=== PATIENT | female | born 1965 | race Caucasian/White ===

== ENCOUNTER → 2018-05-22 | Outpatient (CLI) | payer MEDICAID, OTHER ==
[~2018-05-22] MED LIST: ALBU0.5N2 NEB; ASPI-231 PO; ATOR20TA50 PO; CARV6.25 PO; ENAL2.5T PO; FURO20TA PO; GLIP-115 PO; LEVO137T3 PO; METF-371 PO; OME20T PO; POTA20TA53 PO
== END | disposition home or self-care (01) ==
LOC: RT 09:59
PROVIDERS: ATTEND Internal Medicine Cardiovascular Disease
DX: J44.9 Chronic obstructive pulmonary disease, unspecified (principal); I11.0 Hypertensive heart disease with heart failure; I50.9 Heart failure, unspecified; E11.9 Type 2 diabetes mellitus without complications; E03.9 Hypothyroidism, unspecified; Z79.82 Long term (current) use of aspirin; Z88.8 Allergy status to other drugs, medicaments and biological substances
CPT/HCPCS: 36600; 82805

== ENCOUNTER → 2018-05-27 | Outpatient (CLI) | payer MEDICAID, OTHER | END | disposition home or self-care (01) | LOC: XYW 08:24 | PROVIDERS: ATTEND Internal Medicine Cardiovascular Disease | DX: Z01.810 Encounter for preprocedural cardiovascular examination (principal); R00.2 Palpitations; I11.0 Hypertensive heart disease with heart failure; I50.9 Heart failure, unspecified; J44.9 Chronic obstructive pulmonary disease, unspecified; E11.9 Type 2 diabetes mellitus without complications | CPT/HCPCS: 93306 ==

== ENCOUNTER 2023-03-05 14:36 | Emergency (ER) | payer OTHER ==
[~2023-03-05] VITALS: Ht 154.9 cm; Wt 82.0 kg
[~2023-03-05 14:36] MED LIST changes: -ASPI-231 PO; +ASPI1TAB20 PO; +ENAL1TAB42 PO; -ENAL2.5T PO; +FURO1TAB33 PO; -FURO20TA PO; -GLIP-115 PO; +GLIP5TAB12 PO; +POTA-220 PO; -POTA20TA53 PO
[2023-03-05 15:04] LABS: Basophils # (auto) 0 10 ^3/uL (0-0.2); Basophils % (auto) 0.5 % (0.0-2.0); Eosinophils # (auto) 0.1 10 ^3/uL (0-0.8); Eosinophils % (auto) 1.2 % (0.0-7.0); Hematocrit 41.7 % (36.0-46.0); Hemoglobin 13.9 g/dL (12.2-16.2); Lymphocytes # (auto) 1.8 10 ^3/uL (0.4-5.4); Lymphocytes % (auto) 21.1 % (10.0-50.0); Mean Corpuscular Hgb Conc. 33.4 g/dL (32.0-36.0); Monocytes # (auto) 0.5 10 ^3/uL (0-1.3); Monocytes % (auto) 5.5 % (0.0-12.0); Neutrophils # (auto) 6.1 10 ^3/uL (1.6-8.6); Neutrophils % (auto) 71.7 % (37.0-80.0); Nucleated Red Blood Cells % 0.1 %; Red Blood Cells 4.79 10^6/uL (4.0-5.20); Red Cell Distribution Width 14.8 % (11.8-14.3); White Blood Cell 8.6 10^3/uL (4.4-10.8)
[2023-03-05 15:22] LABS: Albumin 3.4 g/dL (3.4-5.0); Calcium 9.7 mg/dL (8.5-10.1); Potassium 4.1 mmol/L (3.5-5.1)
[2023-03-05 15:25] LABS: BUN/Creatinine Ratio 22.2 (10.0-20.0); Bilirubin, Total 0.3 mg/dL (0.2-1.0); Total Protein 7.3 g/dL (6.4-8.2)
[2023-03-05 16:07] LABS: INR 0.95 (0.9-1.15); Partial Thromboplastin Time 27.1 sec (24.6-33.4)
[2023-03-05] MEDS ORDERED: IPRATROPIUM BROM 0.5 MG/2.5ML INH SOL NEB ONE (18:00)
[2023-03-05] MEDS ORDERED: FUROSEMIDE 100 MG/10ML VIAL IV ONE (18:00)
[2023-03-05] MEDS ORDERED: ALBUTEROL SULF 2.5 MG/0.5ML(0.5%) NEB SOLN NEB ONE (18:00)
[2023-03-05] MEDS ORDERED: DexAMETHasone SOD PHOS 10MG/1ML VIAL INJ IV ONE (18:00)
[2023-03-05 19:01] LABS: Urine Bacteria FEW /hpf (None Seen); Urine Blood 1+ /uL (Negative); Urine Mucus FEW (None Seen); Urine Specific Gravity 1.017 (1.001-1.035); Urine WBC 172 /hpf (0 - 5)
[2023-03-05] MEDS ORDERED: cefTRIAXone 1GM/50ML D5W 50 ML IV ONE (20:15)
[2023-03-05 21:51] VITALS: BP 133/83
[2023-03-05] MEDS ORDERED: CEPH500C PO (21:53)
== END 2023-03-05 21:51 | disposition left against medical advice (07) ==
LOC: ER 14:36
DX: N39.0 Urinary tract infection, site not specified (principal); R06.00 Dyspnea, unspecified; R09.02 Hypoxemia; J45.909 Unspecified asthma, uncomplicated; E11.9 Type 2 diabetes mellitus without complications; E78.5 Hyperlipidemia, unspecified; I11.0 Hypertensive heart disease with heart failure; I50.89 Other heart failure; Z90.710 Acquired absence of both cervix and uterus; Z90.49 Acquired absence of other specified parts of digestive tract; Z98.890 Other specified postprocedural states; Z90.89 Acquired absence of other organs; Z91.148 Patient's other noncompliance with medication regimen for other reason
CPT/HCPCS: 36415; 36600; 71045; 80053; 81001; 82805; 82962; 83880; 84484; 85025; 85379; 85610; 85730; 93005; 94640; 96365; 96375; 99285; J0696; J1100; J1940; J7644

== ENCOUNTER 2024-02-23 05:05 | Inpatient (IN) | payer MEDICAID ==
[2024-02-23] VITALS (14 sets, daily range): BP systolic 133–134; BP diastolic 72–78; PULSE 76–103; RESP 16–22; TEMP 97.5–97.7; O2SAT 92–100
[~2024-02-23] VITALS: Ht 154.9 cm; Wt 79.0 kg
[~2024-02-23 05:05] MED LIST changes: -CARV6.25 PO; +CARV6.2517 PO; +CEPH500C PO; -GLIP5TAB12 PO; +GLIP5TAB21 PO
[2024-02-23 05:43] LABS: Basophils # (auto) 0 10 ^3/uL (0-0.2); Basophils % (auto) 0.5 % (0.0-2.0); Eosinophils # (auto) 0.2 10 ^3/uL (0-0.8); Eosinophils % (auto) 2.4 % (0.0-7.0); Hematocrit 44.4 % (36.0-46.0); Hemoglobin 14.7 g/dL (12.2-16.2); Lymphocytes % (auto) 36.2 % (10.0-50.0); Mean Corpuscular Hemoglobin 29.6 pg (28.0-32.0); Mean Corpuscular Hgb Conc. 33.2 g/dL (32.0-36.0); Mean Corpuscular Volume 89.1 fL (80.0-100.0); Monocytes # (auto) 0.5 10 ^3/uL (0-1.3); Monocytes % (auto) 6.3 % (0.0-12.0); Neutrophils # (auto) 4.6 10 ^3/uL (1.6-8.6); Neutrophils % (auto) 54.6 % (37.0-80.0); Red Blood Cells 4.99 10^6/uL (4.0-5.20); Red Cell Distribution Width 15.6 % (11.8-14.3); White Blood Cell 8.4 10^3/uL (4.4-10.8)
[2024-02-23 05:57] LABS: INR 0.99 (0.9-1.15); Partial Thromboplastin Time 27.2 SEC (24.5-34.5); Prothrombin Time 10.5 sec (9.3-11.8)
[2024-02-23 06:04] LABS: Alanine Aminotransferase 12 U/L (7-40); Albumin 4.1 g/dL (3.2-4.8); Alkaline Phosphatase 126 U/L (46-116); Anion Gap 2 (5-15); Aspartate Aminotransferase 12 U/L (13-40); BUN/Creatinine Ratio 16.5 (10.0-20.0); Blood Urea Nitrogen 16 mg/dL (9-23); Calcium 10.6 mg/dL (8.7-10.4); Carbon Dioxide 31 mmol/L (20-30); Chloride 107 mmol/L (98-107); Glucose 168 mg/dL (74-106); Magnesium 2.1 mg/dL (1.6-2.6); Potassium 3.6 mmol/L (3.5-5.1); Sodium 140 mmol/L (136-145)
[2024-02-23 06:05] LABS: Bilirubin, Total 0.4 mg/dL (0.2-1.0); Total Protein 7.5 g/dL (5.7-8.2)
[2024-02-23] MEDS: ALBUTEROL SULF 2.5 MG/0.5ML(0.5%) NEB SOLN HHN ONE (06:48)
[2024-02-23] MEDS: IPRATROPIUM BROM 0.5 MG/2.5ML INH SOL HHN ONE (06:48)
[2024-02-23] MEDS: methylPREDNISolone SOD SUCC 125 MG/2 ML VL IV ONE (06:50)
[2024-02-23] MEDS ORDERED: MORPHINE SULFATE INJ 2 MG/ml SYRG IV PRN (09:45)
[2024-02-23] MEDS ORDERED: NITROGLYCERIN 0.4 MG SL TAB SL PRN (09:45)
[2024-02-23] MEDS: BUDESONIDE (INHALATION) 0.5 MG/2 ML NEB NEB SCH (10:00)
[2024-02-23] MEDS: ALBUTEROL SULF 2.5 MG/0.5ML(0.5%) NEB SOLN NEB SCH (10:00)
[2024-02-23] MEDS: IPRATROPIUM BROM 0.5 MG/2.5ML INH SOL NEB SCH (10:00)
[2024-02-23] MEDS: FAMOTIDINE 20 MG TAB PO SCH (10:54)
[2024-02-23] MEDS: ENOXAPARIN SOD 40 MG/0.4 ML SYRINGE SC SCH (10:54)
[2024-02-23] MEDS: methylPREDNISolone SOD SUCC 40 MG/ML VL IV SCH (11:36)
[2024-02-23] MEDS ORDERED: SEMA2INJ3 SC (17:37)
[2024-02-24] VITALS (19 sets, daily range): BP systolic 123–152; BP diastolic 73–86; PULSE 72–105; RESP 16–20; TEMP 97.5–98.9; O2SAT 94–100
[2024-02-24] MEDS: cefTRIAXone 1GM/50ML D5W 50 ML IV SCH (09:03)
[2024-02-24] MEDS: NICOTINE 14 MG/24HR TOPICAL PATCH TD SCH (09:03)
[2024-02-24] MEDS ORDERED: METF-929 PO (12:00)
[2024-02-24] MEDS ORDERED: HYDR-3682 PO (12:01)
[2024-02-25] VITALS (30 sets, daily range): BP systolic 60–166; BP diastolic 43–105; PULSE 77–137; RESP 16–27; TEMP 97.4–100; O2SAT 90–100
[2024-02-25] LABS: Amphetamine Screen, Urine Pos (NEGATIVE); Barbiturate Scree,Urine Neg (NEGATIVE); Benzodiazephine Screen, Urine Neg (NEGATIVE); Cocaine Screen, Urine Neg (NEGATIVE); Opiate Scree,Urine Neg (NEGATIVE)
[2024-02-25 00:01] LABS: Cannabinoid Screen, Urine Neg (NEGATIVE); Phencyclidine Screen, Urine Neg (NEGATIVE)
[2024-02-25 00:07] LABS: Urine Bacteria MANY /hpf (None Seen); Urine Blood 1+ /uL (Negative); Urine Clarity Turbid (Clear); Urine Color Light-Yellow (Yellow); Urine Mucus FEW (None Seen); Urine Protein, UAD TRACE (Negative); Urine Specific Gravity 1.021 (1.001-1.035); Urine Sperm PRESENT /hpf (None Seen); Urine Urobilinogen Normal (Negative); Urine WBC 166 /hpf (0 - 5); Urine pH 6.5 (5.0-9.0)
[2024-02-25] MEDS: HYDROcodone-ACET 5/325MG TAB PO PRN (14:08)
[2024-02-25] MEDS: MORPHINE SULFATE INJ 2 MG/ml SYRG IV PRN (16:23)
[2024-02-25] MEDS: PHENAZOPYRIDINE HCL 100 MG TAB PO SCH (17:30)
[2024-02-25] MEDS: FUROSEMIDE 20 MG/2 ML VIAL IV SCH (17:32)
[2024-02-25] MEDS: SODIUM CHLORIDE 0.9% 500 ML IV ONE (19:07)
[2024-02-25] MEDS: LORazepam 2MG/ML-1ML VIAL IV ONE (19:07)
[2024-02-25] MEDS: NOREPINEPHRINE 8 MG/250ML KIT 250 ML IV SCH (20:30)
[2024-02-25 21:27] LABS: Hematocrit 36.3 % (36.0-46.0); Hemoglobin 11.5 g/dL (12.2-16.2); Mean Corpuscular Hemoglobin 29.1 pg (28.0-32.0); Mean Corpuscular Hgb Conc. 31.7 g/dL (32.0-36.0); Mean Corpuscular Volume 91.5 fL (80.0-100.0); Red Blood Cells 3.97 10^6/uL (4.0-5.20); Red Cell Distribution Width 16.2 % (11.8-14.3)
[2024-02-25 21:32] LABS: Chloride 105 mmol/L (98-107); Potassium 4.8 mmol/L (3.5-5.1); Sodium 137 mmol/L (136-145)
[2024-02-25 21:33] LABS: Anion Gap 8 (5-15); Carbon Dioxide 24 mmol/L (20-30)
[2024-02-25] MEDS: ONDANSETRON HCL 4 MG/2 ML VIAL IV PRN (21:34)
[2024-02-25 21:38] LABS: Blood Urea Nitrogen 25 mg/dL (9-23)
[2024-02-25 21:41] LABS: Basophils % (manual) 0 (0.0-2.0); Blast Cells 0; Eosinophils % (manual) 0 (0-7); Metamyelocytes % 0; Myelocytes % 0; Promyelocytes % 0; Reactive Lymphocytes 0
[2024-02-25 21:47] LABS: Glucose 507 mg/dL (74-106)
[2024-02-25] MEDS: POTASSIUM CHL 20 Meq TABLET PO SCH (22:00)
[2024-02-25 22:09] LABS: Band Neutrophils % (manual) 5; Lymphocytes % (manual) 12 (10.0-50.0); Monocytes % (manual) 10 (0-12)
[2024-02-25 22:10] LABS: Platelet Estimate Increased
[2024-02-25] MEDS ORDERED: DEXTROSE (50%) 50ML SYRG IV PRN (22:15)
[2024-02-25] MEDS ORDERED: cefTRIAXone 1GM/50ML D5W 50 ML IV ONE (22:15)
[2024-02-25] MEDS: ACCU-CHEK COMFORT CURVE STRIP VI SCH (22:59)
[2024-02-25] MEDS: InsuLIN REG 1unit/0.01ml Soln (100units/ml) SC SCH (22:59)
[2024-02-25 23:44] LABS: Lactic Acid w/Reflex 5.5 mmol/L (0.4-2.0)
[2024-02-26] VITALS (59 sets, daily range): BP systolic 99–169; BP diastolic 64–92; PULSE 88–137; RESP 14–25; TEMP 97.3–99.5; O2SAT 90–100
[2024-02-26] MEDS ORDERED: VANCOMYCIN PER PHARMACY 0 MG IV SCH (00:30)
[2024-02-26] MEDS: PANTOPRAZOLE 40 MG/10 ML VIAL INJ IV ONE (00:58)
[2024-02-26] MEDS: SODIUM CHLORIDE 0.9% 500 ML IV ONE (01:01)
[2024-02-26] MEDS: VANCOMYCIN 1GM/200ML 200 ML IV ONE (01:31)
[2024-02-26 03:53] LABS: Basophils # (auto) 0 10 ^3/uL (0-0.2); Basophils % (auto) 0.1 % (0.0-2.0); Eosinophils # (auto) 0 10 ^3/uL (0-0.8); Hematocrit 32.1 % (36.0-46.0); Hemoglobin 10.1 g/dL (12.2-16.2); Lymphocytes # (auto) 1.3 10 ^3/uL (0.4-5.4); Lymphocytes % (auto) 6.2 % (10.0-50.0); Mean Corpuscular Hemoglobin 28.3 pg (28.0-32.0); Mean Corpuscular Hgb Conc. 31.4 g/dL (32.0-36.0); Mean Corpuscular Volume 90.1 fL (80.0-100.0); Monocytes # (auto) 1.7 10 ^3/uL (0-1.3); Monocytes % (auto) 7.9 % (0.0-12.0); Neutrophils # (auto) 18.1 10 ^3/uL (1.6-8.6); Neutrophils % (auto) 85.8 % (37.0-80.0); Red Blood Cells 3.56 10^6/uL (4.0-5.20); Red Cell Distribution Width 16.4 % (11.8-14.3); White Blood Cell 21.1 10^3/uL (4.4-10.8)
[2024-02-26 04:01] LABS: Alanine Aminotransferase 48 U/L (7-40); Alkaline Phosphatase 78 U/L (46-116); Anion Gap 5 (5-15); Aspartate Aminotransferase 42 U/L (13-40); BUN/Creatinine Ratio 18.3 (10.0-20.0); Blood Urea Nitrogen 31 mg/dL (9-23); Calcium 10.1 mg/dL (8.7-10.4); Carbon Dioxide 27 mmol/L (20-30); Chloride 106 mmol/L (98-107); Glucose 274 mg/dL (74-106); Potassium 4.9 mmol/L (3.5-5.1); Sodium 138 mmol/L (136-145)
[2024-02-26 04:02] LABS: Bilirubin, Total 0.3 mg/dL (0.2-1.0); Total Protein 5.3 g/dL (5.7-8.2)
[2024-02-26 04:30] LABS: Albumin 3.1 g/dL (3.2-4.8)
[2024-02-26] MEDS: IOHEXOL 350 MG/ML 100ML IJ ONE (05:43)
[2024-02-26 06:22] LABS: INR 1.05 (0.9-1.15); Prothrombin Time 11.1 sec (9.3-11.8)
[2024-02-26 06:38] LABS: Lactic Acid w/Reflex 3.8 mmol/L (0.4-2.0)
[2024-02-26 07:41] LABS: Base Excess 1.2 mmol/L (-2.0-2.0)
[2024-02-26] MEDS: PANTOPRAZOLE 40 MG/10 ML VIAL INJ IV SCH (09:06)
[2024-02-26] MEDS: cefTRIAXone 1GM/50ML D5W 50 ML IV SCH (09:06)
[2024-02-26 12:35] LABS: Lactic Acid w/Reflex 2.7 mmol/L (0.4-2.0)
[2024-02-26] MEDS: PIPERACILLIN-TAZOB 3.375GM 100 ML IV SCH (15:35)
[2024-02-26] MEDS: FAMOTIDINE 20 MG TAB PO SCH (15:35)
[2024-02-26] MEDS: hydrALAZINE HCL 20 MG/ML VL ONE (15:44)
[2024-02-26] MEDS ORDERED: hydrALAZINE HCL 20 MG/ML VL IV PRN (15:45)
[2024-02-26] MEDS: hydrALAZINE HCL 20 MG/ML VL IV PRN (15:54)
[2024-02-26] MEDS: guaiFENesin-DM 100/10mg/5ml SYR PO PRN (16:10)
[2024-02-26] MEDS: guaiFENesin-DM 100/10mg/5ml SYR ONE (16:21)
[2024-02-26 19:05] LABS: Lactic Acid w/Reflex 3.8 mmol/L (0.4-2.0)
[2024-02-26] MEDS: VANCOMYCIN 500 MG in D5W 5% 100 ML IV ONE (22:03)
[2024-02-26] MEDS: MUPIROCIN 2% OINT 15gm or 22gm FOR MRSA NARES EACHNOSTRI SCH (22:07)
[2024-02-27] VITALS (30 sets, daily range): BP systolic 116–159; BP diastolic 63–97; PULSE 95–120; RESP 11–23; TEMP 98.2–99.1; O2SAT 83–100
[2024-02-27 04:24] LABS: Basophils # (auto) 0 10 ^3/uL (0-0.2); Basophils % (auto) 0.1 % (0.0-2.0); Eosinophils # (auto) 0 10 ^3/uL (0-0.8); Hematocrit 27.4 % (36.0-46.0); Hemoglobin 8.9 g/dL (12.2-16.2); Lymphocytes # (auto) 1.5 10 ^3/uL (0.4-5.4); Lymphocytes % (auto) 8.2 % (10.0-50.0); Mean Corpuscular Hemoglobin 29.1 pg (28.0-32.0); Mean Corpuscular Hgb Conc. 32.6 g/dL (32.0-36.0); Mean Corpuscular Volume 89.2 fL (80.0-100.0); Monocytes # (auto) 1.1 10 ^3/uL (0-1.3); Monocytes % (auto) 5.9 % (0.0-12.0); Neutrophils # (auto) 15.3 10 ^3/uL (1.6-8.6); Neutrophils % (auto) 85.8 % (37.0-80.0); Nucleated Red Blood Cells % 0.1 %; Red Blood Cells 3.08 10^6/uL (4.0-5.20); Red Cell Distribution Width 15.9 % (11.8-14.3); White Blood Cell 17.8 10^3/uL (4.4-10.8)
[2024-02-27 04:43] LABS: Alanine Aminotransferase 131 U/L (7-40); Albumin 3.6 g/dL (3.2-4.8); Alkaline Phosphatase 87 U/L (46-116); Anion Gap 5 (5-15); Aspartate Aminotransferase 86 U/L (13-40); BUN/Creatinine Ratio 24.5 (10.0-20.0); Bilirubin, Total 0.4 mg/dL (0.2-1.0); Blood Urea Nitrogen 40 mg/dL (9-23); Calcium 10.8 mg/dL (8.7-10.4); Carbon Dioxide 28 mmol/L (20-30); Chloride 103 mmol/L (98-107); Glucose 207 mg/dL (74-106); Potassium 4.7 mmol/L (3.5-5.1); Sodium 136 mmol/L (136-145); Total Protein 6.1 g/dL (5.7-8.2)
[2024-02-27] MEDS: PANTOPRAZOLE 40 MG TAB PO SCH (06:07)
[2024-02-27] MEDS: FUROSEMIDE 20 MG/2 ML VIAL IV SCH (07:53)
[2024-02-27] MEDS ORDERED: cefTRIAXone 1GM/50ML D5W 50 ML IV SCH (09:00)
[2024-02-27 09:55] LABS: Base Excess 2.6 mmol/L (-2.0-2.0)
[2024-02-27] MEDS ORDERED: POTASSIUM CHL 20 Meq TABLET PO SCH (10:00)
[2024-02-27] MEDS: VANCOMYCIN 1GM/200ML 200 ML IV SCH (22:20)
[2024-02-28] VITALS (28 sets, daily range): BP systolic 123–150; BP diastolic 51–95; PULSE 77–116; RESP 15–26; TEMP 98.4–98.9; O2SAT 79–100
[2024-02-28 04:10] LABS: Basophils # (auto) 0 10 ^3/uL (0-0.2); Basophils % (auto) 0.1 % (0.0-2.0); Eosinophils # (auto) 0 10 ^3/uL (0-0.8); Hematocrit 24.3 % (36.0-46.0); Monocytes # (auto) 0.9 10 ^3/uL (0-1.3); Red Blood Cells 2.74 10^6/uL (4.0-5.20)
[2024-02-28 04:13] LABS: Lymphocytes # (auto) 1.2 10 ^3/uL (0.4-5.4); Lymphocytes % (auto) 9.1 % (10.0-50.0); Mean Corpuscular Hemoglobin 29.2 pg (28.0-32.0); Mean Corpuscular Hgb Conc. 32.9 g/dL (32.0-36.0); Mean Corpuscular Volume 88.7 fL (80.0-100.0); Monocytes % (auto) 6.9 % (0.0-12.0); Neutrophils # (auto) 11.2 10 ^3/uL (1.6-8.6); Neutrophils % (auto) 83.9 % (37.0-80.0); Nucleated Red Blood Cells % 0.1 %; Red Cell Distribution Width 15.5 % (11.8-14.3); White Blood Cell 13.4 10^3/uL (4.4-10.8)
[2024-02-28 04:41] LABS: Alanine Aminotransferase 102 U/L (7-40); Albumin 3.7 g/dL (3.2-4.8); Alkaline Phosphatase 81 U/L (46-116); Anion Gap 3 (5-15); Aspartate Aminotransferase 42 U/L (13-40); Bilirubin, Total 0.4 mg/dL (0.2-1.0); Blood Urea Nitrogen 31 mg/dL (9-23); Calcium 10.4 mg/dL (8.5-10.1); Carbon Dioxide 32 mmol/L (20-30); Chloride 104 mmol/L (98-107); Glucose 157 mg/dL (74-106); Potassium 3.5 mmol/L (3.5-5.1); Sodium 139 mmol/L (136-145); Total Protein 6.1 g/dL (5.7-8.2)
[2024-02-28] MEDS: PANTOPRAZOLE 40 MG/10 ML VIAL INJ IV SCH (06:20)
[2024-02-28] MEDS ORDERED: GASTROGRAFIN 120 ML SOL ONE (07:21)
[2024-02-29] VITALS (20 sets, daily range): BP systolic 112–132; BP diastolic 43–66; PULSE 64–94; RESP 0–20; TEMP 97.8–98.7; O2SAT 94–100
[2024-02-29 06:15] LABS: Hemoglobin 7.6 g/dL (12.2-16.2); Red Cell Distribution Width 15.6 % (11.8-14.3); White Blood Cell 8.8 10^3/uL (4.4-10.8)
[2024-02-29 06:18] LABS: Hematocrit 22.9 % (36.0-46.0); Mean Corpuscular Hemoglobin 29.6 pg (28.0-32.0); Mean Corpuscular Volume 89.7 fL (80.0-100.0); Red Blood Cells 2.55 10^6/uL (4.0-5.20)
[2024-02-29 06:25] LABS: Band Neutrophils % (manual) 0; Basophils % (manual) 0 (0.0-2.0); Blast Cells 0; Eosinophils % (manual) 0 (0-7); Metamyelocytes % 0; Myelocytes % 0; Promyelocytes % 0; Reactive Lymphocytes 0
[2024-02-29 06:41] LABS: Alanine Aminotransferase 68 U/L (7-40); Albumin 3.6 g/dL (3.2-4.8); Alkaline Phosphatase 72 U/L (46-116); Anion Gap 2 (5-15); Aspartate Aminotransferase 22 U/L (13-40); BUN/Creatinine Ratio 25.3 (10.0-20.0); Bilirubin, Total 0.7 mg/dL (0.2-1.0); Blood Urea Nitrogen 25 mg/dL (9-23); Calcium 10.2 mg/dL (8.7-10.4); Carbon Dioxide 35 mmol/L (20-30); Chloride 103 mmol/L (98-107); Glucose 199 mg/dL (74-106); Potassium 3.3 mmol/L (3.5-5.1); Sodium 140 mmol/L (136-145); Total Protein 5.9 g/dL (5.7-8.2)
[2024-02-29 07:52] LABS: Lymphocytes % (manual) 9 (10.0-50.0); Monocytes % (manual) 4 (0-12); Platelet Estimate Adequate; Smudge Cells 1 /100 WBC
[2024-03-01] VITALS (21 sets, daily range): BP systolic 101–132; BP diastolic 55–70; PULSE 66–109; RESP 16–22; TEMP 97.6–98.2; O2SAT 91–100
[2024-03-01] MEDS: VANCOMYCIN 1GM/200ML 200 ML IV SCH (18:06)
[2024-03-02] VITALS (11 sets, daily range): BP systolic 112–148; BP diastolic 55–86; PULSE 57–88; RESP 16–20; TEMP 97.7–97.8; O2SAT 91–100
[2024-03-02 05:54] LABS: Alanine Aminotransferase 40 U/L (7-40); Albumin 3.6 g/dL (3.2-4.8); Alkaline Phosphatase 76 U/L (46-116); Anion Gap 4 (5-15); Aspartate Aminotransferase 16 U/L (13-40); BUN/Creatinine Ratio 23.4 (10.0-20.0); Bilirubin, Total 0.9 mg/dL (0.2-1.0); Blood Urea Nitrogen 18 mg/dL (9-23); Calcium 10.5 mg/dL (8.7-10.4); Carbon Dioxide 31 mmol/L (20-30); Chloride 104 mmol/L (98-107); Glucose 173 mg/dL (74-106); Potassium 3.4 mmol/L (3.5-5.1); Sodium 139 mmol/L (136-145)
[2024-03-02] MEDS: PIPERACILLIN-TAZOB 3.375GM 100 ML IV SCH (10:06)
== END 2024-03-02 15:15 | disposition left against medical advice (07) | DRG 720 ==
LOC: EDBD 05:05 → EDUNIT# 05:05 → ER 05:05 → OVERFLOW 09:48 → WEST WING 17:17 → ICU WEST 02-25 20:59 → TELE-WESTW 02-28 23:39 → TELE-CENTR 03-01 23:47
PROVIDERS: ADMIT Hospitalist; ATTEND Hospitalist
DX: A41.59 Other Gram-negative sepsis (principal); N17.0 Acute kidney failure with tubular necrosis; J96.01 Acute respiratory failure with hypoxia; J96.02 Acute respiratory failure with hypercapnia; E87.20 Acidosis, unspecified; I11.0 Hypertensive heart disease with heart failure; I50.9 Heart failure, unspecified; Z53.29 Procedure and treatment not carried out because of patient's decision for other reasons; J44.1 Chronic obstructive pulmonary disease with (acute) exacerbation; E03.9 Hypothyroidism, unspecified; E11.9 Type 2 diabetes mellitus without complications; E78.5 Hyperlipidemia, unspecified; N39.0 Urinary tract infection, site not specified; F17.210 Nicotine dependence, cigarettes, uncomplicated; Z16.12 Extended spectrum beta lactamase (ESBL) resistance; Z79.82 Long term (current) use of aspirin; Z79.84 Long term (current) use of oral hypoglycemic drugs; Z82.49 Family history of ischemic heart disease and other diseases of the circulatory system; Z71.6 Tobacco abuse counseling; Z85.43 Personal history of malignant neoplasm of ovary; Z90.49 Acquired absence of other specified parts of digestive tract; Z79.899 Other long term (current) drug therapy
CPT/HCPCS: 36415; 36600; 70450; 71045; 71260; 74018; 74177; 74250; 76705; 80048; 80053; 80202; 80307; 81001; 82140; 82805; 82962; 83605; 83735; 83880; 84484; 85007; 85025; 85027; 85379; 85610; 85730; 87040; 87081; 87086; 87088; 87186; 93005; 93306; 94640; 99291; C9113; G0378; J1815; J2405; J2543; J7060

== ENCOUNTER 2024-06-09 08:56 | Inpatient (IN) | payer MEDICAID ==
[~2024-06-09] VITALS: Ht 154.9 cm; Wt 88.2 kg
[~2024-06-09 08:56] MED LIST changes: -CEPH500C PO; +HYDR-3682 PO; -METF-371 PO; +METF-929 PO; +SEMA2INJ3 SC
[2024-06-09] MEDS: ACETAMINOPHEN 500 MG TAB PO ONE ×2 (09:07→09:17)
[2024-06-09] MEDS: SODIUM CHLORIDE 0.9% 1,000 ML IV ONE ×2 (09:22→13:34)
[2024-06-09 09:41] LABS: Basophils # (auto) 0 10 ^3/uL (0-0.2); Basophils % (auto) 0.3 % (0.0-2.0); Eosinophils # (auto) 0.1 10 ^3/uL (0-0.8); Eosinophils % (auto) 0.4 % (0.0-7.0); Hematocrit 45.9 % (36.0-46.0); Hemoglobin 15.5 g/dL (12.2-16.2); Lymphocytes % (auto) 7.3 % (10.0-50.0); Mean Corpuscular Hemoglobin 30.5 pg (28.0-32.0); Mean Corpuscular Hgb Conc. 33.6 g/dL (32.0-36.0); Mean Corpuscular Volume 90.7 fL (80.0-100.0); Monocytes # (auto) 0.7 10 ^3/uL (0-1.3); Monocytes % (auto) 5.3 % (0.0-12.0); Neutrophils # (auto) 11.9 10 ^3/uL (1.6-8.6); Neutrophils % (auto) 86.7 % (37.0-80.0); Platelet Count (auto) 420 10^3/uL (140-450); Red Blood Cells 5.07 10^6/uL (4.0-5.20); Red Cell Distribution Width 15.1 % (11.8-14.3); White Blood Cell 13.7 10^3/uL (4.4-10.8)
[2024-06-09 10:06] LABS: INR 1.02 (0.9-1.15); Partial Thromboplastin Time 28.2 SEC (24.5-34.5)
[2024-06-09 10:13] LABS: Alanine Aminotransferase 34 U/L (7-40); Albumin 4.6 g/dL (3.2-4.8); Alkaline Phosphatase 186 U/L (46-116); Anion Gap 3 (5-15); Aspartate Aminotransferase 26 U/L (13-40); BUN/Creatinine Ratio 10.3 (10.0-20.0); Bilirubin, Total 0.4 mg/dL (0.2-1.0); Blood Urea Nitrogen 11 mg/dL (9-23); Calcium 10.7 mg/dL (8.7-10.4); Carbon Dioxide 30 mmol/L (20-30); Chloride 106 mmol/L (98-107); Glucose 174 mg/dL (74-106); Potassium 4.1 mmol/L (3.5-5.1); Sodium 139 mmol/L (136-145); Total Protein 8.2 g/dL (5.7-8.2)
[2024-06-09] MEDS: cefTRIAXone 1GM/50ML D5W 50 ML IV ONE (10:25)
[2024-06-09] MEDS: IPRATROPIUM BROM 0.5 MG/2.5ML INH SOL NEB ONE (11:00)
[2024-06-09] MEDS: ALBUTEROL SULF 2.5 MG/0.5ML(0.5%) NEB SOLN NEB ONE (11:00)
[2024-06-09] MEDS: AZITHROMYCIN 500MG/ 250ML 250 ML IV ONE (12:50)
[2024-06-09 13:19] LABS: Urine Bacteria FEW /hpf (None Seen); Urine Blood 2+ /uL (Negative); Urine Clarity Turbid (Clear); Urine Color Colorless (Yellow); Urine Mucus FEW (None Seen); Urine Protein, UAD 1+ (Negative); Urine Specific Gravity 1.015 (1.001-1.035); Urine Urobilinogen Normal (Negative); Urine WBC 447 /hpf (0 - 5); Urine WBC Clumps PRESENT /hpf (None Seen)
[2024-06-09 15:09] LABS: COVID19 ANTIGEN SOFIA FIA NEGATIVE (NEGATIVE); Rapid Influenza A Negative (Negative); Rapid Influenza B Negative (Negative)
[2024-06-09 15:18] LABS: Rapid Strep A Screen-Throat Positive
[2024-06-09 16:43] VITALS: PULSE 119; RESP 20; TEMP 100.4; O2SAT 97
[2024-06-09] MEDS ORDERED: SODIUM CHLORIDE 0.9% 1,000 ML IV SCH (16:45)
[2024-06-09] MEDS ORDERED: ALBUTEROL SULF 2.5 MG/0.5ML(0.5%) NEB SOLN NEB PRN (16:45)
[2024-06-09] MEDS ORDERED: hydrALAZINE HCL 20 MG/ML VL IV PRN ×2 (16:45→23:30)
[2024-06-09] MEDS ORDERED: MORPHINE SULFATE INJ 2 MG/ml SYRG IV PRN ×2 (16:45→23:45)
[2024-06-09] MEDS ORDERED: NITROGLYCERIN 0.4 MG SL TAB SL PRN ×2 (16:45→17:00)
[2024-06-09] MEDS ORDERED: DEXTROSE (50%) 50ML SYRG IV PRN ×2 (16:45→23:30)
[2024-06-09] MEDS ORDERED: ONDANSETRON HCL 4 MG/2 ML VIAL IV PRN ×2 (16:45→23:45)
[2024-06-09] MEDS ORDERED: InsuLIN REG 1unit/0.01ml Soln (100units/ml) SC SCH (17:00)
[2024-06-09] MEDS ORDERED: ACCU-CHEK COMFORT CURVE STRIP VI SCH (17:00)
[2024-06-09] MEDS: ALBUTEROL SULF 2.5 MG/0.5ML(0.5%) NEB SOLN NEB SCH (18:15)
[2024-06-09] MEDS: FUROSEMIDE 40 MG/4 ML VIAL IV ONE (19:51)
[2024-06-09] MEDS: methylPREDNISolone SOD SUCC 125 MG/2 ML VL IV ONE (19:51)
[2024-06-09] MEDS ORDERED: FUROSEMIDE 20 MG TAB PO SCH (22:00)
[2024-06-09] MEDS ORDERED: ATORVASTATIN 20 MG TAB PO SCH (22:00)
[2024-06-09] MEDS ORDERED: ENALAPRIL MALEATE 2.5 MG TAB PO SCH (22:00)
[2024-06-09] MEDS ORDERED: CARVEDILOL 3.125 MG TAB PO SCH ×2 (22:00→22:30)
[2024-06-09] MEDS ORDERED: PIPERACILLIN-TAZOB 3.375GM 100 ML IV SCH ×2 (22:00→23:45)
[2024-06-09 22:29] VITALS: O2SAT 96
[2024-06-09] MEDS: ENALAPRIL MALEATE 2.5 MG TAB PO SCH (23:35)
[2024-06-09] MEDS: ONDANSETRON HCL 4 MG/2 ML VIAL IV ONE (23:35)
[2024-06-09] MEDS: MORPHINE SULFATE INJ 2 MG/ml SYRG IV ONE (23:36)
[2024-06-09] MEDS: CARVEDILOL 3.125 MG TAB PO SCH (23:38)
[2024-06-09] MEDS: ACETAMINOPHEN 325 MG TAB PO PRN (23:38)
[2024-06-09] MEDS: ATORVASTATIN 20 MG TAB PO SCH (23:38)
[2024-06-09] MEDS: ACCU-CHEK COMFORT CURVE STRIP VI SCH (23:39)
[2024-06-09] MEDS: InsuLIN REG 1unit/0.01ml Soln (100units/ml) SC SCH (23:54)
[2024-06-09] MEDS: PIPERACILLIN-TAZOB 3.375GM 100 ML IV SCH (23:59)
[2024-06-10] VITALS (9 sets, daily range): BP systolic 117; BP diastolic 68; PULSE 61–89; RESP 13–20; TEMP 97.9; O2SAT 95–99
[2024-06-10 05:16] LABS: Basophils # (auto) 0 10 ^3/uL (0-0.2); Basophils % (auto) 0.1 % (0.0-2.0); Eosinophils # (auto) 0 10 ^3/uL (0-0.8); Hematocrit 44.3 % (36.0-46.0); Hemoglobin 14.8 g/dL (12.2-16.2); Lymphocytes # (auto) 0.9 10 ^3/uL (0.4-5.4); Lymphocytes % (auto) 7.7 % (10.0-50.0); Mean Corpuscular Hemoglobin 30.2 pg (28.0-32.0); Mean Corpuscular Hgb Conc. 33.4 g/dL (32.0-36.0); Mean Corpuscular Volume 90.5 fL (80.0-100.0); Monocytes # (auto) 0.1 10 ^3/uL (0-1.3); Monocytes % (auto) 0.9 % (0.0-12.0); Neutrophils # (auto) 10.3 10 ^3/uL (1.6-8.6); Neutrophils % (auto) 91.3 % (37.0-80.0); Nucleated Red Blood Cells % 0.1 %; Platelet Count (auto) 378 10^3/uL (140-450); Red Cell Distribution Width 15.2 % (11.8-14.3); White Blood Cell 11.3 10^3/uL (4.4-10.8)
[2024-06-10 05:27] LABS: Chloride 104 mmol/L (98-107); Potassium 3.7 mmol/L (3.5-5.1); Sodium 138 mmol/L (136-145)
[2024-06-10 05:28] LABS: Anion Gap 4 (5-15); Carbon Dioxide 30 mmol/L (20-30)
[2024-06-10 05:29] LABS: Calcium 10.1 mg/dL (8.7-10.4)
[2024-06-10 05:33] LABS: Glucose 254 mg/dL (74-106)
[2024-06-10 05:34] LABS: BUN/Creatinine Ratio 13.5 (10.0-20.0); Blood Urea Nitrogen 14 mg/dL (9-23)
[2024-06-10] MEDS ORDERED: IPRATROPIUM BROM 0.5 MG/2.5ML INH SOL NEB SCH (06:00)
[2024-06-10] MEDS ORDERED: LEVOTHYROXINE SODIUM 25 MCG TAB PO SCH (07:00)
[2024-06-10] MEDS ORDERED: LEVOTHYROXINE SODIUM 112 MCG TAB PO SCH (07:00)
[2024-06-10] MEDS: ALBUTEROL SULF 2.5 MG/0.5ML(0.5%) NEB SOLN NEB SCH ×2 (07:43→17:58)
[2024-06-10] MEDS: IPRATROPIUM BROM 0.5 MG/2.5ML INH SOL NEB SCH (07:44)
[2024-06-10] MEDS: LEVOTHYROXINE SODIUM 25 MCG TAB PO SCH (07:45)
[2024-06-10] MEDS: LEVOTHYROXINE SODIUM 112 MCG TAB PO SCH (07:46)
[2024-06-10] MEDS ORDERED: POTASSIUM CHL 20 Meq TABLET PO SCH (10:00)
[2024-06-10] MEDS ORDERED: ASPirin-EC 81 mg tab PO SCH (10:00)
[2024-06-10] MEDS ORDERED: FAMOTIDINE 20 MG TAB PO SCH (10:00)
[2024-06-10] MEDS ORDERED: PATIENTS OWN MEDICATION (Levothyroxine Sodium 1 TAB) PO SCH (10:00)
[2024-06-10] MEDS ORDERED: ENOXAPARIN SOD 40 MG/0.4 ML SYRINGE SC SCH (10:00)
[2024-06-10] MEDS: FUROSEMIDE 20 MG TAB PO SCH (10:00)
[2024-06-10] MEDS: FAMOTIDINE 20 MG TAB PO SCH (10:25)
[2024-06-10] MEDS: POTASSIUM CHL 20 Meq TABLET PO SCH (10:26)
[2024-06-10] MEDS: ASPirin-EC 81 mg tab PO SCH (10:27)
[2024-06-10] MEDS: ENOXAPARIN SOD 40 MG/0.4 ML SYRINGE SC SCH (10:28)
[2024-06-10] MEDS: CARVEDILOL 3.125 MG TAB PO SCH (21:01)
[2024-06-10] MEDS ORDERED: ATORVASTATIN 20 MG TAB PO SCH (22:30)
[2024-06-11] VITALS (14 sets, daily range): BP systolic 106–137; BP diastolic 57–82; PULSE 62–77; RESP 16–19; TEMP 97.4–98.2; O2SAT 95–100
[2024-06-11 06:34] LABS: Basophils # (auto) 0 10 ^3/uL (0-0.2); Basophils % (auto) 0.2 % (0.0-2.0); Eosinophils # (auto) 0 10 ^3/uL (0-0.8); Eosinophils % (auto) 0.1 % (0.0-7.0); Hematocrit 42.3 % (36.0-46.0); Hemoglobin 14.1 g/dL (12.2-16.2); Lymphocytes % (auto) 16.7 % (10.0-50.0); Mean Corpuscular Hgb Conc. 33.4 g/dL (32.0-36.0); Mean Corpuscular Volume 89.9 fL (80.0-100.0); Monocytes # (auto) 0.9 10 ^3/uL (0-1.3); Monocytes % (auto) 7.1 % (0.0-12.0); Neutrophils # (auto) 9.3 10 ^3/uL (1.6-8.6); Neutrophils % (auto) 75.9 % (37.0-80.0); Nucleated Red Blood Cells % 0.1 %; Platelet Count (auto) 391 10^3/uL (140-450); Red Cell Distribution Width 15.1 % (11.8-14.3); White Blood Cell 12.2 10^3/uL (4.4-10.8)
[2024-06-11 06:35] LABS: Chloride 105 mmol/L (98-107); Potassium 4.3 mmol/L (3.5-5.1); Sodium 141 mmol/L (136-145)
[2024-06-11 06:36] LABS: Anion Gap 3 (5-15); Carbon Dioxide 33 mmol/L (20-30)
[2024-06-11 06:37] LABS: Calcium 10.8 mg/dL (8.7-10.4)
[2024-06-11 06:41] LABS: Glucose 133 mg/dL (74-106)
[2024-06-11 06:42] LABS: BUN/Creatinine Ratio 23.1 (10.0-20.0); Magnesium 2.2 mg/dL (1.6-2.6)
[2024-06-11 06:48] LABS: Blood Urea Nitrogen 25 mg/dL (9-23)
[2024-06-12 05:00] VITALS: BP 142/75; PULSE 61; RESP 16; TEMP 97.9; O2SAT 97
[2024-06-12 05:59] LABS: Basophils # (auto) 0 10 ^3/uL (0-0.2); Basophils % (auto) 0.4 % (0.0-2.0); Eosinophils # (auto) 0.1 10 ^3/uL (0-0.8); Eosinophils % (auto) 1.4 % (0.0-7.0); Hematocrit 42.4 % (36.0-46.0); Hemoglobin 14.5 g/dL (12.2-16.2); Lymphocytes # (auto) 2.4 10 ^3/uL (0.4-5.4); Lymphocytes % (auto) 29.7 % (10.0-50.0); Mean Corpuscular Hemoglobin 30.9 pg (28.0-32.0); Mean Corpuscular Hgb Conc. 34.3 g/dL (32.0-36.0); Mean Corpuscular Volume 90.2 fL (80.0-100.0); Monocytes # (auto) 0.7 10 ^3/uL (0-1.3); Monocytes % (auto) 8.7 % (0.0-12.0); Neutrophils # (auto) 4.9 10 ^3/uL (1.6-8.6); Neutrophils % (auto) 59.8 % (37.0-80.0); Platelet Count (auto) 362 10^3/uL (140-450); Red Cell Distribution Width 15.1 % (11.8-14.3); White Blood Cell 8.2 10^3/uL (4.4-10.8)
[2024-06-12 06:29] VITALS: PULSE 69; RESP 16; O2SAT 93
[2024-06-12 06:31] VITALS: O2SAT 93
[2024-06-12 06:37] VITALS: PULSE 68; RESP 14; O2SAT 100
[2024-06-12 06:39] LABS: Anion Gap 3 (5-15); Carbon Dioxide 35 mmol/L (20-30); Chloride 102 mmol/L (98-107); Potassium 3.9 mmol/L (3.5-5.1); Sodium 140 mmol/L (136-145)
[2024-06-12 06:40] LABS: Calcium 10.4 mg/dL (8.7-10.4)
[2024-06-12 06:44] LABS: Glucose 153 mg/dL (74-106)
[2024-06-12 06:45] LABS: Blood Urea Nitrogen 24 mg/dL (9-23)
[2024-06-12 09:34] VITALS: BP 125/65; PULSE 69; RESP 17; TEMP 98.4; O2SAT 97
[2024-06-12] MEDS ORDERED: AMOX500T86 PO (13:18)
== END 2024-06-12 11:33 | disposition left against medical advice (07) | DRG 140 ==
LOC: EDBD 08:56 → ER 08:56 → TELE 16:37 → TELE-EAST 16:37 → ER 16:37 → TELE-EAST 06-10 23:00
PROVIDERS: ADMIT Hospitalist; ATTEND Hospitalist
DX: J44.1 Chronic obstructive pulmonary disease with (acute) exacerbation (principal); J96.00 Acute respiratory failure, unspecified whether with hypoxia or hypercapnia; I50.9 Heart failure, unspecified; I11.0 Hypertensive heart disease with heart failure; J44.0 Chronic obstructive pulmonary disease with (acute) lower respiratory infection; Z53.29 Procedure and treatment not carried out because of patient's decision for other reasons; E11.65 Type 2 diabetes mellitus with hyperglycemia; E66.9 Obesity, unspecified; E78.5 Hyperlipidemia, unspecified; N39.0 Urinary tract infection, site not specified; Z85.43 Personal history of malignant neoplasm of ovary; Z90.49 Acquired absence of other specified parts of digestive tract; Z79.4 Long term (current) use of insulin; Z68.36 Body mass index [BMI] 36.0-36.9, adult; Z91.199 Patient's noncompliance with other medical treatment and regimen due to unspecified reason
CPT/HCPCS: 36415; 36600; 71045; 80048; 80053; 81001; 82805; 82962; 83605; 83735; 83880; 84484; 85025; 85379; 85610; 85730; 87040; 87081; 87086; 87088; 87186; 87426; 87804; 87880; 93005; 94640; 97110; 97116; 97163; 97530; G0378; J1815; J2405; J2543

== ENCOUNTER 2024-10-06 22:48 | Inpatient (IN) | payer MEDICAID ==
[~2024-10-06] VITALS: Ht 152.4 cm; Wt 83.7 kg
[~2024-10-06 22:48] MED LIST changes: +AMOX500T86 PO; -ASPI1TAB20 PO; -ENAL1TAB42 PO; -HYDR-3682 PO; +METOCLOPRAMIDE HCL 5MG/ml INJ 2ml VIAL IV ONE; -OME20T PO
[2024-10-07] VITALS (12 sets, daily range): BP systolic 93–117; BP diastolic 38–76; PULSE 89–108; RESP 16–20; TEMP 97.6–98.2; O2SAT 94–100
[2024-10-07 00:17] LABS: Basophils # (auto) 0.1 10 ^3/uL (0-0.2); Basophils % (auto) 0.4 % (0.0-2.0); Eosinophils # (auto) 0.2 10 ^3/uL (0-0.8); Eosinophils % (auto) 2.2 % (0.0-7.0); Hematocrit 41.2 % (36.0-46.0); Hemoglobin 13.4 g/dL (12.2-16.2); Lymphocytes # (auto) 2.9 10 ^3/uL (0.4-5.4); Mean Corpuscular Hemoglobin 29.7 pg (28.0-32.0); Mean Corpuscular Hgb Conc. 32.5 g/dL (32.0-36.0); Mean Corpuscular Volume 91.5 fL (80.0-100.0); Monocytes % (auto) 9.2 % (0.0-12.0); Neutrophils % (auto) 62.2 % (37.0-80.0); Platelet Count (auto) 358 10^3/uL (140-450); Red Cell Distribution Width 15.2 % (11.8-14.3); White Blood Cell 11.3 10^3/uL (4.4-10.8)
[2024-10-07 00:29] LABS: Alanine Aminotransferase 17 U/L (7-40); Anion Gap 8 (5-15); BUN/Creatinine Ratio 14.8 (10.0-20.0); Bilirubin, Total 0.3 mg/dL (0.2-1.0); Blood Urea Nitrogen 12 mg/dL (9-23); Calcium 10.3 mg/dL (8.7-10.4); Carbon Dioxide 28 mmol/L (20-31); Chloride 102 mmol/L (98-107); Potassium 3.7 mmol/L (3.5-5.1); Sodium 138 mmol/L (136-145); Total Protein 7.1 g/dL (5.7-8.2)
--- NOTE | 2024-10-07 00:37 | ED.PDOC ---
History of Present Illness HPI Comments States he 1-year-old female complaining of right-sided flank pain. Patient states her nephrostomy tube has a dislodged. States it happened approximate one week ago. Over the last few days the pain has been getting slightly worse. No fevers no chills. States she tried to go down to [place] to have it looked at but left because he was a [address] Rodriguez. Chief Complaint: Tube Replacement Time Seen by MD: 23:33 Primary Care Provider: NAIN Reviewed Notes: Nurses Notes Allergies: Coded Allergies: Nitroglycerin (Verified Allergy, Unknown, 02/17/10) Home Meds Active Scripts Amoxicillin & Pot Clavulanate (Augmentin) 500 Mg Tab, 1 TAB PO BID, #14 TAB Prov:VJ ELIZALDE MD 06/12/24 Reported Medications Metformin HCl (Metformin Hydrochloride) 1,000 Mg Tab, 1 TAB PO DAILY 02/24/24 Semaglutide (Ozempic) 2 Mg/3 Ml Inj, 0.5 MG SC QWEEKLY 02/23/24 Glipizide (Glipizide) 5 Mg Tab, 5 MG PO DAILY for 30 Days, MG 07/14/16 Atorvastatin Calcium (ATORVASTATIN CALCIUM) 20 Mg Tab, 1 TAB PO HS, #30 TAB 5 Refills 07/14/16 Furosemide (Lasix) 20 Mg Tb, 1 TAB PO BID, #90 TAB 1 Refill 07/14/16 Levothyroxine Sodium (Levothyroxine Sodium) 137 Mcg Tab, 1 TAB PO DAILY, #30 TAB 5 Refills 07/14/16 Carvedilol (Coreg) 6.25 Mg Tab, 1 TAB PO BID, #180 TAB 1 Refill 07/14/16 Potassium Chloride (Klor-Con M20) 20 Meq Tab, 20 MEQ PO DAILY 02/17/10 Albuterol Sulfate (Albuterol Sulfate) 0.5 % Neb, 0.5 ML NEB PRN 02/15/10 Information Source: Patient Mode of Arrival: Wheelchair Past Medical History PAST MEDICAL HISTORY: Asthma, CHF, COPD, DM, High Lipids, HTN, Thyroid Surgical History: BTL, Cholecystectomy, 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: Ovarian Cancer Family History Family History: No family hx of Cancer, No family hx of HTN Social History Smoker: Quit Less Than 1 Year, Less Than 1 Pack/Day, Greater Than 1 Pack/Day Alcohol: Denies ETOH Use Drugs: Denies Drug Use Lives In: Home Constitutional: denies: chills, diaphoresis, fatigue, fever, malaise, sweats, weakness, others EENTM: denies: blurred vision, double vision, ear bleeding, ear discharge, ear drainage, ear pain, ear ringing, eye pain, eye redness, hearing loss, mouth pain, mouth swelling, nasal discharge, nose bleeding, nose congestion, nose pain, photophobia, tearing, throat pain, throat swelling, voice changes, others Respiratory: denies: cough, hemoptysis, orthopnea, SOB at rest, shortness of breath, SOB with excertion, stridor, wheezing, others Cardiovascular: denies: chest pain, dizzy spells, diaphoresis, Dyspnea on exertion, edema, irregular heart beat, left arm pain, lightheadedness, palpitations, PND, syncope, others Gastrointestinal: denies: abdomen distended, abdominal pain, blood streaked bowels, constipated, diarrhea, dysphagia, difficulty swallowing, hematemesis, melena, nausea, poor appetite, poor fluid intake, rectal bleeding, rectal pain, vomiting, others Genitourinary: denies: abnormal vagina bleeding, burning, dyspareunia, dysuria, flank pain, frequency, hematuria, incontinence, pain, , vagina discharge, urgency, others Neurological: denies: dizziness, fainting, headache, left sided numbness, left sided weakness, numbness, paresthesia, pre-existing deficit, right sided numbness, right sided weakness, seizure, speech problems, tingling, tremors, weakness, others Musculoskeletal: denies: back pain, gout, joint pain, joint swelling, muscle pain, muscle stiffness, neck pain, others Integumetry: denies: bruises, change in color, change in hair/nails, dryness, laceration, lesions, lumps, rash, wounds, others Allergic/Immunocompromised: denies: Difficulty Healing, Frequent Infections, H mina, Itching, others Physical Exam General Appearance: No Apparent Distress, Normal HEENT: Normal ENT Inspection, Pharynx Normal, TMs Normal Neck: Full Range of Motion, Non-Tender, Normal, Normal Inspection Respiratory: Chest Non-Tender, Lungs Clear, No Accessory Muscle Use, No Resp iratory Distress, Normal Breath Sounds Cardiovascular: No Edema, No JVD, No Murmur, No Gallop, Normal Peripheral Pulses, Regular Rate/Rhythm Breast Exam: Deferred Gastrointestinal: No Organomegaly, Non Tender, No Pulsatile Mass, Normal Bowel Sounds, Soft Genitalia: Deferred Pelvic: Deferred Rectal: Deferred Extremities: No calf tenderness, Normal capillary refill, Normal inspection, Normal range of motion, Non-tender, No pedal edema Musculoskeletal : Apperance: Normal Neurologic: Alert, author II-XII nml as Tested, No Motor Deficits, Normal Affect, Normal Mood, No Sensory Deficits Cerebellar Function: Normal Reflexes: Normal Skin: Dry, Normal Color, Warm, Other (Nephrostomy tube noted on the right flank. Surrounding tissues mildly erythemic. It does not appear that sutures are still in place holding the nephrostomy tube in place.) Lymphatic: No Adenopathy Was a procedure done? Was a procedure done?: No Differential Dx Considerations may include: Nephrostomy tube malfunction. X-Ray, Labs, Meds, VS Vital Signs Date Time Temp Pulse Resp B/P (MAP) Pulse Ox O2 Delivery O2 Flow Rate FiO2 10/06/24 23:00 98.0 93 18 123/66 (85) 92 Lab Test 10/06/24 23:54 Range/Units White Blood Count 11.3 H 4.4-10.8 10^3/uL Red Blood Count 4.50 4.0-5.20 10^6/uL Hemoglobin 13.4 12.2-16.2 g/dL Hematocrit 41.2 36.0-46.0 % Mean Corpuscular Volume 91.5 80.0-100.0 fL Mean Corpuscular Hemoglobin 29.7 28.0-32.0 pg Mean Corpuscular Hemoglobin Concent 32.5 32.0-36.0 g/dL Red Cell Distribution Width 15.2 H 11.8-14.3 % Platelet Count 358 140-450 10^3/uL Mean Platelet Volume 7.1 6.9-10.8 fL Neutrophils (%) (Auto) 62.2 37.0-80.0 % Lymphocytes (%) (Auto) 26.0 10.0-50.0 % Monocytes (%) (Auto) 9.2 0.0-12.0 % Eosinophils (%) (Auto) 2.2 0.0-7.0 % Basophils (%) (Auto) 0.4 0.0-2.0 % Neutrophils # (Auto) 7.0 1.6-8.6 10 ^3/uL Lymphocytes # (Auto) 2.9 0.4-5.4 10 ^3/uL Monocytes # (Auto) 1.0 0-1.3 10 ^3/uL Eosinophils # (Auto) 0.2 0-0.8 10 ^3/uL Basophils # (Auto) 0.1 0-0.2 10 ^3/uL Nucleated Red Blood Cells 0.0 % Sodium Level Pending Potassium Level Pending Chloride Level Pending Carbon Dioxide Level Pending Anion Gap Pending Blood Urea Nitrogen Pending Creatinine Pending Glomerular Filtration Rate Calc Pending BUN/Creatinine Ratio Pending Serum Glucose Pending Calcium Level Pending Total Bilirubin Pending Aspartate Amino Transferase (AST) Pending Alanine Aminotransferase (ALT) Pending Alkaline Phosphatase Pending Total Protein Pending Albumin Pending X-Ray, Labs, Meds, VS Comment Patient will be admitted for nephrostomy tube complications. Recommend urology consult in the morning Time of 1ST Reevaluation: 00:37 Reevaluation 1ST: Unchanged Patient Education/Counseling: Diagnosis, Treatment Family Education/Counseling: Diagnosis Departure 1 Departure Time of Disposition: 00:33 Impression: Primary Impression: Nephrostomy tube displaced Disposition: 09 ADMITTED INPATIENT Condition: Fair Discharged With: Self Critical Care Note Critical Care Time?: No Stability Stability form required: No Heart Score Heart Score: Heart Score Response (Comments) Value History N/A 0 EKG N/A 0 Age N/A 0 Risk Factors N/A 0 Troponin N/A 0 Total 0 JESSICA JUNE Oct 07, 2024 00:37
[2024-10-07 00:56] LABS: Alkaline Phosphatase 122 U/L (46-116); Aspartate Aminotransferase 12 U/L (13-40); Glucose 191 mg/dL (74-106)
--- NOTE | 2024-10-07 01:25 | DVH ---
Exam: CT CT AB PEL WO CON-NO ORAL OR IV History: h/o kidney stone, nephrostomy tube came out Comparison Study: None available at time of dictation. Technique: Multidetector spiral CT of the abdomen was performed from lung bases to pubic symphysis. Imaging was performed without IV contrast. Axial, coronal and sagittal multiplanar reformats were ob tained from the axial data set by the technologist. Radiation Dose : 1. Abdomen/Pelvis: CTDIvol 22 mGy, DLP 1235 mGy*cm. Findings: Evaluation of solid organs is limited due to lack of intravenous contrast use. Lung Bases: No acute or significant lung base finding. Normal heart size. No pleural or pericardial effusion. Liver: The liver is normal in size. No focal lesions. Gallbladder and Biliary Tree: Unremarkable Spleen: Unremarkable Pancreas: The pancreas is grossly normal in appearance. Adrenal Glands: Unremarkable Kidneys: Right kidney demonstrates multiple staghorn calculi measuring up to 1.8 cm. Foci of air seen in the major calyx of the right kidney. Dislodged percutaneous nephrostomy tube located along the pe riphery of the right kidney. 3 cm hypodense lesion arising from the right kidney superior pole. Mild right perinephric fat stranding. Bladder: Grossly unremarkable for degree of distention. Bowel: The stomach is grossly normal in appearance. Small bowel and colon are normal in caliber and d istribution. Sigmoid colon diverticulosis . Normal appendix is visualized in the right lower quadran t without findings of appendicitis. Ascites: Absent Lymphadenopathy: No mesenteric, retroperitoneal or periportal lymphadenopathy. Abdominal Wall and Mesentery: Unremarkable. Vasculature: The visualized abdominal aorta is normal in size and caliber. Evaluation of abdominal a nd pelvic vessels is limited due to lack of intravenous contrast. Pelvic Organs: The uterus is surgically absent. Musculoskeletal: No aggressive focal bony lesions, acute fractures or dislocation. IMPRESSION: Right kidney demonstrates multiple staghorn calculi measuring up to 1.8 cm. Foci of air seen in the m ajor calyx of the right kidney, which may be from instrumentation versus superimposed infection. Disl odged percutaneous nephrostomy tube located along the periphery of the right kidney. 3 cm hypodense l esion arising from the right kidney superior pole. Mild right perinephric fat stranding. END IMPRESSION:
--- NOTE | 2024-10-07 02:24 | PRN ---
KERLINE GIORDANO [facility] Oct 07, 2024 02:24
[2024-10-07] MEDS: cefTRIAXone 1GM/50ML D5W 50 ML IV ONE (02:40)
[2024-10-07] MEDS ORDERED: ONDANSETRON HCL 4 MG/2 ML VIAL IV PRN (07:15)
[2024-10-07] MEDS ORDERED: ACETAMINOPHEN 325 MG TAB PO PRN (07:15)
[2024-10-07] MEDS ORDERED: MORPHINE SULFATE INJ 2 MG/ml SYRG IV PRN (07:15)
--- NOTE | 2024-10-07 07:19 | DVHHP2 ---
Admitting Diagnosis: Right nephrostomy tube dislodged History of Present Illness History Source: Patient Exam Limitations: No limitations HPI Mrs. Jazzy Zuniga is a 59 yo female with a history of asthma, CHF, COPD, DM, HLD, hypertension who presents with a chief complaint of right nephrostomy tube dislodgment x 1 week ago. Patient reports daughter tried to flush right nephrostomy tube that was placed x 3 weeks ago at [facility] , but was unable to flush. Patient reports she went to [facility] however left due to a nine hour waiting time. Patient denies any dysuria, hematuria, fevers, chills, nausea, vomiting. Patient CT abdomen and pelvis wo contrast resulted: Right kidney demonstrates multiple staghorn calculi measuring up to 1.8 cm. Foci of air seen in the major calyx of the right kidney, which may be from instrumentation versus superimposed infection. Dislodged percutaneous nephrostomy tube located along the periphery of the right kidney. 3 cm hypodense lesion arising from the right kidney superior pole. Mild right perinephric fat stranding. Patient admitted for further evaluation and treatment. Home Meds Active Scripts Amoxicillin & Pot Clavulanate (Augmentin) 500 Mg Tab, 1 TAB PO BID, #14 TAB Prov:VJ ELIZALDE MD 06/12/24 Reported Medications Metformin HCl (Metformin Hydrochloride) 1,000 Mg Tab, 1 TAB PO DAILY 02/24/24 Semaglutide (Ozempic) 2 Mg/3 Ml Inj, 0.5 MG SC QWEEKLY 02/23/24 Glipizide (Glipizide) 5 Mg Tab, 5 MG PO DAILY for 30 Days, MG 07/14/16 Atorvastatin Calcium (ATORVASTATIN CALCIUM) 20 Mg Tab, 1 TAB PO HS, #30 TAB 5 Refills 07/14/16 Furosemide (Lasix) 20 Mg Tb, 1 TAB PO BID, #90 TAB 1 Refill 07/14/16 Levothyroxine Sodium (Levothyroxine Sodium) 137 Mcg Tab, 1 TAB PO DAILY, #30 TAB 5 Refills 07/14/16 Carvedilol (Coreg) 6.25 Mg Tab, 1 TAB PO BID, #180 TAB 1 Refill 07/14/16 Potassium Chloride (Klor-Con M20) 20 Meq Tab, 20 MEQ PO DAILY 02/17/10 Albuterol Sulfate (Albuterol Sulfate) 0.5 % Neb, 0.5 ML NEB PRN 02/15/10 Past Medical History Cardiac: CHF, HTN, Hyperlipidemia Pulmonary: Asthma, COPD Central Nervous System: No pertinent Hx GI: No pertinent Hx Hemotology/Oncology: No pertinent Hx Hepatobiliary: No pertinent Hx Psychiatric: No pertinent Hx Musculoskeletal: No pertinent Hx Rheumotologic: No pertinent Hx Infectious Disease: No peritnent Hx ENT: No pertinent Hx Renal/: No pertinent Hx Endocrine: NIDDM Dermatology: No pertinent Hx Patient Family History: Patient reports no known family medical history. Smoker: No Hx (Negative) Alocohol: None Drugs: None Lives with: With family Domestic Violence: Neg Review of Systems Comments right nephrostomy tube dislodged Constitutional: No symptom reported Ears, Nose, & Throat: No symptom reported Eyes: No symptom reported Pulmonary/Respiratory: No symptom reported Cardiovascular: No symptom reported Gastrointestinal: No symptom reported Genitourinary: No symptom reported Musculoskeletal: No symptom reported Skin: No symptom reported Psychiatric: No symptom reported Endocrine: No symptom reported Hemotologic/Lymphatic: No symptom reported H&P Exam Vital Signs Vital Signs Date Time Temp Pulse Resp B/P (MAP) Pulse Ox O2 Delivery O2 Flow Rate FiO2 10/07/24 03:00 20 94 Nasal Cannula* 2 28 10/07/24 02:44 98.1 91 118/71 (87) 98.1 General Appeara: Well developed, Well nourished, Normal Appearance Head Exam: Normal inspection Neck Exam: Normal inspection, Non-tender, Normal alignment Eye Exam: bilateral eye Normal inspection, bilateral eye PERRL, bilateral eye EOMI Ear Exam: bilateral ear Auricle normal Nasal Exam: Normal inspection Mouth: Normal Inspection Pulmonary/Respiratory: Normal inspection, Normal breath sounds, Chest non- tender, Lungs clear Cardiovascular/Chest: Normal inspection, Regular rate, Normal Rhythm Peripheral Pulses: 2+ dorsalis pedis (R), 2+ dorsalis pedis (L), 2+ Radial (R), 2+ Radial (L) Abdominal Exam: Normal bowel sounds, Soft, No tenderness Rectal Exam: Deferred Back Exam: Right CVA tenderness Tendon/ Neuro: 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: Normal hearing, Normal speech, PERRL Motor/Sensory: Normal sensory function, Normal motor function Neuro/Mental St: Alert, Oriented Appearance: Appropriate appearance, Appropriate insight Eye contact/ Speech: Cooperative, Good eye contact, Normal speech Thoughts/Psych: Normal thought pattern Skin Exam: Normal inspection, Normal color, Warm/dry Labs/Xrays Labs Test 10/06/24 23:54 Range/Units White Blood Count 11.3 H 4.4-10.8 10^3/uL Red Blood Count 4.50 4.0-5.20 10^6/uL Hemoglobin 13.4 12.2-16.2 g/dL Hematocrit 41.2 36.0-46.0 % Mean Corpuscular Volume 91.5 80.0-100.0 fL Mean Corpuscular Hemoglobin 29.7 28.0-32.0 pg Mean Corpuscular Hemoglobin Concent 32.5 32.0-36.0 g/dL Red Cell Distribution Width 15.2 H 11.8-14.3 % Platelet Count 358 140-450 10^3/uL Mean Platelet Volume 7.1 6.9-10.8 fL Neutrophils (%) (Auto) 62.2 37.0-80.0 % Lymphocytes (%) (Auto) 26.0 10.0-50.0 % Monocytes (%) (Auto) 9.2 0.0-12.0 % Eosinophils (%) (Auto) 2.2 0.0-7.0 % Basophils (%) (Auto) 0.4 0.0-2.0 % Neutrophils # (Auto) 7.0 1.6-8.6 10 ^3/uL Lymphocytes # (Auto) 2.9 0.4-5.4 10 ^3/uL Monocytes # (Auto) 1.0 0-1.3 10 ^3/uL Eosinophils # (Auto) 0.2 0-0.8 10 ^3/uL Basophils # (Auto) 0.1 0-0.2 10 ^3/uL Nucleated Red Blood Cells 0.0 % Sodium Level 138 136-145 mmol/L Potassium Level 3.7 3.5-5.1 mmol/L Chloride Level 102 98-107 mmol/L Carbon Dioxide Level 28 20-31 mmol/L Anion Gap 8 5-15 Blood Urea Nitrogen 12 9-23 mg/dL Creatinine 0.81 0.550-1.02 mg/dL Glomerular Filtration Rate Calc 83 >90 mL/min BUN/Creatinine Ratio 14.8 10.0-20.0 Serum Glucose 191 H 74-106 mg/dL Calcium Level 10.3 8.7-10.4 mg/dL Total Bilirubin 0.3 0.2-1.0 mg/dL Aspartate Amino Transferase (AST) 12 L 13-40 U/L Alanine Aminotransferase (ALT) 17 7-40 U/L Alkaline Phosphatase 122 H 46-116 U/L Total Protein 7.1 5.7-8.2 g/dL Albumin 4.0 3.2-4.8 g/dL Assessment/Plan Problem List: (1) Nephrostomy tube displaced Plan This is a 59 yo female with a known history of asthma, CHF, COPD, dM, hyperlipidemia, hypertension, kidney stones who presents to the hospital with right nephrostomy tube dislodgement. Patient found to have 1. dislodged right nephrostomy tube 2. DM with hyperglycemia 3. COPD with supplemental oxygen PLAN Admit Med Surgical Interventional Radiology consultation Urology consultation Broad spectrum IV antibiotic Ceftriaxone Urine culture BMP , CBC, PT, INR NPO Duo Neb Treatments as needed GI ppx Protonix DVT ppx SCD's Discussed all above with patient who verbalizes agreement and understanding of care plan. All questions were answered. Discussed assessment and care plan with supervising MD. Plan discussed with: Patient, Other Code Visit Code Visit Total Time (mins): 45 Additional Comments Additional Comments Additional Comments 59-year-old female with a known history of recurrent kidney stones status post nephrostomy tube placement was three weeks ago at [facility], insulin-dependent diabetes mellitus type 2, hypertension, dyslipidemia, hypothyroidism, asthma, COPD who initially presented to the hospital with a dislodgement of the right nephrostomy tube, 1. Malfunctioning/dislodgement right nephrostomy tube 2. Recurrent kidney stones status post right nephrostomy tube placement three weeks ago 3. Insulin-dependent diabetes mellitus type 2 4. Hypertension 5. Dyslipidemia 6. Hypothyroidism 7. Asthma/COPD -IR consult for right nephrostomy tube placement, Urology consultation, check hemoglobin A1c -Accu-Cheks AC and HS and moderate dose insulin sliding scale. -check UA, urine culture. KERLINE GIORDANO Oct 07, 2024 07:19 XAVI BARRERA MD Oct 07, 2024 11:55
[2024-10-07 08:37] LABS: Anion Gap 8 (5-15); Carbon Dioxide 28 mmol/L (20-31); Chloride 102 mmol/L (98-107); Potassium 3.9 mmol/L (3.5-5.1); Sodium 138 mmol/L (136-145)
[2024-10-07 08:38] LABS: Calcium 10.4 mg/dL (8.7-10.4)
[2024-10-07 08:43] LABS: BUN/Creatinine Ratio 17.9 (10.0-20.0); Blood Urea Nitrogen 14 mg/dL (9-23)
[2024-10-07 08:48] LABS: Basophils # (auto) 0.1 10 ^3/uL (0-0.2); Basophils % (auto) 0.6 % (0.0-2.0); Eosinophils # (auto) 0.3 10 ^3/uL (0-0.8); Hematocrit 43.7 % (36.0-46.0); Hemoglobin 14.2 g/dL (12.2-16.2); Lymphocytes # (auto) 3.1 10 ^3/uL (0.4-5.4); Lymphocytes % (auto) 27.9 % (10.0-50.0); Mean Corpuscular Hemoglobin 29.6 pg (28.0-32.0); Mean Corpuscular Hgb Conc. 32.4 g/dL (32.0-36.0); Mean Corpuscular Volume 91.5 fL (80.0-100.0); Monocytes % (auto) 9.5 % (0.0-12.0); Neutrophils # (auto) 6.5 10 ^3/uL (1.6-8.6); Nucleated Red Blood Cells % 0.1 %; Platelet Count (auto) 334 10^3/uL (140-450); Red Blood Cells 4.78 10^6/uL (4.0-5.20); Red Cell Distribution Width 15.1 % (11.8-14.3)
[2024-10-07 09:02] LABS: Glucose 220 mg/dL (74-106)
[2024-10-07 10:16] LABS: INR 1.02 (0.9-1.15); Prothrombin Time 10.8 sec (9.3-11.8)
[2024-10-07] MEDS: IPRATROPIUM BROM 0.5 MG/2.5ML INH SOL NEB SCH (11:10)
--- NOTE | 2024-10-07 11:39 | DVHINCON2 ---
Date of service: Oct 07, 2024 Referring Physician hospitalist Reason for Consultation dislodged PCN History of Present Illness History Source: Patient Exam Limitations: No limitations HPI 59 yo female with a history of asthma, CHF, COPD, DM, HLD, hypertension who presents with a chief complaint of right nephrostomy tube dislodgment x 1 week ago. Patient reports daughter tried to flush right nephrostomy tube that was placed x 3 weeks ago at [facility] , but was unable to flush. Patient reports she w ent to [facility] however left due to a nine hour waiting time. Patient denies any dysuria, hematuria, fevers, chills, nausea, vomiting. Patient CT abdomen and pelvis wo contrast resulted: Right kidney demonstrates multiple staghorn calculi measuring up to 1.8 cm. Foci of air seen in the major calyx of the right kidney, which may be from instrumentation versus superimposed infection. Dislodged percutaneous nephrostomy tube located along the periphery of the right kidney. 3 cm hypodense lesion arising from the right kidney superior pole. Mild right perinephric fat stranding. Patient admitted for further evaluation and jian tment. Home Meds Active Scripts Amoxicillin & Pot Clavulanate (Augmentin) 500 Mg Tab, 1 TAB PO BID, #14 TAB Prov:VJ ELIZALDE MD 06/12/24 Reported Medications Metformin HCl (Metformin Hydrochloride) 1,000 Mg Tab, 1 TAB PO DAILY 02/24/24 Semaglutide (Ozempic) 2 Mg/3 Ml Inj, 0.5 MG SC QWEEKLY 02/23/24 Glipizide (Glipizide) 5 Mg Tab, 5 MG PO DAILY for 30 Days, MG 07/14/16 Atorvastatin Calcium (ATORVASTATIN CALCIUM) 20 Mg Tab, 1 TAB PO HS, #30 TAB 5 Refills 07/14/16 Furosemide (Lasix) 20 Mg Tb, 1 TAB PO BID, #90 TAB 1 Refill 07/14/16 Levothyroxine Sodium (Levothyroxine Sodium) 137 Mcg Tab, 1 TAB PO DAILY, #30 TAB 5 Refills 07/14/16 Carvedilol (Coreg) 6.25 Mg Tab, 1 TAB PO BID, #180 TAB 1 Refill 07/14/16 Potassium Chloride (Klor-Con M20) 20 Meq Tab, 20 MEQ PO DAILY 02/17/10 Albuterol Sulfate (Albuterol Sulfate) 0.5 % Neb, 0.5 ML NEB PRN 02/15/10 Past Medical History Renal/: UTI, Other (kidney stones) Patient Family History: Patient reports no known family medical history. Drugs: Amphetimines Review of Systems Comments sleeping H&P Exam Vital Signs Vital Signs Date Time Temp Pulse Resp B/P (MAP) Pulse Ox O2 Delivery O2 Flow Rate FiO2 10/07/24 11:16 93 16 100 10/07/24 11:10 Nasal Cannula 2.0 10/07/24 11:10 28 10/07/24 10:27 97.6 117/67 (84) 97.6 General Appeara: Well developed, Well nourished, Obese Labs/Xrays [place] [address] Ph: [phone] DIAGNOSTIC IMAGING Diagnostic Imaging Report : [id number] Signed PATIENT: RICA WHEATLEY ACCT: [id number] UNIT: [id number] : 1965 LOC: ER ROOM / BED: / AGE / SEX: 59 / F ADM STATUS: REG ER SERVICE [id number] ORDERING PHYSICIAN: CLEMENTE CRAFT MD PROCEDURE(s): ABPL - CT AB PEL WO CON-NO ORAL OR IV REASON: h/o kidney stone, nephrostomy tube came out ORDER NUMBER(s): [id number], ACCESSION NUMBER(s): [id number] Exam: CT CT AB PEL WO CON-NO ORAL OR IV History: h/o kidney stone, nephrostomy tube came out Comparison Study: None available at time of dictation. Technique: Multidetector spiral CT of the abdomen was performed from lung bases to pubic symphysis. Imaging was performed without IV contrast. Axial, coronal and sagittal multiplanar reformats were obtained from the axial data set by the technologist. Radiation Dose : 1. Abdomen/Pelvis: CTDIvol 22 mGy, DLP 1235 mGy*cm. Findings: Evaluation of solid organs is limited due to lack of intravenous contrast use. Lung Bases: No acute or significant lung base finding. Normal heart size. No pleural or pericardial effusion. Liver: The liver is normal in size. No focal lesions. Gallbladder and Biliary Tree: Unremarkable Spleen: Unremarkable Pancreas: The pancreas is grossly normal in appearance. Adrenal Glands: Unremarkable Kidneys: Right kidney demonstrates multiple staghorn calculi measuring up to 1.8 cm. Foci of air seen in the major calyx of the right kidney. Dislodged percutaneous nephrostomy tube located along the periphery of the right kidney. 3 cm hypodense lesion arising from the right kidney superior pole. Mild right perinephric fat stranding. Bladder: Grossly unremarkable for degree of distention. Bowel: The stomach is grossly normal in appearance. Small bowel and colon are normal in caliber and distribution. Sigmoid colon diverticulosis . Normal appendix is visualized in the right lower quadrant without findings of appendicitis. Ascites: Absent Lymphadenopathy: No mesenteric, retroperitoneal or periportal lymphadenopathy. Abdominal Wall and Mesentery: Unremarkable. Vasculature: The visualized abdominal aorta is normal in size and caliber. Evaluation of abdominal and pelvic vessels is limited due to lack of intravenous contrast. Pelvic Organs: The uterus is surgically absent. Musculoskeletal: No aggressive focal bony lesions, acute fractures or dislocat ion. IMPRESSION: Right kidney demonstrates multiple staghorn calculi measuring up to 1.8 cm. Foci of air seen in the major calyx of the right kidney, which may be from instrumentation versus superimposed infection. Dislodged percutaneous nephrostomy tube located along the periphery of the right kidney. 3 cm hypodense lesion arising from the right kidney superior pole. Mild right perinephric fat stranding. END IMPRESSION: ATED BY: DIAMOND SAMAYOA DO DICTATED DATE/TIME: 10/07/24 0121 SIGNED BY: DIAMOND SAMAYOA DO Labs Test 10/07/24 09:18 10/07/24 08:48 10/07/24 07:54 10/06/24 23:54 Range/Units Prothrombin Time 10.8 9.3-11.8 sec Prothrombin Time INR 1.02 0.9-1.15 Lactic Acid Level 1.1 0.4-2.0 mmol/L White Blood Count 11.0 H 4.4-10.8 10^3/uL Red Blood Count 4.78 4.0-5.20 10^6/uL Hemoglobin 14.2 12.2-16.2 g/dL Hematocrit 43.7 36.0-46.0 % Mean Corpuscular Volume 91.5 80.0-100.0 fL Mean Corpuscular Hemoglobin 29.6 28.0-32.0 pg Mean Corpuscular Hemoglobin Concent 32.4 32.0-36.0 g/dL Red Cell Distribution Width 15.1 H 11.8-14.3 % Platelet Count 334 140-450 10^3/uL Mean Platelet Volume 7.5 6.9-10.8 fL Neutrophils (%) (Auto) 59.0 37.0-80.0 % Lymphocytes (%) (Auto) 27.9 10.0-50.0 % Monocytes (%) (Auto) 9.5 0.0-12.0 % Eosinophils (%) (Auto) 3.0 0.0-7.0 % Basophils (%) (Auto) 0.6 0.0-2.0 % Neutrophils # (Auto) 6.5 1.6-8.6 10 ^3/uL Lymphocytes # (Auto) 3.1 0.4-5.4 10 ^3/uL Monocytes # (Auto) 1.0 0-1.3 10 ^3/uL Eosinophils # (Auto) 0.3 0-0.8 10 ^3/uL Basophils # (Auto) 0.1 0-0.2 10 ^3/uL Nucleated Red Blood Cells 0.1 % Sodium Level 138 136-145 mmol/L Potassium Level 3.9 3.5-5.1 mmol/L Chloride Level 102 98-107 mmol/L Carbon Dioxide Level 28 20-31 mmol/L Anion Gap 8 5-15 Blood Urea Nitrogen 14 9-23 mg/dL Creatinine 0.78 0.550-1.02 mg/dL Glomerular Filtration Rate Calc 86 >90 mL/min BUN/Creatinine Ratio 17.9 10.0-20.0 Serum Glucose 220 H 74-106 mg/dL Calcium Level 10.4 8.7-10.4 mg/dL Total Bilirubin 0.3 0.2-1.0 mg/dL Aspartate Amino Transferase (AST) 12 L 13-40 U/L Alanine Aminotransferase (ALT) 17 7-40 U/L Alkaline Phosphatase 122 H 46-116 U/L Total Protein 7.1 5.7-8.2 g/dL Albumin 4.0 3.2-4.8 g/dL Assessment/Plan Problem List: (1) Renal stones (2) Renal calculus, right (3) Nephrostomy tube displaced Plan PCN replacement planned for tomorrow NPO after midnight definitive stone management TBA Plan discussed with: Patient, Other HARIS GORDON NP Oct 07, 2024 11:39
[2024-10-07] MEDS ORDERED: DEXTROSE (50%) 50ML SYRG IV PRN (12:00)
[2024-10-07] MEDS: PANTOPRAZOLE 40 MG/10 ML VIAL INJ IV SCH (12:12)
[2024-10-07 16:43] LABS: Urine Bacteria MANY /hpf (None Seen); Urine Blood 1+ /uL (Negative); Urine Clarity Ex.Turbid (Clear); Urine Color Yellow (Yellow); Urine Mucus MODERATE (None Seen); Urine Protein, UAD 1+ (Negative); Urine Squamous Epithelial Cell FEW /hpf (<5); Urine Urobilinogen Normal (Negative); Urine WBC 809 /hpf (0 - 5); Urine WBC Clumps PRESENT /hpf (None Seen); Urine pH 5.5 (5.0-9.0)
[2024-10-07] MEDS: ACCU-CHEK COMFORT CURVE STRIP VI SCH (18:09)
[2024-10-07] MEDS: InsuLIN REG 1unit/0.01ml Soln (100units/ml) SC SCH ×2 (18:10→21:51)
[2024-10-08] VITALS (19 sets, daily range): BP systolic 109–135; BP diastolic 56–76; PULSE 73–110; RESP 16–24; TEMP 97.6–98.4; O2SAT 92–100
--- NOTE | 2024-10-08 05:36 | DVH ---
CHEST RADIOGRAPH Indication: pre-op Technique: Single frontal view of the chest was obtained COMPARISON: XY CHEST PORTABLE on DOS: 06/09/24, XY CHEST PORTABLE on DOS: 02/29/24, XY CHEST PORTABLE on DOS: 02/27/24, XY CHEST PORTABLE on DOS: 02/27/24, XY CHEST PORTABLE on DOS: 02/23/24 FINDINGS: Lines and Tubes: None Lungs: Congestion Pleura: No effusion. No pneumothorax. Cardiomediastinal contours: Unremarkable Bones: Unremarkable IMPRESSION: Congestion, unchanged
[2024-10-08] MEDS: MIDAZOLAM HCL 2MG/2ML 2ml VIAL (1mg/ml) ONE (08:47)
[2024-10-08] MEDS: fentaNYL CITRATE 100 MCG/2 ML VL ONE (08:47)
[2024-10-08] MEDS: IODIXANOL 320MG/ML 100ML BTL IV ONE (08:48)
[2024-10-08] MEDS: LIDOCAINE 2%HCL (LOCAL ANESTH.) INJ 20ML MDV ONE (08:48)
[2024-10-08] MEDS: cefTRIAXone 1GM/50ML D5W 50 ML IV ONE (08:52)
[2024-10-08] MEDS: cefTRIAXone 1GM/50ML D5W 50 ML IV SCH (09:41)
--- NOTE | 2024-10-08 10:34 | DVH ---
US US GUIDANCE FOR NEEDLE PLACEME, HISTORY: RT NEPHRO tube placement due to kidney stones and old nephro tube was retracted . PROCEDURE: Informed consent was obtained. The patient was placed on the fluoroscopic table in a prone position and IV sedation administered. 1 gram of ceftriaxone was given IV. The right flank was prep ped with chlorhexidine which was allowed to dry and draped in the usual sterile fashion. Time out was performed. Contrast was injected through the existing nephrostomy tube, which was outside the kidney . The tube was cut and a Ky catheter and wire were used in attempt to recannalize the tract, which was closed. Next with US, the soft tissues infiltrated with 1% lidocaine local anesthetic. Utilizing ultrasound guidance, a 21 gauge Accu Stick needle was advanced from a posterolateral approach into an superior pole calyx, and a small amount of contrast was injected under fluoroscopy to confirm positi oning. Over a mandril wire, exchange was made to a non-vascular access set, through which was advance d an 0.035 wire. Following serial dilation, an 8.5 [place] multipurpose nephrostomy catheter was place d with tip pigtailed within the renal pelvis. Position was confirmed with antegrade nephrostogram. Th e catheter was secured in place and connected to gravity drainage. A sterile dressing was applied. No immediate complication was identified. DAP 924 FLUOROSCOPY TIME: 7.4 minutes. CONTRAST USED: 20 mL. SEDATION: Dr. Yasmin Sherman was personally responsible for the administration of moderate sedation during the procedure performed, including the use of an independent trained observer who had no other duties during the procedure. The drugs utilized were IV fentanyl and versed (see nursing log for details). The total time of supervision by the attending physician was approximately 45 minutes. FINDINGS: Moderately dilated right renal collecting system involving the calyces/renal pelvis. New 8.5 [place] nephrostomy tube via a posterior upper pole calyceal access, with loop coiled within the r enal pelvis. A large kidney stone is seen in the renal pelvis. IMPRESSION: Large kidney stone in the right renal pelvis. Right hydronephrosis, status post placement of 8.5 [place] right percutaneous nephrostomy catheter vi a upper pole access.
[2024-10-08] MEDS: HYDROcodone-ACET 5/325MG TAB PO PRN (13:57)
--- NOTE | 2024-10-08 14:24 | DVHPN2 ---
Subjective Overnight events noted. Patient underwent right nephrostomy tube placement by IR. Currently scheduled for cystoscopy by Urology. 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 Medications Current Medications Medications Dose Ordered Sig/Rajni Route Start Time Stop Time Status Last Admin Dose Admin Ceftriaxone Sodium 50 ml @ 100 mls/hr DAILY IV 10/08/24 10:00 Ondansetron HCl 4 mg Q6HPRN PRN IV 10/07/24 07:15 Morphine Sulfate 2 mg Q6HPRN PRN IV 10/07/24 07:15 Acetaminophen 650 mg Q6HPRN PRN PO 10/07/24 07:15 Acetaminophen/ Hydrocodone Bitart 1 tab Q6HPRN PRN PO 10/07/24 07:15 10/08/24 13:57 1 TAB Pantoprazole Sodium 40 mg DAILY IV 10/07/24 10:00 10/08/24 10:46 40 MG Ipratropium [place] 0.5 mg Q6HR NEB 10/07/24 12:00 10/08/24 11:58 0.5 MG Diagnostic Test (Pha) 1 strip ACHS 10/07/24 17:00 10/08/24 11:30 1 STRIP Insulin Human Regular HS SC 10/07/24 22:00 10/07/24 21:51 6 UNITS Insulin Human Regular AC SC 10/07/24 17:00 10/07/24 18:10 6 UNITS Dextrose 50 ml UD PRN IV 10/07/24 12:00 Laboratory Results Laboratory Tests 10/07/24 07:54 Urinalysis Test 10/06/24 15:54 Urine Color Yellow (Yellow) Urine Clarity Ex.turbid (Clear) Urine pH 5.5 (5.0-9.0) Urine Specific [place] 1.020 (1.001-1.035) Urine Protein 1+ (Negative) H Urine Ketones 1+ (Negative) H Urine Blood 1+ /uL (Negative) H Urine Nitrite 2+ (Negative) H Urine Bilirubin Negative (Negative) Urine Urobilinogen Normal mg/dL (Negative) Urine Leukocyte Esterase 3+ /uL (Negative) Urine RBC 27 /hpf (0 - 4) Urine WBC 809 /hpf (0 - 5) Urine WBC Clumps Present /hpf (None Seen) Urine Squamous Epithelial Cells Few /hpf (<5) Urine Bacteria Many /hpf (None Seen) H Urine Mucus Moderate (None Seen) Urine Glucose Normal mg/dL (Normal) Microbiology Microbiology Date/Time Source Procedure Growth Status 10/07/24 15:54 Voided Urine Urine Culture - Preliminary Resulted Assessment/Plan Assessment/Plan 59-year-old female with a known history of recurrent kidney stones status post nephrostomy tube placement was three weeks ago at [facility], insulin-dependent diabetes mellitus type 2, hypertension, dyslipidemia, hypothyroidism, asthma, COPD who initially presented to the hospital with a dislodgement of the right nephrostomy tube, 1. Malfunctioning/dislodgement right nephrostomy tube status post replacement of right nephrostomy tube by intervention Radiology on 10/08 2. Recurrent kidney stones status post right nephrostomy tube placement three weeks ago 3. Hyperglycemia in the setting of Insulin-dependent diabetes mellitus type 2 4. Hypertension 5. Dyslipidemia 6. Hypothyroidism 7. Asthma/COPD -status post right nephrostomy tube placement, Urology consultation for cystoscopy, Plan discussed with: Patient, Other My Orders Orders - XAVI BARRERA MD Procedure Category Date Status Time Npo After Midnight DIET 10/08/24 Transmitted Breakfast Date of Service: Oct 08, 2024 Billing Provider: XAVI BARRERA MD Common Visit Codes: NOT BILLABLE XAVI BARRERA MD Oct 08, 2024 14:24
[2024-10-08] MEDS: IOHEXOL 300 MG/ML 100ML BOTTLE IJ ONE (16:18)
[2024-10-08] MEDS: FUROSEMIDE 20 MG/2 ML VIAL IV SCH (18:13)
--- NOTE | 2024-10-08 18:27 | DVHPN2 ---
Progress Note - Dictate Date Seen: Oct 08, 2024 Has the PT tested + for MRSA If YES, has PT been informed?: No Medical Necessity Reason Pt with a Central, PICC or Fol: Yes Medical Necessity Reason Patient has a right staghorn calculus with a percutaneous nephrostomy tube placed by Interventional Radiology earlier today. Subjective No new complaints vital signs Vital Sign Date Time Temp Pulse Resp B/P (MAP) Pulse Ox O2 Delivery O2 Flow Rate FiO2 10/08/24 18:13 113/60 10/08/24 17:49 98.4 109 16 95 98.4 10/08/24 11:58 Nasal Cannula 1.0 10/08/24 11:58 24 Total Intake and Output 10/07/24 10/07/24 10/08/24 15:00 23:00 07:00 Intake Total 240 ml 200 ml Balance 240 ml 200 ml medications Current Medications Medications Dose Ordered Sig/Rajni Route Start Time Stop Time Status Last Admin Dose Admin Ceftriaxone Sodium 50 ml @ 100 mls/hr DAILY IV 10/08/24 10:00 Ondansetron HCl 4 mg Q6HPRN PRN IV 10/07/24 07:15 Morphine Sulfate 2 mg Q6HPRN PRN IV 10/07/24 07:15 Acetaminophen 650 mg Q6HPRN PRN PO 10/07/24 07:15 Acetaminophen/ Hydrocodone Bitart 1 tab Q6HPRN PRN PO 10/07/24 07:15 10/08/24 13:57 1 TAB Pantoprazole Sodium 40 mg DAILY IV 10/07/24 10:00 10/08/24 10:46 40 MG Ipratropium [place] 0.5 mg Q6HR NEB 10/07/24 12:00 10/08/24 11:58 0.5 MG Diagnostic Test (Pha) 1 strip ACHS 10/07/24 17:00 10/08/24 17:00 1 STRIP Insulin Human Regular HS SC 10/07/24 22:00 10/07/24 21:51 6 UNITS Insulin Human Regular AC SC 10/07/24 17:00 10/08/24 18:14 6 UNITS Dextrose 50 ml UD PRN IV 10/07/24 12:00 Furosemide 20 mg BIDD IV 10/08/24 18:00 10/08/24 18:13 20 MG laboratory and microbiology Laboratory Tests 10/07/24 07:54 Test 10/07/24 07:54 Range/Units Serum Glucose 220 H 74-106 mg/dL Assessment/Plan Surgery cancelled at recommendation of Dr. Wu, anesthesiology. Patient has severe COPD and will need ICU bed available. She also needs to be on her diuretic therapy. Will reschedule for 10/12/24. Plan discussed with: Patient, Other KARLA KLINE MD Oct 08, 2024 18:27
[2024-10-09] VITALS (18 sets, daily range): BP systolic 112–125; BP diastolic 59–77; PULSE 81–107; RESP 16–24; TEMP 97.4–98.6; O2SAT 85–100
--- NOTE | 2024-10-09 16:04 | DVHPN2 ---
Subjective Overnight events noted. Patient underwent right nephrostomy tube placement by IR. Currently scheduled for cystoscopy by Urology sometime next week Changes from previous H/P or p: No Changes Objective Vitals Vital Signs Date Time Temp Pulse Resp B/P (MAP) Pulse Ox O2 Delivery O2 Flow Rate FiO2 10/09/24 13:42 81 24 97 10/09/24 13:36 Nasal Cannula* 2 28 10/09/24 13:00 97.4 120/76 (91) 97.4 Intake/Output Intake and Output 10/09/24 07:00 Intake Total 240 ml Output Total 1 ml Balance 239 ml Intake Oral 240 ml Output Urine Total 1 ml # Voids 10 Exam HEENT pupils are reactive Neck is supple CV is S1-S2 regular rate and rhythm Respiratory diminished breath sounds bases GI positive bowel sound Extremity no edema 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 Medications Current Medications Medications Dose Ordered Sig/Rajni Route Start Time Stop Time Status Last Admin Dose Admin Ceftriaxone Sodium 50 ml @ 100 mls/hr DAILY IV 10/08/24 10:00 10/09/24 11:25 100 MLS/HR Ondansetron HCl 4 mg Q6HPRN PRN IV 10/07/24 07:15 Morphine Sulfate 2 mg Q6HPRN PRN IV 10/07/24 07:15 Acetaminophen 650 mg Q6HPRN PRN PO 10/07/24 07:15 Acetaminophen/ Hydrocodone Bitart 1 tab Q6HPRN PRN PO 10/07/24 07:15 10/08/24 13:57 1 TAB Pantoprazole Sodium 40 mg DAILY IV 10/07/24 10:00 10/09/24 11:25 40 MG Ipratropium [place] 0.5 mg Q6HR NEB 10/07/24 12:00 10/09/24 13:36 0.5 MG Diagnostic Test (Pha) 1 strip ACHS 10/07/24 17:00 10/09/24 11:32 1 STRIP Insulin Human Regular HS SC 10/07/24 22:00 10/08/24 21:29 6 UNITS Insulin Human Regular AC SC 10/07/24 17:00 10/09/24 11:25 6 UNITS Dextrose 50 ml UD PRN IV 10/07/24 12:00 Furosemide 20 mg BIDD IV 10/08/24 18:00 10/09/24 05:51 20 MG Laboratory Results Laboratory Tests 10/07/24 07:54 Urinalysis Test 10/06/24 15:54 Urine Color Yellow (Yellow) Urine Clarity Ex.turbid (Clear) Urine pH 5.5 (5.0-9.0) Urine Specific [place] 1.020 (1.001-1.035) Urine Protein 1+ (Negative) H Urine Ketones 1+ (Negative) H Urine Blood 1+ /uL (Negative) H Urine Nitrite 2+ (Negative) H Urine Bilirubin Negative (Negative) Urine Urobilinogen Normal mg/dL (Negative) Urine Leukocyte Esterase 3+ /uL (Negative) Urine RBC 27 /hpf (0 - 4) Urine WBC 809 /hpf (0 - 5) Urine WBC Clumps Present /hpf (None Seen) Urine Squamous Epithelial Cells Few /hpf (<5) Urine Bacteria Many /hpf (None Seen) H Urine Mucus Moderate (None Seen) Urine Glucose Normal mg/dL (Normal) Microbiology Microbiology Date/Time Source Procedure Growth Status 10/07/24 15:54 Voided Urine Urine Culture - Preliminary Resulted Assessment/Plan Assessment/Plan 59-year-old female with a known history of recurrent kidney stones status post nephrostomy tube placement was three weeks ago at [facility], insulin-dependent diabetes mellitus type 2, hypertension, dyslipidemia, hypothyroidism, asthma, COPD who initially presented to the hospital with a dislodgement of the right nephrostomy tube, 1. Malfunctioning/dislodgement right nephrostomy tube status post replacement of right nephrostomy tube by intervention Radiology on 10/08 2. Recurrent kidney stones status post right nephrostomy tube placement three weeks ago 3. Hyperglycemia in the setting of Insulin-dependent diabetes mellitus type 2 4. Hypertension 5. Dyslipidemia 6. Hypothyroidism 7. Asthma/COPD -status post right nephrostomy tube placement, Urology consultation for cystoscopy, Plan discussed with: Patient, Other My Orders Orders - XAVI BARRERA MD Procedure Category Date Status Time Furosemide Injection PHA 10/08/24 In Process (Lasix Injection) 18:00 XAVI BARRERA MD Oct 09, 2024 16:04
--- NOTE | 2024-10-09 16:08 | DVHPN2 ---
Subjective Overnight events noted. Patient underwent right nephrostomy tube placement by IR. Currently scheduled for cystoscopy by Urology sometime next week Reviewed: Care Plan Changes from previous H/P or p: No Changes Objective Vitals Vital Signs Date Time Temp Pulse Resp B/P (MAP) Pulse Ox O2 Delivery O2 Flow Rate FiO2 10/09/24 13:42 81 24 97 10/09/24 13:36 Nasal Cannula* 2 28 10/09/24 13:00 97.4 120/76 (91) 97.4 Intake/Output Intake and Output 10/09/24 07:00 Intake Total 240 ml Output Total 1 ml Balance 239 ml Intake Oral 240 ml Output Urine Total 1 ml # Voids 10 Exam HEENT pupils are reactive Neck is supple CV is S1-S2 regular rate and rhythm Respiratory diminished breath sounds bases GI positive bowel sound Extremity no edema 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 TEST 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 motor 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 Medications Current Medications Medications Dose Ordered Sig/Rajni Route Start Time Stop Time Status Last Admin Dose Admin Ceftriaxone Sodium 50 ml @ 100 mls/hr DAILY IV 10/08/24 10:00 10/09/24 11:25 100 MLS/HR Ondansetron HCl 4 mg Q6HPRN PRN IV 10/07/24 07:15 Morphine Sulfate 2 mg Q6HPRN PRN IV 10/07/24 07:15 Acetaminophen 650 mg Q6HPRN PRN PO 10/07/24 07:15 Acetaminophen/ Hydrocodone Bitart 1 tab Q6HPRN PRN PO 10/07/24 07:15 10/08/24 13:57 1 TAB Pantoprazole Sodium 40 mg DAILY IV 10/07/24 10:00 10/09/24 11:25 40 MG Ipratropium [place] 0.5 mg Q6HR NEB 10/07/24 12:00 10/09/24 13:36 0.5 MG Diagnostic Test (Pha) 1 strip ACHS 10/07/24 17:00 10/09/24 11:32 1 STRIP Insulin Human Regular HS SC 10/07/24 22:00 10/08/24 21:29 6 UNITS Insulin Human Regular AC SC 10/07/24 17:00 10/09/24 11:25 6 UNITS Dextrose 50 ml UD PRN IV 10/07/24 12:00 Furosemide 20 mg BIDD IV 10/08/24 18:00 10/09/24 05:51 20 MG Laboratory Results Laboratory Tests 10/07/24 07:54 Urinalysis Test 10/06/24 15:54 Urine Color Yellow (Yellow) Urine Clarity Ex.turbid (Clear) Urine pH 5.5 (5.0-9.0) Urine Specific [place] 1.020 (1.001-1.035) Urine Protein 1+ (Negative) H Urine Ketones 1+ (Negative) H Urine Blood 1+ /uL (Negative) H Urine Nitrite 2+ (Negative) H Urine Bilirubin Negative (Negative) Urine Urobilinogen Normal mg/dL (Negative) Urine Leukocyte Esterase 3+ /uL (Negative) Urine RBC 27 /hpf (0 - 4) Urine WBC 809 /hpf (0 - 5) Urine WBC Clumps Present /hpf (None Seen) Urine Squamous Epithelial Cells Few /hpf (<5) Urine Bacteria Many /hpf (None Seen) H Urine Mucus Moderate (None Seen) Urine Glucose Normal mg/dL (Normal) Microbiology Microbiology Date/Time Source Procedure Growth Status 10/07/24 15:54 Voided Urine Urine Culture - Preliminary Resulted Assessment/Plan Assessment/Plan 59-year-old female with a known history of recurrent kidney stones status post nephrostomy tube placement was three weeks ago at [facility], insulin-dependent diabetes mellitus type 2, hypertension, dyslipidemia, hypothyroidism, asthma, COPD who initially presented to the hospital with a dislodgement of the right nephrostomy tube, 1. Malfunctioning/dislodgement right nephrostomy tube status post replacement of right nephrostomy tube by intervention Radiology on 10/08 2. Recurrent kidney stones status post right nephrostomy tube placement three weeks ago 3. Hyperglycemia in the setting of Insulin-dependent diabetes mellitus type 2 4. Hypertension 5. Dyslipidemia 6. Hypothyroidism 7. Asthma/COPD -continue med nebs to 4 hour while awake, resume -status post right nephrostomy tube placement, Urology consultation for cystoscopy, Plan discussed with: Other My Orders Orders - XAVI BARRERA MD Procedure Category Date Status Time Furosemide Injection PHA 10/08/24 In Process (Lasix Injection) 18:00 Date of Service: Oct 09, 2024 Billing Provider: XAVI BARRERA MD Common Visit Codes: NOT BILLABLE XAVI BARRERA MD Oct 09, 2024 16:08
[2024-10-09] MEDS: ALBUTEROL SULF 2.5 MG/0.5ML(0.5%) NEB SOLN NEB SCH (18:29)
[2024-10-09] MEDS: IPRATROPIUM BROM 0.5 MG/2.5ML INH SOL NEB SCH (18:29)
[2024-10-10] VITALS (16 sets, daily range): BP systolic 99–126; BP diastolic 62–76; PULSE 84–103; RESP 16–20; TEMP 98–99.2; O2SAT 91–100
--- NOTE | 2024-10-10 16:10 | DVHPN2 ---
Subjective Overnight events noted. Patient underwent right nephrostomy tube placement by IR. Currently scheduled for cystoscopy by Urology sometime next week Reviewed: Care Plan Changes from previous H/P or p: No Changes Objective Vitals Vital Signs Date Time Temp Pulse Resp B/P (MAP) Pulse Ox O2 Delivery O2 Flow Rate FiO2 10/10/24 13:57 93 16 100 10/10/24 13:51 Nasal Cannula 2.0 10/10/24 13:51 28 10/10/24 13:00 98.0 109/71 (84) 98.0 Intake/Output Intake and Output 10/10/24 07:00 Intake Total 1850 ml Output Total 1000 ml Balance 850 ml Intake Oral 1800 ml IV Total 50 ml Output Urine Total 600 ml Other 400 ml # Voids 3 # Bowel Movements 2 Exam HEENT pupils are reactive Neck is supple CV is S1-S2 regular rate and rhythm Respiratory diminished breath sounds bases GI positive bowel sound Extremity no edema [employer] no motor deficit Medications Current Medications Medications Dose Ordered Sig/Rajni Route Start Time Stop Time Status Last Admin Dose Admin Ceftriaxone Sodium 50 ml @ 100 mls/hr DAILY IV 10/08/24 10:00 10/10/24 09:59 100 MLS/HR Ondansetron HCl 4 mg Q6HPRN PRN IV 10/07/24 07:15 Morphine Sulfate 2 mg Q6HPRN PRN IV 10/07/24 07:15 Acetaminophen 650 mg Q6HPRN PRN PO 10/07/24 07:15 Acetaminophen/ Hydrocodone Bitart 1 tab Q6HPRN PRN PO 10/07/24 07:15 10/09/24 20:21 1 TAB Pantoprazole Sodium 40 mg DAILY IV 10/07/24 10:00 10/10/24 09:59 40 MG Diagnostic Test (Pha) 1 strip ACHS 10/07/24 17:00 10/10/24 11:31 1 STRIP Insulin Human Regular HS SC 10/07/24 22:00 10/09/24 21:43 4 UNITS Insulin Human Regular AC SC 10/07/24 17:00 10/10/24 11:32 6 UNITS Dextrose 50 ml UD PRN IV 10/07/24 12:00 Furosemide 20 mg BIDD IV 10/08/24 18:00 10/10/24 06:07 20 MG Ipratropium [place] 0.5 mg Q4HWA NEB 10/09/24 18:00 10/10/24 13:51 0.5 MG Albuterol 2.5 mg Q4HWA NEB 10/09/24 18:00 10/10/24 13:51 2.5 MG Laboratory Results Laboratory Tests 10/07/24 07:54 Urinalysis Test 10/06/24 15:54 Urine Color Yellow (Yellow) Urine Clarity Ex.turbid (Clear) Urine pH 5.5 (5.0-9.0) Urine Specific [place] 1.020 (1.001-1.035) Urine Protein 1+ (Negative) H Urine Ketones 1+ (Negative) H Urine Blood 1+ /uL (Negative) H Urine Nitrite 2+ (Negative) H Urine Bilirubin Negative (Negative) Urine Urobilinogen Normal mg/dL (Negative) Urine Leukocyte Esterase 3+ /uL (Negative) Urine RBC 27 /hpf (0 - 4) Urine WBC 809 /hpf (0 - 5) Urine WBC Clumps Present /hpf (None Seen) Urine Squamous Epithelial Cells Few /hpf (<5) Urine Bacteria Many /hpf (None Seen) H Urine Mucus Moderate (None Seen) Urine Glucose Normal mg/dL (Normal) Microbiology Microbiology Date/Time Source Procedure Growth Status 10/07/24 15:54 Voided Urine Urine Culture - Final Complete Assessment/Plan Assessment/Plan 59-year-old female with a known history of recurrent kidney stones status post nephrostomy tube placement was three weeks ago at [facility], insulin-dependent diabetes mellitus type 2, hypertension, dyslipidemia, hypothyroidism, asthma, COPD who initially presented to the hospital with a dislodgement of the right nephrostomy tube, 1. Malfunctioning/dislodgement right nephrostomy tube status post replacement of right nephrostomy tube by intervention Radiology on 10/08 2. Recurrent kidney stones status post right nephrostomy tube placement three weeks ago 3. Hyperglycemia in the setting of Insulin-dependent diabetes mellitus type 2 4. Hypertension 5. Dyslipidemia 6. Hypothyroidism 7. Asthma/COPD -continue med nebs to 4 hour while awake, continue Lasix -status post right nephrostomy tube placement, Urology consultation for cystoscopy, Plan discussed with: Patient Date of Service: Oct 10, 2024 Billing Provider: XAVI BARRERA MD Common Visit Codes: NOT BILLABLE XAVI BARRERA MD Oct 10, 2024 16:10
[2024-10-11] VITALS (16 sets, daily range): BP systolic 106–131; BP diastolic 63–80; PULSE 75–107; RESP 16–20; TEMP 97.7–98.6; O2SAT 94–99
--- NOTE | 2024-10-11 16:38 | DVHPN2 ---
Subjective Overnight events noted. Patient underwent right nephrostomy tube placement by IR. Patient was scheduled for cystoscopy with ESWL probably tomorrow. Reviewed: Care Plan Changes from previous H/P or p: No Changes Objective Vitals Vital Signs Date Time Temp Pulse Resp B/P (MAP) Pulse Ox O2 Delivery O2 Flow Rate FiO2 10/11/24 13:52 78 16 97 10/11/24 13:46 Nasal Cannula* 2 28 10/11/24 13:00 97.7 111/69 (83) 97.7 Intake/Output Intake and Output 10/11/24 07:00 Intake Total 450 ml Output Total 400 ml Balance 50 ml Intake Oral 400 ml IV Total 50 ml Output Urine Total 400 ml # Voids 3 # Bowel Movements 1 Exam HEENT pupils are reactive Neck is supple CV is S1-S2 regular rate and rhythm Respiratory diminished breath sounds bases GI positive bowel sound Extremity no edema 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 Medications Current Medications Medications Dose Ordered Sig/Rajni Route Start Time Stop Time Status Last Admin Dose Admin Ceftriaxone Sodium 50 ml @ 100 mls/hr DAILY IV 10/08/24 10:00 10/11/24 11:28 100 MLS/HR Ondansetron HCl 4 mg Q6HPRN PRN IV 10/07/24 07:15 Morphine Sulfate 2 mg Q6HPRN PRN IV 10/07/24 07:15 Acetaminophen 650 mg Q6HPRN PRN PO 10/07/24 07:15 Acetaminophen/ Hydrocodone Bitart 1 tab Q6HPRN PRN PO 10/07/24 07:15 10/11/24 11:30 1 TAB Pantoprazole Sodium 40 mg DAILY IV 10/07/24 10:00 10/11/24 11:29 40 MG Diagnostic Test (Pha) 1 strip ACHS 10/07/24 17:00 10/11/24 11:30 1 STRIP Insulin Human Regular HS SC 10/07/24 22:00 10/10/24 21:53 3 UNITS Insulin Human Regular AC SC 10/07/24 17:00 10/11/24 13:16 3 UNITS Dextrose 50 ml UD PRN IV 10/07/24 12:00 Furosemide 20 mg BIDD IV 10/08/24 18:00 10/11/24 06:33 20 MG Ipratropium [place] 0.5 mg Q4HWA NEB 10/09/24 18:00 10/11/24 13:46 0.5 MG Albuterol 2.5 mg Q4HWA NEB 10/09/24 18:00 10/11/24 13:46 2.5 MG Laboratory Results Laboratory Tests 10/07/24 07:54 Urinalysis Test 10/06/24 15:54 Urine Color Yellow (Yellow) Urine Clarity Ex.turbid (Clear) Urine pH 5.5 (5.0-9.0) Urine Specific [place] 1.020 (1.001-1.035) Urine Protein 1+ (Negative) H Urine Ketones 1+ (Negative) H Urine Blood 1+ /uL (Negative) H Urine Nitrite 2+ (Negative) H Urine Bilirubin Negative (Negative) Urine Urobilinogen Normal mg/dL (Negative) Urine Leukocyte Esterase 3+ /uL (Negative) Urine RBC 27 /hpf (0 - 4) Urine WBC 809 /hpf (0 - 5) Urine WBC Clumps Present /hpf (None Seen) Urine Squamous Epithelial Cells Few /hpf (<5) Urine Bacteria Many /hpf (None Seen) H Urine Mucus Moderate (None Seen) Urine Glucose Normal mg/dL (Normal) Microbiology Microbiology Date/Time Source Procedure Growth Status 10/07/24 15:54 Voided Urine Urine Culture - Final Complete Assessment/Plan Assessment/Plan 59-year-old female with a known history of recurrent kidney stones status post nephrostomy tube placement was three weeks ago at [facility], insulin-dependent diabetes mellitus type 2, hypertension, dyslipidemia, hypothyroidism, asthma, COPD who initially presented to the hospital with a dislodgement of the right nephrostomy tube, 1. Malfunctioning/dislodgement right nephrostomy tube status post replacement of right nephrostomy tube by intervention Radiology on 10/08 2. Recurrent kidney stones status post right nephrostomy tube placement three weeks ago 3. Hyperglycemia in the setting of Insulin-dependent diabetes mellitus type 2 4. Hypertension 5. Dyslipidemia 6. Hypothyroidism 7. Asthma/COPD -continue med nebs to 4 hour while awake, continue Lasix -status post right nephrostomy tube placement, Urology consultation for cystoscopy/ESWL Plan discussed with: Patient, Other Date of Service: Oct 11, 2024 Billing Provider: XAVI BARRERA MD Common Visit Codes: NOT BILLABLE XAVI BARRERA MD Oct 11, 2024 16:38
[2024-10-12] VITALS (17 sets, daily range): BP systolic 101–140; BP diastolic 40–89; PULSE 76–106; RESP 16–21; TEMP 97.9–99.1; O2SAT 93–100
[2024-10-12 07:13] LABS: Basophils # (auto) 0 10 ^3/uL (0-0.2); Basophils % (auto) 0.4 % (0.0-2.0); Eosinophils # (auto) 0.3 10 ^3/uL (0-0.8); Eosinophils % (auto) 3.5 % (0.0-7.0); Hematocrit 41.2 % (36.0-46.0); Hemoglobin 14.1 g/dL (12.2-16.2); Lymphocytes # (auto) 2.1 10 ^3/uL (0.4-5.4); Lymphocytes % (auto) 27.9 % (10.0-50.0); Mean Corpuscular Hemoglobin 30.5 pg (28.0-32.0); Mean Corpuscular Hgb Conc. 34.2 g/dL (32.0-36.0); Monocytes # (auto) 0.7 10 ^3/uL (0-1.3); Monocytes % (auto) 9.5 % (0.0-12.0); Neutrophils # (auto) 4.5 10 ^3/uL (1.6-8.6); Neutrophils % (auto) 58.7 % (37.0-80.0); Platelet Count (auto) 433 10^3/uL (140-450); Red Blood Cells 4.63 10^6/uL (4.0-5.20); Red Cell Distribution Width 14.2 % (11.8-14.3); White Blood Cell 7.7 10^3/uL (4.4-10.8)
[2024-10-12 07:25] LABS: Anion Gap 5 (5-15); Sodium 138 mmol/L (136-145)
[2024-10-12 07:28] LABS: Calcium 11.5 mg/dL (8.7-10.4); Carbon Dioxide 37 mmol/L (20-31); Chloride 96 mmol/L (98-107); Potassium 3.3 mmol/L (3.5-5.1)
[2024-10-12 07:31] LABS: BUN/Creatinine Ratio 24.7 (10.0-20.0); Blood Urea Nitrogen 22 mg/dL (9-23)
[2024-10-12 07:33] LABS: Glucose 176 mg/dL (74-106)
--- NOTE | 2024-10-12 08:28 | ECG ---
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
[2024-10-12] MEDS: CIPROFLOXACIN 400MG/200ML 200 ML IV ONE (12:12)
[2024-10-12] MEDS ORDERED: HYDROmorphone HCL 2 MG/ML VL/or syr IV PRN (12:15)
[2024-10-12] MEDS: ONDANSETRON HCL 4 MG/2 ML VIAL IV ONE (12:15)
[2024-10-12] MEDS ORDERED: MIDAZOLAM HCL 2MG/2ML 2ml VIAL (1mg/ml) ONE (12:26)
[2024-10-12] MEDS ORDERED: PROPOFOL 10 MG/ML 20 ML IV ONE (12:26)
[2024-10-12] MEDS ORDERED: fentaNYL CITRATE 100 MCG/2 ML VL ONE (12:26)
[2024-10-12] MEDS ORDERED: LIDOCAINE 2% (LOCAL ANESTH.) PF 5ml SDV ONE (12:27)
[2024-10-12] MEDS ORDERED: ONDANSETRON HCL 4 MG/2 ML VIAL ONE (12:27)
[2024-10-12] MEDS ORDERED: ROCURONIUM 10MG/ML 10ML VIAL IV ONE (12:27)
[2024-10-12] MEDS ORDERED: METOPROLOL TARTRATE 1MG/1ML-5ML VIAL IV ONE (12:27)
[2024-10-12] MEDS: SUCCINYLCHOLINE CHLORIDE 20 MG/ML 10ML VIAL IV ONE (12:33)
[2024-10-12] MEDS: IOHEXOL 300 MG/ML 100ML BOTTLE IJ ONE (13:41)
[2024-10-12] MEDS ORDERED: HYDROmorphone HCL 2 MG/ML VL/or syr ONE (14:05)
[2024-10-12] MEDS ORDERED: SUGAMMADEX 200mg/2ml Vial (100MG/ML) IV ONE (14:14)
--- NOTE | 2024-10-12 14:16 | DVHNC2 ---
Procedure - Interventional Radiology: Assistance provided in accessing the bladder with the guidewire from the percutaneous kidney access site during the operation today on 10/12/24. MD PEDRO LUIS Rosas RAY Y MD Oct 12, 2024 14:16
[2024-10-12] MEDS ORDERED: NALOXONE HCL 1MG/ML 2ML SYRINGE ONE (14:35)
--- NOTE | 2024-10-12 14:45 | POSTOP ---
Post-Operative Note Post-Operative Note Preop Diagnosis Right staghorn calculus Right percutaneous nephrostomy tube in Situ Postop Diagnosis: Same Operation performed Right percutaneous nephrolithotripsy Specimen Renal stone fragments Anesthesia: General Anesthesiologist: Sylvester waller CRNA Blood Loss(fluid mgmt) 100-150 cc Surgeon Karla Kline Bark Fitter Dr Sherman of intervention Radiology was consulted for intraoperative placement of ureteral catheter sheath Date 10/12/24 Time 14:44 KARLA KLINE MD Oct 12, 2024 14:45
--- NOTE | 2024-10-12 14:57 | DVH ---
C-ARM FLUOROSCOPY: PROCEDURE: lithotripsy FLUOROSCOPY TIME: 527 sec DAP: 199 mgy FINDINGS: Spot intraoperative C arm radiographs demonstrating lithotripsy. IMPRESSION: Please refer to surgical report for detailed findings.
[2024-10-12] MEDS ORDERED: NITROGLYCERIN 0.4 MG SL TAB SL PRN (15:00)
[2024-10-12] MEDS ORDERED: MORPHINE SULFATE INJ 2 MG/ml SYRG IV PRN (15:00)
--- NOTE | 2024-10-12 18:02 | DVHPN2 ---
Subjective Overnight events noted. Patient underwent right nephrostomy tube placement by IR. Patient is currently in OR with Urology for cystoscopy with a ESWL. Reviewed: Care Plan Changes from previous H/P or p: No Changes Objective Vitals Vital Signs Date Time Temp Pulse Resp B/P (MAP) Pulse Ox O2 Delivery O2 Flow Rate FiO2 10/12/24 17:20 Nasal Cannula* 2 28 10/12/24 17:00 99.1 99 18 128/80 (96) 97 99.1 Intake/Output Intake and Output 10/12/24 07:00 Intake Total 850 ml Output Total 651 ml Balance 199 ml Intake Oral 800 ml IV Total 50 ml Output Urine Total 650 ml Stool Total 1 ml Medications Current Medications Medications Dose Ordered Sig/Rajni Route Start Time Stop Time Status Last Admin Dose Admin Ceftriaxone Sodium 50 ml @ 100 mls/hr DAILY IV 10/08/24 10:00 10/12/24 09:43 100 MLS/HR Ondansetron HCl 4 mg Q6HPRN PRN IV 10/07/24 07:15 Morphine Sulfate 2 mg Q6HPRN PRN IV 10/07/24 07:15 Acetaminophen 650 mg Q6HPRN PRN PO 10/07/24 07:15 Acetaminophen/ Hydrocodone Bitart 1 tab Q6HPRN PRN PO 10/07/24 07:15 10/11/24 11:30 1 TAB Pantoprazole Sodium 40 mg DAILY IV 10/07/24 10:00 10/12/24 09:43 40 MG Diagnostic Test (Pha) 1 strip ACHS 10/07/24 17:00 10/12/24 07:00 1 STRIP Insulin Human Regular HS SC 10/07/24 22:00 10/11/24 22:39 6 UNITS Insulin Human Regular AC SC 10/07/24 17:00 10/11/24 18:33 3 UNITS Dextrose 50 ml UD PRN IV 10/07/24 12:00 Furosemide 20 mg BIDD IV 10/08/24 18:00 10/11/24 18:21 20 MG Ipratropium [place] 0.5 mg Q4HWA NEB 10/09/24 18:00 10/12/24 09:36 0.5 MG Albuterol 2.5 mg Q4HWA NEB 10/09/24 18:00 10/12/24 09:36 2.5 MG Morphine Sulfate 2 mg Q30M PRN IV 10/12/24 15:00 Laboratory Results Laboratory Tests 10/12/24 06:33 Chemistry Test 10/12/24 06:33 Calcium Level 11.5 mg/dL (8.7-10.4) H Urinalysis Test 10/06/24 15:54 Urine Color Yellow (Yellow) Urine Clarity Ex.turbid (Clear) Urine pH 5.5 (5.0-9.0) Urine Specific [place] 1.020 (1.001-1.035) Urine Protein 1+ (Negative) H Urine Ketones 1+ (Negative) H Urine Blood 1+ /uL (Negative) H Urine Nitrite 2+ (Negative) H Urine Bilirubin Negative (Negative) Urine Urobilinogen Normal mg/dL (Negative) Urine Leukocyte Esterase 3+ /uL (Negative) Urine RBC 27 /hpf (0 - 4) Urine WBC 809 /hpf (0 - 5) Urine WBC Clumps Present /hpf (None Seen) Urine Squamous Epithelial Cells Few /hpf (<5) Urine Bacteria Many /hpf (None Seen) H Urine Mucus Moderate (None Seen) Urine Glucose Normal mg/dL (Normal) Microbiology Microbiology Date/Time Source Procedure Growth Status 10/07/24 15:54 Voided Urine Urine Culture - Final Complete Assessment/Plan Assessment/Plan 59-year-old female with a known history of recurrent kidney stones status post nephrostomy tube placement was three weeks ago at [facility], insulin-dependent diabetes mellitus type 2, hypertension, dyslipidemia, hypothyroidism, asthma, COPD who initially presented to the hospital with a dislodgement of the right nephrostomy tube, 1. Malfunctioning/dislodgement right nephrostomy tube status post replacement of right nephrostomy tube by intervention Radiology on 10/08 2. Recurrent kidney stones status post right nephrostomy tube placement three weeks ago 3. Hyperglycemia in the setting of Insulin-dependent diabetes mellitus type 2 4. Hypertension 5. Dyslipidemia 6. Hypothyroidism 7. Asthma/COPD -continue med nebs to 4 hour while awake, continue Lasix -status post right nephrostomy tube placement, Urology consultation for cystoscopy/ESWL Plan discussed with: Other Date of Service: Oct 12, 2024 Billing Provider: XAVI BARRERA MD Common Visit Codes: NOT BILLABLE XAVI BARRERA MD Oct 12, 2024 18:02
--- NOTE | 2024-10-12 23:00 | DVHINCON2 ---
Date of service: Oct 12, 2024 Referring Physician NAV Munson Reason for Consultation Acute hypoxic respiratory failure, COPD, asthma, pulmonary edema. History of Present Illness A 59-year-old woman with PMHx of asthma, CHF, COPD, diabetes mellitus, hyperlipidemia and hypertension who presented to ED on 10/07/24 with c/o right nephrostomy tube dislodgment x 1 week. Patient reports daughter tried to flush right nephrostomy tube that was placed x 3 weeks ago at [facility] , but was unable to flush. She went to [facility], however left due to a 9-hour waiting time. Patient denied any dysuria, hematuria, fevers, chills, nausea, vomiting. CT abdomen and pelvis w/o contrast resulted: Right kidney demonstrates multiple staghorn calculi measuring up to 1.8 cm. Foci of air seen in the major calyx of the right kidney, which may be from instrumentation versus superimposed infection. Dislodged percutaneous nephrostomy tube located along the periphery of the right kidney. 3 cm hypodense lesion arising from the right kidney superior pole. Mild right perinephric fat stranding. Patient was admitted for further care, and pulmonary consultation is requested for evaluation and management due to acute hypoxic respiratory failure, COPD, asthma, pulmonary edema. Review of Systems: 14-point review of systems negative unless otherwise noted above. Past Medical History: Asthma, COPD, CHF, diabetes, hyperlipidemia and hypertension. Past Surgical History: None Medications: Reviewed. Allergies: Nitroglycerin. Family History: No family history of premature CAD. No family history of lung disorders. Social History: Nonsmoker. No alcohol or illicit drug use. Family History: Patient reports no known family medical history. Allergies: Coded Allergies: Nitroglycerin (Verified Allergy, Unknown, 02/17/10) Home Meds Active Scripts Amoxicillin & Pot Clavulanate (Augmentin) 500 Mg Tab, 1 TAB PO BID, #14 TAB Prov:VJ ELIZALDE MD 06/12/24 Reported Medications Metformin HCl (Metformin Hydrochloride) 1,000 Mg Tab, 1 TAB PO DAILY 02/24/24 Semaglutide (Ozempic) 2 Mg/3 Ml Inj, 0.5 MG SC QWEEKLY 02/23/24 Glipizide (Glipizide) 5 Mg Tab, 5 MG PO DAILY for 30 Days, MG 07/14/16 Atorvastatin Calcium (ATORVASTATIN CALCIUM) 20 Mg Tab, 1 TAB PO HS, #30 TAB 5 Refills 07/14/16 Furosemide (Lasix) 20 Mg Tb, 1 TAB PO BID, #90 TAB 1 Refill 07/14/16 Levothyroxine Sodium (Levothyroxine Sodium) 137 Mcg Tab, 1 TAB PO DAILY, #30 TAB 5 Refills 07/14/16 Carvedilol (Coreg) 6.25 Mg Tab, 1 TAB PO BID, #180 TAB 1 Refill 07/14/16 Potassium Chloride (Klor-Con M20) 20 Meq Tab, 20 MEQ PO DAILY 02/17/10 Albuterol Sulfate (Albuterol Sulfate) 0.5 % Neb, 0.5 ML NEB PRN 02/15/10 Current Medications Current Medications Medications (Trade) Dose Ordered Sig/Rajni Route PRN Reason Start Time Stop Time Status Last Admin Hydromorphone HCl (Dilaudid Injection) 0.25 mg Q10M PRN IV MODERATE PAIN (4-6 PAIN SCALE) 10/12/24 12:15 10/12/24 12:46 DC Nitroglycerin (Ntrostat Sublingual) 0.4 mg Q5MINP PRN SL FOR CHEST PAIN 10/12/24 15:00 10/12/24 15:35 DC Morphine Sulfate 2 mg Q30M PRN IV FOR CHEST PAIN 10/12/24 15:00 Vital Signs Vital Signs Date Time Temp Pulse Resp B/P (MAP) Pulse Ox O2 Delivery O2 Flow Rate FiO2 10/12/24 22:34 95 18 100 10/12/24 22:26 Nasal Cannula* 4 36 10/12/24 21:00 97.9 136/79 (98) 97.9 Physical Exam Gen.: Patient lying in bed in no apparent distress. On supplemental oxygen. Head: Normocephalic, atraumatic. Eyes: EOMI/PERRLA. Ears: Normal hearing. Normal anatomy. Neck/trachea: Trachea midline, supple. Nose: Normal external anatomy. Mouth: Moist mucous membranes. Chest: Decreased air entry bilaterally. No wheezing or rhonchi. Cardiovascular: Positive S1, positive S2. Regular rate and rhythm. Abdomen: Positive bowel sounds in all 4 quadrants. Soft, non-tender, non-distend ed. : Deferred. Rectal: Deferred. Skin: Warm, dry. Intact. Extremities: 2+ radial pulses bilaterally. No lower extremity edema. Neuro: Awake, alert, oriented x3. No gross motor or sensory deficits. Cranial nerves II through XII intact. Gait not assessed. Labs/Diagnostic Data Labs Test 10/12/24 06:33 10/07/24 09:18 10/07/24 08:48 10/07/24 07:54 Range/Units White Blood Count 7.7 # 4.4-10.8 10^3/uL Red Blood Count 4.63 4.0-5.20 10^6/uL Hemoglobin 14.1 12.2-16.2 g/dL Hematocrit 41.2 36.0-46.0 % Mean Corpuscular Volume 89.0 80.0-100.0 fL Mean Corpuscular Hemoglobin 30.5 28.0-32.0 pg Mean Corpuscular Hemoglobin Concent 34.2 32.0-36.0 g/dL Red Cell Distribution Width 14.2 11.8-14.3 % Platelet Count 433 140-450 10^3/uL Mean Platelet Volume 7.1 6.9-10.8 fL Neutrophils (%) (Auto) 58.7 37.0-80.0 % Lymphocytes (%) (Auto) 27.9 10.0-50.0 % Monocytes (%) (Auto) 9.5 0.0-12.0 % Eosinophils (%) (Auto) 3.5 0.0-7.0 % Basophils (%) (Auto) 0.4 0.0-2.0 % Neutrophils # (Auto) 4.5 1.6-8.6 10 ^3/uL Lymphocytes # (Auto) 2.1 0.4-5.4 10 ^3/uL Monocytes # (Auto) 0.7 0-1.3 10 ^3/uL Eosinophils # (Auto) 0.3 0-0.8 10 ^3/uL Basophils # (Auto) 0 0-0.2 10 ^3/uL Nucleated Red Blood Cells 0.0 % Sodium Level 138 136-145 mmol/L Potassium Level 3.3 L 3.5-5.1 mmol/L Chloride Level 96 L 98-107 mmol/L Carbon Dioxide Level 37 H 20-31 mmol/L Anion Gap 5 5-15 Blood Urea Nitrogen 22 9-23 mg/dL Creatinine 0.89 0.550-1.02 mg/dL Glomerular Filtration Rate Calc 74 >90 mL/min BUN/Creatinine Ratio 24.7 H 10.0-20.0 Serum Glucose 176 H 74-106 mg/dL Calcium Level 11.5 H 8.7-10.4 mg/dL Prothrombin Time 10.8 9.3-11.8 sec Prothrombin Time INR 1.02 0.9-1.15 Lactic Acid Level 1.1 0.4-2.0 mmol/L Hemoglobin A1c 8.5 H <5.7 % A1C Test 10/06/24 23:54 10/06/24 15:54 Range/Units Total Bilirubin 0.3 0.2-1.0 mg/dL Aspartate Amino Transferase (AST) 12 L 13-40 U/L Alanine Aminotransferase (ALT) 17 7-40 U/L Alkaline Phosphatase 122 H 46-116 U/L Total Protein 7.1 5.7-8.2 g/dL Albumin 4.0 3.2-4.8 g/dL Urine Color Yellow Yellow Urine Clarity Ex.turbid Clear Urine pH 5.5 5.0-9.0 Urine Specific [place] 1.020 1.001-1.035 Urine Protein 1+ H Negative Urine Ketones 1+ H Negative Urine Blood 1+ H Negative /uL Urine Nitrite 2+ H Negative Urine Bilirubin Negative Negative Urine Urobilinogen Normal Negative mg/dL Urine Leukocyte Esterase 3+ Negative /uL Urine RBC 27 0 - 4 /hpf Urine WBC 809 0 - 5 /hpf Urine WBC Clumps Present None Seen /hpf Urine Squamous Epithelial Cells Few <5 /hpf Urine Bacteria Many H None Seen /hpf Urine Mucus Moderate None Seen Urine Glucose Normal Normal mg/dL Microbiology Date/Time Source Procedure Growth Status 10/07/24 15:54 Voided Urine Urine Culture - Final Complete Assessment Impression: Acute hypoxic respiratory failure COPD Postoperative status Asthma Pulmonary edema. Hypokalemia Atelectasis Obesity Plan: Supplemental oxygen 4 LPM NC Titrate to keep O2 sats above 92%. Taper O2 as tolerated. CXR demonstrates pulmonary vascular congestion. Pain control Avoid oversedation Continue bronchodilators. Continue antibiotics Incentive spirometry Diurese to euvolemia Monitor renal function. Monitor electrolytes. Supplement as necessary. Monitor ins and outs. GI prophylaxis - Protonix DVT prophylaxis. Prognosis: Poor given patient's multiple co-morbidities. Rest of plan per hospitalist and other consultants. Thank you, ZAINAB German, for allowing me to participate in this patient's care. Further recommendations will depend on the patient's clinical course. Please do not hesitate to contact me if you have any questions or concerns. This medical document was created using an electronic medical record system with Touch [employer] Classic dictation system. Although these documentations are being carefully reviewed, there may still be some phonetic and typographical changes. The errors are purely typographical, due to imperfection on the software program, and do not reflect any compromise in the patient's medical care. Plan discussed with: Patient, Other (KAYLA Monte/ZAINAB German/) KOBY BIRCH MD Oct 12, 2024 23:00
[2024-10-13] VITALS (7 sets, daily range): BP systolic 113–124; BP diastolic 62–73; PULSE 18–108; RESP 16–22; TEMP 98–98.5; O2SAT 89–99
--- NOTE | 2024-10-13 10:08 | CONS ---
Pharmacy Clinical Information: From Heart Failure Fallout Report on CQM Application, Jazzy Zuniga is a 59 year old female with PMH of asthma, COPD, CHF, DM, HLD, and HTN. Her home medications include atorvastatin 20 mg PO QHS. According to the 2018 blood cholesterol guidelines, moderate-intensity statin are recommended for diabetic patients between ages of 40 - 75. Consider reinitiating atorvastatin if patient is tolerating PO and LFTs are WNL. MARU SAMANO PHARMACIST Oct 13, 2024 10:08
--- NOTE | 2024-10-13 22:40 | DVHPN2 ---
Progress Note - Dictate Date Seen: Oct 13, 2024 Has the PT tested + for MRSA If YES, has PT been informed?: No Medical Necessity Reason Pt with a Central, PICC or Fol: Yes The following are medically ne: Sena Catheter Reason for sena catheter: Strict I&O Subjective Patient seen and examined at bedside. Remains on supplemental oxygen Overnight events reviewed. vital signs Vital Sign Date Time Temp Pulse Resp B/P (MAP) Pulse Ox O2 Delivery O2 Flow Rate FiO2 10/13/24 10:05 93 18 98 10/13/24 09:59 Room Air* 0 21 10/13/24 06:00 113/73 10/13/24 05:00 98.0 98.0 Total Intake and Output 10/12/24 10/12/24 10/13/24 15:00 23:00 07:00 Intake Total 100 ml 200 ml 100 ml Output Total 750 ml Balance 100 ml 200 ml -650 ml objective Gen.: Patient lying in bed in no apparent distress. On supplemental oxygen. Head: Normocephalic, atraumatic. Eyes: EOMI/PERRLA. Ears: Normal hearing. Normal anatomy. Neck/trachea: Trachea midline, supple. Nose: Normal external anatomy. Mouth: Moist mucous membranes. Chest: Decreased air entry bilaterally. No wheezing or rhonchi. Cardiovascular: Positive S1, positive S2. Regular rate and rhythm. Abdomen: Positive bowel sounds in all 4 quadrants. Soft, non-tender, non- distended. : Deferred. Rectal: Deferred. Skin: Warm, dry. Intact. Extremities: 2+ radial pulses bilaterally. No lower extremity edema. Neuro: Awake, alert, oriented x3. No gross motor or sensory deficits. Cranial nerves II through XII intact. Gait not assessed. laboratory and microbiology Laboratory Tests 10/12/24 06:33 Test 10/12/24 06:33 Range/Units Serum Glucose 176 H 74-106 mg/dL Assessment/Plan Impression: Acute hypoxic respiratory failure COPD Postoperative status Asthma Pulmonary edema. Hypokalemia Atelectasis Obesity Events: Remains on supplemental oxygen, 4 LPM NC Taper O2 as tolerated Continue bronchodilators Lasix held d/t low blood pressure Monitor renal function Monitor ins and outs Patient is wishing to leave AMA with full knowledge of risks and benefits of doing so. Labs and imaging reviewed. Plan: Supplemental oxygen Titrate to keep O2 sats above 92%. CXR demonstrates pulmonary vascular congestion. Pain control Avoid oversedation Continue bronchodilators. Continue antibiotics Incentive spirometry Diurese to euvolemia Monitor renal function. Monitor electrolytes. Supplement as necessary. Monitor ins and outs. GI prophylaxis - Protonix DVT prophylaxis. Prognosis: Poor given patient's multiple co-morbidities. Rest of plan per hospitalist and other consultants. Thank you, ZAINAB German, for allowing me to participate in this patient's care. Further recommendations will depend on the patient's clinical course. Please do not hesitate to contact me if you have any questions or concerns. This medical document was created using an electronic medical record system with [employer] dictation system. Although these documentations are being carefully reviewed, there may still be some phonetic and typographical changes. The errors are purely typographical, due to imperfection on the software program, and do not reflect any compromise in the patient's medical care. Plan discussed with: Patient, Other (RN) KOBY BIRCH MD Oct 13, 2024 22:40
--- NOTE | 2024-10-20 15:04 | DVHDS2 ---
Discharge Summary Date of Admission Oct 07, 2024 at 07:03 Date of Discharge: Oct 13, 2024 Labs/Diagnostic Data: Laboratory Results Test 10/13/24 06:03 10/12/24 14:00 10/12/24 06:33 10/07/24 09:18 POC Glucose 208 mg/dl (70-106) White Blood Count 7.7 10^3/uL (4.4-10.8) Red Blood Count 4.63 10^6/uL (4.0-5.20) Hemoglobin 14.1 g/dL (12.2-16.2) Hematocrit 41.2 % (36.0-46.0) Mean Corpuscular Volume 89.0 fL (80.0-100.0) Mean Corpuscular Hemoglobin 30.5 pg (28.0-32.0) Mean Corpuscular Hemoglobin Concent 34.2 g/dL (32.0-36.0) Red Cell Distribution Width 14.2 % (11.8-14.3) Platelet Count 433 10^3/uL (140-450) Mean Platelet Volume 7.1 fL (6.9-10.8) Neutrophils (%) (Auto) 58.7 % (37.0-80.0) Lymphocytes (%) (Auto) 27.9 % (10.0-50.0) Monocytes (%) (Auto) 9.5 % (0.0-12.0) Eosinophils (%) (Auto) 3.5 % (0.0-7.0) Basophils (%) (Auto) 0.4 % (0.0-2.0) Neutrophils # (Auto) 4.5 10 ^3/uL (1.6-8.6) Lymphocytes # (Auto) 2.1 10 ^3/uL (0.4-5.4) Monocytes # (Auto) 0.7 10 ^3/uL (0-1.3) Eosinophils # (Auto) 0.3 10 ^3/uL (0-0.8) Basophils # (Auto) 0 10 ^3/uL (0-0.2) Nucleated Red Blood Cells 0.0 % Sodium Level 138 mmol/L (136-145) Potassium Level 3.3 mmol/L (3.5-5.1) Chloride Level 96 mmol/L (98-107) Carbon Dioxide Level 37 mmol/L (20-31) Anion Gap 5 (5-15) Blood Urea Nitrogen 22 mg/dL (9-23) Creatinine 0.89 mg/dL (0.550-1.02) Glomerular Filtration Rate Calc 74 mL/min (>90) BUN/Creatinine Ratio 24.7 (10.0-20.0) Serum Glucose 176 mg/dL (74-106) Calcium Level 11.5 mg/dL (8.7-10.4) Prothrombin Time 10.8 sec (9.3-11.8) Prothrombin Time INR 1.02 (0.9-1.15) Test 10/07/24 08:48 10/07/24 07:54 10/06/24 23:54 10/06/24 15:54 Lactic Acid Level 1.1 mmol/L (0.4-2.0) Hemoglobin A1c 8.5 % A1C (<5.7) Total Bilirubin 0.3 mg/dL (0.2-1.0) Aspartate Amino Transferase (AST) 12 U/L (13-40) Alanine Aminotransferase (ALT) 17 U/L (7-40) Alkaline Phosphatase 122 U/L (46-116) Total Protein 7.1 g/dL (5.7-8.2) Albumin 4.0 g/dL (3.2-4.8) Urine Color Yellow (Yellow) Urine Clarity Ex.turbid (Clear) Urine pH 5.5 (5.0-9.0) Urine Specific [place] 1.020 (1.001-1.035) Urine Protein 1+ (Negative) Urine Ketones 1+ (Negative) Urine Blood 1+ /uL (Negative) Urine Nitrite 2+ (Negative) Urine Bilirubin Negative (Negative) Urine Urobilinogen Normal mg/dL (Negative) Urine Leukocyte Esterase 3+ /uL (Negative) Urine RBC 27 /hpf (0 - 4) Urine WBC 809 /hpf (0 - 5) Urine WBC Clumps Present /hpf (None Seen) Urine Squamous Epithelial Cells Few /hpf (<5) Urine Bacteria Many /hpf (None Seen) Urine Mucus Moderate (None Seen) Urine Glucose Normal mg/dL (Normal) Other Laboratory Tests 10/12/24 06:33 Brief Hx & Hospital Course: 59-year-old female with a known history of recurrent kidney stones status post nephrostomy tube placement was three weeks ago at [facility], insulin-dependent diabetes mellitus type 2, hypertension, dyslipidemia, hypothyroidism, asthma, COPD who initially presented to the hospital with a dislodgement of the right nephrostomy tube, patient underwent replacement of right nephrostomy tube by Interventional Radiology on10/08. Patient underwent right percutaneous nephrolithotripsy as well as right ureteroscopic laser lithotripsy by Urology. Patient also had acute on chronic hypoxic respiratory failure secondary to asthma and COPD. Otherwise patient's hospital course was uneventful besides she left against medical advice. Condition at Discharge: Undetermined Final Diagnosis/Problems List 1. Malfunctioning/dislodgement right nephrostomy tube status post replacement of right nephrostomy tube by intervention Radiology on 10/08 status post right percutaneous nephrolithotripsy and right ureteroscopic laser lithotripsy by Urology. 2. Recurrent kidney stones status post right nephrostomy tube placement three weeks ago 3. Hyperglycemia in the setting of Insulin-dependent diabetes mellitus type 2 4. Hypertension 5. Dyslipidemia 6. Hypothyroidism 7. Asthma/COPD Discharge Disposition: AMA SNF Discharge Will this Physician continue t: No Discharge Statement: "Patient was advised to return to the ER or call 911 if any headaches, dizziness, shortness of breath, chest pain, abdominal pain, bleeding, fevers, or worsening of medical condition. Patient was counseled about treatment plan, medications, possible side effects, patientverbalized understanding. All questions were answered to the best of my ability. This discharge took greater then 30 minutes in planning, reviewing documentation, counseling the patient, and discussing with other team members." ASSESSMENT ASSESSMENT Assessment Same Date of Service: Oct 13, 2024 Billing Provider: XAVI BARRERA MD Common Visit Codes: NOT BILLABLE XAVI BARRERA MD Oct 20, 2024 15:04
== END 2024-10-13 08:40 | disposition left against medical advice (07) | DRG 443 ==
LOC: ER 22:48 → OVERFLOW 10-07 07:03 → CENTRAL 10-07 10:44 → TELE-WESTW 10-12 17:10
PROVIDERS: ADMIT Nurse Practitioner Family; ATTEND Nurse Practitioner Family
PROC: 0T25X0Z Change Drainage Device in Kidney, External Approach (ICD-10-PCS; principal; 2024-10-08)
PROC: BT111ZZ Fluoroscopy of Right Kidney using Low Osmolar Contrast (ICD-10-PCS; 2024-10-08)
PROC: 0TC33ZZ Extirpation of Matter from Right Kidney Pelvis, Percutaneous Approach (ICD-10-PCS; 2024-10-12)
DX: T83.022A Displacement of nephrostomy catheter, initial encounter (principal); J96.21 Acute and chronic respiratory failure with hypoxia; I11.0 Hypertensive heart disease with heart failure; E03.9 Hypothyroidism, unspecified; E11.65 Type 2 diabetes mellitus with hyperglycemia; E78.5 Hyperlipidemia, unspecified; J44.89 Other specified chronic obstructive pulmonary disease; N20.0 Calculus of kidney; J98.11 Atelectasis; Z68.36 Body mass index [BMI] 36.0-36.9, adult; Z53.29 Procedure and treatment not carried out because of patient's decision for other reasons; E66.9 Obesity, unspecified; E87.6 Hypokalemia; J81.1 Chronic pulmonary edema; Z43.6 Encounter for attention to other artificial openings of urinary tract; Z79.899 Other long term (current) drug therapy; Z87.891 Personal history of nicotine dependence; Z85.43 Personal history of malignant neoplasm of ovary; Z79.84 Long term (current) use of oral hypoglycemic drugs; Z79.4 Long term (current) use of insulin; Y73.2 Prosthetic and other implants, materials and accessory gastroenterology and urology devices associated with adverse incidents; Y92.89 Other specified places as the place of occurrence of the external cause
CPT/HCPCS: 36415; 50435; 71045; 74018; 74176; 74425; 76000; 76942; 80048; 80053; 81001; 82360; 82962; 83036; 83605; 85025; 85610; 86850; 86900; 86901; 87086; 93005; 94640; 94668; 97163; 99152; G0378; J0330; J1815; J2003; J2250; J2405; J2470; J2704; Q9967

== ENCOUNTER 2024-10-15 15:45 | Emergency (ER) | payer MEDICAID, OTHER ==
[~2024-10-15] VITALS: Ht 154.9 cm; Wt 83.8 kg
[~2024-10-15 15:45] MED LIST changes: -METOCLOPRAMIDE HCL 5MG/ml INJ 2ml VIAL IV ONE
--- NOTE | 2024-10-15 16:47 | ED.PDOC ---
History of Present Illness HPI Comments A 59-YEAR-OLD FEMALE PRESENTS WITH A CHIEF COMPLAINT OF NEPHROSTOMY TUBE FELL OFF X1 DAY. PATIENT STATES THAT SHE HAD KIDNEY STONES REMOVED AND HAD A NEPHROSTOMY TUBE PLACED IN THE RIGHT SIDE OF HER SIDE. INTERVENTIONAL RADIOLOGY WAS CONTACTED BUT THEY ARE GONE FOR THE DAY PATIENT WAS INSTRUCTED TO COME BACK ON FRIDAY WHEN INTERVENTIONAL RADIOLOGY IS HERE. PATIENT AT THIS TIME DENIES ANY PAIN TO THE NEPHROSTOMY SITE. PATIENT WAS BANDAGED. THERE WAS NO BLEEDING FROM THE SITE. PATIENT DENIES ANY SYMPTOMS AT THIS TIME. NO OTHER SYMPTOMS OR MODIFYING FACTORS PRESENT AT THIS TIME. Chief Complaint: Wound Check Time Seen by MD: 16:40 Primary Care Provider: NAIN Reviewed Notes: Medications, Allergies Allergies: Coded Allergies: Nitroglycerin (Verified Allergy, Unknown, 02/17/10) Home Meds Active Scripts Amoxicillin & Pot Clavulanate (Augmentin) 500 Mg Tab, 1 TAB PO BID, #14 TAB Prov:VJ ELIZALDE MD 06/12/24 Reported Medications Metformin HCl (Metformin Hydrochloride) 1,000 Mg Tab, 1 TAB PO DAILY 02/24/24 Semaglutide (Ozempic) 2 Mg/3 Ml Inj, 0.5 MG SC QWEEKLY 02/23/24 Glipizide (Glipizide) 5 Mg Tab, 5 MG PO DAILY for 30 Days, MG 07/14/16 Atorvastatin Calcium (ATORVASTATIN CALCIUM) 20 Mg Tab, 1 TAB PO HS, #30 TAB 5 Refills 07/14/16 Furosemide (Lasix) 20 Mg Tb, 1 TAB PO BID, #90 TAB 1 Refill 07/14/16 Levothyroxine Sodium (Levothyroxine Sodium) 137 Mcg Tab, 1 TAB PO DAILY, #30 TAB 5 Refills 07/14/16 Carvedilol (Coreg) 6.25 Mg Tab, 1 TAB PO BID, #180 TAB 1 Refill 07/14/16 Potassium Chloride (Klor-Con M20) 20 Meq Tab, 20 MEQ PO DAILY 02/17/10 Albuterol Sulfate (Albuterol Sulfate) 0.5 % Neb, 0.5 ML NEB PRN 02/15/10 Information Source: Patient Mode of Arrival: Ambulatory Severity: Moderate Timing: Days Duration: Since onset Prehospital treatment: None Medication Refill: For: Other Past Medical History PAST MEDICAL HISTORY: Asthma, CHF, COPD, DM, High Lipids, HTN, Thyroid Surgical History: BTL, Cholecystectomy, [employer] History: Ovarian Cancer Family History Family History: No family hx of Cancer, No family hx of HTN Social History Smoker: Quit Less Than 1 Year, Less Than 1 Pack/Day, Greater Than 1 Pack/Day Alcohol: Denies ETOH Use Drugs: Denies Drug Use Lives In: Home Constitutional: denies: chills, diaphoresis, fatigue, fever, malaise, sweats, weakness, others EENTM: denies: blurred vision, double vision, ear bleeding, ear discharge, ear drainage, ear pain, ear ringing, eye pain, eye redness, hearing loss, mouth pain, mouth swelling, nasal discharge, nose bleeding, nose congestion, nose pain, photophobia, tearing, throat pain, throat swelling, voice changes, others Respiratory: denies: cough, hemoptysis, orthopnea, SOB at rest, shortness of breath, SOB with excertion, stridor, wheezing, others Cardiovascular: denies: chest pain, dizzy spells, diaphoresis, Dyspnea on exertion, edema, irregular heart beat, left arm pain, lightheadedness, palpitations, PND, syncope, others Gastrointestinal: denies: abdomen distended, abdominal pain, blood streaked bowels, constipated, diarrhea, dysphagia, difficulty swallowing, hematemesis, me elma, nausea, poor appetite, poor fluid intake, rectal bleeding, rectal pain, vomiting, others Genitourinary: reports: others (NEPHROSTOMY TUBE DISLODGED); denies: abnormal vagina bleeding, burning, dyspareunia, dysuria, flank pain, frequency, hematuria, incontinence, pain, , vagina discharge, urgency Neurological: denies: dizziness, fainting, headache, left sided numbness, left sided weakness, numbness, paresthesia, pre-existing deficit, right sided numbness, right sided weakness, seizure, speech problems, tingling, tremors, weakness, others Musculoskeletal: denies: back pain, gout, joint pain, joint swelling, muscle pain, muscle stiffness, neck pain, others Integumetry: denies: bruises, change in color, change in hair/nails, dryness, laceration, lesions, lumps, rash, wounds, others Allergic/Immunocompromised: denies: Difficulty Healing, Frequent Infections, Hives, Itching, others Hematologic/Lymphatic: denies: anemia, blood clots, easy bleeding, easy bruising, swollen glands, others Endocrine: denies: excessive hunger, excessive sweating, excessive thirst, excessive urination, flushing, intolerance to cold, intolerance to heat, unexplained weight gain, unexplained weight loss, others Psychiatric: denies: anxiety, bipolar disorder, depression, hopeless, panic disorder, schizophrenia, sleepless, suicidal, others All Other Systems: Reviewed and Negative Physical Exam General Appearance: No Apparent Distress, Normal HEENT: Normal ENT Inspection, PERRL/EOMI, Pharynx Normal, TMs Normal Neck: Full Range of Motion, Non-Tender, Normal, Normal Inspection Respiratory: Chest Non-Tender, Lungs Clear, No Accessory Muscle Use, No Respiratory Distress, Normal Breath Sounds Cardiovascular: No Edema, No JVD, No Murmur, No Gallop, Normal Peripheral Pulses, Regular Rate/Rhythm Breast Exam: Deferred Gastrointestinal: No Organomegaly, Non Tender, No Pulsatile Mass, Normal Bowel Sounds, Soft Genitalia: Deferred Pelvic: Deferred Rectal: Deferred Extremities: No calf tenderness, Normal capillary refill, Normal inspection, Normal range of motion, Non-tender, No pedal edema Musculoskeletal : Apperance: Normal Neurologic: Alert, mortgage loan interviewer II-XII nml as Tested, No Motor Deficits, Normal Affect, Normal Mood, No Sensory Deficits Cerebellar Function: Normal Reflexes: Normal Skin: Dry, Normal Color, Warm, Wounds (INCISION WOUND OF RIGHT NEPHROSTOMY TUBE REGION ON RIGHT LOWER BACK WALL, NO SKIN INFECTION AND NO REDNESS. ) Peripheral Pulses: 2+ carotid (R), 2+ carotid (L) Lymphatic: No Adenopathy Was a procedure done? Was a procedure done?: No Differential Dx Considerations may include: NEPHROSTOMY TUBE FELL OFF. X-Ray, Labs, Meds, VS Vital Signs Date Time Temp Pulse Resp B/P (MAP) Pulse Ox O2 Delivery O2 Flow Rate FiO2 10/15/24 16:51 98.5 82 82 132/65 (87) 98 98.5 10/15/24 16:15 98.5 82 20 132/65 (87) 94 X-Ray, Labs, Meds, VS Comment EXTERNAL MEDICAL RECORDS REVIEWED: [NONE] INDEPENDENT HISTORIANS: [NONE] SOCIAL DETERMINANTS OF HEALTH: [NONE] LABS ORDERED: NONE REVIEWED AND INTERPRETED RESULTS: NONE IMAGING ORDERED: NONE TREATMENTS ORDERED: NONE PROCEDURES PERFORMED: NONE DISCUSSED WITH RADIOLOGY DEPARTMENT, NO INTERVENTIONAL RADIOLOGIST HERE DURING THE WEEKEND AND WONT BE PRESENT UNTIL FRIDAY. PATIENT WAS EDUCATED ON THE NEED TO RETURN ON FRIDAY WHEN INTERVENTIONAL RADIOLOGY IS HERE TO HAVE HER NEPHROSTOMY TUBE REPLACED. PATIENT CURRENTLY DENIES ANY SYMPTOMS OR PAIN AT THIS TIME. I HAVE DISCUSSED THE PATIENT WITH THE ATTENDING PHYSICIAN DR. BARAJAS AND HE AGREES WITH THE PATIENT'S PLAN OF CARE AND DISPOSITION. GIVEN THE HISTORY AND PRESENT ILLNESS OF THE PATIENT, AFTER REVIEWING LABS, IMAGING, AND COURSE OF TREATMENT ADMINISTERED DURING THEIR ED VISIT, THERE IS LOW SUSPICION FOR RED FLAG FINDINGS. BASED ON HISTORY OF PRESENT ILLNESS, AND PHYSICAL EXAM, PATIENT WILL BE DISCHARGED HOME. DISCUSSED PLAN FOR DISCHARGE HOME WITH RX []. MEDICATION WARNINGS GIVEN. SHARED DECISION MAKING: DISCUSSED WITH PATIENT THAT THEIR WORKUP WAS NORMAL. PATIENT INSTRUCTED TO FOLLOW UP WITH PRIMARY CARE PROVIDER IN 1-2 DAYS FOR RE-EVALUATION OF SYMPTOMS. PATIENT VERBALIZES UNDERSTANDING TO RETURN TO ED FOR NEW OR WORSENING SYMPTOMS OR IF FOLLOW UP WITH PCP CANNOT BE OBTAINED. PATIENT FEELS COMFORTABLE GOING HOME AT THIS TIME. ALL QUESTIONS ADDRESSED AT TIME OF DISCHARGE. Time of 1ST Reevaluation: 17:00 Reevaluation 1ST: Improved Patient Education/Counseling: Diagnosis, Treatment, Need For Follow Up Family Education/Counseling: Diagnosis, Treatment, Need For Follow Up Medical Screening: No EMC Exist At This Time Departure 1 Departure Time of Disposition: 17:06 Impression: Primary Impression: Displacement of nephrostomy tube Disposition: 01 HOME / SELF CARE / HOMELESS Condition: Stable Additional Instructions: FOLLOW UP WITH YOUR PCP IN 1-2 DAYS. RETURN TO THE ER IF YOUR SYMPTOMS WORSEN. Discharged With: Self Critical Care Note Critical Care Time?: No Stability Stability form required: No Heart Score Heart Score: Heart Score Response (Comments) Value History N/A 0 EKG N/A 0 Age N/A 0 Risk Factors N/A 0 Troponin N/A 0 Total 0 I personally scribed for ALEX LARRY ([email or web address]) on 10/15/24 at 16:47. Electronically submitted by Kai Pedraza ([email or web address]). I personally scribed for ALEX LARRY ([email or web address]) on 10/15/24 at 16:52. Electronically submitted by Kai Pedraza ([email or web address]). I personally scribed for ALEX LARRY ([email or web address]) on 10/15/24 at 16:53. Electronically submitted by Kai Pedraza ([email or web address]). ALEX LARRY Oct 15, 2024 16:47
[2024-10-15 16:51] VITALS: BP 132/65; PULSE 82; RESP 82; TEMP 98.5; O2SAT 98
== END 2024-10-15 17:01 | disposition home or self-care (01) ==
LOC: ER 15:45
DX: T83.022D Displacement of nephrostomy catheter, subsequent encounter (principal); I11.0 Hypertensive heart disease with heart failure; I50.9 Heart failure, unspecified; E11.9 Type 2 diabetes mellitus without complications; E78.5 Hyperlipidemia, unspecified; J44.9 Chronic obstructive pulmonary disease, unspecified; Z90.49 Acquired absence of other specified parts of digestive tract; Z98.890 Other specified postprocedural states; Z87.891 Personal history of nicotine dependence; Z79.84 Long term (current) use of oral hypoglycemic drugs; Z79.85 Long-term (current) use of injectable non-insulin antidiabetic drugs; Z79.899 Other long term (current) drug therapy; Z88.8 Allergy status to other drugs, medicaments and biological substances; Y92.89 Other specified places as the place of occurrence of the external cause

== ENCOUNTER 2024-10-18 06:50 | Inpatient (IN) | payer MEDICAID ==
[2024-10-18] VITALS (8 sets, daily range): BP systolic 125–147; BP diastolic 76–97; PULSE 68–100; RESP 16–19; TEMP 97.3–98; O2SAT 95–100
[~2024-10-18] VITALS: Ht 154.9 cm; Wt 85.3 kg
--- NOTE | 2024-10-18 08:04 | ED.PDOC ---
General HPI Comments Mrs. Jazzy Zuniga is a 59 yo female with a history of asthma, CHF, COPD, DM, HLD, hypertension who presents with a chief complaint of right nephrostomy tube dislodgment on 10/14/2024. Reports the tube fell off while daughter was cleaning the site at home. No other complaints. Patient underwent right nephrostomy tube placement by IR on 10/08/24 Patient denies any dysuria, hematuria, fevers, chills, nausea, vomiting. Chief Complaint: Tube Replacement Time Seen by MD: 07:34 Primary Care Provider: NAIN Reviewed notes: Nurses Notes, Medications, Allergies Allergies: Coded Allergies: Nitroglycerin (Verified Allergy, Unknown, 02/17/10) Home Meds Active Scripts Amoxicillin & Pot Clavulanate (Augmentin) 500 Mg Tab, 1 TAB PO BID, #14 TAB Prov:VJ ELIZALDE MD 06/12/24 Reported Medications Metformin HCl (Metformin Hydrochloride) 1,000 Mg Tab, 1 TAB PO DAILY 02/24/24 Semaglutide (Ozempic) 2 Mg/3 Ml Inj, 0.5 MG SC QWEEKLY 02/23/24 Glipizide (Glipizide) 5 Mg Tab, 5 MG PO DAILY for 30 Days, MG 07/14/16 Atorvastatin Calcium (ATORVASTATIN CALCIUM) 20 Mg Tab, 1 TAB PO HS, #30 TAB 5 Refills 07/14/16 Furosemide (Lasix) 20 Mg Tb, 1 TAB PO BID, #90 TAB 1 Refill 07/14/16 Levothyroxine Sodium (Levothyroxine Sodium) 137 Mcg Tab, 1 TAB PO DAILY, #30 TAB 5 Refills 07/14/16 Carvedilol (Coreg) 6.25 Mg Tab, 1 TAB PO BID, #180 TAB 1 Refill 07/14/16 Potassium Chloride (Klor-Con M20) 20 Meq Tab, 20 MEQ PO DAILY 02/17/10 Albuterol Sulfate (Albuterol Sulfate) 0.5 % Neb, 0.5 ML NEB PRN 02/15/10 Information Source: Patient Mode of Arrival: Ambulatory Past Medical History PAST MEDICAL HISTORY: Asthma, CHF, COPD, DM, High Lipids, HTN, Thyroid Surgical History: BTL, Cholecystectomy, [employer] History: Ovarian Cancer Family History Family History: No family hx of Cancer, No family hx of HTN Social History Smoker: Quit Less Than 1 Year, Less Than 1 Pack/Day, Greater Than 1 Pack/Day Alcohol: Denies ETOH Use Drugs: Denies Drug Use Lives In: Home All Other Systems: Reviewed and Negative (per hpi) Physical Exam General Appearance: No Apparent Distress, Normal HEENT: Normal ENT Inspection, Pharynx Normal, TMs Normal Neck: Full Range of Motion, Non-Tender, Normal, Normal Inspection Respiratory: Chest Non-Tender, Lungs Clear, No Accessory Muscle Use, No Respiratory Distress, Normal Breath Sounds Cardiovascular: No Edema, No JVD, No Murmur, No Gallop, Normal Peripheral Pulses, Regular Rate/Rhythm Breast Exam: Deferred Gastrointestinal: No Organomegaly, Non Tender, No Pulsatile Mass, Normal Bowel Sounds, Soft Genitalia: Deferred Pelvic: Deferred Rectal: Deferred Extremities: No calf tenderness, Normal capillary refill, Normal inspection, Normal range of motion, Non-tender, No pedal edema Musculoskeletal : Apperance: Normal Neurologic: Alert, missile inspector II-XII nml as Tested, No Motor Deficits, Normal Affect, Normal Mood, No Sensory Deficits Cerebellar Function: Normal Reflexes: Normal Skin: Dry, Normal Color, Warm Lymphatic: No Adenopathy Was a procedure done? Was a procedure done?: No Images 1 - Nephrostomy wound, no surrounding erythemma. No crepitus on palpation. No dc or drainage. Differential Diagnosis Kidney stone (Female): Other X-Ray, Labs, Meds, VS Vital Signs Date Time Temp Pulse Resp B/P (MAP) Pulse Ox O2 Delivery O2 Flow Rate FiO2 10/18/24 10:24 97.3 81 18 135/77 (96) 100 97.3 10/18/24 09:38 68 18 98 Room Air* 0 21 10/18/24 07:43 94 16 90 Room Air 10/18/24 07:43 98.3 94 16 164/92 (116) 90 98.3 10/18/24 07:20 98.3 94 16 164/92 (116) 90 Lab Test 10/18/24 08:20 10/18/24 08:13 Range/Units Urine Color Colorless Yellow Urine Clarity Turbid H Clear Urine pH 7.0 5.0-9.0 Urine Specific [place] 1.014 1.001-1.035 Urine Protein 1+ H Negative Urine Ketones Negative Negative Urine Blood 1+ H Negative /uL Urine Nitrite 2+ H Negative Urine Bilirubin Negative Negative Urine Urobilinogen Normal Negative mg/dL Urine Leukocyte Esterase 3+ Negative /uL Urine RBC 26 0 - 4 /hpf Urine WBC 146 0 - 5 /hpf Urine Squamous Epithelial Cells Few <5 /hpf Urine Bacteria Many H None Seen /hpf Urine Glucose Normal Normal mg/dL White Blood Count 7.1 4.4-10.8 10^3/uL Red Blood Count 4.31 4.0-5.20 10^6/uL Hemoglobin 13.0 12.2-16.2 g/dL Hematocrit 38.6 36.0-46.0 % Mean Corpuscular Volume 89.5 80.0-100.0 fL Mean Corpuscular Hemoglobin 30.2 28.0-32.0 pg Mean Corpuscular Hemoglobin Concent 33.7 32.0-36.0 g/dL Red Cell Distribution Width 14.5 H 11.8-14.3 % Platelet Count 567 H 140-450 10^3/uL Mean Platelet Volume 6.6 L 6.9-10.8 fL Neutrophils (%) (Auto) 56.2 37.0-80.0 % Lymphocytes (%) (Auto) 34.3 10.0-50.0 % Monocytes (%) (Auto) 6.9 0.0-12.0 % Eosinophils (%) (Auto) 1.9 0.0-7.0 % Basophils (%) (Auto) 0.7 0.0-2.0 % Neutrophils # (Auto) 4.0 1.6-8.6 10 ^3/uL Lymphocytes # (Auto) 2.4 0.4-5.4 10 ^3/uL Monocytes # (Auto) 0.5 0-1.3 10 ^3/uL Eosinophils # (Auto) 0.1 0-0.8 10 ^3/uL Basophils # (Auto) 0 0-0.2 10 ^3/uL Nucleated Red Blood Cells 0.1 % Sodium Level 139 136-145 mmol/L Potassium Level 4.0 3.5-5.1 mmol/L Chloride Level 106 # 98-107 mmol/L Carbon Dioxide Level 28 20-31 mmol/L Anion Gap 5 5-15 Blood Urea Nitrogen 15 9-23 mg/dL Creatinine 0.80 0.550-1.02 mg/dL Glomerular Filtration Rate Calc 84 >90 mL/min BUN/Creatinine Ratio 18.8 10.0-20.0 Serum Glucose 182 H 74-106 mg/dL Calcium Level 10.7 H 8.7-10.4 mg/dL Total Bilirubin < 0.2 L 0.2-1.0 mg/dL Aspartate Amino Transferase (AST) 17 13-40 U/L Alanine Aminotransferase (ALT) 17 7-40 U/L Alkaline Phosphatase 100 46-116 U/L Total Protein 7.3 5.7-8.2 g/dL Albumin 4.0 3.2-4.8 g/dL Current Medications Medications (Trade) Dose Ordered Sig/Rajni Route Start Time Stop Time Status Last Admin Ceftriaxone Sodium (Rocephin) 1,000 mg ONCE ONCE IM 10/18/24 09:15 10/18/24 09:31 DC 10/18/24 09:51 X-Ray, Labs, Meds, VS Comment Mrs. Jazzy Zuniga is a 59 yo female with a history of asthma, CHF, COPD, DM, HLD, hypertension who presents with a chief complaint of right nephrostomy tube dislodgment on 10/14/2024. After review of systems physical examination patient nontoxic and non ill- appearing. CBC CMP reviewed, urinalysis shows urine WBCs at 146,, leuk esterase 3+, urine nitrite 2+, urine WBCs 26 Patient received Rocephin 1 g IM and patient tolerated medication with no adverse reaction. We will consult with the hospitalist for admission and for possible nephrology consultation Time of 1ST Reevaluation: 08:04 Reevaluation 1ST: Improved Patient Education/Counseling: Diagnosis, Treatment Family Education/Counseling: Diagnosis, Treatment Departure 1 Departure Time of Disposition: 09:19 Impression: Primary Impression: Displacement of nephrostomy tube Additional Impression: UTI (urinary tract infection) Qualified Codes: N30.01 - Acute cystitis with hematuria Disposition: ADMITTED INPATIENT Condition: Fair Critical Care Note Critical Care Time?: No Stability Stability form required: No Heart Score Heart Score: Heart Score Response (Comments) Value History N/A 0 EKG N/A 0 Age N/A 0 Risk Factors N/A 0 Troponin N/A 0 Total 0 FARZAD DANIELS NP Oct 18, 2024 08:04
[2024-10-18 08:40] LABS: Urine Bacteria MANY /hpf (None Seen); Urine Blood 1+ /uL (Negative); Urine Clarity Turbid (Clear); Urine Color Colorless (Yellow); Urine Protein, UAD 1+ (Negative); Urine Specific Gravity 1.014 (1.001-1.035); Urine Squamous Epithelial Cell FEW /hpf (<5); Urine Urobilinogen Normal (Negative); Urine WBC 146 /hpf (0 - 5)
[2024-10-18 08:41] LABS: Basophils # (auto) 0 10 ^3/uL (0-0.2); Basophils % (auto) 0.7 % (0.0-2.0); Eosinophils # (auto) 0.1 10 ^3/uL (0-0.8); Eosinophils % (auto) 1.9 % (0.0-7.0); Hematocrit 38.6 % (36.0-46.0); Lymphocytes # (auto) 2.4 10 ^3/uL (0.4-5.4); Lymphocytes % (auto) 34.3 % (10.0-50.0); Mean Corpuscular Hemoglobin 30.2 pg (28.0-32.0); Mean Corpuscular Hgb Conc. 33.7 g/dL (32.0-36.0); Mean Corpuscular Volume 89.5 fL (80.0-100.0); Monocytes # (auto) 0.5 10 ^3/uL (0-1.3); Monocytes % (auto) 6.9 % (0.0-12.0); Neutrophils % (auto) 56.2 % (37.0-80.0); Nucleated Red Blood Cells % 0.1 %; Platelet Count (auto) 567 10^3/uL (140-450); Red Blood Cells 4.31 10^6/uL (4.0-5.20); Red Cell Distribution Width 14.5 % (11.8-14.3); White Blood Cell 7.1 10^3/uL (4.4-10.8)
[2024-10-18 09:00] LABS: Alanine Aminotransferase 17 U/L (7-40); Alkaline Phosphatase 100 U/L (46-116); Anion Gap 5 (5-15); Aspartate Aminotransferase 17 U/L (13-40); BUN/Creatinine Ratio 18.8 (10.0-20.0); Blood Urea Nitrogen 15 mg/dL (9-23); Carbon Dioxide 28 mmol/L (20-31); Chloride 106 mmol/L (98-107); Sodium 139 mmol/L (136-145); Total Protein 7.3 g/dL (5.7-8.2)
[2024-10-18 09:01] LABS: Bilirubin, Total < 0.2 mg/dL (0.2-1.0); Calcium 10.7 mg/dL (8.7-10.4); Glucose 182 mg/dL (74-106)
[2024-10-18] MEDS: cefTRIAXone SOD 1,000 MG VL IM ONE (09:51)
[2024-10-18] MEDS ORDERED: MORPHINE SULFATE INJ 2 MG/ml SYRG IV PRN ×2 (12:00→12:15)
[2024-10-18] MEDS ORDERED: IOHEXOL 300 MG/ML 100ML BOTTLE IJ ONE (12:12)
[2024-10-18] MEDS ORDERED: ONDANSETRON HCL 4 MG/2 ML VIAL IV PRN (12:15)
[2024-10-18] MEDS: SODIUM CHLORIDE 0.9% 1,000 ML IV SCH (12:15)
[2024-10-18] MEDS ORDERED: hydrALAZINE HCL 20 MG/ML VL IV PRN (12:15)
--- NOTE | 2024-10-18 13:04 | DVH ---
CT ABDOMEN AND PELVIS WITH and without CONTRAST CLINICAL HISTORY: ureteral/renal stones TECHNIQUE: Multidetector CT of the abdomen was performed from lung bases to pubic symphysis. Imaging was performed with and without IV contrast. Axial, coronal and sagittal multiplanar reformats were ob tained from the axial data set by the technologist. 100 cc of Omnipaque 300 contrast was inject ed intravenously. Radiation optimization: All CT scans at this facility use at least one of these dose optimization susan hniques: automated exposure control mA and/or kV adjustment per patient size (includes targeted exam s where dose is matched to clinical indication) or iterative reconstruction. Radiation Dose Information: CT Dose: CTDI volume is 23.54 mGy. Dose-length product is 2267.25 mGy*cm Comparison: None FINDINGS: There are multiple right renal calculi, the largest in the lower pole measuring 9 mm. There is also an 8 mm calculus in the right renal pelvis. There is right renal pelviectasis. There is no evidence o f left renal calculus or hydronephrosis. There are renal cysts, the largest in the right upper pole measuring 4.1 cm. There is no evidence of a ureteral calculus or hydroureter. Bladder appears within normal limits with out evidence of bladder calculus or mass. There is fatty infiltration of the liver. The gallbladder, pancreas, adrenal glands, and spleen ap pear within normal limits. There are multiple subcentimeter retroperitoneal lymph nodes along the abdominal aorta and IVC. There is no evidence of mesenteric lymphadenopathy.. There is no free fluid or free air. The small and large bowel loops demonstrate normal caliber. There are multiple diverticula in the si gmoid colon without evidence of acute diverticulitis. The abdominal aorta and IVC appear within normal limits. The uterus is surgically absent. There is no evidence of a pelvic mass or lymphadenopathy. There is n o free fluid collection. Lung bases are clear. There is no acute osseous abnormality. IMPRESSION: 1. Multiple right renal calculi measuring up to 9 mm. There is an 8 mm calculus in the right renal pe lvis. There is right renal pelviectasis.. There is no evidence of left renal nephrolithiasis or hydr onephrosis 2. Multiple nonspecific subcentimeter retroperitoneal lymph nodes along the abdominal aorta and IVC. 3. Hepatic steatosis. 4. Sigmoid diverticulosis. HS:Y
--- NOTE | 2024-10-18 13:17 | DVHHP2 ---
Review of Systems Allergies: Coded Allergies: Nitroglycerin (Verified Allergy, Unknown, 02/17/10) Medications Current Medications Medications Dose Ordered Sig/Rajni Route Start Time Stop Time Status Last Admin Dose Admin Morphine Sulfate 2 mg Q30M PRN IV 10/18/24 12:00 Sodium Chloride 1,000 ml @ 75 mls/hr [id number] IV 10/18/24 12:15 Ceftriaxone Sodium 50 ml @ 100 mls/hr DAILY@09 IV 10/19/24 09:00 Ondansetron HCl 4 mg Q4HPRN PRN IV 10/18/24 12:15 Morphine Sulfate 2 mg Q4HPRN PRN IV 10/18/24 12:15 Hydralazine HCl 10 mg Q6HP PRN IV 10/18/24 12:15 Famotidine 20 mg DAILY PO 10/19/24 10:00 Acetaminophen/ Hydrocodone Bitart 1 tab Q4HPRN PRN PO 10/18/24 12:15 Exam Vital Signs Vital Signs Date Time Temp Pulse Resp B/P (MAP) Pulse Ox O2 Delivery O2 Flow Rate FiO2 10/18/24 13:07 98.0 85 18 135/84 (101) 97 98.0 10/18/24 09:38 Room Air* 0 21 Labs/Xrays Labs Test 10/18/24 08:20 10/18/24 08:13 Range/Units Urine Color Colorless Yellow Urine Clarity Turbid H Clear Urine pH 7.0 5.0-9.0 Urine Specific [place] 1.014 1.001-1.035 Urine Protein 1+ H Negative Urine Ketones Negative Negative Urine Blood 1+ H Negative /uL Urine Nitrite 2+ H Negative Urine Bilirubin Negative Negative Urine Urobilinogen Normal Negative mg/dL Urine Leukocyte Esterase 3+ Negative /uL Urine RBC 26 0 - 4 /hpf Urine WBC 146 0 - 5 /hpf Urine Squamous Epithelial Cells Few <5 /hpf Urine Bacteria Many H None Seen /hpf Urine Glucose Normal Normal mg/dL White Blood Count 7.1 4.4-10.8 10^3/uL Red Blood Count 4.31 4.0-5.20 10^6/uL Hemoglobin 13.0 12.2-16.2 g/dL Hematocrit 38.6 36.0-46.0 % Mean Corpuscular Volume 89.5 80.0-100.0 fL Mean Corpuscular Hemoglobin 30.2 28.0-32.0 pg Mean Corpuscular Hemoglobin Concent 33.7 32.0-36.0 g/dL Red Cell Distribution Width 14.5 H 11.8-14.3 % Platelet Count 567 H 140-450 10^3/uL Mean Platelet Volume 6.6 L 6.9-10.8 fL Neutrophils (%) (Auto) 56.2 37.0-80.0 % Lymphocytes (%) (Auto) 34.3 10.0-50.0 % Monocytes (%) (Auto) 6.9 0.0-12.0 % Eosinophils (%) (Auto) 1.9 0.0-7.0 % Basophils (%) (Auto) 0.7 0.0-2.0 % Neutrophils # (Auto) 4.0 1.6-8.6 10 ^3/uL Lymphocytes # (Auto) 2.4 0.4-5.4 10 ^3/uL Monocytes # (Auto) 0.5 0-1.3 10 ^3/uL Eosinophils # (Auto) 0.1 0-0.8 10 ^3/uL Basophils # (Auto) 0 0-0.2 10 ^3/uL Nucleated Red Blood Cells 0.1 % Sodium Level 139 136-145 mmol/L Potassium Level 4.0 3.5-5.1 mmol/L Chloride Level 106 # 98-107 mmol/L Carbon Dioxide Level 28 20-31 mmol/L Anion Gap 5 5-15 Blood Urea Nitrogen 15 9-23 mg/dL Creatinine 0.80 0.550-1.02 mg/dL Glomerular Filtration Rate Calc 84 >90 mL/min BUN/Creatinine Ratio 18.8 10.0-20.0 Serum Glucose 182 H 74-106 mg/dL Calcium Level 10.7 H 8.7-10.4 mg/dL Total Bilirubin < 0.2 L 0.2-1.0 mg/dL Aspartate Amino Transferase (AST) 17 13-40 U/L Alanine Aminotransferase (ALT) 17 7-40 U/L Alkaline Phosphatase 100 46-116 U/L Total Protein 7.3 5.7-8.2 g/dL Albumin 4.0 3.2-4.8 g/dL Assessment/Plan My Orders Orders - VJ ELIZALDE MD Procedure Category Date Status Time Urine Bacterial KORY 10/18/24 In Process Culture 11:58 Admit ADMIT 10/18/24 Transmitted 11:58 * Urology Consult CONS 10/18/24 Transmitted 11:58 Cardiac DIET 10/18/24 Transmitted Diet-2gna,Lofat,Lochol Lunch Morphine Sulfate PHA 10/18/24 In Process Injection 12:00 Stat Ekg For Chest TEA 10/18/24 In Process Pain 11:58 Notify Of Changes TEA 10/18/24 In Process From Base 11:58 Training And Development Manager For TEA 10/18/24 In Process 24 Hours 11:58 Emergency Dysrhythmia TEA 10/18/24 In Process Protocol 11:58 Rhythm Strips Once TEA 10/18/24 In Process Every Shift 11:58 Oxygen By Nasal RT 10/18/24 Transmitted Cannula 11:58 Ct Ab Pelvis W Wo CT 10/18/24 Resulted Con-Iv Only 11:58 Sodium Chloride 0.9% PHA 10/18/24 In Process 12:15 Ceftriaxone 1gm/50ml PHA 10/19/24 In Process D5w (Rocephin) 09:00 Ondansetron Hcl PHA 10/18/24 In Process (Zofran) 12:15 Morphine Sulfate PHA 10/18/24 In Process Injection 12:15 Hydralazine Injection PHA 10/18/24 In Process (Apresoline Inject 12:15 Famotidine Tablet PHA 10/19/24 In Process (Pepcid Tablet) 10:00 Hydrocodone-Acet PHA 10/18/24 In Process 5/325mg Tab (Imperial 12:15 Mrsa Screen KORY 10/18/24 Uncollected 13:11 VJ ELIZALDE MD Oct 18, 2024 13:17
--- NOTE | 2024-10-18 16:32 | DVHINCON2 ---
Date of service: Oct 18, [address] Lee Reason for Consultation nephrostomy displaced History of Present Illness History Source: Patient, RN Notes, Old Records Exam Limitations: No limitations HPI 59 yo female known to urology service for right renal staghorn s/p right PCNL 10/11/23. Was d/c home with PCN in place. During dressing change the PCN fell out per daughter. CT reviewed, no obstructing calculi. Home Meds Active Scripts Amoxicillin & Pot Clavulanate (Augmentin) 500 Mg Tab, 1 TAB PO BID, #14 TAB Prov:VJ ELIZALDE MD 06/12/24 Reported Medications Metformin HCl (Metformin Hydrochloride) 1,000 Mg Tab, 1 TAB PO DAILY 02/24/24 Semaglutide (Ozempic) 2 Mg/3 Ml Inj, 0.5 MG SC QWEEKLY 02/23/24 Glipizide (Glipizide) 5 Mg Tab, 5 MG PO DAILY for 30 Days, MG 07/14/16 Atorvastatin Calcium (ATORVASTATIN CALCIUM) 20 Mg Tab, 1 TAB PO HS, #30 TAB 5 Refills 07/14/16 Furosemide (Lasix) 20 Mg Tb, 1 TAB PO BID, #90 TAB 1 Refill 07/14/16 Levothyroxine Sodium (Levothyroxine Sodium) 137 Mcg Tab, 1 TAB PO DAILY, #30 TAB 5 Refills 07/14/16 Carvedilol (Coreg) 6.25 Mg Tab, 1 TAB PO BID, #180 TAB 1 Refill 07/14/16 Potassium Chloride (Klor-Con M20) 20 Meq Tab, 20 MEQ PO DAILY 02/17/10 Albuterol Sulfate (Albuterol Sulfate) 0.5 % Neb, 0.5 ML NEB PRN 02/15/10 Past Medical History Patient Family History: Kidney stones G8 MOTHER G8 FATHER H&P Exam Vital Signs Vital Signs Date Time Temp Pulse Resp B/P (MAP) Pulse Ox O2 Delivery O2 Flow Rate FiO2 10/18/24 14:50 85 19 96 Room Air* 0 21 10/18/24 14:23 97.4 147/94 (111) 97.4 Labs/Xrays [address] [address] Ph: [phone] DIAGNOSTIC IMAGING Diagnostic Imaging Report : [id number] Signed PATIENT: RIAC WHEATLEY ACCT: [id number] UNIT: [id number] : 1965 LOC: OVERFLOW ROOM / BED: [address] [place] [address] / A AGE / SEX: 59 / F ADM STATUS: ADM IN SERVICE 1158 ORDERING PHYSICIAN: VJ ELIZALDE MD PROCEDURE(s): ABPEL - CT AB PELVIS W WO CON-IV ONLY REASON: ureteral/renal stones ORDER NUMBER(s): [id number], ACCESSION NUMBER(s): [id number] CT ABDOMEN AND PELVIS WITH and without CONTRAST CLINICAL HISTORY: ureteral/renal stones TECHNIQUE: Multidetector CT of the abdomen was performed from lung bases to pubic symphysis. Imaging was performed with and without IV contrast. Axial, coronal and sagittal multiplanar reformats were obtained from the axial data set by the technologist. 100 cc of Omnipaque 300 contrast was injected intravenously. Radiation optimization: All CT scans at this facility use at least one of these dose optimization techniques: automated exposure control mA and/or kV adjustment per patient size (includes targeted exams where dose is matched to clinical indication) or iterative reconstruction. Radiation Dose Information: CT Dose: CTDI volume is 23.54 mGy. Dose-length product is 2267.25 mGy*cm Comparison: None FINDINGS: There are multiple right renal calculi, the largest in the lower pole measuring 9 mm. There is also an 8 mm calculus in the right renal pelvis. There is right renal pelviectasis. There is no evidence of left renal calculus or hydronephrosis. There are renal cysts, the largest in the right upper pole measuring 4.1 cm. There is no evidence of a ureteral calculus or hydroureter. Bladder appears within normal limits without evidence of bladder calculus or mass. There is fatty infiltration of the liver. The gallbladder, pancreas, adrenal glands, and spleen appear within normal limits. There are multiple subcentimeter retroperitoneal lymph nodes along the abdominal aorta and IVC. There is no evidence of mesenteric lymphadenopathy.. There is no free fluid or free air. The small and large bowel loops demonstrate normal caliber. There are multiple diverticula in the sigmoid colon without evidence of acute diverticulitis. The abdominal aorta and IVC appear within normal limits. The uterus is surgically absent. There is no evidence of a pelvic mass or lymphadenopathy. There is no free fluid collection. Lung bases are clear. There is no acute osseous abnormality. IMPRESSION: 1. Multiple right renal calculi measuring up to 9 mm. There is an 8 mm calculus in the right renal pelvis. There is right renal pelviectasis.. There is no evidence of left renal nephrolithiasis or hydronephrosis 2. Multiple nonspecific subcentimeter retroperitoneal lymph nodes along the abdominal aorta and IVC. 3. Hepatic steatosis. 4. Sigmoid diverticulosis. HS:Y ATED BY: CHIP MERRILL MD DICTATED DATE/TIME: 10/18/24 1302 SIGNED BY: CHIP MERRILL MD SIGNED DATE/TIME: 10/18/24 1302 CC: Labs Test 10/18/24 08:20 10/18/24 08:13 Range/Units Urine Color Colorless Yellow Urine Clarity Turbid H Clear Urine pH 7.0 5.0-9.0 Urine Specific [place] 1.014 1.001-1.035 Urine Protein 1+ H Negative Urine Ketones Negative Negative Urine Blood 1+ H Negative /uL Urine Nitrite 2+ H Negative Urine Bilirubin Negative Negative Urine Urobilinogen Normal Negative mg/dL Urine Leukocyte Esterase 3+ Negative /uL Urine RBC 26 0 - 4 /hpf Urine WBC 146 0 - 5 /hpf Urine Squamous Epithelial Cells Few <5 /hpf Urine Bacteria Many H None Seen /hpf Urine Glucose Normal Normal mg/dL White Blood Count 7.1 4.4-10.8 10^3/uL Red Blood Count 4.31 4.0-5.20 10^6/uL Hemoglobin 13.0 12.2-16.2 g/dL Hematocrit 38.6 36.0-46.0 % Mean Corpuscular Volume 89.5 80.0-100.0 fL Mean Corpuscular Hemoglobin 30.2 28.0-32.0 pg Mean Corpuscular Hemoglobin Concent 33.7 32.0-36.0 g/dL Red Cell Distribution Width 14.5 H 11.8-14.3 % Platelet Count 567 H 140-450 10^3/uL Mean Platelet Volume 6.6 L 6.9-10.8 fL Neutrophils (%) (Auto) 56.2 37.0-80.0 % Lymphocytes (%) (Auto) 34.3 10.0-50.0 % Monocytes (%) (Auto) 6.9 0.0-12.0 % Eosinophils (%) (Auto) 1.9 0.0-7.0 % Basophils (%) (Auto) 0.7 0.0-2.0 % Neutrophils # (Auto) 4.0 1.6-8.6 10 ^3/uL Lymphocytes # (Auto) 2.4 0.4-5.4 10 ^3/uL Monocytes # (Auto) 0.5 0-1.3 10 ^3/uL Eosinophils # (Auto) 0.1 0-0.8 10 ^3/uL Basophils # (Auto) 0 0-0.2 10 ^3/uL Nucleated Red Blood Cells 0.1 % Sodium Level 139 136-145 mmol/L Potassium Level 4.0 3.5-5.1 mmol/L Chloride Level 106 # 98-107 mmol/L Carbon Dioxide Level 28 20-31 mmol/L Anion Gap 5 5-15 Blood Urea Nitrogen 15 9-23 mg/dL Creatinine 0.80 0.550-1.02 mg/dL Glomerular Filtration Rate Calc 84 >90 mL/min BUN/Creatinine Ratio 18.8 10.0-20.0 Serum Glucose 182 H 74-106 mg/dL Calcium Level 10.7 H 8.7-10.4 mg/dL Total Bilirubin < 0.2 L 0.2-1.0 mg/dL Aspartate Amino Transferase (AST) 17 13-40 U/L Alanine Aminotransferase (ALT) 17 7-40 U/L Alkaline Phosphatase 100 46-116 U/L Total Protein 7.3 5.7-8.2 g/dL Albumin 4.0 3.2-4.8 g/dL Assessment/Plan Problem List: (1) Nephrostomy tube displaced (2) Renal calculus, right Plan outpt right ESWL and stent placement to be arranged 4 - 6 weeks from initial PCNL (10/11/23) follow up urology 2 weeks Plan discussed with: Patient, Other HARIS GORDON NP Oct 18, 2024 16:32
[2024-10-19] VITALS (8 sets, daily range): BP systolic 97–121; BP diastolic 55–77; PULSE 62–101; RESP 16–19; TEMP 97.8–99.4; O2SAT 94–100
--- NOTE | 2024-10-19 01:13 | DVHHP2 ---
KRISTINA REAVES [employer]SEM[employer] SUPERVISOR 10/19/24 0113: History of Present Illness Reason for Visit: Dislodged nephrostomy tube History of Present Illness 59 female presents for complaints of a dislodge right nephrostomy tube. Was recently placed on October 08, 2024 And fell out while the daughter was trying to clean the site. Endorsing Moderate flank pain. Denies fevers, chills,Shortness of breath, chest pain, palpitations, nausea, vomiting. During the emergency de partment evaluation patient also found to be positive for UTI Cardiovascular: CHF, HTN Pulmonary: COPD Renal/: Other Smoke: No ALCOHOL: none Drugs: None Lives: with Family Review of Systems Constitutional: No: Fever, Chills, Sweats, Weakness, Malaise, Other Eyes: No: Pain, Vision change, Conjunctivae inflammation, Eyelid inflammation, Other, Redness ENT: No: Ear pain, Ear discharge, Nose pain, Nose discharge, Nose congestion, Mouth pain, Mouth swelling, Throat pain, Throat swelling, Other Respiratory: No: Cough, Dry, Shortness of breath, SOB with excertion, Wheezing, Hemoptysis, Pleuritic Pain, Sputum, Wheezing, Other Cardiovascular: No: Chest Pain, Palpitations, Orthopnea, Paroxysmal Noc. Dyspnea, Edema, Lt Headedness, Other Gastrointestinal: No: Nausea, Vomiting, Abdominal Pain, Diarrhea, Constipation, Melena, Hematochezia, Other Genitourinary: No Dysuria, No Frequency, No Incontinence, No Hematuria, No Retention; Other (flank pain) Musculoskeletal: No: other, neck pain, shoulder pain, arm pain, back pain, hand pain, leg pain, foot pain Skin: No: Rash, Lesions, Jaundice, Bruising, Other Neurological: No: Weakness, Numbness, Incoordination, Change in speech, Confusion, Seizures, Other Allergies: Coded Allergies: Nitroglycerin (Verified Allergy, Unknown, 02/17/10) Medications Current Medications Medications Dose Ordered Sig/Rajni Route Start Time Stop Time Status Last Admin Dose Admin Morphine Sulfate 2 mg Q30M PRN IV 10/18/24 12:00 Sodium Chloride 1,000 ml @ 75 mls/hr [id number] IV 10/18/24 12:15 10/18/24 12:15 75 MLS/HR Ceftriaxone Sodium 50 ml @ 100 mls/hr DAILY@09 IV 10/19/24 09:00 Ondansetron HCl 4 mg Q4HPRN PRN IV 10/18/24 12:15 Morphine Sulfate 2 mg Q4HPRN PRN IV 10/18/24 12:15 Hydralazine HCl 10 mg Q6HP PRN IV 10/18/24 12:15 Famotidine 20 mg DAILY PO 10/19/24 10:00 Acetaminophen/ Hydrocodone Bitart 1 tab Q4HPRN PRN PO 10/18/24 12:15 Exam Vital Signs Vital Signs Date Time Temp Pulse Resp B/P (MAP) Pulse Ox O2 Delivery O2 Flow Rate FiO2 10/18/24 21:00 97.9 100 16 125/97 (106) 95 97.9 10/18/24 20:22 Room Air* 2 N/A Nasal Cannula* General Appearance: Alert, Oriented X3, Cooperative, No acute distress HEENT: Atraumatic, PERRLA, EOMI Respiratory: Clear to auscultation, Normal air movement Cardiovascular: Regular rate, Normal S1, Normal S2 Abdominal: Normal bowel sounds, Soft, No tenderness Extremities: No cyanosis, No edema Skin: No breakdown Neuro: Normal speech, Strength at 5/5 X4 ext Psych/Mental Status: Mental status NL, Mood NL Labs/Xrays Labs Test 10/18/24 08:20 10/18/24 08:13 Range/Units Urine Color Colorless Yellow Urine Clarity Turbid H Clear Urine pH 7.0 5.0-9.0 Urine Specific [place] 1.014 1.001-1.035 Urine Protein 1+ H Negative Urine Ketones Negative Negative Urine Blood 1+ H Negative /uL Urine Nitrite 2+ H Negative Urine Bilirubin Negative Negative Urine Urobilinogen Normal Negative mg/dL Urine Leukocyte Esterase 3+ Negative /uL Urine RBC 26 0 - 4 /hpf Urine WBC 146 0 - 5 /hpf Urine Squamous Epithelial Cells Few <5 /hpf Urine Bacteria Many H None Seen /hpf Urine Glucose Normal Normal mg/dL White Blood Count 7.1 4.4-10.8 10^3/uL Red Blood Count 4.31 4.0-5.20 10^6/uL Hemoglobin 13.0 12.2-16.2 g/dL Hematocrit 38.6 36.0-46.0 % Mean Corpuscular Volume 89.5 80.0-100.0 fL Mean Corpuscular Hemoglobin 30.2 28.0-32.0 pg Mean Corpuscular Hemoglobin Concent 33.7 32.0-36.0 g/dL Red Cell Distribution Width 14.5 H 11.8-14.3 % Platelet Count 567 H 140-450 10^3/uL Mean Platelet Volume 6.6 L 6.9-10.8 fL Neutrophils (%) (Auto) 56.2 37.0-80.0 % Lymphocytes (%) (Auto) 34.3 10.0-50.0 % Monocytes (%) (Auto) 6.9 0.0-12.0 % Eosinophils (%) (Auto) 1.9 0.0-7.0 % Basophils (%) (Auto) 0.7 0.0-2.0 % Neutrophils # (Auto) 4.0 1.6-8.6 10 ^3/uL Lymphocytes # (Auto) 2.4 0.4-5.4 10 ^3/uL Monocytes # (Auto) 0.5 0-1.3 10 ^3/uL Eosinophils # (Auto) 0.1 0-0.8 10 ^3/uL Basophils # (Auto) 0 0-0.2 10 ^3/uL Nucleated Red Blood Cells 0.1 % Sodium Level 139 136-145 mmol/L Potassium Level 4.0 3.5-5.1 mmol/L Chloride Level 106 # 98-107 mmol/L Carbon Dioxide Level 28 20-31 mmol/L Anion Gap 5 5-15 Blood Urea Nitrogen 15 9-23 mg/dL Creatinine 0.80 0.550-1.02 mg/dL Glomerular Filtration Rate Calc 84 >90 mL/min BUN/Creatinine Ratio 18.8 10.0-20.0 Serum Glucose 182 H 74-106 mg/dL Calcium Level 10.7 H 8.7-10.4 mg/dL Total Bilirubin < 0.2 L 0.2-1.0 mg/dL Aspartate Amino Transferase (AST) 17 13-40 U/L Alanine Aminotransferase (ALT) 17 7-40 U/L Alkaline Phosphatase 100 46-116 U/L Total Protein 7.3 5.7-8.2 g/dL Albumin 4.0 3.2-4.8 g/dL Assessment/Plan Assessment/Plan Dislodged right nephrostomy tube UTI with hematuria Obstructive kidney stone. Plan Admit medical floor Urology consult IV ABX As needed analgesia GI ppx pepcid / dvt ppx scd Plan discussed with: Patient Date of Service: Oct 19, 2024 Billing Provider: VJ ELIZALDE MD Common Visit Codes: NOT BILLABLE VJ ELIZALDE MD 10/19/24 1745: Review of Systems Allergies: Coded Allergies: Nitroglycerin (Verified Allergy, Unknown, 02/17/10) Additional Comments Additional Comments Additional Comments Patient's chart is reviewed and discussed with the nurse practitioner as well as urologist. Patient evaluated and admitted by [employer] SUPERVISOR this morning. I agree with his evaluation, documentation, assessment and care plan as outlined. KRISTINA REAVES NP Oct 19, 2024 01:13 VJ ELIZALDE MD Oct 19, 2024 17:45
[2024-10-19] MEDS: FAMOTIDINE 20 MG TAB PO SCH (08:38)
[2024-10-19] MEDS: cefTRIAXone 1GM/50ML D5W 50 ML IV SCH (08:38)
[2024-10-19] MEDS: HYDROcodone-ACET 5/325MG TAB PO PRN (09:31)
--- NOTE | 2024-10-19 11:10 | DVHINCON2 ---
Date of service: Oct 19, 2024 Reason for Consultation kidney stones History of Present Illness 59-year-old female known to Nephrology Service for kidney stones. Presents to the hospital after dislodged right nephrostomy tube. Nephrology consulted. Patient is seen by Urology Allergies: Coded Allergies: Nitroglycerin (Verified Allergy, Unknown, 02/17/10) Home Meds Active Scripts Amoxicillin & Pot Clavulanate (Augmentin) 500 Mg Tab, 1 TAB PO BID, #14 TAB Prov:VJ ELIZALDE MD 06/12/24 Reported Medications Metformin HCl (Metformin Hydrochloride) 1,000 Mg Tab, 1 TAB PO DAILY 02/24/24 Semaglutide (Ozempic) 2 Mg/3 Ml Inj, 0.5 MG SC QWEEKLY 02/23/24 Glipizide (Glipizide) 5 Mg Tab, 5 MG PO DAILY for 30 Days, MG 07/14/16 Atorvastatin Calcium (ATORVASTATIN CALCIUM) 20 Mg Tab, 1 TAB PO HS, #30 TAB 5 Refills 07/14/16 Furosemide (Lasix) 20 Mg Tb, 1 TAB PO BID, #90 TAB 1 Refill 07/14/16 Levothyroxine Sodium (Levothyroxine Sodium) 137 Mcg Tab, 1 TAB PO DAILY, #30 TAB 5 Refills 07/14/16 Carvedilol (Coreg) 6.25 Mg Tab, 1 TAB PO BID, #180 TAB 1 Refill 07/14/16 Potassium Chloride (Klor-Con M20) 20 Meq Tab, 20 MEQ PO DAILY 02/17/10 Albuterol Sulfate (Albuterol Sulfate) 0.5 % Neb, 0.5 ML NEB PRN 02/15/10 Current Medications Current Medications Medications (Trade) Dose Ordered Sig/Rajni Route PRN Reason Start Time Stop Time Status Last Admin Ceftriaxone Sodium 50 ml @ 100 mls/hr DAILY@09 IV 10/19/24 09:00 10/19/24 08:38 Famotidine (Pepcid Tablet) 20 mg DAILY PO 10/19/24 10:00 10/19/24 08:38 Family History: Kidney stones G8 MOTHER G8 FATHER Review of Systems dislodged tube H&P Exam Vital Signs/I&O Vital Sign Date Time Temp Pulse Resp B/P (MAP) Pulse Ox O2 Delivery O2 Flow Rate FiO2 10/19/24 08:49 98.1 99 18 107/67 (80) 94 98.1 10/19/24 08:00 Room Air* 2 N/A Nasal Cannula* Intake and Output 10/18/24 10/19/24 19:00 07:00 Intake Total 0 ml 840 ml Balance 0 ml 840 ml Intake Oral 0 ml 840 ml # Voids 1 3 Physical Exam Elderly female Nonacute distress Abdomen is soft No pitting edema Nephrostomy tube not in place Labs/Diagnostic Data Labs/Diagnostic Data Laboratory Tests Test 10/19/24 11:59 10/18/24 08:20 10/18/24 08:13 Range/Units Urine Color Colorless Yellow Urine Clarity Turbid H Clear Urine pH 7.0 5.0-9.0 Urine Specific [place] 1.014 1.001-1.035 Urine Protein 1+ H Negative Urine Ketones Negative Negative Urine Blood 1+ H Negative /uL Urine Nitrite 2+ H Negative Urine Bilirubin Negative Negative Urine Urobilinogen Normal Negative mg/dL Urine Leukocyte Esterase 3+ Negative /uL Urine RBC 26 0 - 4 /hpf Urine WBC 146 0 - 5 /hpf Urine Squamous Epithelial Cells Few <5 /hpf Urine Bacteria Many H None Seen /hpf Urine Glucose Normal Normal mg/dL White Blood Count 7.1 4.4-10.8 10^3/uL Red Blood Count 4.31 4.0-5.20 10^6/uL Hemoglobin 13.0 12.2-16.2 g/dL Hematocrit 38.6 36.0-46.0 % Mean Corpuscular Volume 89.5 80.0-100.0 fL Mean Corpuscular Hemoglobin 30.2 28.0-32.0 pg Mean Corpuscular Hemoglobin Concent 33.7 32.0-36.0 g/dL Red Cell Distribution Width 14.5 H 11.8-14.3 % Platelet Count 567 H 140-450 10^3/uL Mean Platelet Volume 6.6 L 6.9-10.8 fL Neutrophils (%) (Auto) 56.2 37.0-80.0 % Lymphocytes (%) (Auto) 34.3 10.0-50.0 % Monocytes (%) (Auto) 6.9 0.0-12.0 % Eosinophils (%) (Auto) 1.9 0.0-7.0 % Basophils (%) (Auto) 0.7 0.0-2.0 % Neutrophils # (Auto) 4.0 1.6-8.6 10 ^3/uL Lymphocytes # (Auto) 2.4 0.4-5.4 10 ^3/uL Monocytes # (Auto) 0.5 0-1.3 10 ^3/uL Eosinophils # (Auto) 0.1 0-0.8 10 ^3/uL Basophils # (Auto) 0 0-0.2 10 ^3/uL Nucleated Red Blood Cells 0.1 % Sodium Level 139 136-145 mmol/L Potassium Level 4.0 3.5-5.1 mmol/L Chloride Level 106 # 98-107 mmol/L Carbon Dioxide Level 28 20-31 mmol/L Anion Gap 5 5-15 Blood Urea Nitrogen 15 9-23 mg/dL Creatinine 0.80 0.550-1.02 mg/dL Glomerular Filtration Rate Calc 84 >90 mL/min BUN/Creatinine Ratio 18.8 10.0-20.0 Serum Glucose 182 H 74-106 mg/dL Calcium Level 10.7 H 8.7-10.4 mg/dL Total Bilirubin < 0.2 L 0.2-1.0 mg/dL Aspartate Amino Transferase (AST) 17 13-40 U/L Alanine Aminotransferase (ALT) 17 7-40 U/L Alkaline Phosphatase 100 46-116 U/L Total Protein 7.3 5.7-8.2 g/dL Albumin 4.0 3.2-4.8 g/dL Assessment nephrolithiasis dislodged nephrotomy tube hypercalcemia volume depletion rule out hyperparathyroidism UTI Urology IVF IV ABX obtain PTH and vitamin D level Plan discussed with: Patient ENIO KOHLI MD Oct 19, 2024 11:10
[2024-10-20 01:00] VITALS: BP 142/70; PULSE 86; RESP 18; TEMP 98.7; O2SAT 92
[2024-10-20 05:00] VITALS: BP 110/64; PULSE 82; RESP 20; TEMP 98.2; O2SAT 90
[2024-10-20 07:18] LABS: Anion Gap 5 (5-15); Carbon Dioxide 30 mmol/L (20-31); Chloride 105 mmol/L (98-107); Potassium 3.8 mmol/L (3.5-5.1); Sodium 140 mmol/L (136-145)
[2024-10-20 07:22] LABS: Calcium 10.5 mg/dL (8.7-10.4)
[2024-10-20 07:24] LABS: BUN/Creatinine Ratio 13.4 (10.0-20.0); Blood Urea Nitrogen 11 mg/dL (9-23); Glucose 158 mg/dL (74-106)
[2024-10-20 08:00] VITALS: PULSE 83; RESP 18; O2SAT 96
[2024-10-20 09:00] VITALS: BP 103/41; PULSE 73; RESP 18; TEMP 98.4; O2SAT 94
[2024-10-20 12:47] VITALS: BP 111/47; PULSE 84; RESP 18; TEMP 98; O2SAT 91
--- NOTE | 2024-10-20 13:40 | ECG ---
[facility] Test Date: 2024-10-18 Test Time: 12:58:20 Pat Name: RICA WHEATLEY Department: ER HOLDING Room: 0236 A Gender: F Nursing Agency Manager: LISSET WEIR LVN : 1965 Requested By: FARZAD DANIELS Order Number: [id number] Reading MD: Measurements Intervals [place] Rate: 84 P: 61 MA: 191 QRS: -14 QRSD: 95 T: 67 QT: 386 QTc: 457 Interpretive Statements Pediatric ECG interpretation Sinus bradycardia Prolonged MA interval Nonspecific intraventricular conduction delay Borderline low voltage, extremity leads Please click the below link to view image of tracing.
--- NOTE | 2024-10-20 14:23 | DVHPN2 ---
Progress Note Date Seen: Oct 20, 2024 Medical Necessity Reason Pt with a Central, PICC or Fol: No Subjective Patient reports: Feels better Objective vital signs Vital Sign Date Time Temp Pulse Resp B/P (MAP) Pulse Ox O2 Delivery O2 Flow Rate FiO2 10/20/24 12:47 98.0 84 18 111/47 (68) 91 98.0 10/20/24 08:00 Room Air* 2 N/A Nasal Cannula* Total Intake and Output 10/19/24 10/19/24 10/20/24 15:00 23:00 07:00 Intake Total 50 ml 780 ml 600 ml Balance 50 ml 780 ml 600 ml medications Current Medications Medications Dose Ordered Sig/Rajni Route Start Time Stop Time Status Last Admin Dose Admin Sodium Chloride 1,000 ml @ 75 mls/hr [id number] IV 10/18/24 12:15 10/20/24 04:00 75 MLS/HR Ceftriaxone Sodium 50 ml @ 100 mls/hr DAILY@09 IV 10/19/24 09:00 10/20/24 09:45 100 MLS/HR Ondansetron HCl 4 mg Q4HPRN PRN IV 10/18/24 12:15 Morphine Sulfate 2 mg Q4HPRN PRN IV 10/18/24 12:15 Hydralazine HCl 10 mg Q6HP PRN IV 10/18/24 12:15 Famotidine 20 mg DAILY PO 10/19/24 10:00 10/20/24 09:45 20 MG Acetaminophen/ Hydrocodone Bitart 1 tab Q4HPRN PRN PO 10/18/24 12:15 10/19/24 09:31 1 TAB Examination: GENERAL:Normal, CVS:Normal, NEURO:Normal laboratory and microbiology Laboratory Tests 10/20/24 06:24 10/18/24 08:13 Test 10/20/24 06:24 Range/Units Serum Glucose 158 H 74-106 mg/dL Microbiology Date/Time Source Procedure Growth Status 10/18/24 13:40 Nose MRSA Screen - Final Methicillin Resistant S.aureus Complete 10/18/24 08:20 Urine - Midstream Clean Catch Urine Culture - Final Complete Problem List/Assessment/Plan Problem List/Assessment/Plan nephrolithiasis dislodged nephrotomy tube hypercalcemia UTI Urology IVF IV ABX elevated PTH and high Ca suspect hyperparathyroidism will obtain outpatient records for hx NM parathyroid Plan discussed with: Patient ENIO KOHLI MD Oct 20, 2024 14:23
--- NOTE | 2024-10-20 15:42 | DVHDS2 ---
Discharge Summary Date of Admission Oct 18, 2024 at 11:58 Date of Discharge: Oct 20, 2024 Labs/Diagnostic Data: Laboratory Results Test 10/20/24 06:24 10/19/24 11:59 10/18/24 08:20 10/18/24 08:13 Sodium Level 140 mmol/L (136-145) Potassium Level 3.8 mmol/L (3.5-5.1) Chloride Level 105 mmol/L (98-107) Carbon Dioxide Level 30 mmol/L (20-31) Anion Gap 5 (5-15) Blood Urea Nitrogen 11 mg/dL (9-23) Creatinine 0.82 mg/dL (0.550-1.02) Glomerular Filtration Rate Calc 81 mL/min (>90) BUN/Creatinine Ratio 13.4 (10.0-20.0) Serum Glucose 158 mg/dL (74-106) Calcium Level 10.5 mg/dL (8.7-10.4) Vitamin D 25-Hydroxy 17.2 ng/mL (30.0-100) Parathyroid Hormone (Intact) 144.8 pg/mL (18.4-80.1) Urine Color Colorless (Yellow) Urine Clarity Turbid (Clear) Urine pH 7.0 (5.0-9.0) Urine Specific [place] 1.014 (1.001-1.035) Urine Protein 1+ (Negative) Urine Ketones Negative (Negative) Urine Blood 1+ /uL (Negative) Urine Nitrite 2+ (Negative) Urine Bilirubin Negative (Negative) Urine Urobilinogen Normal mg/dL (Negative) Urine Leukocyte Esterase 3+ /uL (Negative) Urine RBC 26 /hpf (0 - 4) Urine WBC 146 /hpf (0 - 5) Urine Squamous Epithelial Cells Few /hpf (<5) Urine Bacteria Many /hpf (None Seen) Urine Glucose Normal mg/dL (Normal) White Blood Count 7.1 10^3/uL (4.4-10.8) Red Blood Count 4.31 10^6/uL (4.0-5.20) Hemoglobin 13.0 g/dL (12.2-16.2) Hematocrit 38.6 % (36.0-46.0) Mean Corpuscular Volume 89.5 fL (80.0-100.0) Mean Corpuscular Hemoglobin 30.2 pg (28.0-32.0) Mean Corpuscular Hemoglobin Concent 33.7 g/dL (32.0-36.0) Red Cell Distribution Width 14.5 % (11.8-14.3) Platelet Count 567 10^3/uL (140-450) Mean Platelet Volume 6.6 fL (6.9-10.8) Neutrophils (%) (Auto) 56.2 % (37.0-80.0) Lymphocytes (%) (Auto) 34.3 % (10.0-50.0) Monocytes (%) (Auto) 6.9 % (0.0-12.0) Eosinophils (%) (Auto) 1.9 % (0.0-7.0) Basophils (%) (Auto) 0.7 % (0.0-2.0) Neutrophils # (Auto) 4.0 10 ^3/uL (1.6-8.6) Lymphocytes # (Auto) 2.4 10 ^3/uL (0.4-5.4) Monocytes # (Auto) 0.5 10 ^3/uL (0-1.3) Eosinophils # (Auto) 0.1 10 ^3/uL (0-0.8) Basophils # (Auto) 0 10 ^3/uL (0-0.2) Nucleated Red Blood Cells 0.1 % Total Bilirubin < 0.2 mg/dL (0.2-1.0) Aspartate Amino Transferase (AST) 17 U/L (13-40) Alanine Aminotransferase (ALT) 17 U/L (7-40) Alkaline Phosphatase 100 U/L (46-116) Total Protein 7.3 g/dL (5.7-8.2) Albumin 4.0 g/dL (3.2-4.8) Other Laboratory Tests 10/20/24 06:24 10/18/24 08:13 Final Diagnosis/Problems List (1) Nephrostomy tube displaced, no longer needed (2) Renal calculus, right follow up with Urology Discharge Disposition: Home Discharge Instruct/Medications Diet: Consistent carbohydrate, Cardiac 2g Na,low cholest Activity: No Restrictions, As Tolerated Follow Up/Referral: Urology Dr. Pierce Salas 6- 8 weeks for CVAC URSLL on the right kidney. Bank Representative Dr. Barbour/Pedro after two weeks for hyper parathyroid follow up labs. Medications: Home medications Discharge Statement: "Patient was advised to return to the ER or call 911 if any headaches, dizziness, shortness of breath, chest pain, abdominal pain, bleeding, fevers, or worsening of medical condition. Patient was counseled about treatment plan, medications, possible side effects, patientverbalized understanding. All questions were answered to the best of my ability. This discharge took greater then 30 minutes in planning, reviewing documentation, counseling the patient, and discussing with other team members." ASSESSMENT ASSESSMENT Assessment (1) Nephrostomy tube displaced, no longer needed (2) Renal calculus, right follow up with Urology VJ ELIZALDE MD Oct 20, 2024 15:41
[2024-10-20 17:05] VITALS: BP 103/61; PULSE 72; RESP 18; TEMP 98.2; O2SAT 94
--- NOTE | 2024-10-21 12:53 | ECG ---
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
== END 2024-10-20 17:39 | disposition home or self-care (01) | DRG 466 ==
LOC: ER 06:50 → OVERFLOW 11:58 → EAST 14:29
PROVIDERS: ADMIT Hospitalist; ATTEND Hospitalist
DX: T83.022A Displacement of nephrostomy catheter, initial encounter (principal); K76.0 Fatty (change of) liver, not elsewhere classified; I50.9 Heart failure, unspecified; I11.0 Hypertensive heart disease with heart failure; E11.9 Type 2 diabetes mellitus without complications; N20.0 Calculus of kidney; E83.52 Hypercalcemia; E86.9 Volume depletion, unspecified; N28.89 Other specified disorders of kidney and ureter; K57.30 Diverticulosis of large intestine without perforation or abscess without bleeding; J44.89 Other specified chronic obstructive pulmonary disease; N39.0 Urinary tract infection, site not specified; Y73.2 Prosthetic and other implants, materials and accessory gastroenterology and urology devices associated with adverse incidents; Z79.84 Long term (current) use of oral hypoglycemic drugs; Z87.891 Personal history of nicotine dependence; Z85.43 Personal history of malignant neoplasm of ovary; Z87.442 Personal history of urinary calculi; Z79.51 Long term (current) use of inhaled steroids; Z79.899 Other long term (current) drug therapy; Z88.8 Allergy status to other drugs, medicaments and biological substances
CPT/HCPCS: 36415; 74178; 80048; 80053; 81001; 82306; 83970; 85025; 87081; 87086; 93005; G0378; J0696

== ENCOUNTER 2024-10-29 09:55 | Inpatient (IN) | payer MEDICAID ==
[2024-10-29] VITALS (7 sets, daily range): BP systolic 115–131; BP diastolic 71–76; PULSE 81–96; RESP 18–20; TEMP 97.5–97.8; O2SAT 93–100
[~2024-10-29] VITALS: Ht 154.9 cm; Wt 81.5 kg
[~2024-10-29 09:55] MED LIST changes: -AMOX500T86 PO
[2024-10-29] MEDS: methylPREDNISolone SOD SUCC 125 MG/2 ML VL IV ONE (10:26)
--- NOTE | 2024-10-29 10:29 | ED.PDOC ---
History of Present Illness HPI Comments 59F BIBA w/ prior Hx of Asthma, COPD, CHF, HTN, High Lipids, and 2L of O2 NC at home which all may be associated to the c/c of SOB. EMS report the pt having SOB and CP at 0600 this morning. When EMS arrived they stated that the pt had bilateral wheezing w/ increasing pain w/ palpitation. En route to the ED the pt was given .5mg of bromite, Albuterol and Zofran IV. Pt notes that she has had the pain in the past and currently has a pain rate of a 5/10. PMHx of DM and High Thyroid. SHx of BTL, Cholecystectomy and . Social hx of Tobacco use, but denies alcohol and substance use. Family Hx of DM and Cancer. Denies chills, fever, N/V/D, or other associated symptom's, modifiers, or recent injuries or sick contact at this time. Chief Complaint: Shortness of Breath Time Seen by MD: 10:05 Primary Care Provider: unknown Reviewed Notes: Nurses Notes, Ppap Coordinator Notes, Medications, Allergies Allergies: Coded Allergies: Nitroglycerin (Verified Allergy, Unknown, 02/17/10) Home Meds Reported Medications Metformin HCl (Metformin Hydrochloride) 1,000 Mg Tab, 1 TAB PO DAILY 02/24/24 Semaglutide (Ozempic) 2 Mg/3 Ml Inj, 0.5 MG SC QWEEKLY 02/23/24 Glipizide (Glipizide) 5 Mg Tab, 5 MG PO DAILY for 30 Days, MG 07/14/16 Atorvastatin Calcium (ATORVASTATIN CALCIUM) 20 Mg Tab, 1 TAB PO HS, #30 TAB 5 Refills 07/14/16 Furosemide (Lasix) 20 Mg Tb, 1 TAB PO BID, #90 TAB 1 Refill 07/14/16 Levothyroxine Sodium (Levothyroxine Sodium) 137 Mcg Tab, 1 TAB PO DAILY, #30 TAB 5 Refills 07/14/16 Carvedilol (Coreg) 6.25 Mg Tab, 1 TAB PO BID, #180 TAB 1 Refill 07/14/16 Potassium Chloride (Klor-Con M20) 20 Meq Tab, 20 MEQ PO DAILY 02/17/10 Albuterol Sulfate (Albuterol Sulfate) 0.5 % Neb, 0.5 ML NEB PRN 02/15/10 Information Source: Patient, Emergency Med Personnel Mode of Arrival: EMS Severity: Moderate Timing: Hours Duration: Hours Prehospital treatment: IVF (Zofran), Other (Bromite and Albuterol) Past Medical History PAST MEDICAL HISTORY: Asthma, CHF, COPD, DM, High Lipids, HTN, Thyroid Past Medical History (Other): 2L of O2 NC at home Surgical History: BTL, Cholecystectomy, 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 History: Unknown Family History Family History: Family hx of DM, Family hx of Cancer Social History Smoker: Cigarettes Alcohol: Denies ETOH Use Drugs: Denies Drug Use Lives In: Home Constitutional: denies: chills, diaphoresis, fatigue, fever, malaise, sweats, weakness, others EENTM: denies: blurred vision, double vision, ear bleeding, ear discharge, ear drainage, ear pain, ear ringing, eye pain, eye redness, hearing loss, mouth pain, mouth swelling, nasal discharge, nose bleeding, nose congestion, nose pain, photophobia, tearing, throat pain, throat swelling, voice changes, others Respiratory: reports: shortness of breath, wheezing; denies: cough, hemoptysis, orthopnea, SOB at rest, SOB with excertion, stridor, others Cardiovascular: reports: chest pain; denies: dizzy spells, diaphoresis, Dyspnea on exertion, edema, irregular heart beat, left arm pain, lightheadedness, palpitations, PND, syncope, others Gastrointestinal: denies: abdomen distended, abdominal pain, blood streaked bowels, constipated, diarrhea, dysphagia, difficulty swallowing, hematemesis, melena, nausea, poor appetite, poor fluid intake, rectal bleeding, rectal pain, vomiting, others Genitourinary: denies: abnormal vagina bleeding, burning, dyspareunia, dysuria, flank pain, frequency, hematuria, incontinence, pain, , vagina discharge, urgency, others Neurological: denies: dizziness, fainting, headache, left sided numbness, left sided weakness, numbness, paresthesia, pre-existing deficit, right sided numbness, right sided weakness, seizure, speech problems, tingling, tremors, weakness, others Musculoskeletal: denies: back pain, gout, joint pain, joint swelling, muscle pain, muscle stiffness, neck pain, others Integumetry: denies: bruises, change in color, change in hair/nails, dryness, laceration, lesions, lumps, rash, wounds, others Allergic/Immunocompromised: denies: Difficulty Healing, Frequent Infections, Hives, Itching, others Hematologic/Lymphatic: denies: anemia, blood clots, easy bleeding, easy bruising, swollen glands, others Endocrine: denies: excessive hunger, excessive sweating, excessive thirst, excessive urination, flushing, intolerance to cold, intolerance to heat, unexplained weight gain, unexplained weight loss, others Psychiatric: denies: anxiety, bipolar disorder, depression, hopeless, panic disorder, schizophrenia, sleepless, suicidal, others All Other Systems: Reviewed and Negative Physical Exam General Appearance: Moderate Distress HEENT: Normal ENT Inspection, Pharynx Normal, TMs Normal Neck: Full Range of Motion, Non-Tender, Normal, Normal Inspection Respiratory: Chest Non-Tender, Decreased Breath Sounds, No Accessory Muscle Use, Respiratory Distress, Wheezing Cardiovascular: No Edema, No JVD, No Murmur, No Gallop, Normal Peripheral Pulses, Regular Rate/Rhythm Breast Exam: Deferred Gastrointestinal: No Organomegaly, Non Tender, No Pulsatile Mass, Normal Bowel Sounds, Soft Genitalia: Deferred Pelvic: Deferred Rectal: Deferred Extremities: No calf tenderness, Normal capillary refill, Normal inspection, Normal range of motion, Non-tender, No pedal edema Musculoskeletal : Apperance: Normal Neurologic: Alert, criminal defense lawyer II-XII nml as Tested, No Motor Deficits, Normal Affect, Normal Mood, No Sensory Deficits Cerebellar Function: Normal Reflexes: Normal Skin: Dry, Normal Color, Warm Lymphatic: No Adenopathy Was a procedure done? Was a procedure done?: No EKG EKG : Pulse Rate (adult): 84 [place]: Normal Cardiac Rhythm: NSR Block: None Hypertrophy: None ST: Normal Differential Dx Considerations may include: COPD exacerbation, pneumonia X-Ray, Labs, Meds, VS Vital Signs Date Time Temp Pulse Resp B/P (MAP) Pulse Ox O2 Delivery O2 Flow Rate FiO2 10/29/24 10:55 110/66 10/29/24 10:43 84 10/29/24 10:40 81 18 97 Room Air* 0 21 10/29/24 10:34 81 18 97 Nasal Cannula 2.0 10/29/24 10:34 97.8 81 18 110/66 (81) 97 97.8 10/29/24 10:02 84 10/29/24 10:01 97.9 78 20 141/78 (99) 97 Lab Test 10/29/24 11:34 10/29/24 11:00 10/29/24 10:33 Range/Units Troponin I High Sensitivity 5 5 </=34 ng/L Urine Color Colorless Yellow Urine Clarity Turbid H Clear Urine pH 5.5 5.0-9.0 Urine Specific [place] 1.014 1.001-1.035 Urine Protein Negative Negative Urine Ketones Negative Negative Urine Blood Negative Negative /uL Urine Nitrite Negative Negative Urine Bilirubin Negative Negative Urine Urobilinogen Normal Negative mg/dL Urine Leukocyte Esterase 3+ Negative /uL Urine RBC 9 0 - 4 /hpf Urine WBC Clumps Present None Seen /hpf Urine Microscopic WBC 281 H 0-5 /HPF Urine Squamous Epithelial Cells Few <5 /hpf Urine Bacteria Mod H None Seen /hpf Urine Hyaline Casts Few 0 - 2 /lpf Urine Glucose Trace Normal mg/dL White Blood Count 5.6 4.4-10.8 10^3/uL Red Blood Count 4.54 4.0-5.20 10^6/uL Hemoglobin 13.8 12.2-16.2 g/dL Hematocrit 41.0 36.0-46.0 % Mean Corpuscular Volume 90.4 80.0-100.0 fL Mean Corpuscular Hemoglobin 30.3 28.0-32.0 pg Mean Corpuscular Hemoglobin Concent 33.6 32.0-36.0 g/dL Red Cell Distribution Width 16.0 H 11.8-14.3 % Platelet Count 373 140-450 10^3/uL Mean Platelet Volume 7.0 6.9-10.8 fL Neutrophils (%) (Auto) 60.9 37.0-80.0 % Lymphocytes (%) (Auto) 28.2 10.0-50.0 % Monocytes (%) (Auto) 7.4 0.0-12.0 % Eosinophils (%) (Auto) 2.8 0.0-7.0 % Basophils (%) (Auto) 0.7 0.0-2.0 % Neutrophils # (Auto) 3.4 1.6-8.6 10 ^3/uL Lymphocytes # (Auto) 1.6 0.4-5.4 10 ^3/uL Monocytes # (Auto) 0.4 0-1.3 10 ^3/uL Eosinophils # (Auto) 0.2 0-0.8 10 ^3/uL Basophils # (Auto) 0 0-0.2 10 ^3/uL Nucleated Red Blood Cells 0.0 % Sodium Level 140 136-145 mmol/L Potassium Level 4.1 3.5-5.1 mmol/L Chloride Level 105 98-107 mmol/L Carbon Dioxide Level 33 H 20-31 mmol/L Anion Gap 2 L 5-15 Blood Urea Nitrogen 16 9-23 mg/dL Creatinine 0.86 0.550-1.02 mg/dL Glomerular Filtration Rate Calc 77 >90 mL/min BUN/Creatinine Ratio 18.6 10.0-20.0 Serum Glucose 197 H 74-106 mg/dL Calcium Level 10.8 H 8.7-10.4 mg/dL B-Type Natriuretic Peptide 18.23 0-100 pg/mL Current Medications Medications (Trade) Dose Ordered Sig/Rajni Route Start Time Stop Time Status Last Admin Methylprednisolone Sodium Succinate (Solu Medrol) 125 mg ONCE ONCE IV 10/29/24 10:15 10/29/24 10:16 DC 10/29/24 10:26 Furosemide (Lasix Injection) 40 mg ONCE ONCE IV 10/29/24 10:45 10/29/24 10:46 DC 10/29/24 10:55 IV Hep-Lock was established The patient was given Solu-Medrol 125 mg IV push The chest x-ray shows: IMPRESSION: 1. Mild hazy bilateral opacities compatible with edema or pneumonia. The patient was given Lasix 40 mg IV push The CBC is within normal limits The patient was being admitted to the hospitalist At this time, a cardiology consult will be obtained Images Reviewed?: Images reviewed and evaluated by me Time of 1ST Reevaluation: 10:35 Reevaluation 1ST: Unchanged Patient Education/Counseling: Diagnosis, Treatment, Prognosis Family Education/Counseling: No Family Present Departure 1 Departure Time of Disposition: 11:13 Impression: Primary Impression: Acute respiratory failure Qualified Codes: J96.00 - Acute respiratory failure, unspecified whether with hypoxia or hypercapnia Additional Impression: Acute on chronic diastolic heart failure Disposition: ADMITTED INPATIENT Admit to: [facility] Condition: Fair Critical Care Note Critical Care Time?: Yes (35 min-critical care time only) Stability Stability form required: Yes Unstable for transfer: Telemetry monitoring (Telemetry monitoring required), ED Physician Assesment (Clinical assesment) I personally scribed for JULIETA YAÑEZ MD ([email or web address]) on 10/29/24 at 10:29. Electronically submitted by Jaime Arreaga [email or web address]). I personally scribed for JULIETA YAÑEZ MD ([email or web address]) on 10/29/24 at 10:43. Electronically submitted by Jaime Arreaga [email or web address]). I personally scribed for JULIETA YAÑEZ MD ([email or web address]) on 10/29/24 at 12:59. Electronically submitted by Jaime Arreaga [email or web address]). JULIETA YAÑEZ MD Oct 29, 2024 10:29
--- NOTE | 2024-10-29 10:35 | DVH ---
CHEST RADIOGRAPH Indication: sob Technique: Single frontal view of the chest was obtained Comparison: XY CHEST XRAY 1 VIEW on DOS: 10/08/24 FINDINGS: Lines and Tubes: None Lungs: Mild hazy bilateral opacities. Pleura: No effusion. No pneumothorax. Cardiomediastinal contours: Unremarkable Bones: No acute osseous abnormality. IMPRESSION: 1. Mild hazy bilateral opacities compatible with edema or pneumonia.
[2024-10-29 10:44] LABS: Basophils # (auto) 0 10 ^3/uL (0-0.2); Basophils % (auto) 0.7 % (0.0-2.0); Eosinophils # (auto) 0.2 10 ^3/uL (0-0.8); Eosinophils % (auto) 2.8 % (0.0-7.0); Hemoglobin 13.8 g/dL (12.2-16.2); Lymphocytes # (auto) 1.6 10 ^3/uL (0.4-5.4); Lymphocytes % (auto) 28.2 % (10.0-50.0); Mean Corpuscular Hemoglobin 30.3 pg (28.0-32.0); Mean Corpuscular Hgb Conc. 33.6 g/dL (32.0-36.0); Mean Corpuscular Volume 90.4 fL (80.0-100.0); Monocytes # (auto) 0.4 10 ^3/uL (0-1.3); Monocytes % (auto) 7.4 % (0.0-12.0); Neutrophils # (auto) 3.4 10 ^3/uL (1.6-8.6); Neutrophils % (auto) 60.9 % (37.0-80.0); Platelet Count (auto) 373 10^3/uL (140-450); Red Blood Cells 4.54 10^6/uL (4.0-5.20); White Blood Cell 5.6 10^3/uL (4.4-10.8)
[2024-10-29] MEDS: FUROSEMIDE 40 MG/4 ML VIAL IV ONE (10:55)
[2024-10-29 11:10] LABS: Chloride 105 mmol/L (98-107); Potassium 4.1 mmol/L (3.5-5.1); Sodium 140 mmol/L (136-145)
[2024-10-29 11:11] LABS: Anion Gap 2 (5-15)
[2024-10-29 11:16] LABS: BUN/Creatinine Ratio 18.6 (10.0-20.0); Blood Urea Nitrogen 16 mg/dL (9-23)
[2024-10-29 11:17] LABS: Calcium 10.8 mg/dL (8.7-10.4); Carbon Dioxide 33 mmol/L (20-31); Glucose 197 mg/dL (74-106)
[2024-10-29 12:33] LABS: Urine Bacteria MOD /hpf (None Seen); Urine Blood Negative /uL (Negative); Urine Clarity Turbid (Clear); Urine Color Colorless (Yellow); Urine Hyaline Cast FEW /lpf (0 - 2); Urine Protein, UAD Negative (Negative); Urine Specific Gravity 1.014 (1.001-1.035); Urine Squamous Epithelial Cell FEW /hpf (<5); Urine Urobilinogen Normal (Negative); Urine WBC 281 /HPF (0-5); Urine WBC Clumps PRESENT /hpf (None Seen); Urine pH 5.5 (5.0-9.0)
--- NOTE | 2024-10-29 12:54 | ECG ---
[facility] Test Date: 2024-10-29 Test Time: 10:02:39 Pat Name: RICA WHEATLEY Department: er Room: [address] [place] [address] Gender: F Family Practice Physician Assistant: veena : 1965 Requested By: JULIETA YAÑEZ Order Number: [id number] Reading MD: Chauncey Ndiaye Measurements Intervals [place] Rate: 84 P: 47 VA: 177 QRS: -7 QRSD: 90 T: 72 QT: 383 QTc: 453 Interpretive Statements Sinus rhythm Electronically Signed On 10-29-2024 17:23:06 PST by Chauncey Ndiaye Please click the below link to view image of tracing.
[2024-10-29] MEDS ORDERED: ALBUTEROL SULF 2.5 MG/0.5ML(0.5%) NEB SOLN NEB PRN (15:15)
[2024-10-29] MEDS ORDERED: MORPHINE SULFATE INJ 2 MG/ml SYRG IV PRN (15:30)
[2024-10-29] MEDS ORDERED: DEXTROSE (50%) 50ML SYRG IV PRN (15:30)
[2024-10-29] MEDS ORDERED: HYDROcodone-ACET 10/325MG TAB PO PRN (15:30)
[2024-10-29] MEDS ORDERED: NITROGLYCERIN 0.4 MG SL TAB SL PRN (15:30)
[2024-10-29] MEDS: cefTRIAXone 2GM/50ML D5W 50 ML IV SCH (16:27)
[2024-10-29] MEDS: ONDANSETRON HCL 4 MG/2 ML VIAL IV PRN (16:27)
[2024-10-29] MEDS: ACCU-CHEK COMFORT CURVE STRIP VI SCH (17:31)
[2024-10-29 17:37] LABS: COVID19 ANTIGEN SOFIA FIA NEGATIVE (NEGATIVE); Rapid Influenza A Negative (Negative); Rapid Influenza B Negative (Negative)
[2024-10-29] MEDS: InsuLIN REG 1unit/0.01ml Soln (100units/ml) SC SCH (17:37)
[2024-10-29] MEDS: BUMETANIDE 1mg/4ml VIAL (0.25mg/ml) IV SCH (18:00)
[2024-10-29] MEDS: FAMOTIDINE 20 MG TAB PO SCH (21:19)
[2024-10-29] MEDS: ATORVASTATIN 20 MG TAB PO SCH (21:19)
[2024-10-29] MEDS: CARVEDILOL 3.125 MG TAB PO SCH (21:20)
[2024-10-29] MEDS: methylPREDNISolone SOD SUCC 40 MG/ML VL IV SCH (21:26)
[2024-10-29] MEDS: INSULIN LANTUS (GLARGINE) 1 /0.01ml (100units/ml) SC SCH (21:44)
[2024-10-29] MEDS: ALBUTEROL SULF 2.5 MG/0.5ML(0.5%) NEB SOLN NEB SCH (21:58)
[2024-10-29] MEDS: BUDESONIDE (INHALATION) 0.5 MG/2 ML NEB NEB SCH (21:58)
[2024-10-29] MEDS: IPRATROPIUM BROM 0.5 MG/2.5ML INH SOL NEB SCH (21:58)
--- NOTE | 2024-10-29 23:49 | DVHINCON2 ---
Date of service: Oct 29, 2024 Referring Physician Vj Elizalde MD Reason for Consultation Acute hypoxic respiratory failure, COPD exacerbation, pulmonary edema. History of Present Illness A 59-year-old woman with PMHx of asthma, COPD, CHF, hypertension, high lipids, and 2L of O2 NC at home who presents to ED today via ambulance with c/o shortness of breath. Per EMS, pt having SOB and chest pain at 0600 this morning. When EMS arrived, pt had bilateral wheezing w/ increasing chest pain and palpitation. In ED, pt was found to be in COPD exacerbation with CXR notable for findings of pulmonary edema. Patient was admitted for further care and pulmonary consultation is requested for evaluation and management due to the above findings. Review of Systems: 14-point review of systems negative unless otherwise noted above. Past Medical History: Asthma, CHF, COPD (2 LPM NC home O2), DM, High Lipids, HTN, Thyroid Past Surgical History: BTL, Cholecystectomy, Medications: Reviewed. Allergies: Nitroglycerin Family History: DM and cancer. Social History: Current smoker, smokes cigarettes. No alcohol or illicit drug use. Family History: Kidney stones G8 MOTHER G8 FATHER Allergies: Coded Allergies: Nitroglycerin (Verified Allergy, Unknown, 02/17/10) Home Meds Active Scripts Albuterol Sulfate (Albuterol Sulfate Hfa) 108 Mcg/Act Aer, 108 MCG IN TID, #1 AER Prov:VJ ELIZALDE MD 10/31/24 Fluticasone-Salmeterol (Advair Diskus 500/50) 1 Puff Ih, 1 PUFF INH BID, #1 INHALER Prov:VJ ELIZALDE MD 10/31/24 Reported Medications Docusate Sodium (Colace) 100 Mg Cap, 1 CAP PO BID, #30 CAP 10/30/24 Metformin HCl (Metformin Hydrochloride) 1,000 Mg Tab, 1 TAB PO DAILY 02/24/24 Semaglutide (Ozempic) 2 Mg/3 Ml Inj, 0.5 MG SC QWEEKLY 02/23/24 Glipizide (Glipizide) 5 Mg Tab, 5 MG PO DAILY for 30 Days, MG 07/14/16 Atorvastatin Calcium (ATORVASTATIN CALCIUM) 20 Mg Tab, 1 TAB PO HS, #30 TAB 5 Refills 07/14/16 Furosemide (Lasix) 20 Mg Tb, 1 TAB PO BID, #90 TAB 1 Refill 07/14/16 Levothyroxine Sodium (Levothyroxine Sodium) 137 Mcg Tab, 1 TAB PO DAILY, #30 TAB 5 Refills 07/14/16 Carvedilol (Coreg) 6.25 Mg Tab, 1 TAB PO BID, #180 TAB 1 Refill 07/14/16 Potassium Chloride (Klor-Con M20) 20 Meq Tab, 20 MEQ PO DAILY 02/17/10 Albuterol Sulfate (Albuterol Sulfate) 0.5 % Neb, 0.5 ML NEB PRN 02/15/10 Current Medications Current Medications Medications (Trade) Dose Ordered Sig/Rajni Route PRN Reason Start Time Stop Time Status Last Admin Albuterol (Ventolin Medneb) 2.5 mg Q4HPRN PRN NEB SHORTNESS OF BREATH 10/29/24 15:15 Atorvastatin Calcium (Lipitor) 20 mg HS PO 10/29/24 22:00 10/29/24 21:19 Potassium Chloride (Klor-Con Tablet) 20 meq DAILY PO 10/30/24 10:00 Carvedilol (Coreg Tablet) 6.25 mg BID PO 10/29/24 22:00 10/29/24 21:20 Levothyroxine Sodium (Synthroid Tablet) 112 mcg QAM PO 10/30/24 07:00 Bumetanide (Bumex Injection) 1 mg BIDD IV 10/29/24 18:00 10/29/24 18:00 Methylprednisolone Sodium Succinate (Solu Medrol) 40 mg Q8HR IV 10/29/24 22:00 10/29/24 21:26 Budesonide (Pulmicort) 0.5 mg BID NEB 10/29/24 22:00 10/29/24 21:58 Acetaminophen/ Hydrocodone Bitart ([place] 10/325MG Tab) 1 tab Q4HP PRN PO SEVERE PAIN (7-10 PAIN SCALE) 10/29/24 15:30 Famotidine (Pepcid Tablet) 20 mg Q12HR PO 10/29/24 22:00 10/29/24 21:19 Ondansetron HCl (Zofran) 4 mg Q4HPRN PRN IV NAUSEA / VOMITING 10/29/24 15:30 10/29/24 16:27 Enoxaparin Sodium (Lovenox) 40 mg DAILY SC 10/30/24 10:00 Nitroglycerin (Ntrostat Sublingual) 0.4 mg Q5MINP PRN SL FOR CHEST PAIN 10/29/24 15:30 Hold Morphine Sulfate 2 mg Q30M PRN IV FOR CHEST PAIN 10/29/24 15:30 Ceftriaxone Sodium/Dextrose 50 ml @ 50 mls/hr DAILY IV 10/29/24 15:38 10/29/24 16:27 Diagnostic Test (Pha) (Accu-Chek Comfort Curve T) 1 strip Q6HR 10/29/24 18:00 10/29/24 17:31 Insulin Human Regular (InsuLIN R) Q6HR SC 10/29/24 18:00 10/29/24 17:37 Dextrose 50 ml UD PRN IV Blood Sugar LESS THAN 60 10/29/24 15:30 Insulin Glargine (Lantus) 10 units HS SC 10/29/24 22:00 10/29/24 21:44 Albuterol (Ventolin Medneb) 1.25 mg Q6HWA NEB 10/29/24 18:00 10/29/24 21:58 Ipratropium [place] (Atrovent Medneb) 0.5 mg Q6HWA NEB 10/29/24 18:00 10/29/24 21:58 Levothyroxine Sodium (Synthroid Tablet) 25 mcg QAM PO 10/30/24 07:00 Vital Signs Vital Signs Date Time Temp Pulse Resp B/P (MAP) Pulse Ox O2 Delivery O2 Flow Rate FiO2 10/29/24 22:00 97.5 93 19 115/71 (86) 100 97.5 10/29/24 20:46 Nasal Cannula 2.0 10/29/24 20:46 28 Physical Exam Gen.: Patient lying in bed in no apparent distress. On supplemental oxygen. Head: Normocephalic, atraumatic. Eyes: EOMI/PERRLA. Ears: Normal hearing. Normal anatomy. Neck/trachea: Trachea midline, supple. Nose: Normal external anatomy. Mouth: Moist mucous membranes. Chest: Decreased air entry bilaterally. No wheezing or rhonchi. Cardiovascular: Positive S1, positive S2. Regular rate and rhythm. Abdomen: Positive bowel sounds in all 4 quadrants. Soft, non-tender, non- distended. : Deferred. Rectal: Deferred. Skin: Warm, dry. Intact. Extremities: 2+ radial pulses bilaterally. No lower extremity edema. Neuro: Awake, alert, oriented x3. No gross motor or sensory deficits. Cranial nerves II through XII intact. Gait not assessed. Labs/Diagnostic Data Labs Test 10/29/24 21:31 10/29/24 16:30 10/29/24 11:34 10/29/24 11:00 Range/Units POC Glucose 379 H 70-106 mg/dl Influenza Type A Antigen Negative Negative Influenza Type B Antigen Negative Negative SARS-CoV-2 Antigen (Rapid) Negative NEGATIVE Troponin I High Sensitivity 5 </=34 ng/L Urine Color Colorless Yellow Urine Clarity Turbid H Clear Urine pH 5.5 5.0-9.0 Urine Specific [place] 1.014 1.001-1.035 Urine Protein Negative Negative Urine Ketones Negative Negative Urine Blood Negative Negative /uL Urine Nitrite Negative Negative Urine Bilirubin Negative Negative Urine Urobilinogen Normal Negative mg/dL Urine Leukocyte Esterase 3+ Negative /uL Urine RBC 9 0 - 4 /hpf Urine WBC Clumps Present None Seen /hpf Urine Microscopic WBC 281 H 0-5 /HPF Urine Squamous Epithelial Cells Few <5 /hpf Urine Bacteria Mod H None Seen /hpf Urine Hyaline Casts Few 0 - 2 /lpf Urine Glucose Trace Normal mg/dL Test 10/29/24 10:33 Range/Units White Blood Count 5.6 4.4-10.8 10^3/uL Red Blood Count 4.54 4.0-5.20 10^6/uL Hemoglobin 13.8 12.2-16.2 g/dL Hematocrit 41.0 36.0-46.0 % Mean Corpuscular Volume 90.4 80.0-100.0 fL Mean Corpuscular Hemoglobin 30.3 28.0-32.0 pg Mean Corpuscular Hemoglobin Concent 33.6 32.0-36.0 g/dL Red Cell Distribution Width 16.0 H 11.8-14.3 % Platelet Count 373 140-450 10^3/uL Mean Platelet Volume 7.0 6.9-10.8 fL Neutrophils (%) (Auto) 60.9 37.0-80.0 % Lymphocytes (%) (Auto) 28.2 10.0-50.0 % Monocytes (%) (Auto) 7.4 0.0-12.0 % Eosinophils (%) (Auto) 2.8 0.0-7.0 % Basophils (%) (Auto) 0.7 0.0-2.0 % Neutrophils # (Auto) 3.4 1.6-8.6 10 ^3/uL Lymphocytes # (Auto) 1.6 0.4-5.4 10 ^3/uL Monocytes # (Auto) 0.4 0-1.3 10 ^3/uL Eosinophils # (Auto) 0.2 0-0.8 10 ^3/uL Basophils # (Auto) 0 0-0.2 10 ^3/uL Nucleated Red Blood Cells 0.0 % Sodium Level 140 136-145 mmol/L Potassium Level 4.1 3.5-5.1 mmol/L Chloride Level 105 98-107 mmol/L Carbon Dioxide Level 33 H 20-31 mmol/L Anion Gap 2 L 5-15 Blood Urea Nitrogen 16 9-23 mg/dL Creatinine 0.86 0.550-1.02 mg/dL Glomerular Filtration Rate Calc 77 >90 mL/min BUN/Creatinine Ratio 18.6 10.0-20.0 Serum Glucose 197 H 74-106 mg/dL Calcium Level 10.8 H 8.7-10.4 mg/dL B-Type Natriuretic Peptide 18.23 0-100 pg/mL Assessment Impression: Acute hypoxic respiratory failure Dependence on supplemental oxygen COPD exacerbation Acute on chronic diastolic CHF Pulmonary edema Obesity, BMI 33.9 Nicotine dependence Plan: Supplemental oxygen 2 LPM NC Titrate to keep O2 sats above 92%. Taper O2 as tolerated. Continue bronchodilators/Pulmicort IV steroids Continue antibiotics F/u cultures Diurese to euvolemia w/ Bumex Monitor renal function. Monitor electrolytes. Supplement as necessary. Monitor ins and outs. Accu-Cheks, ISS Smoking cessation discussed for greater than 10 minutes Diet and lifestyle modifications for weight reduction Obesity - complicates all care GI prophylaxis.- Pepcid DVT prophylaxis - Lovenox Prognosis: Poor given patient's multiple co-morbidities. Rest of plan per hospitalist and other consultants. Thank you, Dr. Lee, for allowing me to participate in this patient's care. Further recommendations will depend on the patient's clinical course. Please do not hesitate to contact me if you have any questions or concerns. This medical document was created using an electronic medical record system with Dragon computerized dictation system. Although these documentations are being carefully reviewed, there may still be some phonetic and typographical changes. The errors are purely typographical, due to imperfection on the software program, and do not reflect any compromise in the patient's medical care. Plan discussed with: Patient, Other (KAYLA Garcia/Dr. Lee) KOBY BIRCH MD Oct 29, 2024 23:49
[2024-10-30] VITALS (13 sets, daily range): BP systolic 110–134; BP diastolic 57–84; PULSE 65–91; RESP 12–19; TEMP 97.4–97.7; O2SAT 92–100
--- NOTE | 2024-10-30 01:22 | DVHHP2 ---
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 Patient endorses Chest tightness and wheezing. At this time patient denies fevers, chills, sick context, chest pain, palpitations,Nausea, vomiting, Abdominal pain, Swelling Cardiovascular: CHF, HTN, hyperipidemia Pulmonary: Asthma, COPD Endocrine: Diabetes Smoke: 1 pack per day ALCOHOL: none Drugs: None Lives: with Family Review of Systems Constitutional: Yes: Weakness; No: Fever, Chills, Sweats, Malaise, Other Eyes: No: Pain, Vision change, Conjunctivae inflammation, Eyelid inflammation, Other, Redness ENT: No: Ear pain, Ear discharge, Nose pain, Nose discharge, Nose congestion, Mouth pain, Mouth swelling, Throat pain, Throat swelling, Other Respiratory: Shortness of breath, Wheezing; No: Cough, Dry, SOB with excertion, Hemoptysis, Pleuritic Pain, Sputum, Wheezing, Other Cardiovascular: No: Chest Pain, Palpitations, Orthopnea, Paroxysmal Noc. Dyspnea, Edema, Lt Headedness, Other Gastrointestinal: No: Nausea, Vomiting, Abdominal Pain, Diarrhea, Constipation, Melena, Hematochezia, Other Genitourinary: No Dysuria, No Frequency, No Incontinence, No Hematuria, No Retention, No Other Musculoskeletal: No: other, neck pain, shoulder pain, arm pain, back pain, hand pain, leg pain, foot pain Skin: No: Rash, Lesions, Jaundice, Bruising, Other Neurological: No: Weakness, Numbness, Incoordination, Change in speech, Confusion, Seizures, Other Allergies: Coded Allergies: Nitroglycerin (Verified Allergy, Unknown, 02/17/10) Medications Current Medications Medications Dose Ordered Sig/Rajni Route Start Time Stop Time Status Last Admin Dose Admin Albuterol 2.5 mg Q4HPRN PRN NEB 10/29/24 15:15 Atorvastatin Calcium 20 mg HS PO 10/29/24 22:00 10/29/24 21:19 20 MG Potassium Chloride 20 meq DAILY PO 10/30/24 10:00 Carvedilol 6.25 mg BID PO 10/29/24 22:00 10/29/24 21:20 6.25 MG Levothyroxine Sodium 112 mcg QAM PO 10/30/24 07:00 Bumetanide 1 mg BIDD IV 10/29/24 18:00 10/29/24 18:00 1 MG Methylprednisolone Sodium Succinate 40 mg Q8HR IV 10/29/24 22:00 10/29/24 21:26 40 MG Budesonide 0.5 mg BID NEB 10/29/24 22:00 10/29/24 21:58 0.5 MG Acetaminophen/ Hydrocodone Bitart 1 tab Q4HP PRN PO 10/29/24 15:30 Famotidine 20 mg Q12HR PO 10/29/24 22:00 10/29/24 21:19 20 MG Ondansetron HCl 4 mg Q4HPRN PRN IV 10/29/24 15:30 10/29/24 16:27 4 MG Enoxaparin Sodium 40 mg DAILY SC 10/30/24 10:00 Nitroglycerin 0.4 mg Q5MINP PRN SL 10/29/24 15:30 Hold Morphine Sulfate 2 mg Q30M PRN IV 10/29/24 15:30 Ceftriaxone Sodium/Dextrose 50 ml @ 50 mls/hr DAILY IV 10/29/24 15:38 10/29/24 16:27 50 MLS/HR Diagnostic Test (Pha) 1 strip Q6HR 10/29/24 18:00 10/30/24 00:04 1 STRIP Insulin Human Regular Q6HR SC 10/29/24 18:00 10/30/24 00:07 12 UNITS Dextrose 50 ml UD PRN IV 10/29/24 15:30 Insulin Glargine 10 units HS SC 10/29/24 22:00 10/29/24 21:44 10 UNITS Albuterol 1.25 mg Q6HWA NEB 10/29/24 18:00 10/29/24 21:58 1.25 MG Ipratropium [place] 0.5 mg Q6HWA NEB 10/29/24 18:00 10/29/24 21:58 0.5 MG Levothyroxine Sodium 25 mcg QAM PO 10/30/24 07:00 Exam Vital Signs Vital Signs Date Time Temp Pulse Resp B/P (MAP) Pulse Ox O2 Delivery O2 Flow Rate FiO2 10/29/24 23:53 96 20 115/71 98 2.0 28 10/29/24 22:00 97.5 97.5 10/29/24 20:46 Nasal Cannula General Appearance: Alert, Oriented X3, Cooperative, mild distress HEENT: Atraumatic, PERRLA, EOMI Respiratory: Other (Diminished air movement. Bilateral expiratory wheezing ) Cardiovascular: Regular rate, Normal S1 Abdominal: Normal bowel sounds, Soft, No tenderness Extremities: No cyanosis, No edema Skin: No rashes, No breakdown Neuro: Normal speech Psych/Mental Status: Mental status NL, Mood NL Labs/Xrays Labs Test 10/29/24 23:59 10/29/24 16:30 10/29/24 11:34 10/29/24 11:00 Range/Units POC Glucose 305 H 70-106 mg/dl Influenza Type A Antigen Negative Negative Influenza Type B Antigen Negative Negative SARS-CoV-2 Antigen (Rapid) Negative NEGATIVE Troponin I High Sensitivity 5 </=34 ng/L Urine Color Colorless Yellow Urine Clarity Turbid H Clear Urine pH 5.5 5.0-9.0 Urine Specific [place] 1.014 1.001-1.035 Urine Protein Negative Negative Urine Ketones Negative Negative Urine Blood Negative Negative /uL Urine Nitrite Negative Negative Urine Bilirubin Negative Negative Urine Urobilinogen Normal Negative mg/dL Urine Leukocyte Esterase 3+ Negative /uL Urine RBC 9 0 - 4 /hpf Urine WBC Clumps Present None Seen /hpf Urine Microscopic WBC 281 H 0-5 /HPF Urine Squamous Epithelial Cells Few <5 /hpf Urine Bacteria Mod H None Seen /hpf Urine Hyaline Casts Few 0 - 2 /lpf Urine Glucose Trace Normal mg/dL Test 10/29/24 10:33 Range/Units White Blood Count 5.6 4.4-10.8 10^3/uL Red Blood Count 4.54 4.0-5.20 10^6/uL Hemoglobin 13.8 12.2-16.2 g/dL Hematocrit 41.0 36.0-46.0 % Mean Corpuscular Volume 90.4 80.0-100.0 fL Mean Corpuscular Hemoglobin 30.3 28.0-32.0 pg Mean Corpuscular Hemoglobin Concent 33.6 32.0-36.0 g/dL Red Cell Distribution Width 16.0 H 11.8-14.3 % Platelet Count 373 140-450 10^3/uL Mean Platelet Volume 7.0 6.9-10.8 fL Neutrophils (%) (Auto) 60.9 37.0-80.0 % Lymphocytes (%) (Auto) 28.2 10.0-50.0 % Monocytes (%) (Auto) 7.4 0.0-12.0 % Eosinophils (%) (Auto) 2.8 0.0-7.0 % Basophils (%) (Auto) 0.7 0.0-2.0 % Neutrophils # (Auto) 3.4 1.6-8.6 10 ^3/uL Lymphocytes # (Auto) 1.6 0.4-5.4 10 ^3/uL Monocytes # (Auto) 0.4 0-1.3 10 ^3/uL Eosinophils # (Auto) 0.2 0-0.8 10 ^3/uL Basophils # (Auto) 0 0-0.2 10 ^3/uL Nucleated Red Blood Cells 0.0 % Sodium Level 140 136-145 mmol/L Potassium Level 4.1 3.5-5.1 mmol/L Chloride Level 105 98-107 mmol/L Carbon Dioxide Level 33 H 20-31 mmol/L Anion Gap 2 L 5-15 Blood Urea Nitrogen 16 9-23 mg/dL Creatinine 0.86 0.550-1.02 mg/dL Glomerular Filtration Rate Calc 77 >90 mL/min BUN/Creatinine Ratio 18.6 10.0-20.0 Serum Glucose 197 H 74-106 mg/dL Calcium Level 10.8 H 8.7-10.4 mg/dL B-Type Natriuretic Peptide 18.23 0-100 pg/mL Assessment/Plan Assessment/Plan Acute on chronic respiratory failure with hypoxia Acute COPD exacerbation UTI DM with hyperglycemia Hypertension Hx CHF Plan Admit telemetry Consult pulmonology. Bronchodilators. As needed supplemental O2 to maintain O2 saturation greater Than 93%. RT monitoring. Steroids IV ABX Blood glucose checks ACHS with regular insulin sliding scale coverage for opti mal glycemic management. Continue home medications. GI ppx pepcid / DVT ppx lovenox Plan discussed with: Patient Date of Service: Oct 30, 2024 Billing Provider: VJ ELIZALDE MD Common Visit Codes: NOT BILLABLE VJ ELIZALDE MD 10/30/24 1531: Review of Systems Allergies: Coded Allergies: Nitroglycerin (Verified Allergy, Unknown, 02/17/10) Assessment/Plan Assessment/Plan Patient's chart is reviewed and discussed with the nurse practitioner. I agree with the nurse practitioner's evaluation, documentation, assessment and care plan as outlined. KRISTINA REAVES NP Oct 30, 2024 01:22 VJ ELIZALDE MD Oct 30, 2024 15:31
[2024-10-30] MEDS: LEVOTHYROXINE SODIUM 112 MCG TAB PO SCH (06:15)
[2024-10-30] MEDS: LEVOTHYROXINE SODIUM 25 MCG TAB PO SCH (06:16)
[2024-10-30 06:38] LABS: Anion Gap 8 (5-15); Carbon Dioxide 30 mmol/L (20-31); Chloride 101 mmol/L (98-107); Potassium 4.1 mmol/L (3.5-5.1); Sodium 139 mmol/L (136-145)
[2024-10-30 06:44] LABS: BUN/Creatinine Ratio 25.5 (10.0-20.0)
[2024-10-30 06:45] LABS: Blood Urea Nitrogen 24 mg/dL (9-23); Calcium 10.9 mg/dL (8.7-10.4); Glucose 227 mg/dL (74-106)
[2024-10-30] MEDS: POTASSIUM CHL 20 Meq TABLET PO SCH (09:32)
[2024-10-30] MEDS: ENOXAPARIN SOD 40 MG/0.4 ML SYRINGE SC SCH (09:33)
[2024-10-30] MEDS: INSULIN LANTUS (GLARGINE) 1 /0.01ml (100units/ml) SC SCH (21:27)
--- NOTE | 2024-10-30 23:01 | DVHPN2 ---
Progress Note - Dictate Date Seen: Oct 30, 2024 Medical Necessity Reason Pt with a Central, PICC or Fol: No Subjective Patient seen and examined at bedside. Remains on supplemental oxygen Overnight events reviewed. vital signs Vital Sign Date Time Temp Pulse Resp B/P (MAP) Pulse Ox O2 Delivery O2 Flow Rate FiO2 10/30/24 22:20 17 96 Nasal Cannula* 2 28 10/30/24 21:59 86 140/71 10/30/24 21:00 97.5 97.5 Total Intake and Output 10/29/24 10/29/24 10/30/24 15:00 23:00 07:00 Intake Total 350 ml Balance 350 ml medications Current Medications Medications Dose Ordered Sig/Rajni Route Start Time Stop Time Status Last Admin Dose Admin Albuterol 2.5 mg Q4HPRN PRN NEB 10/29/24 15:15 Atorvastatin Calcium 20 mg HS PO 10/29/24 22:00 10/30/24 20:59 20 MG Potassium Chloride 20 meq DAILY PO 10/30/24 10:00 10/30/24 09:32 20 MEQ Carvedilol 6.25 mg BID PO 10/29/24 22:00 10/30/24 20:59 6.25 MG Levothyroxine Sodium 112 mcg QAM PO 10/30/24 07:00 10/30/24 06:15 112 MCG Bumetanide 1 mg BIDD IV 10/29/24 18:00 10/30/24 18:55 1 MG Methylprednisolone Sodium Succinate 40 mg Q8HR IV 10/29/24 22:00 10/30/24 20:58 40 MG Budesonide 0.5 mg BID NEB 10/29/24 22:00 10/30/24 19:02 0.5 MG Acetaminophen/ Hydrocodone Bitart 1 tab Q4HP PRN PO 10/29/24 15:30 Famotidine 20 mg Q12HR PO 10/29/24 22:00 10/30/24 20:59 20 MG Ondansetron HCl 4 mg Q4HPRN PRN IV 10/29/24 15:30 10/29/24 16:27 4 MG Enoxaparin Sodium 40 mg DAILY SC 10/30/24 10:00 10/30/24 09:33 40 MG Nitroglycerin 0.4 mg Q5MINP PRN SL 10/29/24 15:30 Hold Morphine Sulfate 2 mg Q30M PRN IV 10/29/24 15:30 Ceftriaxone Sodium/Dextrose 50 ml @ 50 mls/hr DAILY IV 10/29/24 15:38 10/30/24 09:33 50 MLS/HR Diagnostic Test (Pha) 1 strip Q6HR 10/29/24 18:00 10/30/24 18:44 1 STRIP Insulin Human Regular Q6HR SC 10/29/24 18:00 10/30/24 18:55 6 UNITS Dextrose 50 ml UD PRN IV 10/29/24 15:30 Albuterol 1.25 mg Q6HWA NEB 10/29/24 18:00 10/30/24 19:02 1.25 MG Ipratropium [place] 0.5 mg Q6HWA NEB 10/29/24 18:00 10/30/24 19:02 0.5 MG Levothyroxine Sodium 25 mcg QAM PO 10/30/24 07:00 10/30/24 06:16 25 MCG Insulin Glargine 15 units HS SC 10/30/24 22:00 10/30/24 21:27 15 UNITS objective Gen.: Patient lying in bed in no apparent distress. On supplemental oxygen. Head: Normocephalic, atraumatic. Eyes: EOMI/PERRLA. Ears: Normal hearing. Normal anatomy. Neck/trachea: Trachea midline, supple. Nose: Normal external anatomy. Mouth: Moist mucous membranes. Chest: Decreased air entry bilaterally. No wheezing or rhonchi. Cardiovascular: Positive S1, positive S2. Regular rate and rhythm. Abdomen: Positive bowel sounds in all 4 quadrants. Soft, non-tender, non- distended. : Deferred. Rectal: Deferred. Skin: Warm, dry. Intact. Extremities: 2+ radial pulses bilaterally. No lower extremity edema. Neuro: Awake, alert, oriented x3. No gross motor or sensory deficits. Cranial nerves II through XII intact. Gait not assessed. laboratory and microbiology Laboratory Tests 10/30/24 05:30 10/29/24 10:33 Test 10/30/24 05:30 Range/Units Serum Glucose 227 H 74-106 mg/dL Assessment/Plan Impression: Acute hypoxic respiratory failure Dependence on supplemental oxygen COPD exacerbation Acute on chronic diastolic CHF Pulmonary edema Obesity, BMI 33.9 Nicotine dependence Plan: Remains on supplemental oxygen 2 LPM NC Titrate to keep O2 sats above 92%. Taper O2 as tolerated. Continue bronchodilators/Pulmicort IV steroids Continue antibiotics F/u cultures Incentive spirometry Diurese to euvolemia w/ Bumex Monitor renal function. Monitor electrolytes. Supplement as necessary. Monitor ins and outs. Accu-Cheks, ISS Smoking cessation discussed for greater than 10 minutes Diet and lifestyle modifications for weight reduction Obesity - complicates all care GI prophylaxis.- Pepcid DVT prophylaxis - Lovenox Prognosis: Guarded given patient's multiple co-morbidities. Rest of plan per hospitalist and other consultants. Thank you, Dr. Lee, for allowing me to participate in this patient's care. Further recommendations will depend on the patient's clinical course. Please do not hesitate to contact me if you have any questions or concerns. This medical document was created using an electronic medical record system with [employer] dictation system. Although these documentations are being carefully reviewed, there may still be some phonetic and typographical changes. The errors are purely typographical, due to imperfection on the software program, and do not reflect any compromise in the patient's medical care. Plan discussed with: Patient, Other (KAYLA Hernadez) KOBY BIRCH MD Oct 30, 2024 23:01
[2024-10-30] MEDS ORDERED: DOCU-94 PO (23:04)
[2024-10-31] VITALS (10 sets, daily range): BP systolic 105–127; BP diastolic 54–78; PULSE 69–86; RESP 14–18; TEMP 97.6–97.8; O2SAT 94–100
[2024-10-31] MEDS ORDERED: ALBU108A5 IN (11:50)
[2024-10-31] MEDS ORDERED: FLUT500M2 INH (11:50)
--- NOTE | 2024-10-31 11:51 | DVHDS2 ---
Discharge Summary Date of Admission Oct 29, 2024 at 15:16 Date of Discharge: Oct 31, 2024 Admitting Diagnosis Shortness for breath Labs/Diagnostic Data: Laboratory Results Test 10/31/24 05:48 10/30/24 05:30 10/29/24 16:30 10/29/24 11:34 POC Glucose 247 mg/dl (70-106) Sodium Level 139 mmol/L (136-145) Potassium Level 4.1 mmol/L (3.5-5.1) Chloride Level 101 mmol/L (98-107) Carbon Dioxide Level 30 mmol/L (20-31) Anion Gap 8 (5-15) Blood Urea Nitrogen 24 mg/dL (9-23) Creatinine 0.94 mg/dL (0.550-1.02) Glomerular Filtration Rate Calc 69 mL/min (>90) BUN/Creatinine Ratio 25.5 (10.0-20.0) Serum Glucose 227 mg/dL (74-106) Calcium Level 10.9 mg/dL (8.7-10.4) Influenza Type A Antigen Negative (Negative) Influenza Type B Antigen Negative (Negative) SARS-CoV-2 Antigen (Rapid) Negative (NEGATIVE) Troponin I High Sensitivity 5 ng/L (</=34) Test 10/29/24 11:00 10/29/24 10:33 Urine Color Colorless (Yellow) Urine Clarity Turbid (Clear) Urine pH 5.5 (5.0-9.0) Urine Specific [place] 1.014 (1.001-1.035) Urine Protein Negative (Negative) Urine Ketones Negative (Negative) Urine Blood Negative /uL (Negative) Urine Nitrite Negative (Negative) Urine Bilirubin Negative (Negative) Urine Urobilinogen Normal mg/dL (Negative) Urine Leukocyte Esterase 3+ /uL (Negative) Urine RBC 9 /hpf (0 - 4) Urine WBC Clumps Present /hpf (None Seen) Urine Microscopic WBC 281 /HPF (0-5) Urine Squamous Epithelial Cells Few /hpf (<5) Urine Bacteria Mod /hpf (None Seen) Urine Hyaline Casts Few /lpf (0 - 2) Urine Glucose Trace mg/dL (Normal) White Blood Count 5.6 10^3/uL (4.4-10.8) Red Blood Count 4.54 10^6/uL (4.0-5.20) Hemoglobin 13.8 g/dL (12.2-16.2) Hematocrit 41.0 % (36.0-46.0) Mean Corpuscular Volume 90.4 fL (80.0-100.0) Mean Corpuscular Hemoglobin 30.3 pg (28.0-32.0) Mean Corpuscular Hemoglobin Concent 33.6 g/dL (32.0-36.0) Red Cell Distribution Width 16.0 % (11.8-14.3) Platelet Count 373 10^3/uL (140-450) Mean Platelet Volume 7.0 fL (6.9-10.8) Neutrophils (%) (Auto) 60.9 % (37.0-80.0) Lymphocytes (%) (Auto) 28.2 % (10.0-50.0) Monocytes (%) (Auto) 7.4 % (0.0-12.0) Eosinophils (%) (Auto) 2.8 % (0.0-7.0) Basophils (%) (Auto) 0.7 % (0.0-2.0) Neutrophils # (Auto) 3.4 10 ^3/uL (1.6-8.6) Lymphocytes # (Auto) 1.6 10 ^3/uL (0.4-5.4) Monocytes # (Auto) 0.4 10 ^3/uL (0-1.3) Eosinophils # (Auto) 0.2 10 ^3/uL (0-0.8) Basophils # (Auto) 0 10 ^3/uL (0-0.2) Nucleated Red Blood Cells 0.0 % B-Type Natriuretic Peptide 18.23 pg/mL (0-100) Other Laboratory Tests 10/30/24 05:30 10/29/24 10:33 Brief Hx & Hospital Course: 59 year old female with past medical history of Asthma, Oxygen dependant COPD on 2LNC,CHF, hypertension, hyperlipidemia DM Present with complaints of shortness of breath and one day. Patient endorses Chest tightness and wheezing. At this time patient denies fevers, chills, sick context, chest pain, palpitations,Nausea, vomiting, Abdominal pain, Swelling. She is admitted and evaluated by sign painter helper. Patient counseled and educated regarding her chronic obstructive airway disease and need for breathing treatments and oxygen at home. Patient received IV steroids, breathing treatments. Patient symptoms resolved. She was back to baseline normal status. Therefore she has been discharged home in stable condition. Patient however is advised to be compliant with her medications nebulizer and oxygen at home and have outpatient follow up with primary care physician and sign painter helper. Patient verbalized understanding of this, verbalized understanding over hospital diagnosis, treatment she received, discharge medications, discharge instructions and follow up plan of care as mentioned. Consults/Reason for consult Assessment/Plan Impression: Acute hypoxic respiratory failure Dependence on supplemental oxygen COPD exacerbation Acute on chronic diastolic CHF Pulmonary edema Obesity, BMI 33.9 Nicotine dependence Plan: Remains on supplemental oxygen 2 LPM NC Titrate to keep O2 sats above 92%. Taper O2 as tolerated. Continue bronchodilators/Pulmicort IV steroids Continue antibiotics F/u cultures Incentive spirometry Diurese to euvolemia w/ Bumex Monitor renal function. Monitor electrolytes. Supplement as necessary. Monitor ins and outs. Accu-Cheks, ISS Smoking cessation discussed for greater than 10 minutes Diet and lifestyle modifications for weight reduction Obesity - complicates all care GI prophylaxis.- Pepcid DVT prophylaxis - Lovenox Prognosis: Guarded given patient's multiple co-morbidities. Rest of plan per hospitalist and other consultants. Thank you, Dr. Lee, for allowing me to participate in this patient's care. Further recommendations will depend on the patient's clinical course. Please do not hesitate to contact me if you have any questions or concerns. This medical document was created using an electronic medical record system with [employer] dictation system. Although these documentations are being carefully reviewed, there may still be some phonetic and typographical changes. The errors are purely typographical, due to imperfection on the software program, and do not reflect any compromise in the patient's medical care. Plan discussed with: Patient, Other (KAYLA Hernadez) KOBY BIRCH MD Oct 30, 2024 23:01 Condition at Discharge: Stable Final Diagnosis/Problems List COPD exacerbation Discharge Disposition: Home Discharge Instruct/Medications Diet: Consistent carbohydrate, Cardiac 2g Na,low cholest Activity: No Restrictions, As Tolerated Follow Up/Referral: Primary care physician next week for COPD management Medications: As prescribed and home medications as you were taking New Medications: Albuterol Sulfate (Albuterol Sulfate Hfa) 108 Mcg/Act Aer 108 MCG IN TID, #1 AER Fluticasone-Salmeterol (Advair Diskus 500/50) 1 Puff Ih 1 PUFF INH BID, #1 INHALER Continued Medications: Albuterol Sulfate (Albuterol Sulfate) 0.5 % Neb 0.5 ML NEB PRN Atorvastatin Calcium (Atorvastatin Calcium) 20 Mg Tab 1 TAB PO HS, #30 TAB 5 Refills Carvedilol (Coreg) 6.25 Mg Tab 1 TAB PO BID, #180 TAB 1 Refill Docusate Sodium (Colace) 100 Mg Cap 1 CAP PO BID, #30 CAP Furosemide (Lasix) 20 Mg Tb 1 TAB PO BID, #90 TAB 1 Refill Glipizide (Glipizide) 5 Mg Tab 5 MG PO DAILY for 30 Days, MG Levothyroxine Sodium (Levothyroxine Sodium) 137 Mcg Tab 1 TAB PO DAILY, #30 TAB 5 Refills Metformin HCl (Metformin Hydrochloride) 1,000 Mg Tab 1 TAB PO DAILY Potassium Chloride (Klor-Con M20) 20 Meq Tab 20 MEQ PO DAILY Semaglutide (Ozempic) 2 Mg/3 Ml Inj 0.5 MG SC QWEEKLY Discharge Statement: "Patient was advised to return to the ER or call 911 if any headaches, dizziness, shortness of breath, chest pain, abdominal pain, bleeding, fevers, or worsening of medical condition. Patient was counseled about treatment plan, medications, possible side effects, patientverbalized understanding. All questions were answered to the best of my ability. This discharge took greater then 30 minutes in planning, reviewing documentation, counseling the patient, and discussing with other team members." ASSESSMENT ASSESSMENT Assessment COPD exacerbation VJ ELIZALDE MD Oct 31, 2024 11:51
--- NOTE | 2024-10-31 23:24 | DVHPN2 ---
Progress Note - Dictate Date Seen: Oct 31, 2024 Medical Necessity Reason Pt with a Central, PICC or Fol: No Subjective Patient seen and examined at bedside. Remains on supplemental oxygen Overnight events reviewed. vital signs Vital Sign Date Time Temp Pulse Resp B/P (MAP) Pulse Ox O2 Delivery O2 Flow Rate FiO2 10/31/24 13:00 97.7 76 18 105/54 (71) 98 97.7 10/31/24 11:57 Room Air* 0 21 Total Intake and Output 10/30/24 10/30/24 10/31/24 15:00 23:00 07:00 Intake Total 50 ml 300 ml 0 ml Output Total 250 ml Balance 50 ml 50 ml 0 ml objective Gen.: Patient lying in bed in no apparent distress. On supplemental oxygen. Head: Normocephalic, atraumatic. Eyes: EOMI/PERRLA. Ears: Normal hearing. Normal anatomy. Neck/trachea: Trachea midline, supple. Nose: Normal external anatomy. Mouth: Moist mucous membranes. Chest: Decreased air entry bilaterally. No wheezing or rhonchi. Cardiovascular: Positive S1, positive S2. Regular rate and rhythm. Abdomen: Positive bowel sounds in all 4 quadrants. Soft, non-tender, non- distended. : Deferred. Rectal: Deferred. Skin: Warm, dry. Intact. Extremities: 2+ radial pulses bilaterally. No lower extremity edema. Neuro: Awake, alert, oriented x3. No gross motor or sensory deficits. Cranial nerves II through XII intact. Gait not assessed. laboratory and microbiology Laboratory Tests 10/30/24 05:30 10/29/24 10:33 Test 10/30/24 05:30 Range/Units Serum Glucose 227 H 74-106 mg/dL Assessment/Plan Impression: Acute hypoxic respiratory failure Dependence on supplemental oxygen COPD exacerbation Acute on chronic diastolic CHF Pulmonary edema Obesity, BMI 33.9 Nicotine dependence Plan: Remains on supplemental oxygen 2 LPM NC Titrate to keep O2 sats above 92%. Taper O2 as tolerated. Continue bronchodilators/Pulmicort IV steroids Continue antibiotics F/u cultures Incentive spirometry Diurese to euvolemia w/ Bumex Monitor renal function. Monitor electrolytes. Supplement as necessary. Monitor ins and outs. Accu-Cheks, ISS Patient is stable for discharge from the pulmonary standpoint. Social Work for DME for nebulizer Disposition per hospitalist. GI prophylaxis.- Pepcid DVT prophylaxis - Lovenox Prognosis: Guarded given patient's multiple co-morbidities. Rest of plan per hospitalist and other consultants. Thank you, Dr. Lee, for allowing me to participate in this patient's care. Further recommendations will depend on the patient's clinical course. Please do not hesitate to contact me if you have any questions or concerns. This medical document was created using an electronic medical record system with [employer] dictation system. Although these documentations are being carefully reviewed, there may still be some phonetic and typographical changes. The errors are purely typographical, due to imperfection on the software program, and do not reflect any compromise in the patient's medical care. Plan discussed with: Patient, Other (KAYLA Mosqueda) KOBY BIRCH MD Oct 31, 2024 23:24
== END 2024-10-31 14:25 | disposition home or self-care (01) | DRG 140 ==
LOC: EDBD 09:55 → ER 09:55 → OVERFLOW 15:16 → EAST 15:20
PROVIDERS: ADMIT Hospitalist; ATTEND Hospitalist
DX: J44.1 Chronic obstructive pulmonary disease with (acute) exacerbation (principal); J96.21 Acute and chronic respiratory failure with hypoxia; I50.9 Heart failure, unspecified; I11.0 Hypertensive heart disease with heart failure; Z99.81 Dependence on supplemental oxygen; N39.0 Urinary tract infection, site not specified; E78.5 Hyperlipidemia, unspecified; F17.210 Nicotine dependence, cigarettes, uncomplicated; Z20.822 Contact with and (suspected) exposure to COVID-19; E11.65 Type 2 diabetes mellitus with hyperglycemia; E66.9 Obesity, unspecified; Z68.33 Body mass index [BMI] 33.0-33.9, adult; Z83.3 Family history of diabetes mellitus; Z90.49 Acquired absence of other specified parts of digestive tract; Z88.8 Allergy status to other drugs, medicaments and biological substances; Z79.84 Long term (current) use of oral hypoglycemic drugs; Z79.899 Other long term (current) drug therapy
CPT/HCPCS: 36415; 71045; 80048; 81001; 82962; 83880; 84484; 85025; 87077; 87081; 87086; 87186; 87205; 87426; 87804; 93005; 94640; 99291; G0378; J1815; J2405

== ENCOUNTER 2024-11-06 14:52 | Inpatient (IN) | payer MEDICAID, OTHER ==
[~2024-11-06] VITALS: Ht 152.4 cm; Wt 92.0 kg
[~2024-11-06 14:52] MED LIST changes: +ALBU108A5 IN; +DOCU-94 PO; +FLUT500M2 INH
--- NOTE | 2024-11-06 16:59 | ED.PDOC ---
General HPI Comments 59-year-old female presented to the emergency department complaining of severe flank pain and history of kidneys bones Chief Complaint: Flank Pain Time Seen by MD: 15:01 Reviewed notes: Nurses Notes, Geographic Analyst Notes, Medications, Allergies Allergies: Coded Allergies: Nitroglycerin (Verified Allergy, Unknown, 11/06/24) Information Source: Patient, Emergency Med Personnel Mode of Arrival: EMS Severity: Moderate, Severe Timing: Hours, Came on: Suddenly Duration: Since onset Prehospital treatment: Pain Meds Onset: Spontaneous Symptoms: Dysuria, Frequency History of: Kidney stone Location: Abdomen, (R) Flank Modifying factors: None associated signs and symptoms: Abdominal Pain, Nausea, Flank Pain, Dysuria, Urgency Past Medical History PAST MEDICAL HISTORY: CHF, COPD, DM, Kidney Stones, Thyroid Surgical History: Cholecystectomy, , Hysterectomy HOG BUYER History: Denies all HOG BUYER Hx Family History Family History: Reviewed,noncontributory to illness, No family hx of Cancer, No family hx of DM, No family hx of Heart ojdy, No family hx of HTN, No family hx ofKidney jody, No family hx of Liver jody, No family hx of Lung jody, No family hx of Stroke Social History Smoker: Cigarettes Alcohol: Denies ETOH Use Drugs: Denies Drug Use Lives In: Home Constitutional: denies: chills, diaphoresis, fatigue, fever, malaise, sweats, weakness, others EENTM: denies: blurred vision, double vision, ear bleeding, ear discharge, ear drainage, ear pain, ear ringing, eye pain, eye redness, hearing loss, mouth pain, mouth swelling, nasal discharge, nose bleeding, nose congestion, nose pain, photophobia, tearing, throat pain, throat swelling, voice changes, others Respiratory: denies: cough, hemoptysis, orthopnea, SOB at rest, shortness of breath, SOB with excertion, stridor, wheezing, others Cardiovascular: denies: chest pain, dizzy spells, diaphoresis, Dyspnea on exe rtion, edema, irregular heart beat, left arm pain, lightheadedness, palpitations, PND, syncope, others Gastrointestinal: reports: abdominal pain, nausea; denies: abdomen distended, blood streaked bowels, constipated, diarrhea, dysphagia, difficulty swallowing, hematemesis, melena, poor appetite, poor fluid intake, rectal bleeding, rectal pain, vomiting, others Genitourinary: denies: abnormal vagina bleeding, burning, dyspareunia, dysuria, flank pain, frequency, hematuria, incontinence, pain, , vagina discharge, urgency, others Neurological: denies: dizziness, fainting, headache, left sided numbness, left sided weakness, numbness, paresthesia, pre-existing deficit, right sided numbness, right sided weakness, seizure, speech problems, tingling, tremors, weakness, others Musculoskeletal: reports: back pain; denies: gout, joint pain, joint swelling, muscle pain, muscle stiffness, neck pain, others Integumetry: denies: bruises, change in color, change in hair/nails, dryness, laceration, lesions, lumps, rash, wounds, others Allergic/Immunocompromised: denies: Difficulty Healing, Frequent Infections, Hives, Itching, others Hematologic/Lymphatic: denies: anemia, blood clots, easy bleeding, easy bruising, swollen glands, others Endocrine: denies: excessive hunger, excessive sweating, excessive thirst, excessive urination, flushing, intolerance to cold, intolerance to heat, unexplained weight gain, unexplained weight loss, others Psychiatric: denies: anxiety, bipolar disorder, depression, hopeless, panic dis order, schizophrenia, sleepless, suicidal, others All Other Systems: Reviewed and Negative Physical Exam General Appearance: Moderate Distress, Obese HEENT: Normal ENT Inspection, Pharynx Normal, TMs Normal Neck: Full Range of Motion, Non-Tender, Normal, Normal Inspection Respiratory: Chest Non-Tender, Lungs Clear, No Accessory Muscle Use, No Respiratory Distress, Normal Breath Sounds Cardiovascular: No Edema, No JVD, No Murmur, No Gallop, Normal Peripheral Pulses, Regular Rate/Rhythm Breast Exam: Deferred Gastrointestinal: No Organomegaly, Non Tender, No Pulsatile Mass, Normal Bowel Sounds, Soft, Other (Right flank pain) Genitalia: Deferred Pelvic: Deferred Rectal: Deferred Extremities: No calf tenderness, Normal capillary refill, Normal inspection, Normal range of motion, Non-tender, No pedal edema Musculoskeletal : Apperance: Normal Neurologic: Alert, hydroelectric plant 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 Was a procedure done?: No EKG EKG : Pulse Rate (adult): [address] [place]: LAD Cardiac Rhythm: ST Differential Diagnosis Kidney stone (Female): Appendicitis, DJD, Musculoskeletal pain, Pyelonephritis, Strain, Urinary obstruction, Urolithiasis Kidney stone (Male): N/A Penile/Scrotal: N/A Urinary Problem (Male): N/A Urinary Problem (Female): Pyelonephritis, Urinary retention, Urolithiasis, UTI X-Ray, Labs, Meds, VS Vital Signs Date Time Temp Pulse Resp B/P (MAP) Pulse Ox O2 Delivery O2 Flow Rate FiO2 11/06/24 19:35 103 20 108/67 (81) 94 11/06/24 19:00 119 13 95/72 (80) 99 11/06/24 17:00 111 18 93 Nasal Cannula* 1 24 11/06/24 17:00 97 15 113/70 (84) 97 11/06/24 16:59 119 11/06/24 15:04 119 11/06/24 15:01 98.7 117 28 149/102 (118) 95 Lab Test 11/06/24 19:05 11/06/24 18:50 11/06/24 17:09 Range/Units Lactic Acid Level Pending Urine Color Colorless Yellow Urine Clarity Turbid H Clear Urine pH 6.5 5.0-9.0 Urine Specific [place] 1.015 1.001-1.035 Urine Protein Negative Negative Urine Ketones Negative Negative Urine Blood Negative Negative /uL Urine Nitrite Negative Negative Urine Bilirubin Negative Negative Urine Urobilinogen Normal Negative mg/dL Urine Leukocyte Esterase 3+ Negative /uL Urine RBC 1 0 - 4 /hpf Urine WBC Clumps Present None Seen /hpf Urine Microscopic WBC 63 H 0-5 /HPF Urine Squamous Epithelial Cells None seen <5 /hpf Urine Bacteria Few H None Seen /hpf Urine Mucus Few None Seen Urine Glucose Normal Normal mg/dL White Blood Count 15.6 H 4.4-10.8 10^3/uL Red Blood Count 4.93 4.0-5.20 10^6/uL Hemoglobin 14.8 12.2-16.2 g/dL Hematocrit 44.8 36.0-46.0 % Mean Corpuscular Volume 90.9 80.0-100.0 fL Mean Corpuscular Hemoglobin 30.0 28.0-32.0 pg Mean Corpuscular Hemoglobin Concent 33.0 32.0-36.0 g/dL Red Cell Distribution Width 15.6 H 11.8-14.3 % Platelet Count 259 140-450 10^3/uL Mean Platelet Volume 7.8 6.9-10.8 fL Neutrophils (%) (Auto) 85.7 H 37.0-80.0 % Lymphocytes (%) (Auto) 6.2 L 10.0-50.0 % Monocytes (%) (Auto) 7.3 0.0-12.0 % Eosinophils (%) (Auto) 0.3 0.0-7.0 % Basophils (%) (Auto) 0.5 0.0-2.0 % Neutrophils # (Auto) 13.4 H 1.6-8.6 10 ^3/uL Lymphocytes # (Auto) 1.0 0.4-5.4 10 ^3/uL Monocytes # (Auto) 1.1 0-1.3 10 ^3/uL Eosinophils # (Auto) 0 0-0.8 10 ^3/uL Basophils # (Auto) 0.1 0-0.2 10 ^3/uL Nucleated Red Blood Cells 0.0 % Sodium Level 136 136-145 mmol/L Potassium Level 3.8 3.5-5.1 mmol/L Chloride Level 100 98-107 mmol/L Carbon Dioxide Level 27 20-31 mmol/L Anion Gap 9 5-15 Blood Urea Nitrogen 19 9-23 mg/dL Creatinine 1.09 H 0.550-1.02 mg/dL Glomerular Filtration Rate Calc 58 >90 mL/min BUN/Creatinine Ratio 17.4 10.0-20.0 Serum Glucose 226 H 74-106 mg/dL Calcium Level 10.9 H 8.7-10.4 mg/dL Current Medications Medications (Trade) Dose Ordered Sig/Rajni Route Start Time Stop Time Status Last Admin Metoclopramide HCl (Reglan Injection) 10 mg ONCE ONCE IV 11/06/24 17:00 11/06/24 17:01 DC 11/06/24 17:53 Sodium Chloride 1,000 ml @ 1,000 mls/hr Q1H ONCE IVB 11/06/24 17:00 11/06/24 17:59 DC 11/06/24 17:00 Ketorolac Tromethamine (Toradol Injection) 30 mg ONCE ONCE IV 11/06/24 17:00 11/06/24 17:01 DC 11/06/24 17:53 Ceftriaxone Sodium 50 ml @ 100 mls/hr ONCE ONCE IV 11/06/24 18:15 11/06/24 18:44 DC 11/06/24 20:13 [place] [id number] Ph: [phone] DIAGNOSTIC IMAGING Diagnostic Imaging Report : [id number] Signed PATIENT: RICA WHEATLEY ACCT: [id number] UNIT: [id number] : 1965 LOC: ER ROOM / BED: / AGE / SEX: 59 / F ADM STATUS: REG ER SERVICE 46 ORDERING PHYSICIAN: SHANTI GRAHAM MD PROCEDURE(s): ABPL - CT AB PEL WO CON-NO ORAL OR IV REASON: Acute ureteral calculus right flank pain and right abdominal ORDER NUMBER(s): [id number], ACCESSION NUMBER(s): [id number] Procedure: CT CT AB PEL WO CON-NO ORAL OR IV 11/06/2024 05:25 PM Indication: Acute ureteral calculus right flank pain and right abdominal Comparison Study: None available at time of dictation. Technique: Axial images were obtained and reformatted in coronal and sagittal planes. All CT scans at this medical facility are performed using dose modulation techniques as appropriate to a performed exam including the following: Automated exposure control was utilized; adjustment of the MA and/or KV according to patient size; and use of iterative reconstruction technique. CT Dose: CTDI volume is 23.09 mGy. Dose-length product is 1189.45 mGy*cm FINDINGS: Lower Chest: Base of the lungs are clear. Coronary artery calcification noted. Hepatobiliary: Hepatomegaly and hepatic steatosis. Gallbladder is not identified likely surgically absent. A 2 cm subcapsular hypodense lesion is seen in the inferior right hepatic lobe, segment V that is incompletely evaluated without IV contrast. Spleen: Unremarkable. Pancreas: Unremarkable. Adrenal Glands: Unremarkable. tract: Asymmetric enlargement of the left kidney with diffuse edema, perinephric fat stranding, moderate hydronephrosis, proximal hydroureter, air in the collecting system, 7 mm obstructing stone in the proximal ureter and several nonobstructing right renal calculi measuring up to 1 cm. The left kidney is normal in size containing several subcentimeter nonobstructive calculi without hydronephrosis or hydroureter. A subcentimeter hyper attenuating cortical based lesion at midpole of the left kidney likely a complicated cyst with milk of calcium. The urinary bladder is unremarkable. GI tract: The stomach is grossly normal in appearance. No evidence of small bowel obstruction. Scattered colonic diverticula are noted without evidence of diverticulitis. The appendix is normal. Lymphatics: No mesenteric, retroperitoneal or periportal lymphadenopathy. Vasculature: The abdominal aorta is normal in in caliber. Pelvic Organs: Unremarkable Bones/soft tissues: No acute abnormality. Degenerative changes of the lumbar spine noted. Small fat-containing umbilical hernia. Moderate central canal stenosis neural foramina stenosis noted at several levels. Other: None. IMPRESSION: 1. Findings suggestive of right emphysematous pyelonephritis and a 7 mm obstructing stone in the right proximal ureter. Presence of air could only be explained by recent instrumentation or infection. Recommend clinical and biochemical correlation urology consultation. 2. Bilateral nonobstructive renal calculi measuring up to 1 cm in the right kidney. 3. Hepatomegaly and hepatic steatosis. A 2 cm subcapsular hypodense lesion in the right lobe is seen that is incompletely evaluated in this unenhanced study. Further evaluation by ultrasound or abdominal MRI without and with IV contrast utilizing a dedicated hepatic protocol on a nonemergent basis is recommended. ATED BY: SUSANA BOSCH MD DICTATED DATE/TIME: 11/06/241747 SIGNED BY: SUSANA BOSCH MD SIGNED DATE/TIME: 11/06/241747 CC: Large kidney stone found. Pyelonephritis on abdominal pelvis CT. Urinary tract infection on urinalysis. Patient was placed on Rocephin. The patient will be admitted to [facility] nurse practitioner. X-Ray, Labs, Meds, VS Comment Seen in the emergency department eventful patient came in complaining of severe left flank pain and history of kidney stone mostly on the right side started today patient also has history of COPD diabetes CHF and hypothyroidism The EKG shows sinus tachycardia at 119 left axis deviation [place] 05998 85.7% neutrophils and normal H&H BNP GFR at 58 and blood sugar [address] abdomen and pelvis shows emphysematous pyelonephritis with large obstructive stone the right proximal ureter also present with a hepatic steatosis and a lesion to the liver that need to be event Patient will be admitted for further care Urology to be consulted Time of 1ST Reevaluation: 15:10 Reevaluation 1ST: Unchanged Time of 2ND Reevaluation: 17:59 Reevaluation 2ND: Improved Patient Education/Counseling: Diagnosis, Treatment, Prognosis Family Education/Counseling: Diagnosis, Treatment, Prognosis, No Family Present Departure 1 Departure Time of Disposition: 18:01 Impression: Primary Impression: Acute right flank pain Additional Impressions: Obstructive uropathy Hydronephrosis concurrent with and due to calculi of kidney and ureter Pyelonephritis of right kidney Diabetic nephropathy Qualified Codes: E11.21 - Type 2 diabetes mellitus with diabetic nephropathy Hepatic steatosis Liver lesion Disposition: ADMITTED INPATIENT Admit to: Tele Condition: Serious Critical Care Note Critical Care Time?: No Stability Stability form required: Yes Unstable for transfer: Telemetry monitoring (Telemetry monitoring required), Requires medication (Requires Med for stabilization) Heart Score Heart Score: Heart Score Response (Comments) Value History Slightly Suspicious 0 EKG Repolarization Disturb 1 Age 45-64 1 Risk Factors 1 or 2 risk factors 1 Troponin N/A 0 Total 3 SHANTI GRAHAM MD Nov 06, 2024 16:59 TIRSO AZAR MD Nov 06, 2024 20:22
[2024-11-06 17:00] VITALS: PULSE 111; RESP 18; O2SAT 93
[2024-11-06] MEDS: SODIUM CHLORIDE 0.9% 1,000 ML IVB ONE (17:00)
[2024-11-06 17:26] LABS: Basophils # (auto) 0.1 10 ^3/uL (0-0.2); Basophils % (auto) 0.5 % (0.0-2.0); Eosinophils # (auto) 0 10 ^3/uL (0-0.8); Eosinophils % (auto) 0.3 % (0.0-7.0); Hematocrit 44.8 % (36.0-46.0); Hemoglobin 14.8 g/dL (12.2-16.2); Lymphocytes % (auto) 6.2 % (10.0-50.0); Mean Corpuscular Volume 90.9 fL (80.0-100.0); Monocytes # (auto) 1.1 10 ^3/uL (0-1.3); Monocytes % (auto) 7.3 % (0.0-12.0); Neutrophils # (auto) 13.4 10 ^3/uL (1.6-8.6); Neutrophils % (auto) 85.7 % (37.0-80.0); Platelet Count (auto) 259 10^3/uL (140-450); Red Blood Cells 4.93 10^6/uL (4.0-5.20); Red Cell Distribution Width 15.6 % (11.8-14.3); White Blood Cell 15.6 10^3/uL (4.4-10.8)
[2024-11-06 17:34] LABS: Chloride 100 mmol/L (98-107); Potassium 3.8 mmol/L (3.5-5.1)
[2024-11-06 17:35] LABS: Anion Gap 9 (5-15); Carbon Dioxide 27 mmol/L (20-31)
[2024-11-06 17:40] LABS: BUN/Creatinine Ratio 17.4 (10.0-20.0); Blood Urea Nitrogen 19 mg/dL (9-23)
[2024-11-06 17:45] LABS: Calcium 10.9 mg/dL (8.7-10.4); Glucose 226 mg/dL (74-106); Sodium 136 mmol/L (136-145)
--- NOTE | 2024-11-06 17:51 | DVH ---
Procedure: CT CT AB PEL WO CON-NO ORAL OR IV 11/06/2024 05:25 PM Indication: Acute ureteral calculus right flank pain and right abdominal Comparison Study: None available at time of dictation. Technique: Axial images were obtained and reformatted in coronal and sagittal planes. All CT scans at this medical facility are performed using dose modulation techniques as appropriate t o a performed exam including the following: Automated exposure control was utilized; adjustment of th e MA and/or KV according to patient size; and use of iterative reconstruction technique. CT Dose: CTDI volume is 23.09 mGy. Dose-length product is 1189.45 mGy*cm FINDINGS: Lower Chest: Base of the lungs are clear. Coronary artery calcification noted. Hepatobiliary: Hepatomegaly and hepatic steatosis. Gallbladder is not identified likely surgically a bsent. A 2 cm subcapsular hypodense lesion is seen in the inferior right hepatic lobe, segment V that is incompletely evaluated without IV contrast. Spleen: Unremarkable. Pancreas: Unremarkable. Adrenal Glands: Unremarkable. tract: Asymmetric enlargement of the left kidney with diffuse edema, perinephric fat stranding, mo derate hydronephrosis, proximal hydroureter, air in the collecting system, 7 mm obstructing stone in the proximal ureter and several nonobstructing right renal calculi measuring up to 1 cm. The left kid grace is normal in size containing several subcentimeter nonobstructive calculi without hydronephrosis or hydroureter. A subcentimeter hyper attenuating cortical based lesion at midpole of the left kidney likely a complicated cyst with milk of calcium. The urinary bladder is unremarkable. GI tract: The stomach is grossly normal in appearance. No evidence of small bowel obstruction. Scatte red colonic diverticula are noted without evidence of diverticulitis. The appendix is normal. Lymphatics: No mesenteric, retroperitoneal or periportal lymphadenopathy. Vasculature: The abdominal aorta is normal in in caliber. Pelvic Organs: Unremarkable Bones/soft tissues: No acute abnormality. Degenerative changes of the lumbar spine noted. Small fat-c ontaining umbilical hernia. Moderate central canal stenosis neural foramina stenosis noted at several levels. Other: None. IMPRESSION: 1. Findings suggestive of right emphysematous pyelonephritis and a 7 mm obstructing stone in the righ t proximal ureter. Presence of air could only be explained by recent instrumentation or infection. Re commend clinical and biochemical correlation urology consultation. 2. Bilateral nonobstructive renal calculi measuring up to 1 cm in the right kidney. 3. Hepatomegaly and hepatic steatosis. A 2 cm subcapsular hypodense lesion in the right lobe is seen that is incompletely evaluated in this unenhanced study. Further evaluation by ultrasound or abdomin al MRI without and with IV contrast utilizing a dedicated hepatic protocol on a nonemergent basis is recommended.
[2024-11-06] MEDS: KETOROLAC TROMETH 30 MG/ML 1ML VIAL IV ONE (17:53)
[2024-11-06] MEDS: METOCLOPRAMIDE HCL 5MG/ml INJ 2ml VIAL IV ONE (17:53)
[2024-11-06 19:07] LABS: Urine Bacteria FEW /hpf (None Seen); Urine Blood Negative /uL (Negative); Urine Clarity Turbid (Clear); Urine Color Colorless (Yellow); Urine Mucus FEW (None Seen); Urine Protein, UAD Negative (Negative); Urine Specific Gravity 1.015 (1.001-1.035); Urine Squamous Epithelial Cell None Seen /hpf (<5); Urine Urobilinogen Normal (Negative); Urine WBC 63 /HPF (0-5); Urine WBC Clumps PRESENT /hpf (None Seen); Urine pH 6.5 (5.0-9.0)
[2024-11-06 19:35] VITALS: PULSE 103; RESP 20; O2SAT 94
[2024-11-06] MEDS: cefTRIAXone 1GM/50ML D5W 50 ML IV ONE (20:13)
[2024-11-06] MEDS ORDERED: DEXTROSE (50%) 50ML SYRG IV PRN (20:45)
[2024-11-06] MEDS ORDERED: ONDANSETRON HCL 4 MG/2 ML VIAL IV PRN (20:45)
[2024-11-06] MEDS ORDERED: MORPHINE SULFATE INJ 2 MG/ml SYRG IV PRN (20:45)
[2024-11-06 20:48] LABS: Lactic Acid w/Reflex 2.7 mmol/L (0.4-2.0)
--- NOTE | 2024-11-06 20:55 | ECG ---
[facility] Test Date: 2024-11-06 Test Time: 15:04:35 Pat Name: RICA WHEATLEY Department: ER Room: [address] [place] [address] Gender: F Epidemiology Internship: ZAINAB : 1965 Requested By: KERLINE GIORDANO Order Number: [id number] Reading MD: Measurements Intervals [place] Rate: 119 P: 58 MT: 143 QRS: -37 QRSD: 88 T: 99 QT: 294 QTc: 414 Interpretive Statements Sinus tachycardia Left axis deviation Borderline repolarization abnormality Baseline wander in lead(s) V3 Please click the below link to view image of tracing.
[2024-11-06] MEDS ORDERED: VANCOMYCIN PER PHARMACY 0 MG IV SCH (21:00)
[2024-11-06 21:20] LABS: INR 0.96 (0.9-1.15); Prothrombin Time 10.2 sec (9.3-11.8)
[2024-11-06] MEDS: VANCOMYCIN 1.25GM/250ML 250 ML IV ONE (21:29)
[2024-11-06] MEDS: TAMSULOSIN HYDROCHLORIDE 0.4 MG CAP PO SCH (21:30)
[2024-11-06] MEDS: SODIUM CHLORIDE 0.9% 1,000 ML IV SCH (21:30)
[2024-11-06] MEDS: InsuLIN REG 1unit/0.01ml Soln (100units/ml) SC SCH (22:01)
[2024-11-06] MEDS: ACCU-CHEK COMFORT CURVE STRIP VI SCH (22:05)
[2024-11-06 22:58] VITALS: PULSE 99; RESP 18; O2SAT 98
[2024-11-06 23:00] VITALS: BP 97/49; PULSE 66; PULSE 99; RESP 18; TEMP 97.5; O2SAT 98
[2024-11-07] VITALS (15 sets, daily range): BP systolic 89–119; BP diastolic 52–76; PULSE 90–126; RESP 17–22; TEMP 97.6–98.8; O2SAT 86–100
--- NOTE | 2024-11-07 00:18 | DVHHP2 ---
Admitting Diagnosis: Obstructive right ureter calculi, Pyelonephritis History of Present Illness History Source: Patient Exam Limitations: No limitations HPI Mrs. Jazzy Zuniga is a 59 yo female with a history of Kidney stones, CHF, COPD, DM, Throid disease, Cholecystectomy, C section, Hysterectomy presents with a chief complaint of right flank pain. Patient CT abd/pelvis resulted 1. Findings suggestive of right emphysematous pyelonephritis and a 7 mm obstructing stone in the right proximal ureter. Presence of air could only be explained by recent instrumentation or infection. Recommend clinical and biochemical correlation urology consultation. 2. Bilateral nonobstructive renal calculi measuring up to 1 cm in the right kidney. 3. Hepatomegaly and hepatic steatosis. A 2 cm subcapsular hypodense lesion in the right lobe is seen that is incompletely evaluated in this unenhanced study. Further evaluation by ultrasound or abdominal MRI without and with IV contrast utilizing a dedicated hepatic protocol on a nonemergent basis is recommended. Patient endorses right flank pain x 2 weeks. Denies chest pain, dyspnea, nausea, vomiting, dysuria, hematuria, fevers, chills. Home Meds Unable to Obtain Active Prescriptions or Reported Meds Past Medical History Cardiac: CHF Pulmonary: COPD Central Nervous System: No pertinent Hx GI: No pertinent Hx Hemotology/Oncology: No pertinent Hx Hepatobiliary: No pertinent Hx Psychiatric: No pertinent Hx Musculoskeletal: No pertinent Hx Rheumotologic: No pertinent Hx Infectious Disease: No peritnent Hx ENT: No pertinent Hx Renal/: Other (kidney stone) Endocrine: NIDDM Dermatology: No pertinent Hx Others thyroid disease Past Surgical History: Cholecystectomy, , Hysterctomy Smoker: No Hx (Negative) Alocohol: None Drugs: None Lives with: With family Domestic Violence: Neg Review of Systems Constitutional: No symptom reported Ears, Nose, & Throat: No symptom reported Eyes: No symptom reported Pulmonary/Respiratory: No symptom reported Cardiovascular: No symptom reported Gastrointestinal: Other (right flank pain) Genitourinary: No symptom reported Musculoskeletal: No symptom reported Skin: No symptom reported Psychiatric: No symptom reported Endocrine: No symptom reported Hemotologic/Lymphatic: No symptom reported H&P Exam Vital Signs Vital Signs Date Time Temp Pulse Resp B/P (MAP) Pulse Ox O2 Delivery O2 Flow Rate FiO2 11/06/24 22:00 99.2 95 20 126/76 (93) 96 99.2 11/06/24 19:35 Nasal Cannula* 1 24 General Appeara: Well developed, Well nourished, Normal Appearance Head Exam: Normal inspection Neck Exam: Normal inspection, Non-tender, Normal alignment Eye Exam: bilateral eye Normal inspection, bilateral eye PERRL, bilateral eye EOMI Ear Exam: bilateral ear Auricle normal, bilateral ear Canal normal Nasal Exam: Normal inspection Mouth: Normal Inspection Pulmonary/Respiratory: Normal inspection, Normal breath sounds, Chest non- tender, Lungs clear Cardiovascular/Chest: Normal inspection, Regular rate, Normal Rhythm Peripheral Pulses: 2+ dorsalis pedis (R), 2+ dorsalis pedis (L), 2+ Radial (R), 2+ Radial (L) Abdominal Exam: Normal bowel sounds, Soft, No tenderness Abdominal Pain Onset Location: Flank (right ) Rectal Exam: Deferred 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: Normal hearing, Normal speech, PERRL Neuro/Mental St: Alert, Oriented Eye contact/ Speech: Cooperative, Good eye contact, Normal speech Thoughts/Psych: Normal thought pattern Skin Exam: Normal inspection, Normal color, Warm/dry Labs/Xrays Labs Test 11/06/24 22:06 11/06/24 21:53 11/06/24 21:02 11/06/24 19:05 Range/Units Ammonia < 10 L 11-32 umol/L POC Glucose 231 H 70-106 mg/dl Lactic Acid Level 3.1 *H 0.4-2.0 mmol/L Prothrombin Time 10.2 9.3-11.8 sec Prothrombin Time INR 0.96 0.9-1.15 Test 11/06/24 18:50 11/06/24 17:09 Range/Units Urine Color Colorless Yellow Urine Clarity Turbid H Clear Urine pH 6.5 5.0-9.0 Urine Specific [place] 1.015 1.001-1.035 Urine Protein Negative Negative Urine Ketones Negative Negative Urine Blood Negative Negative /uL Urine Nitrite Negative Negative Urine Bilirubin Negative Negative Urine Urobilinogen Normal Negative mg/dL Urine Leukocyte Esterase 3+ Negative /uL Urine RBC 1 0 - 4 /hpf Urine WBC Clumps Present None Seen /hpf Urine Microscopic WBC 63 H 0-5 /HPF Urine Squamous Epithelial Cells None seen <5 /hpf Urine Bacteria Few H None Seen /hpf Urine Mucus Few None Seen Urine Glucose Normal Normal mg/dL White Blood Count 15.6 H 4.4-10.8 10^3/uL Red Blood Count 4.93 4.0-5.20 10^6/uL Hemoglobin 14.8 12.2-16.2 g/dL Hematocrit 44.8 36.0-46.0 % Mean Corpuscular Volume 90.9 80.0-100.0 fL Mean Corpuscular Hemoglobin 30.0 28.0-32.0 pg Mean Corpuscular Hemoglobin Concent 33.0 32.0-36.0 g/dL Red Cell Distribution Width 15.6 H 11.8-14.3 % Platelet Count 259 140-450 10^3/uL Mean Platelet Volume 7.8 6.9-10.8 fL Neutrophils (%) (Auto) 85.7 H 37.0-80.0 % Lymphocytes (%) (Auto) 6.2 L 10.0-50.0 % Monocytes (%) (Auto) 7.3 0.0-12.0 % Eosinophils (%) (Auto) 0.3 0.0-7.0 % Basophils (%) (Auto) 0.5 0.0-2.0 % Neutrophils # (Auto) 13.4 H 1.6-8.6 10 ^3/uL Lymphocytes # (Auto) 1.0 0.4-5.4 10 ^3/uL Monocytes # (Auto) 1.1 0-1.3 10 ^3/uL Eosinophils # (Auto) 0 0-0.8 10 ^3/uL Basophils # (Auto) 0.1 0-0.2 10 ^3/uL Nucleated Red Blood Cells 0.0 % Sodium Level 136 136-145 mmol/L Potassium Level 3.8 3.5-5.1 mmol/L Chloride Level 100 98-107 mmol/L Carbon Dioxide Level 27 20-31 mmol/L Anion Gap 9 5-15 Blood Urea Nitrogen 19 9-23 mg/dL Creatinine 1.09 H 0.550-1.02 mg/dL Glomerular Filtration Rate Calc 58 >90 mL/min BUN/Creatinine Ratio 17.4 10.0-20.0 Serum Glucose 226 H 74-106 mg/dL Calcium Level 10.9 H 8.7-10.4 mg/dL Assessment/Plan Problem List: (1) Pyelonephritis of right kidney (2) Acute right flank pain (3) Obstructive uropathy Plan This is a 59 yo female with known history of CHF, COPD, DM, Thyroid disease, Kidney stone, who presents to the hospital with right flank pain. Patient was found to have 1. Obstructive uropathy 2. Acute Pyelonephritis 3. Leukocytosis 4. DM with hyperglycemia 5. Lactic acidosis Plan Admit Telemetry Urology consultation IV fluids IV antibiotics Flomax PO serial Lactic levels Monitor BMP, CBC Discussed all above with patient who verbalized agreement and understanding of care plan. All questions were answered. Discussed radiology reports and labs with Urology Dr. Edmonds. Discussed assessment and care plan with supervising MD. Plan discussed with: Patient, Other Code Visit Code Visit Total Time (mins): 45 Additional Comments Additional Comments Additional Comments 59-year-old female with known history of congestive heart. , COPD, previous history of ureteric stones presented to the hospital with right flank pain found to have 1. Right obstructive uropathy 2. Acute emphysematous pyelonephritis 3. Complicated UTI 4. Lactic acidosis 5. Congestive heart failure, not in exacerbation 6. COPD not in exacerbation 7. Nonobstructive kidney stones 8. Morbid obesity class II -blood cultures times two, add vancomycin , continue ceftriaxone, urology consultation who was notified as pepper bedside RN. -plan of care discussed with the patient was understandable. IV fluids normal saline at 125 mL per KERLINE GIORDANO HELICOPTER ENGINEER Nov 07, 2024 00:18 XAVI BARRERA MD Nov 07, 2024 15:50
[2024-11-07] MEDS: HYDROcodone-ACET 5/325MG TAB PO PRN (00:27)
[2024-11-07 01:05] LABS: Lactic Acid w/Reflex 2.9 mmol/L (0.4-2.0)
--- NOTE | 2024-11-07 04:05 | DVH ---
EXAM: XY CHEST PORTABLE HISTORY: admission COMPARISON: Report of chest x-ray dated 10/29/2024 TECHNIQUE: Portable AP view of the chest was performed. FINDINGS: No pneumothorax or consolidative infiltrates. There is mild interstitial prominence, greater on the left. The heart is not enlarged. IMPRESSION: Mild interstitial prominence, left greater than right. This appearance may be due to interstitial pu lmonary edema or asymmetric CHF.
[2024-11-07] MEDS: FUROSEMIDE 40 MG/4 ML VIAL IV ONE (05:26)
[2024-11-07 06:08] LABS: Hemoglobin 13.8 g/dL (12.2-16.2); Mean Corpuscular Hemoglobin 30.2 pg (28.0-32.0); Mean Corpuscular Hgb Conc. 32.9 g/dL (32.0-36.0); Platelet Count (auto) 226 10^3/uL (140-450); Red Blood Cells 4.56 10^6/uL (4.0-5.20); Red Cell Distribution Width 16.1 % (11.8-14.3); White Blood Cell 19.9 10^3/uL (4.4-10.8)
[2024-11-07 06:25] LABS: Chloride 105 mmol/L (98-107); Potassium 4.4 mmol/L (3.5-5.1)
[2024-11-07 06:26] LABS: Anion Gap 10 (5-15); Carbon Dioxide 21 mmol/L (20-31)
[2024-11-07 06:31] LABS: BUN/Creatinine Ratio 12.1 (10.0-20.0); Blood Urea Nitrogen 16 mg/dL (9-23)
[2024-11-07 06:33] LABS: Lactic Acid w/Reflex 2.8 mmol/L (0.4-2.0)
[2024-11-07 06:36] LABS: Glucose 218 mg/dL (74-106); Sodium 136 mmol/L (136-145)
[2024-11-07 06:47] LABS: Basophils % (manual) 0 (0.0-2.0); Blast Cells 0; Eosinophils % (manual) 0 (0-7); Metamyelocytes % 0; Myelocytes % 0; Promyelocytes % 0; Reactive Lymphocytes 0
[2024-11-07 08:28] LABS: Band Neutrophils % (manual) 18; Lymphocytes % (manual) 8 (10.0-50.0); Monocytes % (manual) 6 (0-12); Platelet Estimate Adequate
[2024-11-07] MEDS: PANTOPRAZOLE 40 MG/10 ML VIAL INJ IV SCH (09:52)
[2024-11-07] MEDS: ENOXAPARIN SOD 40 MG/0.4 ML SYRINGE SC SCH (09:52)
[2024-11-07] MEDS: cefTRIAXone 1GM/50ML D5W 50 ML IV SCH (09:52)
[2024-11-07] MEDS ORDERED: SODIUM CHLORIDE 0.9% 1,000 ML IV SCH (11:00)
[2024-11-07] MEDS: SODIUM CHLORIDE 0.9% 1,000 ML IV SCH ×2 (12:38→16:37)
[2024-11-07 12:55] LABS: Lactic Acid w/Reflex 2.8 mmol/L (0.4-2.0)
[2024-11-07 18:47] LABS: Base Excess -4.2 mmol/L (-2.0-3.0)
[2024-11-07] MEDS: IPRATROPIUM BROM 0.5 MG/2.5ML INH SOL ONE (19:00)
[2024-11-07] MEDS: ALBUTEROL SULF 2.5 MG/0.5ML(0.5%) NEB SOLN ONE (19:01)
--- NOTE | 2024-11-07 19:21 | DVH ---
CHEST RADIOGRAPH Indication: SOB/Labored breathing Technique: Single frontal view of the chest was obtained COMPARISON: XY CHEST PORTABLE on DOS: 11/06/24 FINDINGS: Lines and Tubes: None Lungs: Mildly increased pulmonary vascularity, mild perihilar opacities, peribronchial thickening, an d mildly increased pulmonary interstitial opacifies consistent with mild pulmonary edema, mildly prog ressed compared to the prior chest X-ray from a day earlier. Pleura: No significant pleural effusion. No pneumothorax. Cardiomediastinal contours: Unremarkable IMPRESSION: Evidence of mild pulmonary edema mildly progressed compared to the prior chest X-ray from a day [facility] er.
[2024-11-07] MEDS: NYSTATIN TOPICAL POWDER 15GM TOP SCH (21:13)
[2024-11-07] MEDS: ACETAMINOPHEN 325 MG TAB PO PRN (22:26)
--- NOTE | 2024-11-07 23:29 | DVHINCON2 ---
Date of service: Nov 07, 2024 Referring Physician Mariaa German NP Reason for Consultation Acute hypoxic respiratory failure History of Present Illness A 59-year-old woman with past medical history of kidney stones, COPD, CHF, diabetes mellitus and thyroid disease who presented to the emergency department on 11/06/24 complaining of severe flank pain. Patient described sudden onset of pain. She c/o associated symptoms of abdominal pain, nausea, dysuria and urgency. Reports that she took pain medication without relief of symptoms. Patient was admitted for further care and pulmonary consultation is requested for evaluation and management of acute hypoxic respiratory failure. Review of Systems: 14-point review of systems negative unless otherwise noted above. Past Medical History: CHF, COPD, DM, Kidney Stones, Thyroid disease Past Surgical History: Cholecystectomy, , Hysterectomy Medications: Reviewed. Allergies: Nitroglycerin. Family History: No family history of premature CAD. No family history of lung disorders. Social History: Smoker, smokes cigarettes. No alcohol or illicit drug use. Family History: Patient reports no known family medical history. Allergies: Coded Allergies: Nitroglycerin (Verified Allergy, Unknown, 11/06/24) Home Meds Unable to Obtain Active Prescriptions or Reported Meds Current Medications Current Medications Medications (Trade) Dose Ordered Sig/Rajni Route PRN Reason Start Time Stop Time Status Last Admin Ceftriaxone Sodium 50 ml @ 100 mls/hr DAILY IV 11/07/24 10:00 11/07/24 09:52 Enoxaparin Sodium (Lovenox) 40 mg DAILY SC 11/07/24 10:00 11/07/24 09:52 Pantoprazole Sodium (Protonix) 40 mg DAILY IV 11/07/24 10:00 11/07/24 09:52 Sodium Chloride 1,000 ml @ 125 mls/hr Q8H IV 11/07/24 11:00 11/07/24 11:29 DC Sodium Chloride 1,000 ml @ 75 mls/hr [id number] IV 11/07/24 11:30 11/07/24 15:07 DC 11/07/24 12:38 Sodium Chloride 1,000 ml @ 125 mls/hr Q8H IV 11/07/24 15:15 11/07/24 16:37 Nystatin (Mycostatin Powder) 1 applic BID TOP 11/07/24 22:00 11/07/24 21:13 Albuterol (Ventolin Medneb) 1.25 mg Q6HR NEB 11/08/24 18:30 Ipratropium [place] (Atrovent Medneb) 0.5 mg Q6HR NEB 11/08/24 18:30 Vital Signs Vital Signs Date Time Temp Pulse Resp B/P (MAP) Pulse Ox O2 Delivery O2 Flow Rate FiO2 11/07/24 22:26 101.4 11/07/24 21:00 112 19 111/71 (84) 97 11/07/24 19:55 Nasal Cannula* 24 Physical Exam Gen.: Patient lying in bed in no apparent distress. On supplemental oxygen. Head: Normocephalic, atraumatic. Eyes: EOMI/PERRLA. Ears: Normal hearing. Normal anatomy. Neck/trachea: Trachea midline, supple. Nose: Normal external anatomy. Mouth: Moist mucous membranes. Chest: Decreased air entry bilaterally. No wheezing or rhonchi. Cardiovascular: Positive S1, positive S2. Regular rate and rhythm. Abdomen: Positive bowel sounds in all 4 quadrants. Soft, non-tender, non- distended. : Deferred. Rectal: Deferred. Skin: Warm, dry. Intact. Extremities: 2+ radial pulses bilaterally. No lower extremity edema. Neuro: Awake, alert, oriented x3. No gross motor or sensory deficits. Cranial nerves II through XII intact. Gait not assessed. Labs/Diagnostic Data Labs Test 11/07/24 21:11 11/07/24 18:41 11/07/24 11:58 11/07/24 05:15 Range/Units POC Glucose 165 H 70-106 mg/dl Blood Gas Specimen Type Arterial Blood Gas Sample Site Right radial Blood Gas Patient Temperature 37.0 Arterial Blood Date Drawn [id number] Arterial Blood pH 7.336 L 7.350-7.450 Arterial Blood Partial Pressure CO2 40.8 32.0-45.0 mmHg Arterial Blood Partial Pressure O2 63.7 L 83.0-108.0 mmHg Arterial Blood HCO3 21.3 21.0-28.0 mmol/L Arterial Blood Oxygen Saturation 91.2 L 94.0-98.0 % Arterial Blood Base Excess -4.2 L -2.0-3.0 mmol/L Arterial Blood Oxyhemoglobin 89.8 L 94.0-98.0 % Arterial Blood Carboxyhemoglobin 1.1 0.5-1.5 % Arterial Blood Methemoglobin 0.4 0.0-1.5 % Neto Test Yes Blood Gas Total Hemoglobin 13.00 12.0-16.0 g/dL Blood Gas Liter Flow 1.00 Blood Gas Modality Nasal cannula Blood Gas Spontaneous Rate 20 FiO2 % 24.0 Specimen Drawn By Gregorio thornton rt Lactic Acid Level 2.8 *H 0.4-2.0 mmol/L White Blood Count 19.9 #H 4.4-10.8 10^3/uL Red Blood Count 4.56 4.0-5.20 10^6/uL Hemoglobin 13.8 12.2-16.2 g/dL Hematocrit 42.0 36.0-46.0 % Mean Corpuscular Volume 92.0 80.0-100.0 fL Mean Corpuscular Hemoglobin 30.2 28.0-32.0 pg Mean Corpuscular Hemoglobin Concent 32.9 32.0-36.0 g/dL Red Cell Distribution Width 16.1 H 11.8-14.3 % Platelet Count 226 140-450 10^3/uL Mean Platelet Volume 7.9 6.9-10.8 fL Neutrophils (%) (Auto) 37.0-80.0 % Lymphocytes (%) (Auto) 10.0-50.0 % Monocytes (%) (Auto) 0.0-12.0 % Basophils (%) (Auto) 0.0-2.0 % Neutrophils # (Auto) 1.6-8.6 10 ^3/uL Lymphocytes # (Auto) 0.4-5.4 10 ^3/uL Monocytes # (Auto) 0-1.3 10 ^3/uL Differential Total Cells Counted 100.0 100 Neutrophils % (Manual) 68 37.0-80.0 Band Neutrophils % (Manual) 18 Lymphocytes % (Manual) 8 L 10.0-50.0 Monocytes % (Manual) 6 0-12 Eosinophils % (Manual) 0 0-7 Basophils % (Manual) 0 0.0-2.0 Metamyelocytes % (manual) 0 Myelocytes % (Manual) 0 Promyelocytes % (Manual) 0 Blast Cells % (Manual) 0 Reactive Lymphocytes 0 Platelet Estimate Adequate Sodium Level 136 136-145 mmol/L Potassium Level 4.4 3.5-5.1 mmol/L Chloride Level 105 98-107 mmol/L Carbon Dioxide Level 21 20-31 mmol/L Anion Gap 10 5-15 Blood Urea Nitrogen 16 9-23 mg/dL Creatinine 1.32 H 0.550-1.02 mg/dL Glomerular Filtration Rate Calc 46 >90 mL/min BUN/Creatinine Ratio 12.1 10.0-20.0 Serum Glucose 218 H 74-106 mg/dL Calcium Level 10.0 8.7-10.4 mg/dL Test 11/06/24 22:06 11/06/24 19:05 11/06/24 18:50 11/06/24 17:09 Range/Units Ammonia < 10 L 11-32 umol/L Prothrombin Time 10.2 9.3-11.8 sec Prothrombin Time INR 0.96 0.9-1.15 Urine Color Colorless Yellow Urine Clarity Turbid H Clear Urine pH 6.5 5.0-9.0 Urine Specific [place] 1.015 1.001-1.035 Urine Protein Negative Negative Urine Ketones Negative Negative Urine Blood Negative Negative /uL Urine Nitrite Negative Negative Urine Bilirubin Negative Negative Urine Urobilinogen Normal Negative mg/dL Urine Leukocyte Esterase 3+ Negative /uL Urine RBC 1 0 - 4 /hpf Urine WBC Clumps Present None Seen /hpf Urine Microscopic WBC 63 H 0-5 /HPF Urine Squamous Epithelial Cells None seen <5 /hpf Urine Bacteria Few H None Seen /hpf Urine Mucus Few None Seen Urine Glucose Normal Normal mg/dL Eosinophils (%) (Auto) 0.3 0.0-7.0 % Eosinophils # (Auto) 0 0-0.8 10 ^3/uL Basophils # (Auto) 0.1 0-0.2 10 ^3/uL Nucleated Red Blood Cells 0.0 % Microbiology Date/Time Source Procedure Growth Status 11/06/24 19:05 Blood Blood Culture - Preliminary NO GROWTH AFTER 24 HOURS OF INCUBATION. Resulted Assessment Impression: Acute hypoxic respiratory failure Pyelonephritis Nephrolithiasis Obesity BMI 37.5 Nicotine dependence Asthma COPD Plan: Continue supplemental oxygen 1 LPM NC Titrate to keep O2 sats above 92%. Taper O2 as tolerated. CT abdomen-pelvis reviewed, notable for right emphysematous pyelonephritis and a 7 mm obstructing stone in the right proximal ureter. Bilateral nonobstructive renal calculi measuring up to 1 cm in the right kidney. Hepatomegaly and hepatic steatosis. A 2 cm subcapsular hypodense lesion in the right lobe is seen that is incompletely evaluated in this unenhanced study. CXR reviewed, demonstrates mild pulmonary edema. Continue antibiotics Follow up cultures Incentive spirometry Nystatin powder BID Pain control Avoid oversedation Monitor renal function. Monitor electrolytes. Supplement as necessary. Monitor ins and outs. Diet and lifestyle modifications for weight reduction Obesity - complicates all care Smoking cessation discussed for >10 minutes DVT prophylaxis Prognosis: Guarded given multiple comorbidities Rest of plan per hospitalist and other consultants. Thank you, ZAINAB German, for allowing me to participate in this patient's care. Further recommendations will depend on the patient's clinical course. Please do not hesitate to contact me if you have any questions or concerns. This medical document was created using an electronic medical record system with [employer] dictation system. Although this document has been carefully reviewed, there may still be some phonetic and typographical errors. These areas are purely typographical due to imperfections of the software programs and do not reflect any compromise in the patient's medical care. Plan discussed with: Patient, Other (KAYLA Ricketts/ZAINAB German/) KOBY BIRCH MD Nov 07, 2024 23:29
[2024-11-08] VITALS (14 sets, daily range): BP systolic 98–157; BP diastolic 50–77; PULSE 95–120; RESP 16–20; TEMP 98.2–100.1; O2SAT 88–100
[2024-11-08 06:37] LABS: Basophils # (auto) 0 10 ^3/uL (0-0.2); Basophils % (auto) 0.1 % (0.0-2.0); Eosinophils # (auto) 0.1 10 ^3/uL (0-0.8); Eosinophils % (auto) 0.4 % (0.0-7.0); Hematocrit 34.2 % (36.0-46.0); Hemoglobin 11.3 g/dL (12.2-16.2); Lymphocytes # (auto) 0.7 10 ^3/uL (0.4-5.4); Lymphocytes % (auto) 4.5 % (10.0-50.0); Mean Corpuscular Hemoglobin 30.5 pg (28.0-32.0); Mean Corpuscular Hgb Conc. 32.9 g/dL (32.0-36.0); Mean Corpuscular Volume 92.5 fL (80.0-100.0); Monocytes # (auto) 0.7 10 ^3/uL (0-1.3); Monocytes % (auto) 4.5 % (0.0-12.0); Neutrophils # (auto) 14.6 10 ^3/uL (1.6-8.6); Neutrophils % (auto) 90.5 % (37.0-80.0); Platelet Count (auto) 199 10^3/uL (140-450); Red Cell Distribution Width 16.3 % (11.8-14.3); White Blood Cell 16.1 10^3/uL (4.4-10.8)
[2024-11-08 06:47] LABS: Chloride 104 mmol/L (98-107); Potassium 4.1 mmol/L (3.5-5.1)
[2024-11-08 06:48] LABS: Anion Gap 4 (5-15); Calcium 10.2 mg/dL (8.7-10.4); Carbon Dioxide 27 mmol/L (20-31)
[2024-11-08 06:53] LABS: BUN/Creatinine Ratio 14.8 (10.0-20.0); Blood Urea Nitrogen 17 mg/dL (9-23)
[2024-11-08 07:01] LABS: Glucose 151 mg/dL (74-106); Sodium 135 mmol/L (136-145)
--- NOTE | 2024-11-08 11:10 | DVH ---
US KIDNEY HISTORY: hydronephrosis, ureteral jets COMPARISON: None TECHNIQUE: Transverse and longitudinal grayscale and color Doppler images were obtained of the kidney s and bladder. FINDINGS: Right kidney: Size: 13.6 cm Cortical thickness: Normal Echogenicity: Normal Stones: 1.5 cm upper pole stone Masses: 3.9 cm cyst. Hydronephrosis: Yes Ureters: Not well visualized. Other: None Left kidney: Size: 12.3 cm Cortical thickness: Normal Echogenicity: Normal Stones: 6 mm nonobstructive left kidney stone. Masses: None Hydronephrosis: None Ureters: Not well visualized. Other: None Bladder: Aburto Other: None. IMPRESSION: Right hydronephrosis with a 1.5 cm right kidney stone. 6 mm nonobstructive left kidney stone.
[2024-11-08] MEDS: VANCOMYCIN 1.25GM/250ML 250 ML IV SCH (12:02)
--- NOTE | 2024-11-08 16:41 | DVHPN2 ---
Subjective Overnight events noted. Patient was very drowsy. Reviewed: Care Plan Changes from previous H/P or p: No Changes Objective Vitals Vital Signs Date Time Temp Pulse Resp B/P (MAP) Pulse Ox O2 Delivery O2 Flow Rate FiO2 11/08/24 15:28 98.5 98.5 11/08/24 13:29 100 17 98/50 (66) 88 11/08/24 08:15 Nasal Cannula* 1 24 Intake/Output Intake and Output 11/08/24 07:00 Intake Total 2495 ml Output Total 1250 ml Balance 1245 ml Intake Oral 1520 ml IV Total 975 ml Output Urine Total 1250 ml Exam HEENT pupils are reactive Neck is supple CV is S1-S2 regular rate and rhythm Respiratory viral clear GI posterior bowel sound Extremity no edema [employer]PRES[employer]IVE no motor deficit. Medications Current Medications Medications Dose Ordered Sig/Rajni Route Start Time Stop Time Status Last Admin Dose Admin Tamsulosin HCl 0.4 mg DAILY PO 11/06/24 20:45 11/08/24 09:02 0.4 MG Ceftriaxone Sodium 50 ml @ 100 mls/hr DAILY IV 11/07/24 10:00 11/08/24 09:03 100 MLS/HR Ondansetron HCl 4 mg Q6HPRN PRN IV 11/06/24 20:45 Morphine Sulfate 2 mg Q6HPRN PRN IV 11/06/24 20:45 Enoxaparin Sodium 40 mg DAILY SC 11/07/24 10:00 11/08/24 09:03 40 MG Acetaminophen/ Hydrocodone Bitart 1 tab Q6HPRN PRN PO 11/06/24 20:45 11/08/24 16:05 1 TAB Acetaminophen 650 mg Q6HPRN PRN PO 11/06/24 20:45 11/07/24 22:26 650 MG Pantoprazole Sodium 40 mg DAILY IV 11/07/24 10:00 11/08/24 09:03 40 MG Diagnostic Test (Pha) 1 strip ACHS 11/06/24 22:00 11/08/24 16:21 1 STRIP Insulin Human Regular ACHS SC 11/06/24 22:00 11/08/24 16:30 2 UNITS Dextrose 50 ml UD PRN IV 11/06/24 20:45 Vancomycin HCl 0 ml @ 0 mls/hr UD IV 11/06/24 21:00 Sodium Chloride 1,000 ml @ 125 mls/hr Q8H IV 11/07/24 15:15 11/08/24 15:22 125 MLS/HR Nystatin 1 applic BID TOP 11/07/24 22:00 11/08/24 09:04 1 APPLIC Albuterol 1.25 mg Q6HR NEB 11/08/24 18:30 Ipratropium Morven 0.[address] [facility] 11/08/24 18:30 Vancomycin HCl 250 ml @ 200 mls/hr Q8H IV 11/08/24 12:00 11/08/24 12:02 200 MLS/HR Laboratory Results Laboratory Tests 11/08/24 05:09 Chemistry Test 11/08/24 05:09 Calcium Level 10.2 mg/dL (8.7-10.4) Urinalysis Test 11/06/24 18:50 Urine Color Colorless (Yellow) Urine Clarity Turbid (Clear) H Urine pH 6.5 (5.0-9.0) Urine Specific [place] 1.015 (1.001-1.035) Urine Protein Negative (Negative) Urine Ketones Negative (Negative) Urine Blood Negative /uL (Negative) Urine Nitrite Negative (Negative) Urine Bilirubin Negative (Negative) Urine Urobilinogen Normal mg/dL (Negative) Urine Leukocyte Esterase 3+ /uL (Negative) Urine RBC 1 /hpf (0 - 4) Urine WBC Clumps Present /hpf (None Seen) Urine Microscopic WBC 63 /HPF (0-5) H Urine Squamous Epithelial Cells None seen /hpf (<5) Urine Bacteria Few /hpf (None Seen) H Urine Mucus Few (None Seen) Urine Glucose Normal mg/dL (Normal) Blood Gas Results Test 11/07/24 18:41 Arterial Blood pH 7.336 (7.350-7.450) FiO2 % 24.0 Microbiology Microbiology Date/Time Source Procedure Growth Status 11/06/24 19:05 Blood Blood Culture - Preliminary NO GROWTH AFTER 24 HOURS OF INCUBATION. Resulted 11/06/24 18:50 Voided Urine Urine Culture - Preliminary Resulted Assessment/Plan Assessment/Plan 59-year-old female with known history of congestive heart. , COPD, previous history of ureteric stones presented to the hospital with right flank pain found to have 1. Right obstructive uropathy 2. Acute emphysematous pyelonephritis 3. Complicated UTI 4. Lactic acidosis 5. Congestive heart failure, not in exacerbation 6. COPD not in exacerbation 7. Nonobstructive kidney stones 8. Morbid obesity class II -continue IV antibiotics, urology follow up, infectious Disease follow up. Plan discussed with: Patient Date of Service: Nov 08, 2024 Billing Provider: XAVI BARRERA MD Common Visit Codes: NOT BILLABLE XAVI BARRERA MD Nov 08, 2024 16:41
--- NOTE | 2024-11-08 17:00 | DVHINCON2 ---
Date of service: Nov 08, 2024 Referring Physician HOSPITALIST Reason for Consultation URETERAL STONE, PYELONEPHRITIS History of Present Illness History Source: Patient, RN Notes, Old Records Exam Limitations: No limitations HPI 59 YO FEMALE PMH COPD, CHF, METH USE, GERD AND IS KNOWN TO UROLOGY SERVICE FOR KIDNEY STONES. PT HAD RIGHT PCNL LAST MONTH. CT SHOWS A 7 MM RIGHT UPJ STONE WITH MODERATE HYDRONEPHROSIS. UPON ARRIVAL PT WAS HYPOTENSIVE AND THEREFORE SHE IS BEING TREATED FOR SEPSIS. HER COPD IS SEVERE AND SHE WILL NEED PULMONARY CLEARANCE FOR ANY SURGICAL INTERVENTION. Home Meds Unable to Obtain Active Prescriptions or Reported Meds Past Medical History Others thyroid disease Patient Family History: Patient reports no known family medical history. Smoker: No Hx (Negative) Alocohol: None Drugs: Amphetimines Domestic Violence: Neg Review of Systems Constitutional: Weakness Genitourinary: Pain H&P Exam Vital Signs Vital Signs Date Time Temp Pulse Resp B/P (MAP) Pulse Ox O2 Delivery O2 Flow Rate FiO2 11/08/24 15:28 98.5 98.5 11/08/24 13:29 100 17 98/50 (66) 88 11/08/24 08:15 Nasal Cannula* 1 24 General Appeara: Well developed, Well nourished, Normal Appearance, Obese Tendon/ Neuro: Normal sensation, Normal motor function, Normal tendon functions Neuro/Mental St: Alert, Oriented Eye contact/ Speech: Cooperative, Good eye contact, Normal speech Skin Exam: Normal inspection, Normal color, Warm/dry Labs/Xrays [place] [id number] Ph: [phone] DIAGNOSTIC IMAGING Diagnostic Imaging Report : [id number] Signed PATIENT: RICA WHEATLEY ACCT: [id number] UNIT: [id number] : 1965 LOC: ER ROOM / BED: / AGE / SEX: 59 / F ADM STATUS: REG ER SERVICE 46 ORDERING PHYSICIAN: SHANTI GRAHAM MD PROCEDURE(s): ABPL - CT AB PEL WO CON-NO ORAL OR IV REASON: Acute ureteral calculus right flank pain and right abdominal ORDER NUMBER(s): [id number], ACCESSION NUMBER(s): [id number] Procedure: CT CT AB PEL WO CON-NO ORAL OR IV 11/06/2024 05:25 PM Indication: Acute ureteral calculus right flank pain and right abdominal Comparison Study: None available at time of dictation. Technique: Axial images were obtained and reformatted in coronal and sagittal planes. All CT scans at this medical facility are performed using dose modulation techniques as appropriate to a performed exam including the following: Automated exposure control was utilized; adjustment of the MA and/or KV according to patient size; and use of iterative reconstruction technique. CT Dose: CTDI volume is 23.09 mGy. Dose-length product is 1189.45 mGy*cm FINDINGS: Lower Chest: Base of the lungs are clear. Coronary artery calcification noted. Hepatobiliary: Hepatomegaly and hepatic steatosis. Gallbladder is not identified likely surgically absent. A 2 cm subcapsular hypodense lesion is seen in the inferior right hepatic lobe, segment V that is incompletely evaluated without IV contrast. Spleen: Unremarkable. Pancreas: Unremarkable. Adrenal Glands: Unremarkable. tract: Asymmetric enlargement of the left kidney with diffuse edema, perinephric fat stranding, moderate hydronephrosis, proximal hydroureter, air in the collecting system, 7 mm obstructing stone in the proximal ureter and several nonobstructing right renal calculi measuring up to 1 cm. The left kidney is normal in size containing several subcentimeter nonobstructive calculi without hydronephrosis or hydroureter. A subcentimeter hyper attenuating cortical based lesion at midpole of the left kidney likely a complicated cyst with milk of calcium. The urinary bladder is unremarkable. GI tract: The stomach is grossly normal in appearance. No evidence of small bowel obstruction. Scattered colonic diverticula are noted without evidence of diverticulitis. The appendix is normal. Lymphatics: No mesenteric, retroperitoneal or periportal lymphadenopathy. Vasculature: The abdominal aorta is normal in in caliber. Pelvic Organs: Unremarkable Bones/soft tissues: No acute abnormality. Degenerative changes of the lumbar spine noted. Small fat-containing umbilical hernia. Moderate central canal stenosis neural foramina stenosis noted at several levels. Other: None. IMPRESSION: 1. Findings suggestive of right emphysematous pyelonephritis and a 7 mm obstructing stone in the right proximal ureter. Presence of air could only be explained by recent instrumentation or infection. Recommend clinical and biochemical correlation urology consultation. 2. Bilateral nonobstructive renal calculi measuring up to 1 cm in the right kidney. 3. Hepatomegaly and hepatic steatosis. A 2 cm subcapsular hypodense lesion in the right lobe is seen that is incompletely evaluated in this unenhanced study. Further evaluation by ultrasound or abdominal MRI without and with IV contrast utilizing a dedicated hepatic protocol on a nonemergent basis is recommended. ATED BY: SUSANA BOSCH MD DICTATED DATE/TIME: 11/06/241747 SIGNED BY: SUSANA BOSCH MD SIGNED DATE/TIME: 11/06/241747 CC: [place] [id number] Ph: [phone] DIAGNOSTIC IMAGING Diagnostic Imaging Report : [id number] Signed PATIENT: RICA WHEATLEY ACCT: [id number] UNIT: [id number] : 1965 LOC: [facility] ROOM / BED: [facility] / A AGE / SEX: 59 / F ADM STATUS: ADM IN SERVICE 1024 ORDERING PHYSICIAN: HARIS GORDON NP PROCEDURE(s): KIDUS - KIDNEY REASON: hydronephrosis, ureteral jets ORDER NUMBER(s): [id number], ACCESSION NUMBER(s): [id number] US KIDNEY HISTORY: hydronephrosis, ureteral jets COMPARISON: None TECHNIQUE: Transverse and longitudinal grayscale and color Doppler images were obtained of the kidneys and bladder. FINDINGS: Right kidney: Size: 13.6 cm Cortical thickness: Normal Echogenicity: Normal Stones: 1.5 cm upper pole stone Masses: 3.9 cm cyst. Hydronephrosis: Yes Ureters: Not well visualized. Other: None Left kidney: Size: 12.3 cm Cortical thickness: Normal Echogenicity: Normal Stones: 6 mm nonobstructive left kidney stone. Masses: None Hydronephrosis: None Ureters: Not well visualized. Other: None Bladder: Aburto Other: None. IMPRESSION: Right hydronephrosis with a 1.5 cm right kidney stone. 6 mm nonobstructive left kidney stone. ATED BY: ZOHAIB SHERMAN MD DICTATED DATE/TIME: 11/08/24 110 SIGNED BY: ZOHAIB SHERMAN MD SIGNED DATE/TIME: 11/08/24 1108 CC: Labs Test 11/08/24 16:22 11/08/24 05:09 11/07/24 18:41 11/07/24 11:58 Range/Units POC Glucose 145 H 70-106 mg/dl White Blood Count 16.1 H 4.4-10.8 10^3/uL Red Blood Count 3.70 L 4.0-5.20 10^6/uL Hemoglobin 11.3 #L 12.2-16.2 g/dL Hematocrit 34.2 #L 36.0-46.0 % Mean Corpuscular Volume 92.5 80.0-100.0 fL Mean Corpuscular Hemoglobin 30.5 28.0-32.0 pg Mean Corpuscular Hemoglobin Concent 32.9 32.0-36.0 g/dL Red Cell Distribution Width 16.3 H 11.8-14.3 % Platelet Count 199 140-450 10^3/uL Mean Platelet Volume 7.9 6.9-10.8 fL Neutrophils (%) (Auto) 90.5 H 37.0-80.0 % Lymphocytes (%) (Auto) 4.5 L 10.0-50.0 % Monocytes (%) (Auto) 4.5 0.0-12.0 % Eosinophils (%) (Auto) 0.4 0.0-7.0 % Basophils (%) (Auto) 0.1 0.0-2.0 % Neutrophils # (Auto) 14.6 H 1.6-8.6 10 ^3/uL Lymphocytes # (Auto) 0.7 0.4-5.4 10 ^3/uL Monocytes # (Auto) 0.7 0-1.3 10 ^3/uL Eosinophils # (Auto) 0.1 0-0.8 10 ^3/uL Basophils # (Auto) 0 0-0.2 10 ^3/uL Nucleated Red Blood Cells 0.0 % Sodium Level 135 L 136-145 mmol/L Potassium Level 4.1 3.5-5.1 mmol/L Chloride Level 104 98-107 mmol/L Carbon Dioxide Level 27 20-31 mmol/L Anion Gap 4 L 5-15 Blood Urea Nitrogen 17 9-23 mg/dL Creatinine 1.15 H 0.550-1.02 mg/dL Glomerular Filtration Rate Calc 54 >90 mL/min BUN/Creatinine Ratio 14.8 10.0-20.0 Serum Glucose 151 H 74-106 mg/dL Calcium Level 10.2 8.7-10.4 mg/dL Random Vancomycin Level 4.9 L 5-10 ug/mL Blood Gas Specimen Type Arterial Blood Gas Sample Site Right radial Blood Gas Patient Temperature 37.0 Arterial Blood Date Drawn [id number] Arterial Blood pH 7.336 L 7.350-7.450 Arterial Blood Partial Pressure CO2 40.8 32.0-45.0 mmHg Arterial Blood Partial Pressure O2 63.7 L 83.0-108.0 mmHg Arterial Blood HCO3 21.3 21.0-28.0 mmol/L Arterial Blood Oxygen Saturation 91.2 L 94.0-98.0 % Arterial Blood Base Excess -4.2 L -2.0-3.0 mmol/L Arterial Blood Oxyhemoglobin 89.8 L 94.0-98.0 % Arterial Blood Carboxyhemoglobin 1.1 0.5-1.5 % Arterial Blood Methemoglobin 0.4 0.0-1.5 % Neto Test Yes Blood Gas Total Hemoglobin 13.00 12.0-16.0 g/dL Blood Gas Liter Flow 1.00 Blood Gas Modality Nasal cannula Blood Gas Spontaneous Rate 20 FiO2 % 24.0 Specimen Drawn By Gregorio thornton rt Lactic Acid Level 2.8 *H 0.4-2.0 mmol/L Test 11/07/24 05:15 11/06/24 22:06 11/06/24 19:05 11/06/24 18:50 Range/Units Differential Total Cells Counted 100.0 100 Neutrophils % (Manual) 68 37.0-80.0 Band Neutrophils % (Manual) 18 Lymphocytes % (Manual) 8 L 10.0-50.0 Monocytes % (Manual) 6 0-12 Eosinophils % (Manual) 0 0-7 Basophils % (Manual) 0 0.0-2.0 Metamyelocytes % (manual) 0 Myelocytes % (Manual) 0 Promyelocytes % (Manual) 0 Blast Cells % (Manual) 0 Reactive Lymphocytes 0 Platelet Estimate Adequate Ammonia < 10 L 11-32 umol/L Prothrombin Time 10.2 9.3-11.8 sec Prothrombin Time INR 0.96 0.9-1.15 Urine Color Colorless Yellow Urine Clarity Turbid H Clear Urine pH 6.5 5.0-9.0 Urine Specific [place] 1.015 1.001-1.035 Urine Protein Negative Negative Urine Ketones Negative Negative Urine Blood Negative Negative /uL Urine Nitrite Negative Negative Urine Bilirubin Negative Negative Urine Urobilinogen Normal Negative mg/dL Urine Leukocyte Esterase 3+ Negative /uL Urine RBC 1 0 - 4 /hpf Urine WBC Clumps Present None Seen /hpf Urine Microscopic WBC 63 H 0-5 /HPF Urine Squamous Epithelial Cells None seen <5 /hpf Urine Bacteria Few H None Seen /hpf Urine Mucus Few None Seen Urine Glucose Normal Normal mg/dL Microbiology Date/Time Source Procedure Growth Status 11/06/24 19:05 Blood Blood Culture - Preliminary NO GROWTH AFTER 24 HOURS OF INCUBATION. Resulted 11/06/24 18:50 Voided Urine Urine Culture - Preliminary Resulted Assessment/Plan Problem List: (1) Obstructive uropathy (2) Diabetic nephropathy (3) Hepatic steatosis (4) Liver lesion (5) Acute right flank pain (6) Hydronephrosis concurrent with and due to calculi of kidney and ureter (7) Pyelonephritis of right kidney Plan TREAT UTI [employer]NAGEMENT LITHOTRIPSY TBA Plan discussed with: Patient, Other HARIS GORDON NP Nov 08, 2024 17:00
[2024-11-08] MEDS ORDERED: ALBUTEROL SULF 2.5 MG/0.5ML(0.5%) NEB SOLN NEB SCH (18:30)
[2024-11-08] MEDS: ALBUTEROL SULF 2.5 MG/0.5ML(0.5%) NEB SOLN NEB SCH (19:09)
[2024-11-08] MEDS: IPRATROPIUM BROM 0.5 MG/2.5ML INH SOL NEB SCH ×2 (19:09→22:28)
--- NOTE | 2024-11-08 19:46 | DVHINCON2 ---
Date of service: Nov 07, 2024 Family History: Patient reports no known family medical history. Allergies: Coded Allergies: Nitroglycerin (Verified Allergy, Unknown, 11/06/24) Home Meds Unable to Obtain Active Prescriptions or Reported Meds Current Medications Current Medications Medications (Trade) Dose Ordered Sig/Rajni Route PRN Reason Start Time Stop Time Status Last Admin Nystatin (Mycostatin Powder) 1 applic BID TOP 11/07/24 22:00 11/08/24 09:04 Albuterol (Ventolin Medneb) 1.25 mg Q6HR [facility] 11/08/24 18:30 11/08/24 18:56 DC Ipratropium [place] (Atrovent Medneb) 0.5 mg Q6HR [facility] 11/08/24 18:30 11/08/24 19:31 DC 11/08/24 19:09 Vancomycin HCl 250 ml @ 200 mls/hr Q8H IV 11/08/24 12:00 11/08/24 12:02 Albuterol (Ventolin Medneb) 1.25 mg Q4HR [facility] 11/08/24 19:00 11/08/24 19:09 Methylprednisolone Sodium Succinate (Solu Medrol) 40 mg BID IV 11/08/24 22:00 Budesonide (Pulmicort) 0.5 mg BID NEB 11/08/24 22:00 Ipratropium [place] (Atrovent Medneb) 0.5 mg Q4HR [facility] 11/08/24 22:00 UNV Vital Signs Vital Signs Date Time Temp Pulse Resp B/P (MAP) Pulse Ox O2 Delivery O2 Flow Rate FiO2 11/08/24 17:00 98.8 117 20 157/77 (103) 93 98.8 11/08/24 10:20 Nasal Cannula 1.0 11/08/24 10:20 24 Labs/Diagnostic Data Labs Test 11/08/24 16:22 11/08/24 05:09 11/07/24 18:41 11/07/24 11:58 Range/Units POC Glucose 145 H 70-106 mg/dl White Blood Count 16.1 H 4.4-10.8 10^3/uL Red Blood Count 3.70 L 4.0-5.20 10^6/uL Hemoglobin 11.3 #L 12.2-16.2 g/dL Hematocrit 34.2 #L 36.0-46.0 % Mean Corpuscular Volume 92.5 80.0-100.0 fL Mean Corpuscular Hemoglobin 30.5 28.0-32.0 pg Mean Corpuscular Hemoglobin Concent 32.9 32.0-36.0 g/dL Red Cell Distribution Width 16.3 H 11.8-14.3 % Platelet Count 199 140-450 10^3/uL Mean Platelet Volume 7.9 6.9-10.8 fL Neutrophils (%) (Auto) 90.5 H 37.0-80.0 % Lymphocytes (%) (Auto) 4.5 L 10.0-50.0 % Monocytes (%) (Auto) 4.5 0.0-12.0 % Eosinophils (%) (Auto) 0.4 0.0-7.0 % Basophils (%) (Auto) 0.1 0.0-2.0 % Neutrophils # (Auto) 14.6 H 1.6-8.6 10 ^3/uL Lymphocytes # (Auto) 0.7 0.4-5.4 10 ^3/uL Monocytes # (Auto) 0.7 0-1.3 10 ^3/uL Eosinophils # (Auto) 0.1 0-0.8 10 ^3/uL Basophils # (Auto) 0 0-0.2 10 ^3/uL Nucleated Red Blood Cells 0.0 % Sodium Level 135 L 136-145 mmol/L Potassium Level 4.1 3.5-5.1 mmol/L Chloride Level 104 98-107 mmol/L Carbon Dioxide Level 27 20-31 mmol/L Anion Gap 4 L 5-15 Blood Urea Nitrogen 17 9-23 mg/dL Creatinine 1.15 H 0.550-1.02 mg/dL Glomerular Filtration Rate Calc 54 >90 mL/min BUN/Creatinine Ratio 14.8 10.0-20.0 Serum Glucose 151 H 74-106 mg/dL Calcium Level 10.2 8.7-10.4 mg/dL Random Vancomycin Level 4.9 L 5-10 ug/mL Blood Gas Specimen Type Arterial Blood Gas Sample Site Right radial Blood Gas Patient Temperature 37.0 Arterial Blood Date Drawn [id number] Arterial Blood pH 7.336 L 7.350-7.450 Arterial Blood Partial Pressure CO2 40.8 32.0-45.0 mmHg Arterial Blood Partial Pressure O2 63.7 L 83.0-108.0 mmHg Arterial Blood HCO3 21.3 21.0-28.0 mmol/L Arterial Blood Oxygen Saturation 91.2 L 94.0-98.0 % Arterial Blood Base Excess -4.2 L -2.0-3.0 mmol/L Arterial Blood Oxyhemoglobin 89.8 L 94.0-98.0 % Arterial Blood Carboxyhemoglobin 1.1 0.5-1.5 % Arterial Blood Methemoglobin 0.4 0.0-1.5 % Neto Test Yes Blood Gas Total Hemoglobin 13.00 12.0-16.0 g/dL Blood Gas Liter Flow 1.00 Blood Gas Modality Nasal cannula Blood Gas Spontaneous Rate 20 FiO2 % 24.0 Specimen Drawn By Gregorio thornton rt Lactic Acid Level 2.8 *H 0.4-2.0 mmol/L Test 11/07/24 05:15 11/06/24 22:06 11/06/24 19:05 11/06/24 18:50 Range/Units Differential Total Cells Counted 100.0 100 Neutrophils % (Manual) 68 37.0-80.0 Band Neutrophils % (Manual) 18 Lymphocytes % (Manual) 8 L 10.0-50.0 Monocytes % (Manual) 6 0-12 Eosinophils % (Manual) 0 0-7 Basophils % (Manual) 0 0.0-2.0 Metamyelocytes % (manual) 0 Myelocytes % (Manual) 0 Promyelocytes % (Manual) 0 Blast Cells % (Manual) 0 Reactive Lymphocytes 0 Platelet Estimate Adequate Ammonia < 10 L 11-32 umol/L Prothrombin Time 10.2 9.3-11.8 sec Prothrombin Time INR 0.96 0.9-1.15 Urine Color Colorless Yellow Urine Clarity Turbid H Clear Urine pH 6.5 5.0-9.0 Urine Specific [place] 1.015 1.001-1.035 Urine Protein Negative Negative Urine Ketones Negative Negative Urine Blood Negative Negative /uL Urine Nitrite Negative Negative Urine Bilirubin Negative Negative Urine Urobilinogen Normal Negative mg/dL Urine Leukocyte Esterase 3+ Negative /uL Urine RBC 1 0 - 4 /hpf Urine WBC Clumps Present None Seen /hpf Urine Microscopic WBC 63 H 0-5 /HPF Urine Squamous Epithelial Cells None seen <5 /hpf Urine Bacteria Few H None Seen /hpf Urine Mucus Few None Seen Urine Glucose Normal Normal mg/dL Microbiology Date/Time Source Procedure Growth Status 11/06/24 19:05 Blood Blood Culture - Preliminary NO GROWTH AFTER 48 HOURS OF INCUBATION. Resulted 11/06/24 18:50 Voided Urine Urine Culture - Preliminary Resulted Problems(with codes): (1) Obstructive uropathy (2) Diabetic nephropathy (3) Hepatic steatosis (4) Liver lesion (5) Acute right flank pain (6) Hydronephrosis concurrent with and due to calculi of kidney and ureter (7) Pyelonephritis of right kidney Plan/Recommendation ASSESSMENT AND PLAN: ID Problem List: - Obstructive uropathy secondary to right renal calculus - Sepsis with lactic acidosis - Recurrent nephrolithiasis with history of multiple lithotripsies - Nephrostomy tube complications - Chronic comorbidities: CHF, COPD, Diabetes, Thyroid disease Assessment: This is a 59-year-old female with a past medical history significant for recurrent kidney stones (with multiple prior lithotripsy procedures), congestive heart failure (CHF), chronic obstructive pulmonary disease (COPD), Diabetes, and Thyroid disease. She presents with acute right flank pain and new-onset urinary incontinence approximately two hours prior to arrival. Her laboratory evaluation reveals a lactic acid of 2.7?mmol/L. Imaging is concerning for a 7?mm obstructing calculus with associated right hydronephrosis, in addition to bilateral renal calculi (largest measuring roughly 1?cm). Her history of resistant infections (MRSA/VRE) and recent nephrostomy tube complications further complicate the clinical picture, raising concern for obstructive pyelonephritis progressing to sepsis. Plan: - Continue Vancomycin for MRSA coverage. - Discontinue Ceftriaxone and initiate Meropenem for broad Gram-negative coverage given her resistant infection history. - Monitor blood and urine cultures closely. - Consult Urology for evaluation regarding potential lithotripsy and management of nephrostomy tube complications. - Provide supportive care with IV fluids and monitor renal function. - Reassess the antibiotic regimen pending culture and sensitivity results. - Arrange for follow-up imaging to further evaluate hepatomegaly with its subcapsular hypodense lesions. Isolation Precautions: Standard Assessment and plan were discussed with the patient. Neha Dueñas M.D. [facility] Ph: ? History: The patients chart was reviewed and the patient was seen and examined. History was obtained from the patient. Teja Zuniga is a 59-year-old female with a past medical history significant for kidney stones with recurrent lithotripsy procedures, CHF, COPD, Diabetes, and Thyroid disease. She also has a surgical history of cholecystectomy, section, and hysterectomy. The patient presents with acute right flank pain and new-onset urinary incontinence approximately two hours before arrival. She reports multiple prior hospital admissions for kidney stones and associated lithotripsy procedures. Review of Systems: - CONSTITUTIONAL: Denies weight loss, fever, or chills. - HEENT: Denies changes in vision or hearing. - RESPIRATORY: Reports shortness of breath; denies cough. - CARDIOVASCULAR: Denies chest pain or palpitations. - GASTROINTESTINAL: Denies abdominal pain, nausea, or vomiting. - GENITOURINARY: Positive for new urinary incontinence and right flank pain. - MUSCULOSKELETAL: Denies myalgia or joint pain. - SKIN: Denies rash or pruritus. - NEUROLOGICAL: Denies headache or syncope. - PSYCHIATRIC: Denies changes in mood, anxiety, or depression. Past Medical History: - Recurrent nephrolithiasis/kidney stones - Congestive heart failure (CHF) - Chronic obstructive pulmonary disease (COPD) - Diabetes - Thyroid disease Past Surgical History: - Cholecystectomy - section - Hysterectomy Home Medications: Not reported. Allergies: No Known Allergies Family History: Not available. Social History: - Tobacco Use: Denies smoking. - Alcohol Use: Denies alcohol consumption. - Illicit Drug Use: Denies use. - Occupational and other social history details are not available. Objective: Vital Signs on Arrival: - Temp: 36.0?C - BP: Not documented - Pulse: Not documented - Respiratory Rate: 24/min - SpO?: 96% on 1?L nasal cannula Admission Weight: Not documented Physical Exam: General: NAD Neck: Supple. No masses. HEENT: PERRL. Normal lids and conjunctiva. Moist mucous membranes. Oropharynx: Without lesions, exudates, or excessive erythema. Normal appearance of the external aspects of the nose and ears. Heart: Regular rhythm, normal rate. No murmur. No lower extremity edema. Lungs: Normal respiratory effort. Clear to auscultation bilaterally. No wheezes. No crackles. Abdomen: Soft. Non-tender. Non-distended. No masses or abdominal hernia. MSK: No digital cyanosis. Normal strength and tone in all 4 limbs. Skin: Warm and dry, no rashes. Neuro: Alert. No facial droop or slurred speech. Extra-ocular move ments intact. Sensation intact to soft touch in all 4 limbs. Psych: Appropriate mood. Full affect. Oriented to person, place, time, and situation. Diagnostic Studies: - Renal Ultrasound: - Right hydronephrosis with evidence of a 7?mm obstructing calculus. - Bilateral renal calculi present, with the largest measuring approximately 1?cm. - Laboratory Studies: - Lactic acid: 2.7?mmol/L - Baseline creatinine: 1.09?mg/dL - Sodium: 135?mmol/L - Potassium: Approximately 3.8?mmol/L (inferred) - Additional Imaging: - Hepatomegaly with two subcapsular hypodense lesions (further evaluation pending). - Mild interstitial changes noted on thoracic imaging, with a slightly greater involvement on the left. Plan discussed with: Patient NEHA DUEÑAS MD Nov 08, 2024 19:46
--- NOTE | 2024-11-08 21:32 | DVHPN2 ---
Progress Note - Dictate Date Seen: Nov 08, 2024 Medical Necessity Reason Pt with a Central, PICC or Fol: Yes The following are medically ne: Sena Catheter Reason for sena catheter: Strict I&O Subjective Patient seen and examined at bedside. Remains on supplemental oxygen Overnight events reviewed. vital signs Vital Sign Date Time Temp Pulse Resp B/P (MAP) Pulse Ox O2 Delivery O2 Flow Rate FiO2 11/08/24 19:16 102 16 100 11/08/24 19:09 Nasal Cannula* 1 24 11/08/24 17:00 98.8 157/77 (103) 98.8 Total Intake and Output 11/07/24 11/07/24 11/08/24 15:00 23:00 07:00 Intake Total 50 ml 1120 ml 1325 ml Output Total 550 ml 700 ml Balance 50 ml 570 ml 625 ml medications Current Medications Medications Dose Ordered Sig/Rajni Route Start Time Stop Time Status Last Admin Dose Admin Tamsulosin HCl 0.4 mg DAILY PO 11/06/24 20:45 11/08/24 09:02 0.4 MG Ondansetron HCl 4 mg Q6HPRN PRN IV 11/06/24 20:45 Morphine Sulfate 2 mg Q6HPRN PRN IV 11/06/24 20:45 Enoxaparin Sodium 40 mg DAILY SC 11/07/24 10:00 11/08/24 09:03 40 MG Acetaminophen/ Hydrocodone Bitart 1 tab Q6HPRN PRN PO 11/06/24 20:45 11/08/24 16:05 1 TAB Acetaminophen 650 mg Q6HPRN PRN PO 11/06/24 20:45 11/07/24 22:26 650 MG Pantoprazole Sodium 40 mg DAILY IV 11/07/24 10:00 11/08/24 09:03 40 MG Diagnostic Test (Pha) 1 strip ACHS 11/06/24 22:00 11/08/24 16:21 1 STRIP Insulin Human Regular ACHS SC 11/06/24 22:00 11/08/24 16:30 2 UNITS Dextrose 50 ml UD PRN IV 11/06/24 20:45 Vancomycin HCl 0 ml @ 0 mls/hr UD IV 11/06/24 21:00 Sodium Chloride 1,000 ml @ 125 mls/hr Q8H IV 11/07/24 15:15 11/08/24 15:22 125 MLS/HR Nystatin 1 applic BID TOP 11/07/24 22:00 11/08/24 09:04 1 APPLIC Vancomycin HCl 250 ml @ 200 mls/hr Q8H IV 11/08/24 12:00 11/08/24 20:36 200 MLS/HR Albuterol 1.25 mg Q4HR [facility] 11/08/24 19:00 11/08/24 19:09 1.25 MG Methylprednisolone Sodium Succinate 40 mg BID IV 11/08/24 22:00 Budesonide 0.5 mg BID [facility] 11/08/24 22:00 Ipratropium [place] 0.5 mg Q4HR [facility] 11/08/24 22:00 objective Gen.: Patient lying in bed in no apparent distress. On supplemental oxygen. Head: Normocephalic, atraumatic. Eyes: EOMI/PERRLA. Ears: Normal hearing. Normal anatomy. Neck/trachea: Trachea midline, supple. Nose: Normal external anatomy. Mouth: Moist mucous membranes. Chest: Decreased air entry bilaterally. No wheezing or rhonchi. Cardiovascular: Positive S1, positive S2. Regular rate and rhythm. Abdomen: Positive bowel sounds in all 4 quadrants. Soft, non-tender, non- distended. : Deferred. Rectal: Deferred. Skin: Warm, dry. Intact. Extremities: 2+ radial pulses bilaterally. No lower extremity edema. Neuro: Awake, alert, oriented x3. No gross motor or sensory deficits. Cranial nerves II through XII intact. Gait not assessed. laboratory and microbiology Laboratory Tests 11/08/24 05:09 Test 11/08/24 05:09 Range/Units Serum Glucose 151 H 74-106 mg/dL Assessment/Plan Impression: Acute hypoxic respiratory failure Pyelonephritis Nephrolithiasis Obesity BMI 37.5 Nicotine dependence Asthma COPD Events: Remains on supplemental oxygen, 2 LPM NC Taper O2 as tolerated Continue bronchodilators - increased frequency to q.4 hours Continue antibiotics WBC trending down. Blood cultures show no growth for 24 hours Follow up ID recommendations. recommendations appreciated. Renal ultrasound reviewed, demonstrates: Right hydronephrosis with a 1.5 cm right kidney stone. 6 mm nonobstructive left kidney stone. Labs and imaging reviewed. Rest of plan as noted below. Plan: Supplemental oxygen Titrate to keep O2 sats above 92%. CXR demonstrates mild pulmonary edema. Continue antibiotics Follow up cultures Incentive spirometry Nystatin powder BID Pain control Avoid oversedation Monitor renal function. Monitor electrolytes. Supplement as necessary. Monitor ins and outs. Diet and lifestyle modifications for weight reduction Obesity - complicates all care Smoking cessation discussed for >10 minutes DVT prophylaxis Prognosis: Guarded given multiple comorbidities Rest of plan per hospitalist and other consultants. Thank you, ZAINAB German, for allowing me to participate in this patient's care. Further recommendations will depend on the patient's clinical course. Please do not hesitate to contact me if you have any questions or concerns. This medical document was created using an electronic medical record system with [employer] dictation system. Although this document has been carefully reviewed, there may still be some phonetic and typographical errors. These areas are purely typographical due to imperfections of the software programs and do not reflect any compromise in the patient's medical care. Plan discussed with: Patient, Other (KAYLA Oliveros) KOBY BIRCH MD Nov 08, 2024 21:32
[2024-11-08] MEDS: ERTAPENEM SOD INJ 1 GM in SODIUM CHL 0.9% 50 ML IV ONE (21:49)
[2024-11-08] MEDS: methylPREDNISolone SOD SUCC 40 MG/ML VL IV SCH (21:49)
[2024-11-08] MEDS: BUDESONIDE (INHALATION) 0.5 MG/2 ML NEB NEB SCH (22:28)
--- NOTE | 2024-11-08 22:51 | DVHPN2 ---
Consult Progress Note Date Seen: Nov 08, 2024 Subjective Patient reports: Other (fever of 101.4 overnight and recieved tylenol and is feeling more comfortable . still having pain on her right flank and is avoiding her right side , having trouble taking deep breaths due to the pain . is able to urinate ) Objective vital signs Vital Sign Date Time Temp Pulse Resp B/P (MAP) Pulse Ox O2 Delivery O2 Flow Rate FiO2 11/08/24 22:38 101 18 99 11/08/24 21:00 98.4 109/68 (82) 98.4 11/08/24 19:09 Nasal Cannula* 1 24 Total Intake and Output 11/07/24 11/07/24 11/08/24 15:00 23:00 07:00 Intake Total 50 ml 1120 ml 1325 ml Output Total 550 ml 700 ml Balance 50 ml 570 ml 625 ml medications Current Medications Medications Dose Ordered Sig/Rajni Route Start Time Stop Time Status Last Admin Dose Admin Tamsulosin HCl 0.4 mg DAILY PO 11/06/24 20:45 11/08/24 09:02 0.4 MG Ondansetron HCl 4 mg Q6HPRN PRN IV 11/06/24 20:45 Morphine Sulfate 2 mg Q6HPRN PRN IV 11/06/24 20:45 Enoxaparin Sodium 40 mg DAILY SC 11/07/24 10:00 11/08/24 09:03 40 MG Acetaminophen/ Hydrocodone Bitart 1 tab Q6HPRN PRN PO 11/06/24 20:45 11/08/24 16:05 1 TAB Acetaminophen 650 mg Q6HPRN PRN PO 11/06/24 20:45 11/07/24 22:26 650 MG Pantoprazole Sodium 40 mg DAILY IV 11/07/24 10:00 11/08/24 09:03 40 MG Diagnostic Test (Pha) 1 strip ACHS 11/06/24 22:00 11/08/24 21:50 1 STRIP Insulin Human Regular ACHS SC 11/06/24 22:00 11/08/24 22:03 3 UNITS Dextrose 50 ml UD PRN IV 11/06/24 20:45 Vancomycin HCl 0 ml @ 0 mls/hr UD IV 11/06/24 21:00 Sodium Chloride 1,000 ml @ 125 mls/hr Q8H IV 11/07/24 15:15 11/08/24 15:22 125 MLS/HR Nystatin 1 applic BID TOP 11/07/24 22:00 11/08/24 21:50 1 APPLIC Vancomycin HCl 250 ml @ 200 mls/hr Q8H IV 11/08/24 12:00 11/08/24 20:36 200 MLS/HR Albuterol 1.25 mg Q4HR NEB 11/08/24 19:00 11/08/24 22:27 1.25 MG Methylprednisolone Sodium Succinate 40 mg BID IV 11/08/24 22:00 11/08/24 21:49 40 MG Budesonide 0.5 mg BID NEB 11/08/24 22:00 11/08/24 22:28 0.5 MG Ipratropium [place] 0.5 mg Q4HR [facility] 11/08/24 22:00 11/08/24 22:28 0.5 MG Physical Exam: General: NAD Neck: Supple. No masses. HEENT: PERRL. Normal lids and conjunctiva. Moist mucous membranes. Oropharynx: Without lesions, exudates, or excessive erythema. Normal appearance of the external aspects of the nose and ears. Heart: Regular rhythm, normal rate. No murmur. No lower extremity edema. Lungs: Normal respiratory effort. Clear to auscultation bilaterally. No wheezes. No crackles. Abdomen: Soft. Non-tender. Non-distended. No masses or abdominal hernia. MSK: No digital cyanosis. Normal strength and tone in all 4 limbs. Skin: Warm and dry, no rashes. Neuro: Alert. No facial droop or slurred speech. Extra-ocular movements intact. Sensation intact to soft touch in all 4 limbs. Psych: Appropriate mood. Full affect. Oriented to person, place, time, and situation. laboratory and microbiology Laboratory Tests 11/08/24 05:09 Test 11/08/24 05:09 Range/Units Serum Glucose 151 H 74-106 mg/dL Problem List/Assessment/Plan Problems(with codes): (1) Obstructive uropathy (2) Diabetic nephropathy (3) Hepatic steatosis (4) Liver lesion (5) Acute right flank pain (6) Hydronephrosis concurrent with and due to calculi of kidney and ureter (7) Pyelonephritis of right kidney Problem List/Assessment/Plan ID Problem List: - Obstructive uropathy secondary to right renal calculus - Sepsis with lactic acidosis - Recurrent nephrolithiasis with history of multiple lithotripsies - Nephrostomy tube complications - Chronic comorbidities: CHF, COPD, Diabetes, Thyroid disease Assessment: This is a 59-year-old female with a past medical history significant for recurrent kidney stones (with multiple prior lithotripsy procedures), congestive heart failure (CHF), chronic obstructive pulmonary disease (COPD), Diabetes, and Thyroid disease. She presents with acute right flank pain and new-onset urinary incontinence approximately two hours prior to arrival. Her laboratory evaluation reveals a lactic acid of 2.7?mmol/L. Imaging is concerning for a 7?mm obstructing calculus with associated right hydronephrosis, in addition to bilateral renal calculi (largest measuring roughly 1?cm). Her history of resistant infections (MRSA/VRE) and recent nephrostomy tube complications further complicate the clinical picture, raising concern for obstructive pyelonephritis progressing to sepsis. 2/3: patients whitecount is still elevated and patient is still febrile Plan: - Continue Vancomycin for MRSA coverage. - Discontinue Ceftriaxone and initiate Meropenem for broad Gram-negative coverage given her resistant infection history. - Monitor blood and urine cultures closely. - Consult Urology for evaluation regarding potential lithotripsy and management of nephrostomy tube complications. - Provide supportive care with IV fluids and monitor renal function. - Reassess the antibiotic regimen pending culture and sensitivity results. - Arrange for follow-up imaging to further evaluate hepatomegaly with its subcapsular hypodense lesions. Plan discussed with: NEHA Adams MD Nov 08, 2024 22:51
[2024-11-09] VITALS (19 sets, daily range): BP systolic 109–128; BP diastolic 67–80; PULSE 68–106; RESP 14–19; TEMP 97.5–98.8; O2SAT 90–100
[2024-11-09 05:35] LABS: Basophils # (auto) 0 10 ^3/uL (0-0.2); Basophils % (auto) 0.1 % (0.0-2.0); Eosinophils # (auto) 0 10 ^3/uL (0-0.8); Hematocrit 35.7 % (36.0-46.0); Hemoglobin 11.7 g/dL (12.2-16.2); Lymphocytes # (auto) 0.5 10 ^3/uL (0.4-5.4); Lymphocytes % (auto) 4.3 % (10.0-50.0); Mean Corpuscular Hemoglobin 29.9 pg (28.0-32.0); Mean Corpuscular Hgb Conc. 32.7 g/dL (32.0-36.0); Mean Corpuscular Volume 91.5 fL (80.0-100.0); Monocytes # (auto) 0.3 10 ^3/uL (0-1.3); Monocytes % (auto) 2.1 % (0.0-12.0); Neutrophils # (auto) 11.8 10 ^3/uL (1.6-8.6); Neutrophils % (auto) 93.5 % (37.0-80.0); Platelet Count (auto) 213 10^3/uL (140-450); Red Blood Cells 3.91 10^6/uL (4.0-5.20); Red Cell Distribution Width 16.4 % (11.8-14.3); White Blood Cell 12.6 10^3/uL (4.4-10.8)
[2024-11-09 05:45] LABS: Chloride 105 mmol/L (98-107); Potassium 4.4 mmol/L (3.5-5.1)
[2024-11-09 05:46] LABS: Anion Gap 8 (5-15); Carbon Dioxide 23 mmol/L (20-31)
[2024-11-09 05:51] LABS: Calcium 10.4 mg/dL (8.7-10.4); Glucose 232 mg/dL (74-106); Sodium 136 mmol/L (136-145)
[2024-11-09 05:52] LABS: BUN/Creatinine Ratio 17.2 (10.0-20.0); Blood Urea Nitrogen 15 mg/dL (9-23)
--- NOTE | 2024-11-09 16:52 | DVHPN2 ---
Subjective Overnight events noted. Patient was seen by Urology currently scheduled for cystoscopy with a possibly right ureteric stent placement tomorrow. Reviewed: Care Plan Changes from previous H/P or p: No Changes Objective Vitals Vital Signs Date Time Temp Pulse Resp B/P (MAP) Pulse Ox O2 Delivery O2 Flow Rate FiO2 11/09/24 14:39 95 Nasal Cannula* 1 24 11/09/24 12:22 97.6 80 18 118/72 (87) 97.6 Intake/Output Intake and Output 11/09/24 07:00 Intake Total 3450 ml Output Total 1650 ml Balance 1800 ml Intake Oral 1350 ml IV Total 2100 ml Output Urine Total 1650 ml Exam HEENT pupils are reactive Neck is supple CV is S1-S2 regular rate and rhythm Respiratory viral clear GI posterior bowel sound Extremity no edema [employer]IP[employer] no motor deficit. Medications Current Medications Medications Dose Ordered Sig/Rajni Route Start Time Stop Time Status Last Admin Dose Admin Tamsulosin HCl 0.4 mg DAILY PO 11/06/24 20:45 11/09/24 09:37 0.4 MG Ondansetron HCl 4 mg Q6HPRN PRN IV 11/06/24 20:45 Morphine Sulfate 2 mg Q6HPRN PRN IV 11/06/24 20:45 Enoxaparin Sodium 40 mg DAILY SC 11/07/24 10:00 11/09/24 09:37 40 MG Acetaminophen/ Hydrocodone Bitart 1 tab Q6HPRN PRN PO 11/06/24 20:45 11/08/24 16:05 1 TAB Acetaminophen 650 mg Q6HPRN PRN PO 11/06/24 20:45 11/07/24 22:26 650 MG Pantoprazole Sodium 40 mg DAILY IV 11/07/24 10:00 11/09/24 09:37 40 MG Diagnostic Test (Pha) 1 strip ACHS 11/06/24 22:00 11/09/24 11:32 1 STRIP Insulin Human Regular ACHS SC 11/06/24 22:00 11/09/24 12:33 6 UNITS Dextrose 50 ml UD PRN IV 11/06/24 20:45 Vancomycin HCl 0 ml @ 0 mls/hr UD IV 11/06/24 21:00 Sodium Chloride 1,000 ml @ 125 mls/hr Q8H IV 11/07/24 15:15 11/09/24 14:58 125 MLS/HR Nystatin 1 applic BID TOP 11/07/24 22:00 11/09/24 09:38 1 APPLIC Vancomycin HCl 250 ml @ 200 mls/hr Q8H IV 11/08/24 12:00 11/09/24 11:33 200 MLS/HR Albuterol 1.25 mg Q4HR NEB 11/08/24 19:00 11/09/24 05:56 1.25 MG Methylprednisolone Sodium Succinate 40 mg BID IV 11/08/24 22:00 11/09/24 09:37 40 MG Budesonide 0.5 mg BID NEB 11/08/24 22:00 11/09/24 05:56 0.5 MG Ipratropium [place] 0.5 mg Q4HR NEB 11/08/24 22:00 11/09/24 05:56 0.5 MG Meropenem 50 ml @ 17 mls/hr Q8HR IV 11/09/24 22:00 Laboratory Results Laboratory Tests 11/09/24 05:20 Chemistry Test 11/09/24 05:20 Calcium Level 10.4 mg/dL (8.7-10.4) Urinalysis Test 11/06/24 18:50 Urine Color Colorless (Yellow) Urine Clarity Turbid (Clear) H Urine pH 6.5 (5.0-9.0) Urine Specific [place] 1.015 (1.001-1.035) Urine Protein Negative (Negative) Urine Ketones Negative (Negative) Urine Blood Negative /uL (Negative) Urine Nitrite Negative (Negative) Urine Bilirubin Negative (Negative) Urine Urobilinogen Normal mg/dL (Negative) Urine Leukocyte Esterase 3+ /uL (Negative) Urine RBC 1 /hpf (0 - 4) Urine WBC Clumps Present /hpf (None Seen) Urine Microscopic WBC 63 /HPF (0-5) H Urine Squamous Epithelial Cells None seen /hpf (<5) Urine Bacteria Few /hpf (None Seen) H Urine Mucus Few (None Seen) Urine Glucose Normal mg/dL (Normal) Microbiology Microbiology Date/Time Source Procedure Growth Status 11/06/24 19:05 Blood Blood Culture - Preliminary NO GROWTH AFTER 48 HOURS OF INCUBATION. Resulted 11/06/24 18:50 Voided Urine Urine Culture - Preliminary Resulted Assessment/Plan Assessment/Plan 59-year-old female with known history of congestive heart. , COPD, previous history of ureteric stones presented to the hospital with right flank pain found to have 1. Right obstructive uropathy 2. Acute emphysematous pyelonephritis 3. Complicated UTI 4. Lactic acidosis 5. Congestive heart failure, not in exacerbation 6. COPD not in exacerbation 7. Nonobstructive kidney stones 8. Morbid obesity class II -continue IV antibiotics, urology follow up, infectious Disease follow up. -cystoscopy with ureteral stent placement per Urology. Plan discussed with: Patient Date of Service: Nov 09, 2024 Billing Provider: XAVI BARRERA MD Common Visit Codes: NOT BILLABLE XAVI BARRERA MD Nov 09, 2024 16:52
[2024-11-09] MEDS: MEROPENEM 1GM IVPB 50 ML IV ONE (18:19)
--- NOTE | 2024-11-09 21:15 | DVHPN2 ---
Progress Note - Dictate Date Seen: Nov 09, 2024 Medical Necessity Reason Pt with a Central, PICC or Fol: Yes The following are medically ne: Sena Catheter Reason for sena catheter: Strict I&O Subjective Patient seen and examined at bedside. Remains on supplemental oxygen Overnight events reviewed. vital signs Vital Sign Date Time Temp Pulse Resp B/P (MAP) Pulse Ox O2 Delivery O2 Flow Rate FiO2 11/09/24 21:00 98.0 86 16 128/80 (96) 95 98.0 11/09/24 20:14 Nasal Cannula* 2 28 Total Intake and Output 11/08/24 11/08/24 11/09/24 15:00 23:00 07:00 Intake Total 425 ml 1025 ml 2000 ml Output Total 650 ml 1000 ml Balance 425 ml 375 ml 1000 ml medications Current Medications Medications Dose Ordered Sig/Rajni Route Start Time Stop Time Status Last Admin Dose Admin Tamsulosin HCl 0.4 mg DAILY PO 11/06/24 20:45 11/09/24 09:37 0.4 MG Ondansetron HCl 4 mg Q6HPRN PRN IV 11/06/24 20:45 Morphine Sulfate 2 mg Q6HPRN PRN IV 11/06/24 20:45 Enoxaparin Sodium 40 mg DAILY SC 11/07/24 10:00 11/09/24 09:37 40 MG Acetaminophen/ Hydrocodone Bitart 1 tab Q6HPRN PRN PO 11/06/24 20:45 11/08/24 16:05 1 TAB Acetaminophen 650 mg Q6HPRN PRN PO 11/06/24 20:45 11/07/24 22:26 650 MG Pantoprazole Sodium 40 mg DAILY IV 11/07/24 10:00 11/09/24 09:37 40 MG Diagnostic Test (Pha) 1 strip ACHS 11/06/24 22:00 11/09/24 17:24 1 STRIP Insulin Human Regular ACHS SC 11/06/24 22:00 11/09/24 18:20 4 UNITS Dextrose 50 ml UD PRN IV 11/06/24 20:45 Vancomycin HCl 0 ml @ 0 mls/hr UD IV 11/06/24 21:00 Sodium Chloride 1,000 ml @ 125 mls/hr Q8H IV 11/07/24 15:15 11/09/24 14:58 125 MLS/HR Nystatin 1 applic BID TOP 11/07/24 22:00 11/09/24 09:38 1 APPLIC Albuterol 1.25 mg Q4HR [facility] 11/08/24 19:00 11/09/24 20:14 1.25 MG Methylprednisolone Sodium Succinate 40 mg BID IV 11/08/24 22:00 11/09/24 09:37 40 MG Budesonide 0.5 mg BID [facility] 11/08/24 22:00 11/09/24 20:14 0.5 MG Ipratropium [place] 0.5 mg Q4HR [facility] 11/08/24 22:00 11/09/24 20:14 0.5 MG Meropenem 50 ml @ 17 mls/hr Q8HR IV 11/09/24 22:00 objective Gen.: Patient lying in bed in no apparent distress. On supplemental oxygen. Head: Normocephalic, atraumatic. Eyes: EOMI/PERRLA. Ears: Normal hearing. Normal anatomy. Neck/trachea: Trachea midline, supple. Nose: Normal external anatomy. Mouth: Moist mucous membranes. Chest: Decreased air entry bilaterally. No wheezing or rhonchi. Cardiovascular: Positive S1, positive S2. Regular rate and rhythm. Abdomen: Positive bowel sounds in all 4 quadrants. Soft, non-tender, non- distended. : Deferred. Rectal: Deferred. Skin: Warm, dry. Intact. Extremities: 2+ radial pulses bilaterally. No lower extremity edema. Neuro: Awake, alert, oriented x3. No gross motor or sensory deficits. Cranial nerves II through XII intact. Gait not assessed. laboratory and microbiology Laboratory Tests 11/09/24 05:20 Test 11/09/24 05:20 Range/Units Serum Glucose 232 H 74-106 mg/dL Assessment/Plan Impression: Acute hypoxic respiratory failure Pyelonephritis Nephrolithiasis Obesity BMI 37.5 Nicotine dependence Asthma COPD Events: Remains on supplemental oxygen, 2 LPM NC Taper O2 as tolerated Continue bronchodilators q.4 hours Continue antibiotics Continue IV steroids Incentive spirometry WBC trending down. Blood cultures show no growth for 72 hours ID recommendations appreciated recommendations appreciated. Renal ultrasound demonstrated right hydronephrosis with a 1.5 cm right kidney stone, 6 mm nonobstructive left kidney stone. Monitor renal function. Monitor electrolytes. Supplement as necessary. Monitor ins and outs. Labs and imaging reviewed. Rest of plan as noted below. Plan: Supplemental oxygen Titrate to keep O2 sats above 92%. Continue antibiotics Follow up cultures Incentive spirometry Nystatin powder BID Pain control Avoid oversedation Monitor renal function. Monitor electrolytes. Supplement as necessary. Monitor ins and outs. Diet and lifestyle modifications for weight reduction Obesity - complicates all care Smoking cessation discussed for >10 minutes DVT prophylaxis Prognosis: Guarded given multiple comorbidities Rest of plan per hospitalist and other consultants. Thank you, ZAINAB German, for allowing me to participate in this patient's care. Further recommendations will depend on the patient's clinical course. Please do not hesitate to contact me if you have any questions or concerns. This medical document was created using an electronic medical record system with [employer] dictation system. Although this document has been carefully reviewed, there may still be some phonetic and typographical errors. These areas are purely typographical due to imperfections of the software programs and do not reflect any compromise in the patient's medical care. Plan discussed with: Patient, Other (KAYLA Glass) KOBY BIRCH MD Nov 09, 2024 21:15
[2024-11-09] MEDS: MEROPENEM 1GM IVPB 50 ML IV SCH (21:44)
[2024-11-10] VITALS (23 sets, daily range): BP systolic 119–159; BP diastolic 56–88; PULSE 50–90; RESP 13–20; TEMP 97.5–98.2; O2SAT 94–100
[2024-11-10 06:23] LABS: Basophils # (auto) 0 10 ^3/uL (0-0.2); Basophils % (auto) 0.2 % (0.0-2.0); Eosinophils # (auto) 0 10 ^3/uL (0-0.8); Hematocrit 34.4 % (36.0-46.0); Hemoglobin 11.5 g/dL (12.2-16.2); Lymphocytes # (auto) 0.6 10 ^3/uL (0.4-5.4); Lymphocytes % (auto) 7.1 % (10.0-50.0); Mean Corpuscular Hemoglobin 30.6 pg (28.0-32.0); Mean Corpuscular Hgb Conc. 33.5 g/dL (32.0-36.0); Mean Corpuscular Volume 91.3 fL (80.0-100.0); Monocytes # (auto) 0.2 10 ^3/uL (0-1.3); Monocytes % (auto) 2.8 % (0.0-12.0); Neutrophils % (auto) 89.9 % (37.0-80.0); Nucleated Red Blood Cells % 0.1 %; Platelet Count (auto) 231 10^3/uL (140-450); Red Blood Cells 3.77 10^6/uL (4.0-5.20); Red Cell Distribution Width 16.1 % (11.8-14.3); White Blood Cell 7.8 10^3/uL (4.4-10.8)
--- NOTE | 2024-11-10 08:09 | DVH ---
US KIDNEY HISTORY: reevaluate hydronephrosis COMPARISON: US KIDNEY on DOS: 11/08/24 TECHNIQUE: Transverse and longitudinal grayscale and color Doppler images were obtained of the kidney s and bladder. FINDINGS: Right kidney: Size: 13.7 cm Cortical thickness: Normal Echogenicity: Normal Stones: Similar kidney stone Masses: None Hydronephrosis: Small Ureters: Not well visualized. Other: None Left kidney: Size: 13.0 cm Cortical thickness: Normal Echogenicity: Normal Stones: Similar kidney stone Masses: None Hydronephrosis: None Ureters: Not well visualized. Other: None Bladder: Normal Other: None. IMPRESSION: Interval decrease in the right hydronephrosis compared to 2 days ago, now is small.
--- NOTE | 2024-11-10 14:22 | DVHPN2 ---
Subjective Overnight events noted. Patient was seen by Urology currently scheduled for cystoscopy with a possibly right ureteric stent placement tomorrow. Reviewed: Care Plan Changes from previous H/P or p: No Changes Objective Vitals Vital Signs Date Time Temp Pulse Resp B/P (MAP) Pulse Ox O2 Delivery O2 Flow Rate FiO2 11/10/24 13:19 65 16 100 11/10/24 13:13 Nasal Cannula 2.0 11/10/24 13:13 28 11/10/24 12:30 97.5 135/79 (97) 97.5 Intake/Output Intake and Output 11/10/24 07:00 Intake Total 2700 ml Output Total 1500 ml Balance 1200 ml Intake Oral 1350 ml IV Total 1350 ml Output Urine Total 1500 ml Stool Total 0 ml Exam HEENT pupils are reactive Neck is supple CV is S1-S2 regular rate and rhythm Respiratory viral clear GI posterior bowel sound Extremity no edema [employer]ODUCTION LINE no motor deficit. Medications Current Medications Medications Dose Ordered Sig/Rajni Route Start Time Stop Time Status Last Admin Dose Admin Tamsulosin HCl 0.4 mg DAILY PO 11/06/24 20:45 11/10/24 09:13 0.4 MG Ondansetron HCl 4 mg Q6HPRN PRN IV 11/06/24 20:45 Morphine Sulfate 2 mg Q6HPRN PRN IV 11/06/24 20:45 Enoxaparin Sodium 40 mg DAILY SC 11/07/24 10:00 11/10/24 09:13 40 MG Acetaminophen/ Hydrocodone Bitart 1 tab Q6HPRN PRN PO 11/06/24 20:45 11/08/24 16:05 1 TAB Acetaminophen 650 mg Q6HPRN PRN PO 11/06/24 20:45 11/07/24 22:26 650 MG Pantoprazole Sodium 40 mg DAILY IV 11/07/24 10:00 11/10/24 09:13 40 MG Diagnostic Test (Pha) 1 strip ACHS 11/06/24 22:00 11/10/24 12:48 1 STRIP Insulin Human Regular ACHS SC 11/06/24 22:00 11/10/24 12:58 6 UNITS Dextrose 50 ml UD PRN IV 11/06/24 20:45 Vancomycin HCl 0 ml @ 0 mls/hr UD IV 11/06/24 21:00 Sodium Chloride 1,000 ml @ 125 mls/hr Q8H IV 11/07/24 15:15 11/10/24 05:08 125 MLS/HR Nystatin 1 applic BID TOP 11/07/24 22:00 11/10/24 09:15 1 APPLIC Albuterol 1.25 mg Q4HR NEB 11/08/24 19:00 11/10/24 13:13 1.25 MG Methylprednisolone Sodium Succinate 40 mg BID IV 11/08/24 22:00 11/10/24 09:13 40 MG Budesonide 0.5 mg BID NEB 11/08/24 22:00 11/10/24 05:52 0.5 MG Ipratropium [place] 0.5 mg Q4HR NEB 11/08/24 22:00 11/10/24 13:13 0.5 MG Meropenem 50 ml @ 17 mls/hr Q8HR IV 11/09/24 22:00 11/10/24 12:58 17 MLS/HR Laboratory Results Laboratory Tests 11/09/24 05:20 11/10/24 05:14 Urinalysis Test 11/06/24 18:50 Urine Color Colorless (Yellow) Urine Clarity Turbid (Clear) H Urine pH 6.5 (5.0-9.0) Urine Specific [place] 1.015 (1.001-1.035) Urine Protein Negative (Negative) Urine Ketones Negative (Negative) Urine Blood Negative /uL (Negative) Urine Nitrite Negative (Negative) Urine Bilirubin Negative (Negative) Urine Urobilinogen Normal mg/dL (Negative) Urine Leukocyte Esterase 3+ /uL (Negative) Urine RBC 1 /hpf (0 - 4) Urine WBC Clumps Present /hpf (None Seen) Urine Microscopic WBC 63 /HPF (0-5) H Urine Squamous Epithelial Cells None seen /hpf (<5) Urine Bacteria Few /hpf (None Seen) H Urine Mucus Few (None Seen) Urine Glucose Normal mg/dL (Normal) Microbiology Microbiology Date/Time Source Procedure Growth Status 11/06/24 19:05 Blood Blood Culture - Preliminary NO GROWTH AFTER 72 HOURS OF INCUBATION. Resulted 11/06/24 18:50 Voided Urine Urine Culture - Final Complete Assessment/Plan Assessment/Plan 59-year-old female with known history of congestive heart. , COPD, previous history of ureteric stones presented to the hospital with right flank pain found to have 1. Right obstructive uropathy 2. Acute emphysematous pyelonephritis 3. Complicated UTI 4. Lactic acidosis 5. Congestive heart failure, not in exacerbation 6. COPD not in exacerbation 7. Nonobstructive kidney stones 8. Morbid obesity class II -continue IV antibiotics, urology follow up, infectious Disease follow up. -cystoscopy with ureteral stent placement per Urology. Plan discussed with: Patient Date of Service: Nov 10, 2024 Billing Provider: XAVI BARRERA MD Common Visit Codes: NOT BILLABLE XAVI BARRERA MD Nov 10, 2024 14:22
--- NOTE | 2024-11-10 16:48 | DVHPN2 ---
Progress Note - Dictate Date Seen: Nov 10, 2024 Medical Necessity Reason Pt with a Central, PICC or Fol: Yes The following are medically ne: Sena Catheter Reason for sena catheter: Strict I&O vital signs Vital Sign Date Time Temp Pulse Resp B/P (MAP) Pulse Ox O2 Delivery O2 Flow Rate FiO2 11/10/24 16:40 97.6 77 16 130/77 (94) 96 97.6 11/10/24 13:13 Nasal Cannula 2.0 11/10/24 13:13 28 Total Intake and Output 11/09/24 11/09/24 11/10/24 15:00 23:00 07:00 Intake Total 250 ml 1050 ml 1400 ml Output Total 800 ml 700 ml Balance 250 ml 250 ml 700 ml medications Current Medications Medications Dose Ordered Sig/Rajni Route Start Time Stop Time Status Last Admin Dose Admin Tamsulosin HCl 0.4 mg DAILY PO 11/06/24 20:45 11/10/24 09:13 0.4 MG Ondansetron HCl 4 mg Q6HPRN PRN IV 11/06/24 20:45 Morphine Sulfate 2 mg Q6HPRN PRN IV 11/06/24 20:45 Enoxaparin Sodium 40 mg DAILY SC 11/07/24 10:00 11/10/24 09:13 40 MG Acetaminophen/ Hydrocodone Bitart 1 tab Q6HPRN PRN PO 11/06/24 20:45 11/08/24 16:05 1 TAB Acetaminophen 650 mg Q6HPRN PRN PO 11/06/24 20:45 11/07/24 22:26 650 MG Pantoprazole Sodium 40 mg DAILY IV 11/07/24 10:00 11/10/24 09:13 40 MG Diagnostic Test (Pha) 1 strip ACHS 11/06/24 22:00 11/10/24 12:48 1 STRIP Insulin Human Regular ACHS SC 11/06/24 22:00 11/10/24 12:58 6 UNITS Dextrose 50 ml UD PRN IV 11/06/24 20:45 Vancomycin HCl 0 ml @ 0 mls/hr UD IV 11/06/24 21:00 Sodium Chloride 1,000 ml @ 125 mls/hr Q8H IV 11/07/24 15:15 11/10/24 05:08 125 MLS/HR Nystatin 1 applic BID TOP 11/07/24 22:00 11/10/24 09:15 1 APPLIC Albuterol 1.25 mg Q4HR NEB 11/08/24 19:00 11/10/24 13:13 1.25 MG Methylprednisolone Sodium Succinate 40 mg BID IV 11/08/24 22:00 11/10/24 09:13 40 MG Budesonide 0.5 mg BID NEB 11/08/24 22:00 11/10/24 05:52 0.5 MG Ipratropium [place] 0.5 mg Q4HR [facility] 11/08/24 22:00 11/10/24 13:13 0.5 MG Meropenem 50 ml @ 17 mls/hr Q8HR IV 11/09/24 22:00 11/10/24 12:58 17 MLS/HR objective PATIENT: RICA WHEATLEY ACCT: [id number] UNIT: [id number] : 1965 LOC: [facility] ROOM / BED: [address] [place] [address] AGE / SEX: 59 / F ADM STATUS: ADM IN SERVICE 0735 ORDERING PHYSICIAN: HARIS GORDON NP PROCEDURE(s): KIDUS - KIDNEY REASON: reevaluate hydronephrosis ORDER NUMBER(s): [id number], ACCESSION NUMBER(s): [id number] US KIDNEY HISTORY: reevaluate hydronephrosis COMPARISON: US KIDNEY on DOS: 11/08/24 TECHNIQUE: Transverse and longitudinal grayscale and color Doppler images were obtained of the kidneys and bladder. FINDINGS: Right kidney: Size: 13.7 cm Cortical thickness: Normal Echogenicity: Normal Stones: Similar kidney stone Masses: None Hydronephrosis: Small Ureters: Not well visualized. Other: None Left kidney: Size: 13.0 cm Cortical thickness: Normal Echogenicity: Normal Stones: Similar kidney stone Masses: None Hydronephrosis: None Ureters: Not well visualized. Other: None Bladder: Normal Other: None. IMPRESSION: Interval decrease in the right hydronephrosis compared to 2 days ago, now is small. ATED BY: ZOHAIB SHERMAN MD DICTATED DATE/TIME: 11/10/24805 SIGNED BY: ZOHAIB SHERMAN MD SIGNED DATE/TIME: 11/10/24 0806 CC: laboratory and microbiology Laboratory Tests 11/10/24 05:14 11/09/24 05:20 Test 11/09/24 05:20 Range/Units Serum Glucose 232 H 74-106 mg/dL Problem List Patient is status post right PCNL on 10/12/24 with residual stones including a 7 mm proximal right ureteral calculi causing mild hydronephrosis. Assessment/Plan Right proximal ureteral calculus Residual right renal lithiasis We will plan for cystoscopy with right ureteral stent placement with minimal anesthesia to be administered. Subsequently she will need right ESWL in 2-3 weeks as outpatient when her COPD better control Plan discussed with: Patient, Other KARLA KLINE MD Nov 10, 2024 16:48
--- NOTE | 2024-11-10 18:05 | DVH ---
Date: 11/10/2024 05:00 PM Examination: XY KUB ABDOMEN SINGLE VIEW History: 7 mm proximal right ureteral stone Comparison: 10/18/2024 TECHNIQUE: Frontal views of the abdomen was obtained. FINDINGS: Bowel gas pattern is unremarkable. 6 mm hyperdensity in the right pelvis is nonspecific. Moderate sto ol burden. The lung bases are unremarkable. No acute osseous abnormality identified. IMPRESSION: Nonobstructive bowel gas pattern. 6 mm hyperdensity in the right pelvis is nonspecific. Renal stones better seen on prior CT.
--- NOTE | 2024-11-10 23:04 | DVHPN2 ---
Progress Note - Dictate Date Seen: Nov 10, 2024 Medical Necessity Reason Pt with a Central, PICC or Fol: Yes The following are medically ne: Sena Catheter Reason for sena catheter: Strict I&O Subjective Patient seen and examined at bedside. Remains on supplemental oxygen Overnight events reviewed. vital signs Vital Sign Date Time Temp Pulse Resp B/P (MAP) Pulse Ox O2 Delivery O2 Flow Rate FiO2 11/10/24 22:57 97 Nasal Cannula* 2 28 11/10/24 22:57 76 20 11/10/24 21:00 97.5 119/56 (77) 97.5 Total Intake and Output 11/09/24 11/09/24 11/10/24 15:00 23:00 07:00 Intake Total 250 ml 1050 ml 1400 ml Output Total 800 ml 700 ml Balance 250 ml 250 ml 700 ml medications Current Medications Medications Dose Ordered Sig/Rajni Route Start Time Stop Time Status Last Admin Dose Admin Tamsulosin HCl 0.4 mg DAILY PO 11/06/24 20:45 11/10/24 09:13 0.4 MG Ondansetron HCl 4 mg Q6HPRN PRN IV 11/06/24 20:45 Morphine Sulfate 2 mg Q6HPRN PRN IV 11/06/24 20:45 Enoxaparin Sodium 40 mg DAILY SC 11/07/24 10:00 11/10/24 09:13 40 MG Acetaminophen/ Hydrocodone Bitart 1 tab Q6HPRN PRN PO 11/06/24 20:45 11/08/24 16:05 1 TAB Acetaminophen 650 mg Q6HPRN PRN PO 11/06/24 20:45 11/07/24 22:26 650 MG Pantoprazole Sodium 40 mg DAILY IV 11/07/24 10:00 11/10/24 09:13 40 MG Diagnostic Test (Pha) 1 strip ACHS 11/06/24 22:00 11/10/24 22:09 1 STRIP Insulin Human Regular ACHS SC 11/06/24 22:00 11/10/24 22:58 4 UNITS Dextrose 50 ml UD PRN IV 11/06/24 20:45 Vancomycin HCl 0 ml @ 0 mls/hr UD IV 11/06/24 21:00 Sodium Chloride 1,000 ml @ 125 mls/hr Q8H IV 11/07/24 15:15 11/10/24 05:08 125 MLS/HR Nystatin 1 applic BID TOP 11/07/24 22:00 11/10/24 22:09 1 APPLIC Albuterol 1.25 mg Q4HR [facility] 11/08/24 19:00 11/10/24 22:57 1.25 MG Methylprednisolone Sodium Succinate 40 mg BID IV 11/08/24 22:00 11/10/24 22:08 40 MG Budesonide 0.5 mg BID NEB 11/08/24 22:00 11/10/24 22:57 0.5 MG Ipratropium [place] 0.5 mg Q4HR NEB 11/08/24 22:00 11/10/24 22:57 0.5 MG Meropenem 50 ml @ 17 mls/hr Q8HR IV 11/09/24 22:00 11/10/24 22:08 17 MLS/HR objective Gen.: Patient lying in bed in no apparent distress. On supplemental oxygen. Head: Normocephalic, atraumatic. Eyes: EOMI/PERRLA. Ears: Normal hearing. Normal anatomy. Neck/trachea: Trachea midline, supple. Nose: Normal external anatomy. Mouth: Moist mucous membranes. Chest: Decreased air entry bilaterally. No wheezing or rhonchi. Cardiovascular: Positive S1, positive S2. Regular rate and rhythm. Abdomen: Positive bowel sounds in all 4 quadrants. Soft, non-tender, non- distended. : Deferred. Rectal: Deferred. Skin: Warm, dry. Intact. Extremities: 2+ radial pulses bilaterally. No lower extremity edema. Neuro: Awake, alert, oriented x3. No gross motor or sensory deficits. Cranial nerves II through XII intact. Gait not assessed. laboratory and microbiology Laboratory Tests 11/10/24 05:14 11/09/24 05:20 Test 11/09/24 05:20 Range/Units Serum Glucose 232 H 74-106 mg/dL Assessment/Plan Impression: Acute hypoxic respiratory failure Pyelonephritis Nephrolithiasis Obesity BMI 37.5 Nicotine dependence Asthma COPD Events: Remains on supplemental oxygen, 1 LPM NC Taper O2 as tolerated Continue bronchodilators q.4 hours Pulmicort BID Continue antibiotics Continue IV steroids Incentive spirometry WBC within normal limits. Blood cultures show no growth for 72 hours ID recommendations appreciated recommendations appreciated. plans for cystoscopy tomorrow. Renal ultrasound demonstrated right hydronephrosis with a 1.5 cm right kidney stone, 6 mm nonobstructive left kidney stone. Monitor renal function. Monitor electrolytes. Supplement as necessary. Monitor ins and outs. Labs and imaging reviewed. Rest of plan as noted below. Plan: Supplemental oxygen Titrate to keep O2 sats above 92%. Continue antibiotics Follow up cultures Incentive spirometry Nystatin powder BID Pain control Avoid oversedation Monitor renal function. Monitor electrolytes. Supplement as necessary. Monitor ins and outs. Diet and lifestyle modifications for weight reduction Obesity - complicates all care Smoking cessation discussed for >10 minutes DVT prophylaxis Prognosis: Guarded given multiple comorbidities Rest of plan per hospitalist and other consultants. Thank you, ZAINAB German, for allowing me to participate in this patient's care. Further recommendations will depend on the patient's clinical course. Please do not hesitate to contact me if you have any questions or concerns. This medical document was created using an electronic medical record system with [employer] dictation system. Although this document has been carefully reviewed, there may still be some phonetic and typographical errors. These areas are purely typographical due to imperfections of the software programs and do not reflect any compromise in the patient's medical care. Plan discussed with: Patient, Other (KAYLA Glass) KOBY BIRCH MD Nov 10, 2024 23:04
[2024-11-11] VITALS (21 sets, daily range): BP systolic 114–154; BP diastolic 53–100; PULSE 52–109; RESP 16–20; TEMP 97.3–98.4; O2SAT 90–99
[2024-11-11] MEDS: VANCOMYCIN 500mg/100mL 100 ML IV ONE (12:00)
[2024-11-11] MEDS ORDERED: fentaNYL CITRATE 100 MCG/2 ML VL ONE (14:39)
[2024-11-11] MEDS ORDERED: PROPOFOL 10 MG/ML 20 ML IV ONE (14:39)
[2024-11-11] MEDS ORDERED: MIDAZOLAM HCL 2MG/2ML 2ml VIAL (1mg/ml) ONE (14:39)
[2024-11-11] MEDS ORDERED: DexAMETHasone SOD PHOS 10MG/1ML VIAL INJ ONE (14:39)
--- NOTE | 2024-11-11 15:03 | DVHPN2 ---
Subjective Overnight events noted. Patient was seen by Urology currently scheduled for cystoscopy with a possibly right ureteric stent placement patient today. Reviewed: Care Plan Changes from previous H/P or p: No Changes Objective Vitals Vital Signs Date Time Temp Pulse Resp B/P (MAP) Pulse Ox O2 Delivery O2 Flow Rate FiO2 11/11/24 13:18 62 16 98 11/11/24 13:12 Nasal Cannula 2.0 11/11/24 13:12 28 11/11/24 09:00 97.6 122/53 (76) 97.6 Intake/Output Intake and Output 11/11/24 07:00 Intake Total 2075 ml Output Total 1850 ml Balance 225 ml Intake Oral 1025 ml IV Total 1050 ml Output Urine Total 1850 ml # Bowel Movements 1 Exam HEENT pupils are reactive Neck is supple CV is S1-S2 regular rate and rhythm Respiratory viral clear GI posterior bowel sound Extremity no edema 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 Medications Current Medications Medications Dose Ordered Sig/Rajni Route Start Time Stop Time Status Last Admin Dose Admin Tamsulosin HCl 0.4 mg DAILY PO 11/06/24 20:45 11/10/24 09:13 0.4 MG Ondansetron HCl 4 mg Q6HPRN PRN IV 11/06/24 20:45 Morphine Sulfate 2 mg Q6HPRN PRN IV 11/06/24 20:45 Enoxaparin Sodium 40 mg DAILY SC 11/07/24 10:00 11/10/24 09:13 40 MG Acetaminophen/ Hydrocodone Bitart 1 tab Q6HPRN PRN PO 11/06/24 20:45 11/08/24 16:05 1 TAB Acetaminophen 650 mg Q6HPRN PRN PO 11/06/24 20:45 11/07/24 22:26 650 MG Pantoprazole Sodium 40 mg DAILY IV 11/07/24 10:00 11/11/24 09:10 40 MG Diagnostic Test (Pha) 1 strip ACHS 11/06/24 22:00 11/11/24 11:35 1 STRIP Insulin Human Regular ACHS SC 11/06/24 22:00 11/11/24 11:41 4 UNITS Dextrose 50 ml UD PRN IV 11/06/24 20:45 Vancomycin HCl 0 ml @ 0 mls/hr UD IV 11/06/24 21:00 Sodium Chloride 1,000 ml @ 125 mls/hr Q8H IV 11/07/24 15:15 11/10/24 23:19 125 MLS/HR Nystatin 1 applic BID TOP 11/07/24 22:00 11/11/24 09:11 1 APPLIC Albuterol 1.25 mg Q4HR [facility] 11/08/24 19:00 11/11/24 13:12 1.25 MG Methylprednisolone Sodium Succinate 40 mg BID IV 11/08/24 22:00 11/11/24 09:11 40 MG Budesonide 0.5 mg BID NEB 11/08/24 22:00 11/11/24 07:11 0.5 MG Ipratropium [place] 0.5 mg Q4HR [facility] 11/08/24 22:00 11/11/24 13:12 0.5 MG Meropenem 50 ml @ 17 mls/hr Q8HR IV 11/09/24 22:00 11/11/24 06:42 17 MLS/HR Laboratory Results Laboratory Tests 11/09/24 05:20 11/10/24 05:14 11/11/24 07:19 Urinalysis Test 11/06/24 18:50 Urine Color Colorless (Yellow) Urine Clarity Turbid (Clear) H Urine pH 6.5 (5.0-9.0) Urine Specific [place] 1.015 (1.001-1.035) Urine Protein Negative (Negative) Urine Ketones Negative (Negative) Urine Blood Negative /uL (Negative) Urine Nitrite Negative (Negative) Urine Bilirubin Negative (Negative) Urine Urobilinogen Normal mg/dL (Negative) Urine Leukocyte Esterase 3+ /uL (Negative) Urine RBC 1 /hpf (0 - 4) Urine WBC Clumps Present /hpf (None Seen) Urine Microscopic WBC 63 /HPF (0-5) H Urine Squamous Epithelial Cells None seen /hpf (<5) Urine Bacteria Few /hpf (None Seen) H Urine Mucus Few (None Seen) Urine Glucose Normal mg/dL (Normal) Microbiology Microbiology Date/Time Source Procedure Growth Status 11/06/24 19:05 Blood Blood Culture - Preliminary NO GROWTH AFTER 72 HOURS OF INCUBATION. Resulted 11/06/24 18:50 Voided Urine Urine Culture - Final Complete Assessment/Plan Assessment/Plan 59-year-old female with known history of congestive heart. , COPD, previous history of ureteric stones presented to the hospital with right flank pain found to have 1. Right obstructive uropathy 2. Acute emphysematous pyelonephritis 3. Complicated UTI 4. Lactic acidosis 5. Congestive heart failure, not in exacerbation 6. COPD not in exacerbation 7. Nonobstructive kidney stones 8. Morbid obesity class II -continue IV antibiotics, -cystoscopy with ureteral stent placement per Urology on11/11. Plan discussed with: Other Date of Service: Nov 11, 2024 Billing Provider: XAVI BARRERA MD Common Visit Codes: NOT BILLABLE XAVI BARRERA MD Nov 11, 2024 15:03
--- NOTE | 2024-11-11 15:12 | DVHOP2 ---
Operative Report - 2 Report Details Date: 11/11/24 Preop Diagnosis: Right ureteral calculus Right renal calculus Mild right hydronephrosis Postop Diagnosis: Same Surgeon: Karla Kline Anesthesiologist: Jacob Anesthesia: Mac Consent: The patient was informed of the risks and benefits of the procedure. These include but are not limited to complications of anesthesia, postoperative infection, incomplete relief of symptoms, recurrence of symptoms, damage to blood vessels, nerves and tendons, deep venous thrombosis, pulmonary embolism and possible need for repeat surgery in the future. Indications for Surgery: Patient is status post right PCNL for staghorn calculus on 10/08/2024. Patient has residual stones in the kidney and a proximal ureteral obstructing stone. Cystoscopy with stent placement is indicated and recommended. Name of Procedure Performed Cystoscopy with right retrograde pyelogram Cystoscopy with right ureteral stent placement Cystoscopy with bladder stone extraction Procedure Details Procedure Details: Patient was taken to the operating room and underwent monitored anesthesia. She was placed in dorsal lithotomy position with the area of the genitalia prepped and draped in usual sterile manner. Twenty-one [place]ian rigid cystoscope was usually to inspect the urethra in the bladder. There was a small five 6 mm stone noted in the bladder which was removed using grasping forceps. This was sent to laboratory for analysis. The right ureteric orifice was cannulated with six [place] open-ended catheter and retrograde pyelogram was performed demonstrating a mid to distal ureteral calculus as well as a right lower pole renal calculus as a filling defect. Guidewire was then placed into the renal pelvis an open-ended catheter was removed. Five [place]ian by 24 cm polaris loop ureteral stent was placed over the guidewire and properly positioned. Bladder was decompressed and cystoscope was removed. Patient tolerated the procedure well and she was taken to recovery room in stable condition. Disposition: Outpatient lithotripsy and stent removal in 2-3 weeks Specimen: Bladder/ureteral stone Condition Good Disposition KARLA KLINE MD Nov 11, 2024 15:12
--- NOTE | 2024-11-11 15:43 | DVH ---
C-ARM FLUOROSCOPY: PROCEDURE: Right ureteral stent placement FLUOROSCOPY TIME: 82.6 sec DAP: 50 mgy FINDINGS: Spot intraoperative C arm radiographs demonstrating right ureteral stent placement. IMPRESSION: Please refer to surgical report for detailed findings.
--- NOTE | 2024-11-11 15:43 | DVH ---
C-ARM FLUOROSCOPY: PROCEDURE: Right ureteral stent placement FLUOROSCOPY TIME: 82.6 sec DAP: 50 mgy FINDINGS: Spot intraoperative C arm radiographs demonstrating right ureteral stent placement. IMPRESSION: Please refer to surgical report for detailed findings.
[2024-11-11] MEDS ORDERED: MIDAZOLAM HCL 2MG/2ML 2ml VIAL (1mg/ml) IV PRN (15:45)
[2024-11-11] MEDS ORDERED: HYDROmorphone HCL 2 MG/ML VL/or syr IV PRN (15:45)
[2024-11-11] MEDS ORDERED: ePHEDrine SULFATE 50 MG/ML AMP IV PRN (15:45)
[2024-11-11] MEDS ORDERED: hydrALAZINE HCL 20 MG/ML VL IV PRN (15:45)
[2024-11-11] MEDS ORDERED: MORPHINE SULFATE 4 MG/ML SYR/VIAL IV PRN (15:45)
[2024-11-11] MEDS: ONDANSETRON HCL 4 MG/2 ML VIAL IV ONE (15:45)
[2024-11-11] MEDS: IOHEXOL 300 MG/ML 100ML BOTTLE IJ ONE (15:53)
--- NOTE | 2024-11-11 21:47 | DVHPN2 ---
Consult Progress Note Date Seen: Nov 09, 2024 Subjective Patient reports: Other (still having pain on her right flank and is avoiding it as it is tender when you push on the area, having pain during urination ) Objective vital signs Vital Sign Date Time Temp Pulse Resp B/P (MAP) Pulse Ox O2 Delivery O2 Flow Rate FiO2 11/11/24 21:00 98.4 84 18 114/59 (77) 94 98.4 11/11/24 18:50 Nasal Cannula 2.0 11/11/24 18:50 28 Total Intake and Output 11/10/24 11/10/24 11/11/24 15:00 23:00 07:00 Intake Total 1650 ml 425 ml Output Total 850 ml 1000 ml Balance 800 ml -575 ml medications Current Medications Medications Dose Ordered Sig/Rajni Route Start Time Stop Time Status Last Admin Dose Admin Tamsulosin HCl 0.4 mg DAILY PO 11/06/24 20:45 11/10/24 09:13 0.4 MG Ondansetron HCl 4 mg Q6HPRN PRN IV 11/06/24 20:45 Morphine Sulfate 2 mg Q6HPRN PRN IV 11/06/24 20:45 Enoxaparin Sodium 40 mg DAILY SC 11/07/24 10:00 11/10/24 09:13 40 MG Acetaminophen/ Hydrocodone Bitart 1 tab Q6HPRN PRN PO 11/06/24 20:45 11/08/24 16:05 1 TAB Acetaminophen 650 mg Q6HPRN PRN PO 11/06/24 20:45 11/07/24 22:26 650 MG Pantoprazole Sodium 40 mg DAILY IV 11/07/24 10:00 11/11/24 09:10 40 MG Diagnostic Test (Pha) 1 strip ACHS 11/06/24 22:00 11/11/24 17:06 1 STRIP Insulin Human Regular ACHS SC 11/06/24 22:00 11/11/24 17:14 6 UNITS Dextrose 50 ml UD PRN IV 11/06/24 20:45 Vancomycin HCl 0 ml @ 0 mls/hr UD IV 11/06/24 21:00 Sodium Chloride 1,000 ml @ 125 mls/hr Q8H IV 11/07/24 15:15 11/11/24 16:15 125 MLS/HR Nystatin 1 applic BID TOP 11/07/24 22:00 11/11/24 09:11 1 APPLIC Albuterol 1.25 mg Q4HR [facility] 11/08/24 19:00 11/11/24 18:50 1.25 MG Methylprednisolone Sodium Succinate 40 mg BID IV 11/08/24 22:00 11/11/24 09:11 40 MG Budesonide 0.5 mg BID [facility] 11/08/24 22:00 11/11/24 07:11 0.5 MG Ipratropium [place] 0.5 mg Q4HR [facility] 11/08/24 22:00 11/11/24 18:51 0.5 MG Meropenem 50 ml @ 17 mls/hr Q8HR IV 11/09/24 22:00 11/11/24 16:13 17 MLS/HR Physical Exam: General: NAD Neck: Supple. No masses. HEENT: PERRL. Normal lids and conjunctiva. Moist mucous membranes. Oropharynx: Without lesions, exudates, or excessive erythema. Normal appearance of the external aspects of the nose and ears. Heart: Regular rhythm, normal rate. No murmur. No lower extremity edema. Lungs: Normal respiratory effort. Clear to auscultation bilaterally. No wheezes. No crackles. Abdomen: Soft. Non-tender. Non-distended. No masses or abdominal hernia. MSK: No digital cyanosis. Normal strength and tone in all 4 limbs. Skin: Warm and dry, no rashes. Neuro: Alert. No facial droop or slurred speech. Extra-ocular movements intact. Sensation intact to soft touch in all 4 limbs. Psych: Appropriate mood. Full affect. Oriented to person, place, time, and situation. laboratory and microbiology Laboratory Tests 11/11/24 07:19 11/10/24 05:14 11/09/24 05:20 Test 11/09/24 05:20 Range/Units Serum Glucose 232 H 74-106 mg/dL Problem List/Assessment/Plan Problems(with codes): (1) Pyelonephritis of right kidney (2) Hydronephrosis concurrent with and due to calculi of kidney and ureter (3) Acute right flank pain (4) Liver lesion (5) Hepatic steatosis (6) Diabetic nephropathy (7) Obstructive uropathy Problem List/Assessment/Plan ID Problem List: - Obstructive uropathy secondary to right renal calculus - Sepsis with lactic acidosis - Recurrent nephrolithiasis with history of multiple lithotripsies - Nephrostomy tube complications - Chronic comorbidities: CHF, COPD, Diabetes, Thyroid disease Assessment: This is a 59-year-old female with a past medical history significant for recurrent kidney stones (with multiple prior lithotripsy procedures), congestive heart failure (CHF), chronic obstructive pulmonary disease (COPD), Diabetes, and Thyroid disease. She presents with acute right flank pain and new-onset urinary incontinence approximately two hours prior to arrival. Her laboratory evaluation reveals a lactic acid of 2.7?mmol/L. Imaging is concerning for a 7?mm obstructing calculus with associated right hydronephrosis, in addition to bilateral renal calculi (largest measuring roughly 1?cm). Her history of resistant infections (MRSA/VRE) and recent nephrostomy tube complications further complicate the clinical picture, raising concern for obstructive pyelonephritis progressing to sepsis. 2/3: patients whitecount is still elevated and patient is still febrile 2/4:urine culture shows greater than 3 colony types however patient is at high risk for multiple ESBL infections Plan: - Continue Vancomycin for MRSA coverage. - Discontinue Ceftriaxone and initiate Meropenem for broad Gram-negative coverage given her resistant infection history. - Monitor blood and urine cultures closely. - Consult Urology for evaluation regarding potential lithotripsy and management of nephrostomy tube complications. - Provide supportive care with IV fluids and monitor renal function. - Reassess the antibiotic regimen pending culture and sensitivity results. - Arrange for follow-up imaging to further evaluate hepatomegaly with its subcapsular hypodense lesions. Plan discussed with: NEHA Adams MD Nov 11, 2024 21:47
--- NOTE | 2024-11-11 21:48 | DVHPN2 ---
Consult Progress Note Objective vital signs Vital Sign Date Time Temp Pulse Resp B/P (MAP) Pulse Ox O2 Delivery O2 Flow Rate FiO2 11/11/24 21:00 98.4 84 18 114/59 (77) 94 98.4 11/11/24 18:50 Nasal Cannula 2.0 11/11/24 18:50 28 Total Intake and Output 11/10/24 11/10/24 11/11/24 15:00 23:00 07:00 Intake Total 1650 ml 425 ml Output Total 850 ml 1000 ml Balance 800 ml -575 ml medications Current Medications Medications Dose Ordered Sig/Rajni Route Start Time Stop Time Status Last Admin Dose Admin Tamsulosin HCl 0.4 mg DAILY PO 11/06/24 20:45 11/10/24 09:13 0.4 MG Ondansetron HCl 4 mg Q6HPRN PRN IV 11/06/24 20:45 Morphine Sulfate 2 mg Q6HPRN PRN IV 11/06/24 20:45 Enoxaparin Sodium 40 mg DAILY SC 11/07/24 10:00 11/10/24 09:13 40 MG Acetaminophen/ Hydrocodone Bitart 1 tab Q6HPRN PRN PO 11/06/24 20:45 11/08/24 16:05 1 TAB Acetaminophen 650 mg Q6HPRN PRN PO 11/06/24 20:45 11/07/24 22:26 650 MG Pantoprazole Sodium 40 mg DAILY IV 11/07/24 10:00 11/11/24 09:10 40 MG Diagnostic Test (Pha) 1 strip ACHS 11/06/24 22:00 11/11/24 17:06 1 STRIP Insulin Human Regular ACHS SC 11/06/24 22:00 11/11/24 17:14 6 UNITS Dextrose 50 ml UD PRN IV 11/06/24 20:45 Vancomycin HCl 0 ml @ 0 mls/hr UD IV 11/06/24 21:00 Sodium Chloride 1,000 ml @ 125 mls/hr Q8H IV 11/07/24 15:15 11/11/24 16:15 125 MLS/HR Nystatin 1 applic BID TOP 11/07/24 22:00 11/11/24 09:11 1 APPLIC Albuterol 1.25 mg Q4HR NEB 11/08/24 19:00 11/11/24 18:50 1.25 MG Methylprednisolone Sodium Succinate 40 mg BID IV 11/08/24 22:00 11/11/24 09:11 40 MG Budesonide 0.5 mg BID NEB 11/08/24 22:00 11/11/24 07:11 0.5 MG Ipratropium [place] 0.5 mg Q4HR NEB 11/08/24 22:00 11/11/24 18:51 0.5 MG Meropenem 50 ml @ 17 mls/hr Q8HR IV 11/09/24 22:00 11/11/24 16:13 17 MLS/HR laboratory and microbiology Laboratory Tests 11/11/24 07:19 11/10/24 05:14 11/09/24 05:20 Test 11/09/24 05:20 Range/Units Serum Glucose 232 H 74-106 mg/dL Problem List/Assessment/Plan Problem List/Assessment/Plan ID Problem List: - Obstructive uropathy secondary to right renal calculus - Sepsis with lactic acidosis - Recurrent nephrolithiasis with history of multiple lithotripsies - Nephrostomy tube complications - Chronic comorbidities: CHF, COPD, Diabetes, Thyroid disease Assessment: This is a 59-year-old female with a past medical history significant for recurrent kidney stones (with multiple prior lithotripsy procedures), congestive heart failure (CHF), chronic obstructive pulmonary disease (COPD), Diabetes, and Thyroid disease. She presents with acute right flank pain and new-onset urinary incontinence approximately two hours prior to arrival. Her laboratory evaluation reveals a lactic acid of 2.7?mmol/L. Imaging is concerning for a 7?mm obstructing calculus with associated right hydronephrosis, in addition to bilateral renal calculi (largest measuring roughly 1?cm). Her history of resistant infections (MRSA/VRE) and recent nephrostomy tube complications further complicate the clinical picture, raising concern for obstructive pyelonephritis progressing to sepsis. 11/08: patients whitecount is still elevated and patient is still febrile Plan: - Continue Vancomycin for MRSA coverage. - Discontinue Ceftriaxone and initiate Meropenem for broad Gram-negative coverage given her resistant infection history. - Monitor blood and urine cultures closely. - Consult Urology for evaluation regarding potential lithotripsy and management of nephrostomy tube complications. - Provide supportive care with IV fluids and monitor renal function. - Reassess the antibiotic regimen pending culture and sensitivity results. - Arrange for follow-up imaging to further evaluate hepatomegaly with its subcapsular hypodense lesions. NEHA REILLY MD Nov 11, 2024 21:48
--- NOTE | 2024-11-11 21:48 | DVHPN2 ---
Consult Progress Note Date Seen: Nov 10, 2024 Subjective Patient reports: Other (still having urination pain , not having abdominal pain on her right flank and is sitting comfortably , tolerating food ) Objective vital signs Vital Sign Date Time Temp Pulse Resp B/P (MAP) Pulse Ox O2 Delivery O2 Flow Rate FiO2 11/11/24 21:00 98.4 84 18 114/59 (77) 94 98.4 11/11/24 18:50 Nasal Cannula 2.0 11/11/24 18:50 28 Total Intake and Output 11/10/24 11/10/24 11/11/24 15:00 23:00 07:00 Intake Total 1650 ml 425 ml Output Total 850 ml 1000 ml Balance 800 ml -575 ml medications Current Medications Medications Dose Ordered Sig/Rajni Route Start Time Stop Time Status Last Admin Dose Admin Tamsulosin HCl 0.4 mg DAILY PO 11/06/24 20:45 11/10/24 09:13 0.4 MG Ondansetron HCl 4 mg Q6HPRN PRN IV 11/06/24 20:45 Morphine Sulfate 2 mg Q6HPRN PRN IV 11/06/24 20:45 Enoxaparin Sodium 40 mg DAILY SC 11/07/24 10:00 11/10/24 09:13 40 MG Acetaminophen/ Hydrocodone Bitart 1 tab Q6HPRN PRN PO 11/06/24 20:45 11/08/24 16:05 1 TAB Acetaminophen 650 mg Q6HPRN PRN PO 11/06/24 20:45 11/07/24 22:26 650 MG Pantoprazole Sodium 40 mg DAILY IV 11/07/24 10:00 11/11/24 09:10 40 MG Diagnostic Test (Pha) 1 strip ACHS 11/06/24 22:00 11/11/24 17:06 1 STRIP Insulin Human Regular ACHS SC 11/06/24 22:00 11/11/24 17:14 6 UNITS Dextrose 50 ml UD PRN IV 11/06/24 20:45 Vancomycin HCl 0 ml @ 0 mls/hr UD IV 11/06/24 21:00 Sodium Chloride 1,000 ml @ 125 mls/hr Q8H IV 11/07/24 15:15 11/11/24 16:15 125 MLS/HR Nystatin 1 applic BID TOP 11/07/24 22:00 11/11/24 09:11 1 APPLIC Albuterol 1.25 mg Q4HR NEB 11/08/24 19:00 11/11/24 18:50 1.25 MG Methylprednisolone Sodium Succinate 40 mg BID IV 11/08/24 22:00 11/11/24 09:11 40 MG Budesonide 0.5 mg BID NEB 11/08/24 22:00 11/11/24 07:11 0.5 MG Ipratropium [place] 0.5 mg Q4HR NEB 11/08/24 22:00 11/11/24 18:51 0.5 MG Meropenem 50 ml @ 17 mls/hr Q8HR IV 11/09/24 22:00 11/11/24 16:13 17 MLS/HR Physical Exam: General: NAD Neck: Supple. No masses. HEENT: PERRL. Normal lids and conjunctiva. Moist mucous membranes. Oropharynx: Without lesions, exudates, or excessive erythema. Normal appearance of the external aspects of the nose and ears. Heart: Regular rhythm, normal rate. No murmur. No lower extremity edema. Lungs: Normal respiratory effort. Clear to auscultation bilaterally. No wheezes. No crackles. Abdomen: Soft. Non-tender. Non-distended. No masses or abdominal hernia. MSK: No digital cyanosis. Normal strength and tone in all 4 limbs. Skin: Warm and dry, no rashes. Neuro: Alert. No facial droop or slurred speech. Extra-ocular movements intact. Sensation intact to soft touch in all 4 limbs. Psych: Appropriate mood. Full affect. Oriented to person, place, time, and situation. laboratory and microbiology Laboratory Tests 11/11/24 07:19 11/10/24 05:14 11/09/24 05:20 Test 11/09/24 05:20 Range/Units Serum Glucose 232 H 74-106 mg/dL Problem List/Assessment/Plan Problems(with codes): (1) Obstructive uropathy (2) Diabetic nephropathy (3) Hepatic steatosis (4) Liver lesion (5) Acute right flank pain (6) Hydronephrosis concurrent with and due to calculi of kidney and ureter (7) Pyelonephritis of right kidney Problem List/Assessment/Plan ID Problem List: - Obstructive uropathy secondary to right renal calculus - Sepsis with lactic acidosis - Recurrent nephrolithiasis with history of multiple lithotripsies - Nephrostomy tube complications - Chronic comorbidities: CHF, COPD, Diabetes, Thyroid disease Assessment: This is a 59-year-old female with a past medical history significant for recurrent kidney stones (with multiple prior lithotripsy procedures), congestive heart failure (CHF), chronic obstructive pulmonary disease (COPD), Diabetes, and Thyroid disease. She presents with acute right flank pain and new-onset urinary incontinence approximately two hours prior to arrival. Her laboratory evaluation reveals a lactic acid of 2.7?mmol/L. Imaging is concerning for a 7?mm obstructing calculus with associated right hydronephrosis, in addition to bilateral renal calculi (largest measuring roughly 1?cm). Her history of resistant infections (MRSA/VRE) and recent nephrostomy tube complications further complicate the clinical picture, raising concern for obstructive pyelonephritis progressing to sepsis. 2/3: patients whitecount is still elevated and patient is still febrile 2/5: Blood sugars are up to 239 and whitecount is 7.8. renal ultrasound shows that patient has less interval decrease in size of the right hydronephrosis compared to 2 days ago and chest xray shows non obstructive bowel gas patterns on a persistent 6 millimeter stone in the right pelvis Plan: - recommend patient continue antibiotics for at least 7-10 days after procedure via midline - follow up on specific operative note for additional recommendations - Continue Vancomycin for MRSA coverage. - Discontinue Ceftriaxone and initiate Meropenem for broad Gram-negative coverage given her resistant infection history. - Monitor blood and urine cultures closely. - Consult Urology for evaluation regarding potential lithotripsy and management of nephrostomy tube complications. - Provide supportive care with IV fluids and monitor renal function. - Reassess the antibiotic regimen pending culture and sensitivity results. - Arrange for follow-up imaging to further evaluate hepatomegaly with its subcapsular hypodense lesions. Plan discussed with: NEHA Adams MD Nov 11, 2024 21:48
--- NOTE | 2024-11-11 23:20 | DVHPN2 ---
Progress Note - Dictate Date Seen: Nov 11, 2024 Medical Necessity Reason Pt with a Central, PICC or Fol: No Subjective Patient seen and examined at bedside. Remains on supplemental oxygen Overnight events reviewed. vital signs Vital Sign Date Time Temp Pulse Resp B/P (MAP) Pulse Ox O2 Delivery O2 Flow Rate FiO2 11/11/24 22:36 98 Nasal Cannula 2.0 11/11/24 22:36 28 11/11/24 21:00 98.4 84 18 114/59 (77) 98.4 Total Intake and Output 11/10/24 11/10/24 11/11/24 15:00 23:00 07:00 Intake Total 1650 ml 425 ml Output Total 850 ml 1000 ml Balance 800 ml -575 ml medications Current Medications Medications Dose Ordered Sig/Rajni Route Start Time Stop Time Status Last Admin Dose Admin Tamsulosin HCl 0.4 mg DAILY PO 11/06/24 20:45 11/10/24 09:13 0.4 MG Ondansetron HCl 4 mg Q6HPRN PRN IV 11/06/24 20:45 Morphine Sulfate 2 mg Q6HPRN PRN IV 11/06/24 20:45 Enoxaparin Sodium 40 mg DAILY SC 11/07/24 10:00 11/10/24 09:13 40 MG Acetaminophen/ Hydrocodone Bitart 1 tab Q6HPRN PRN PO 11/06/24 20:45 11/08/24 16:05 1 TAB Acetaminophen 650 mg Q6HPRN PRN PO 11/06/24 20:45 11/07/24 22:26 650 MG Pantoprazole Sodium 40 mg DAILY IV 11/07/24 10:00 11/11/24 09:10 40 MG Diagnostic Test (Pha) 1 strip ACHS 11/06/24 22:00 11/11/24 22:00 1 STRIP Insulin Human Regular ACHS SC 11/06/24 22:00 11/11/24 22:31 6 UNITS Dextrose 50 ml UD PRN IV 11/06/24 20:45 Vancomycin HCl 0 ml @ 0 mls/hr UD IV 11/06/24 21:00 Sodium Chloride 1,000 ml @ 125 mls/hr Q8H IV 11/07/24 15:15 11/11/24 16:15 125 MLS/HR Nystatin 1 applic BID TOP 11/07/24 22:00 11/11/24 09:11 1 APPLIC Albuterol 1.25 mg Q4HR NEB 11/08/24 19:00 11/11/24 18:50 1.25 MG Methylprednisolone Sodium Succinate 40 mg BID IV 11/08/24 22:00 11/11/24 22:32 40 MG Budesonide 0.5 mg BID NEB 11/08/24 22:00 11/11/24 07:11 0.5 MG Ipratropium [place] 0.5 mg Q4HR NEB 11/08/24 22:00 11/11/24 18:51 0.5 MG Meropenem 50 ml @ 17 mls/hr Q8HR IV 11/09/24 22:00 11/11/24 22:31 17 MLS/HR objective Gen.: Patient lying in bed in no apparent distress. On supplemental oxygen. Head: Normocephalic, atraumatic. Eyes: EOMI/PERRLA. Ears: Normal hearing. Normal anatomy. Neck/trachea: Trachea midline, supple. Nose: Normal external anatomy. Mouth: Moist mucous membranes. Chest: Decreased air entry bilaterally. No wheezing or rhonchi. Cardiovascular: Positive S1, positive S2. Regular rate and rhythm. Abdomen: Positive bowel sounds in all 4 quadrants. Soft, non-tender, non- distended. : Deferred. Rectal: Deferred. Skin: Warm, dry. Intact. Extremities: 2+ radial pulses bilaterally. No lower extremity edema. Neuro: Awake, alert, oriented x3. No gross motor or sensory deficits. Cranial nerves II through XII intact. Gait not assessed. laboratory and microbiology Laboratory Tests 11/11/24 07:19 11/10/24 05:14 11/09/24 05:20 Test 11/09/24 05:20 Range/Units Serum Glucose 232 H 74-106 mg/dL Assessment/Plan Impression: Acute hypoxic respiratory failure Pyelonephritis Nephrolithiasis Obesity BMI 37.5 Nicotine dependence Asthma COPD Events: Remains on supplemental oxygen, 1 LPM NC Taper O2 as tolerated Continue bronchodilators Continue antibiotics Continue IV steroids Incentive spirometry Aburto was removed s/p cystoscopy. Blood cultures show no growth after 5 days ID recommendations appreciated recommendations appreciated. Renal ultrasound demonstrated right hydronephrosis with a 1.5 cm right kidney stone, 6 mm nonobstructive left kidney stone. Monitor renal function. Monitor electrolytes. Supplement as necessary. Monitor ins and outs. Labs and imaging reviewed. Rest of plan as noted below. Plan: Supplemental oxygen Titrate to keep O2 sats above 92%. Continue antibiotics Follow up cultures Incentive spirometry Nystatin powder BID Monitor renal function. Monitor electrolytes. Supplement as necessary. Monitor ins and outs. Diet and lifestyle modifications for weight reduction Obesity - complicates all care Smoking cessation discussed for >10 minutes DVT prophylaxis Prognosis: Guarded given multiple comorbidities Rest of plan per hospitalist and other consultants. Thank you, ZAINAB German, for allowing me to participate in this patient's care. Further recommendations will depend on the patient's clinical course. Please do not hesitate to contact me if you have any questions or concerns. This medical document was created using an electronic medical record system with [employer] dictation system. Although this document has been carefully reviewed, there may still be some phonetic and typographical errors. These areas are purely typographical due to imperfections of the software programs and do not reflect any compromise in the patient's medical care. Plan discussed with: Patient, Other (KAYLA Glass) KOBY BIRCH MD Nov 11, 2024 23:20
[2024-11-12] VITALS (13 sets, daily range): BP systolic 119–155; BP diastolic 60–96; PULSE 57–89; RESP 16–18; TEMP 97.6–98.4; O2SAT 89–100
[2024-11-12 06:47] LABS: Basophils # (auto) 0 10 ^3/uL (0-0.2); Basophils % (auto) 0.1 % (0.0-2.0); Eosinophils # (auto) 0 10 ^3/uL (0-0.8); Hematocrit 38.5 % (36.0-46.0); Hemoglobin 12.9 g/dL (12.2-16.2); Lymphocytes # (auto) 0.8 10 ^3/uL (0.4-5.4); Lymphocytes % (auto) 16.6 % (10.0-50.0); Mean Corpuscular Hemoglobin 30.3 pg (28.0-32.0); Mean Corpuscular Hgb Conc. 33.5 g/dL (32.0-36.0); Mean Corpuscular Volume 90.3 fL (80.0-100.0); Monocytes # (auto) 0.4 10 ^3/uL (0-1.3); Monocytes % (auto) 7.6 % (0.0-12.0); Neutrophils # (auto) 3.6 10 ^3/uL (1.6-8.6); Neutrophils % (auto) 75.7 % (37.0-80.0); Nucleated Red Blood Cells % 0.2 %; Platelet Count (auto) 349 10^3/uL (140-450); Red Blood Cells 4.26 10^6/uL (4.0-5.20); Red Cell Distribution Width 16.2 % (11.8-14.3); White Blood Cell 4.8 10^3/uL (4.4-10.8)
[2024-11-12 06:56] LABS: Anion Gap 6 (5-15); Chloride 100 mmol/L (98-107); Potassium 3.5 mmol/L (3.5-5.1); Sodium 139 mmol/L (136-145)
[2024-11-12 07:02] LABS: Blood Urea Nitrogen 20 mg/dL (9-23); Calcium 11.2 mg/dL (8.7-10.4); Carbon Dioxide 33 mmol/L (20-31)
[2024-11-12 07:03] LABS: Glucose 248 mg/dL (74-106)
--- NOTE | 2024-11-12 13:45 | DVHDS2 ---
Discharge Summary Date of Admission Nov 06, 2024 at 20:38 Date of Discharge: Nov 12, 2024 Labs/Diagnostic Data: Laboratory Results Test 11/12/24 13:19 11/12/24 11:14 11/12/24 05:17 11/09/24 11:02 POC Glucose 292 mg/dl (70-106) White Blood Count 4.8 10^3/uL (4.4-10.8) Red Blood Count 4.26 10^6/uL (4.0-5.20) Hemoglobin 12.9 g/dL (12.2-16.2) Hematocrit 38.5 % (36.0-46.0) Mean Corpuscular Volume 90.3 fL (80.0-100.0) Mean Corpuscular Hemoglobin 30.3 pg (28.0-32.0) Mean Corpuscular Hemoglobin Concent 33.5 g/dL (32.0-36.0) Red Cell Distribution Width 16.2 % (11.8-14.3) Platelet Count 349 10^3/uL (140-450) Mean Platelet Volume 7.3 fL (6.9-10.8) Neutrophils (%) (Auto) 75.7 % (37.0-80.0) Lymphocytes (%) (Auto) 16.6 % (10.0-50.0) Monocytes (%) (Auto) 7.6 % (0.0-12.0) Eosinophils (%) (Auto) 0.0 % (0.0-7.0) Basophils (%) (Auto) 0.1 % (0.0-2.0) Neutrophils # (Auto) 3.6 10 ^3/uL (1.6-8.6) Lymphocytes # (Auto) 0.8 10 ^3/uL (0.4-5.4) Monocytes # (Auto) 0.4 10 ^3/uL (0-1.3) Eosinophils # (Auto) 0 10 ^3/uL (0-0.8) Basophils # (Auto) 0 10 ^3/uL (0-0.2) Nucleated Red Blood Cells 0.2 % Sodium Level 139 mmol/L (136-145) Potassium Level 3.5 mmol/L (3.5-5.1) Chloride Level 100 mmol/L (98-107) Carbon Dioxide Level 33 mmol/L (20-31) Anion Gap 6 (5-15) Blood Urea Nitrogen 20 mg/dL (9-23) Creatinine 0.77 mg/dL (0.550-1.02) Glomerular Filtration Rate Calc 88 mL/min (>90) BUN/Creatinine Ratio 26.0 (10.0-20.0) Serum Glucose 248 mg/dL (74-106) Calcium Level 11.2 mg/dL (8.7-10.4) Random Vancomycin Level 6.7 ug/mL (5-10) Vancomycin Level Trough 27.0 ug/mL (5-10) Test 11/07/24 18:41 11/07/24 11:58 11/07/24 05:15 11/06/24 22:06 Blood Gas Specimen Type Arterial Blood Gas Sample Site Right radial Blood Gas Patient Temperature 37.0 Arterial Blood Date Drawn [id number] Arterial Blood pH 7.336 (7.350-7.450) Arterial Blood Partial Pressure CO2 40.8 mmHg (32.0-45.0) Arterial Blood Partial Pressure O2 63.7 mmHg (83.0-108.0) Arterial Blood HCO3 21.3 mmol/L (21.0-28.0) Arterial Blood Oxygen Saturation 91.2 % (94.0-98.0) Arterial Blood Base Excess -4.2 mmol/L (-2.0-3.0) Arterial Blood Oxyhemoglobin 89.8 % (94.0-98.0) Arterial Blood Carboxyhemoglobin 1.1 % (0.5-1.5) Arterial Blood Methemoglobin 0.4 % (0.0-1.5) Nteo Test Yes Blood Gas Total Hemoglobin 13.00 g/dL (12.0-16.0) Blood Gas Liter Flow 1.00 Blood Gas Modality Nasal cannula Blood Gas Spontaneous Rate 20 FiO2 % 24.0 Specimen Drawn By Gregorio thornton rt Lactic Acid Level 2.8 mmol/L (0.4-2.0) Differential Total Cells Counted 100.0 (100) Neutrophils % (Manual) 68 (37.0-80.0) Band Neutrophils % (Manual) 18 Lymphocytes % (Manual) 8 (10.0-50.0) Monocytes % (Manual) 6 (0-12) Eosinophils % (Manual) 0 (0-7) Basophils % (Manual) 0 (0.0-2.0) Metamyelocytes % (manual) 0 Myelocytes % (Manual) 0 Promyelocytes % (Manual) 0 Blast Cells % (Manual) 0 Reactive Lymphocytes 0 Platelet Estimate Adequate Ammonia < 10 umol/L (11-32) Test 11/06/24 19:05 11/06/24 18:50 Prothrombin Time 10.2 sec (9.3-11.8) Prothrombin Time INR 0.96 (0.9-1.15) Urine Color Colorless (Yellow) Urine Clarity Turbid (Clear) Urine pH 6.5 (5.0-9.0) Urine Specific [place] 1.015 (1.001-1.035) Urine Protein Negative (Negative) Urine Ketones Negative (Negative) Urine Blood Negative /uL (Negative) Urine Nitrite Negative (Negative) Urine Bilirubin Negative (Negative) Urine Urobilinogen Normal mg/dL (Negative) Urine Leukocyte Esterase 3+ /uL (Negative) Urine RBC 1 /hpf (0 - 4) Urine WBC Clumps Present /hpf (None Seen) Urine Microscopic WBC 63 /HPF (0-5) Urine Squamous Epithelial Cells None seen /hpf (<5) Urine Bacteria Few /hpf (None Seen) Urine Mucus Few (None Seen) Urine Glucose Normal mg/dL (Normal) Other Laboratory Tests 11/12/24 05:17 Brief Hx & Hospital Course: Mrs. Jazzy Zuniga is a 59 yo female with a history of Kidney stones, CHF, COPD, DM, Throid disease, Cholecystectomy, C section, Hysterectomy presents with a chief complaint of right flank pain. Patient CT abd/pelvis resulted 1. Findings suggestive of right emphysematous pyelonephritis and a 7 mm obstructing stone in the right proximal ureter. Presence of air could only be explained by recent instrumentation or infection. Recommend clinical and biochemical correlation urology consultation. 2. Bilateral nonobstructive renal calculi measuring up to 1 cm in the right kidney. 3. Hepatomegaly and hepatic steatosis. A 2 cm subcapsular hypodense lesion in the right lobe is seen that is incompletely evaluated in this unenhanced study. Further evaluation by ultrasound or abdominal MRI without and with IV contrast utilizing a dedicated hepatic protocol on a nonemergent basis is recommended. Patient endorses right flank pain x 2 weeks. Denies chest pain, dyspnea, nausea, vomiting, dysuria, hematuria, fevers, chills. She is admitted and evaluated by urologist. Patient underwent a successful cystoscopy with a ureteral stent placement and removal of bladder stone and ureteral calculus. Postop patient is doing well. Rest of her workup in the hospital remains normal. Her pain is resolved. Therefore I have talked with the patient regarding the procedure she had done and importance of outpatient follow up given she had ureteral stent placed. I have told her that she needs to have the stent removed within 30-60 days and advised to follow up with the urologist. I have told her if she does not follow and do not have stent removed, eventually lead could close cause worsening urinary tract infection with a pyelonephritis sepsis and even . She has clearly verbalized understanding of this and agree to follow up with the urologist as mentioned. She was also verbalized understanding over hospital diagnosis, treatment she received, procedure she had done, discharge medications and agreed with discharge instructions. Operations or Procedures Operative Report - 2 Report Details Date: 11/11/24 Preop Diagnosis: Right ureteral calculus Right renal calculus Mild right hydronephrosis Postop Diagnosis: Same Surgeon: Karla Salas Anesthesiologist: Jacob Anesthesia: Mac Consent: The patient was informed of the risks and benefits of the procedure. These include but are not limited to complications of anesthesia, postoperative infection, incomplete relief of symptoms, recurrence of symptoms, damage to blood vessels, nerves and tendons, deep venous thrombosis, pulmonary embolism and possible need for repeat surgery in the future. Indications for Surgery: Patient is status post right PCNL for staghorn calculus on 10/08/2024. Patient has residual stones in the kidney and a proximal ureteral obstructing stone. Cystoscopy with stent placement is indicated and recommended. Name of Procedure Performed Cystoscopy with right retrograde pyelogram Cystoscopy with right ureteral stent placement Cystoscopy with bladder stone extraction Procedure Details Procedure Details: Patient was taken to the operating room and underwent monitored anesthesia. She was placed in dorsal lithotomy position with the area of the genitalia prepped and draped in usual sterile manner. Twenty-one Lao rigid cystoscope was usually to inspect the urethra in the bladder. There was a small five 6 mm stone noted in the bladder which was removed using grasping forceps. This was sent to laboratory for analysis. The right ureteric orifice was cannulated with six Lao open-ended catheter and retrograde pyelogram was performed demonstrating a mid to distal ureteral calculus as well as a right lower pole renal calculus as a filling defect. Guidewire was then placed into the renal pelvis an open-ended catheter was removed. Five Lao by 24 cm polaris loop ureteral stent was placed over the guidewire and properly positioned. Bladder was decompressed and cystoscope was removed. Patient tolerated the procedure well and she was taken to recovery room in stable condition. Disposition: Outpatient lithotripsy and stent removal in 2-3 weeks Specimen: Bladder/ureteral stone Condition Good Disposition 2 KARLA SALAS MD Nov 11, 2024 15:12 Condition at Discharge: Good Final Diagnosis/Problems List Ureteral stone status post lithotripsy and ureteral stent placement, COPD Discharge Disposition: Home Discharge Instruct/Medications Diet: Consistent carbohydrate, Cardiac 2g Na,low cholest Activity: No Restrictions, As Tolerated Follow Up/Referral: Dr. Karla Salas urologist after two weeks to remove ureteral stent. To call his office and make a follow up appointment. Medications: Home medications as you were taking. Home oxygen as you were taking. Discharge Statement: "Patient was advised to return to the ER or call 911 if any headaches, dizziness, shortness of breath, chest pain, abdominal pain, bleeding, fevers, or worsening of medical condition. Patient was counseled about treatment plan, medications, possible side effects, patientverbalized understanding. All questions were answered to the best of my ability. This discharge took greater then 30 minutes in planning, reviewing documentation, counseling the patient, and discussing with other team members." ASSESSMENT ASSESSMENT Assessment Ureteral stone status post lithotripsy and ureteral stent placement, COPD VJ ELIZALDE MD Nov 12, 2024 13:45
[2024-11-12] MEDS ORDERED: VANCOMYCIN 750MG KIT 100 ML IV SCH (17:00)
--- NOTE | 2024-11-12 23:48 | DVHPN2 ---
Progress Note - Dictate Date Seen: Nov 12, 2024 Medical Necessity Reason Pt with a Central, PICC or Fol: No Subjective Patient seen and examined at bedside. Currently on room air. Overnight events reviewed. vital signs Vital Sign Date Time Temp Pulse Resp B/P (MAP) Pulse Ox O2 Delivery O2 Flow Rate FiO2 11/12/24 15:05 74 16 98 11/12/24 14:59 Room Air 0.0 11/12/24 14:59 21 11/12/24 14:00 97.6 11/12/24 12:46 135/69 (91) Total Intake and Output 11/11/24 11/11/24 11/12/24 15:00 23:00 07:00 Intake Total 150 ml 270 ml 1850 ml Output Total 1300 ml 753 ml Balance -1150 ml -483 ml 1850 ml objective Gen.: Patient lying in bed in no apparent distress. On room air. Head: Normocephalic, atraumatic. Eyes: EOMI/PERRLA. Ears: Normal hearing. Normal anatomy. Neck/trachea: Trachea midline, supple. Nose: Normal external anatomy. Mouth: Moist mucous membranes. Chest: Decreased air entry bilaterally. No wheezing or rhonchi. Cardiovascular: Positive S1, positive S2. Regular rate and rhythm. Abdomen: Positive bowel sounds in all 4 quadrants. Soft, non-tender, non- distended. : Deferred. Rectal: Deferred. Skin: Warm, dry. Intact. Extremities: 2+ radial pulses bilaterally. No lower extremity edema. Neuro: Awake, alert, oriented x3. No gross motor or sensory deficits. Cranial nerves II through XII intact. Gait not assessed. laboratory and microbiology Laboratory Tests 11/12/24 05:17 Test 11/12/24 05:17 Range/Units Serum Glucose 248 H 74-106 mg/dL Assessment/Plan Impression: Acute hypoxic respiratory failure Pyelonephritis Nephrolithiasis Obesity BMI 37.5 Nicotine dependence Asthma COPD Events: Currently on room air. Supplemental oxygen PRN Improved O2 requirements Continue bronchodilators PRN. Continue antibiotics Continue IV steroids Incentive spirometry Blood cultures show no growth after 5 days ID recommendations appreciated recommendations appreciated. Monitor renal function. Monitor electrolytes. Supplement as necessary. Monitor ins and outs. Patient is stable for discharge from the pulmonary standpoint. Renal ultrasound demonstrated right hydronephrosis with a 1.5 cm right kidney stone, 6 mm nonobstructive left kidney stone. S/p right ureteral stent placement. Aburto was removed s/p cystoscopy. Labs and imaging reviewed. Rest of plan as noted below. Plan: Supplemental oxygen PRN Titrate to keep O2 sats above 92%. Continue antibiotics Follow up cultures Incentive spirometry Nystatin powder BID Monitor renal function. Monitor electrolytes. Supplement as necessary. Monitor ins and outs. Diet and lifestyle modifications for weight reduction Obesity - complicates all care Smoking cessation discussed for >10 minutes DVT prophylaxis Prognosis: Guarded given multiple comorbidities Rest of plan per hospitalist and other consultants. Thank you, ZAINAB German, for allowing me to participate in this patient's care. Further recommendations will depend on the patient's clinical course. Please do not hesitate to contact me if you have any questions or concerns. This medical document was created using an electronic medical record system with [employer] dictation system. Although this document has been carefully reviewed, there may still be some phonetic and typographical errors. These areas are purely typographical due to imperfections of the software programs and do not reflect any compromise in the patient's medical care. Plan discussed with: Patient, Other (KAYLA Glass) KOBY BIRCH MD Nov 12, 2024 23:48
--- NOTE | 2024-11-13 09:36 | DVHPN2 ---
Consult Progress Note Date Seen: Nov 11, 2024 Subjective Patient reports: Other (doing well , no longer having abdominal pain but still having a mild burning with urination . patient got a lithtropsy done today ) Objective vital signs Vital Sign Date Time Temp Pulse Resp B/P (MAP) Pulse Ox O2 Delivery O2 Flow Rate FiO2 11/12/24 15:05 74 16 98 11/12/24 14:59 Room Air 0.0 11/12/24 14:59 21 11/12/24 14:00 97.6 11/12/24 12:46 135/69 (91) Total Intake and Output 11/12/24 11/12/24 11/13/24 15:00 23:00 07:00 Intake Total 25 ml Balance 25 ml medications Physical Exam: General: NAD Neck: Supple. No masses. HEENT: PERRL. Normal lids and conjunctiva. Moist mucous membranes. Oropharynx: Without lesions, exudates, or excessive erythema. Normal appearance of the external aspects of the nose and ears. Heart: Regular rhythm, normal rate. No murmur. No lower extremity edema. Lungs: Normal respiratory effort. Clear to auscultation bilaterally. No wheezes. No crackles. Abdomen: Soft. Non-tender. Non-distended. No masses or abdominal hernia. MSK: No digital cyanosis. Normal strength and tone in all 4 limbs. Skin: Warm and dry, no rashes. Neuro: Alert. No facial droop or slurred speech. Extra-ocular movements intact. Sensation intact to soft touch in all 4 limbs. Psych: Appropriate mood. Full affect. Oriented to person, place, time, and situation. laboratory and microbiology Laboratory Tests 11/12/24 05:17 Test 11/12/24 05:17 Range/Units Serum Glucose 248 H 74-106 mg/dL Problem List/Assessment/Plan Problems(with codes): (1) Obstructive uropathy (2) Diabetic nephropathy (3) Hepatic steatosis (4) Liver lesion (5) Acute right flank pain (6) Hydronephrosis concurrent with and due to calculi of kidney and ureter (7) Pyelonephritis of right kidney Problem List/Assessment/Plan ID Problem List: - Obstructive uropathy secondary to right renal calculus - Sepsis with lactic acidosis - Recurrent nephrolithiasis with history of multiple lithotripsies - Nephrostomy tube complications - Chronic comorbidities: CHF, COPD, Diabetes, Thyroid disease Assessment: This is a 59-year-old female with a past medical history significant for recurrent kidney stones (with multiple prior lithotripsy procedures), congestive heart failure (CHF), chronic obstructive pulmonary disease (COPD), Diabetes, and Thyroid disease. She presents with acute right flank pain and new-onset urinary incontinence approximately two hours prior to arrival. Her laboratory evaluation reveals a lactic acid of 2.7?mmol/L. Imaging is concerning for a 7?mm obstructing calculus with associated right hydronephrosis, in addition to bilateral renal calculi (largest measuring roughly 1?cm). Her history of resistant infections (MRSA/VRE) and recent nephrostomy tube complications further complicate the clinical picture, raising concern for obstructive pyelonephritis progressing to sepsis. 2/: patients whitecount is still elevated and patient is still febrile 2/: Blood sugars are up to 239 and whitecount is 7.8. renal ultrasound shows that patient has less interval decrease in size of the right hydronephrosis compared to 2 days ago and chest xray shows non obstructive bowel gas patterns on a persistent 6 millimeter stone in the right pelvis 11/11:whitecount is 7.8 and appears to be responding to antibiotics Plan: - recommend patient continue antibiotics for at least 7-10 days after procedure via midline - follow up on specific operative note for additional recommendations - Continue Vancomycin for MRSA coverage. -Continue Meropenem for broad Gram-negative coverage given her resistant infection history. - Monitor blood and urine cultures closely. - Consult Urology for evaluation regarding potential lithotripsy and management of nephrostomy tube complications. - Provide supportive care with IV fluids and monitor renal function. - Reassess the antibiotic regimen pending culture and sensitivity results. - Arrange for follow-up imaging to further evaluate hepatomegaly with its subcapsular hypodense lesions. Plan discussed with: NEHA Adams MD Nov 13, 2024 09:35
--- NOTE | 2024-11-14 12:59 | DVHPN2 ---
Consult Progress Note Date Seen: Nov 12, 2024 Subjective Patient reports: Other (S/P lithotripsy and is feeling much better , no blood or pain in urineation and having bowel movements ) Objective vital signs Vital Sign Date Time Temp Pulse Resp B/P (MAP) Pulse Ox O2 Delivery O2 Flow Rate FiO2 11/12/24 15:05 74 16 98 11/12/24 14:59 Room Air 0.0 11/12/24 14:59 21 11/12/24 14:00 97.6 11/12/24 12:46 135/69 (91) medications Physical Exam: General: NAD Neck: Supple. No masses. HEENT: PERRL. Normal lids and conjunctiva. Moist mucous membranes. Oropharynx: Without lesions, exudates, or excessive erythema. Normal appearance of the external aspects of the nose and ears. Heart: Regular rhythm, normal rate. No murmur. No lower extremity edema. Lungs: Normal respiratory effort. Clear to auscultation bilaterally. No wheezes. No crackles. Abdomen: Soft. Non-tender. Non-distended. No masses or abdominal hernia. MSK: No digital cyanosis. Normal strength and tone in all 4 limbs. Skin: Warm and dry, no rashes. Neuro: Alert. No facial droop or slurred speech. Extra-ocular movements intact. Sensation intact to soft touch in all 4 limbs. Psych: Appropriate mood. Full affect. Oriented to person, place, time, and situation. laboratory and microbiology Laboratory Tests 11/12/24 05:17 Test 11/12/24 05:17 Range/Units Serum Glucose 248 H 74-106 mg/dL Problem List/Assessment/Plan Problems(with codes): (1) Obstructive uropathy (2) Diabetic nephropathy (3) Liver lesion (4) Hepatic steatosis (5) Acute right flank pain (6) Hydronephrosis concurrent with and due to calculi of kidney and ureter (7) Pyelonephritis of right kidney Problem List/Assessment/Plan ID Problem List: - Obstructive uropathy secondary to right renal calculus - Sepsis with lactic acidosis - Recurrent nephrolithiasis with history of multiple lithotripsies - Nephrostomy tube complications - Chronic comorbidities: CHF, COPD, Diabetes, Thyroid disease Assessment: This is a 59-year-old female with a past medical history significant for recurrent kidney stones (with multiple prior lithotripsy procedures), congestive heart failure (CHF), chronic obstructive pulmonary disease (COPD), Diabetes, and Thyroid disease. She presents with acute right flank pain and new-onset urinary incontinence approximately two hours prior to arrival. Her laboratory evaluation reveals a lactic acid of 2.7?mmol/L. Imaging is concerning for a 7?mm obstructing calculus with associated right hydronephrosis, in addition to bilateral renal calculi (largest measuring roughly 1?cm). Her history of resistant infections (MRSA/VRE) and recent nephrostomy tube complications further complicate the clinical picture, raising concern for obstructive pyelonephritis progressing to sepsis. 11/08: patients whitecount is still elevated and patient is still febrile 11/10: Blood sugars are up to 239 and whitecount is 7.8. renal ultrasound shows that patient has less interval decrease in size of the right hydronephrosis compared to 2 days ago and chest xray shows non obstructive bowel gas patterns on a persistent 6 millimeter stone in the right pelvis 11/11:whitecount is 7.8 and appears to be responding to antibiotics 11/12: whitecount is 4.8 , blood cultures show no growth to date. review of the operative note from 11/11 shows patient has a cystoscopy with right retrograde pyelogram and right utero stent placement and a cystoscopy with bladderstone extraction Plan: - recommend patient continue antibiotics for at least 7-10 days after procedure via midline - follow up on specific operative note for additional recommendations - Continue Vancomycin for MRSA coverage. -Continue Meropenem for broad Gram-negative coverage given her resistant infection history. - Patient does not appear to need antibiotics upon discharge , if patient develops any signs of fever , chills or abdominal pain should follow up with infectious disease clinic and would potentially need Iv antibiotics to treat UTI - Follow up with urology in 2 weeks to get additional lithotripsy as outpatient and stent removal - Monitor blood and urine cultures closely. - Consult Urology for evaluation regarding potential lithotripsy and management of nephrostomy tube complications. - Provide supportive care with IV fluids and monitor renal function. - Reassess the antibiotic regimen pending culture and sensitivity results. - Arrange for follow-up imaging to further evaluate hepatomegaly with its subcapsular hypodense lesions. Plan discussed with: NEHA Adams MD Nov 14, 2024 12:59
== END 2024-11-12 16:15 | disposition home or self-care (01) | DRG 463 ==
LOC: EDBD 14:52 → ER 14:52 → TELE 20:38 → MERGE 20:38 → TELE-CENTR 23:00
PROVIDERS: ADMIT Nurse Practitioner Family; ATTEND Nurse Practitioner Family
PROC: BT1D1ZZ Fluoroscopy of Right Kidney, Ureter and Bladder using Low Osmolar Contrast (ICD-10-PCS; 2024-11-11)
PROC: 0T768DZ Dilation of Right Ureter with Intraluminal Device, Via Natural or Artificial Opening Endoscopic (ICD-10-PCS; 2024-11-11)
PROC: 0TCB8ZZ Extirpation of Matter from Bladder, Via Natural or Artificial Opening Endoscopic (ICD-10-PCS; principal; 2024-11-11 14:40)
DX: N13.6 Pyonephrosis (principal); J96.01 Acute respiratory failure with hypoxia; N17.0 Acute kidney failure with tubular necrosis; E87.20 Acidosis, unspecified; R16.0 Hepatomegaly, not elsewhere classified; E11.65 Type 2 diabetes mellitus with hyperglycemia; I11.0 Hypertensive heart disease with heart failure; K76.0 Fatty (change of) liver, not elsewhere classified; E11.21 Type 2 diabetes mellitus with diabetic nephropathy; N13.9 Obstructive and reflux uropathy, unspecified; E07.9 Disorder of thyroid, unspecified; F17.210 Nicotine dependence, cigarettes, uncomplicated; E66.01 Morbid (severe) obesity due to excess calories; J44.89 Other specified chronic obstructive pulmonary disease; I50.9 Heart failure, unspecified; Z79.84 Long term (current) use of oral hypoglycemic drugs; Z88.8 Allergy status to other drugs, medicaments and biological substances; Z79.899 Other long term (current) drug therapy; Z90.49 Acquired absence of other specified parts of digestive tract; Z90.710 Acquired absence of both cervix and uterus; Z87.442 Personal history of urinary calculi; Z68.35 Body mass index [BMI] 35.0-35.9, adult
CPT/HCPCS: 36415; 36600; 71045; 74018; 74176; 76000; 76775; 80048; 80202; 81001; 82140; 82360; 82565; 82805; 82962; 83605; 85007; 85025; 85027; 85610; 87040; 87086; 93005; 94640; G0378; J1100; J1335; J1815; J1885; J2185; J2250; J2470; J2704

== ENCOUNTER 2024-12-03 23:00 | Inpatient (IN) | payer MEDICAID ==
[~2024-12-03] VITALS: Ht 152.4 cm; Wt 81.9 kg
[2024-12-03] MEDS: cefTRIAXone 1GM/50ML D5W 50 ML IV ONE (23:30)
--- NOTE | 2024-12-03 23:43 | ED.PDOC ---
General HPI Comments Squire: HPI: Poor Historian. 59-year-old female brought in by ambulance from home for evaluation of 2 hour history of body aches and chills and increasing urinary frequency. Patient is status post kidney stent placement three weeks ago at this hospital. She was supposed to have the stent removed a week ago but she could not get an appointment. Patient started developing the symptoms prior to arrival today. Past Medical History: CHF, hypertension, diabetes, COPD, thyroid disease. Past Surgical History: Kidney stents REVIEW OF SYSTEMS: CONSTITUTIONAL: Denies acute: fever, diaphoresis, , HEAD: Denies acute: headache, photophobia Eyes: Denies acute: Double vision, vision loss, eye pain, eye discharge. EARS: Denies acute: tinnitus, hearing loss, ear discharge, ear pain, THROAT: Denies acute: sore throat, swelling, difficulty swallowing , pain with swallowing, change in voice. NECK: Denies acute: neck pain, neck swelling, stiff neck. HEART: Denies acute : chest pain, palpitations, LUNGS: Denies acute: SOB, wheezing, cough, hemoptysis ABDOMEN: Denies acute: abdominal pain, Nausea, Vomiting, diarrhea, melena , hematemesis, hematochezia SKIN: Denies acute: rash, redness, lesions, itchiness. EXTREMITIES: Denies acute: calf pain, numbness, tingling, weakness, denies pain in extremity. Denies acute: Low back pain. Neuro: Denies acute: focal neurological deficit, motor or sensory focal neurological deficit, tremors, seizure like activity, confusion, dizziness, change in mental status, loss of bowel or bladder function, cauda equina like symptoms. : Denies acute: dysuria, hematuria, flank pain, PSYCH: Denies acute: hallucination, suicidal ideation, homicidal ideation. FEMALE: Denies acute: abnormal vaginal bleeding, foul odor, unusual discharge. PHYSICAL EXAM: General: Vhwj-uk-fuqqutvy acute distress, awake and alert. Head: normocephalic, atraumatic. Neck: supple, trachea is midline, no swelling. Throat: Normal phonation. Eyes:, no erythema, no purulent discharge, no proptosis, no icterus. Heart: regular tachycardic, no significant murmur appreciated. Lungs: no apparent respiratory distress, Able to speak in full sentences. No wheezing, no rhonchi, no crackles. No stridors Clear to auscultation bilaterally. Abdomen: non tender to palpation, non distended, soft, no guarding, no rebound, + bowel sounds. Neuro: Awake, Alert, oriented to name, self, situation, follows commands GCS=15. Speech is normal. Skin: no petechia, no purpura, no cyanosis, slightly-pale, not jaundice. Lower extremities: -1/4r bilateral- Pitting edema no deformity, no focal swelling, no calf TTP. Makes eye contact. moves all four extremities. Face: no apparent facial droop. ED COURSE: Chief Complaint: Urinary Time Seen by MD: 23:19 Primary Care Provider: unknown Reviewed notes: Nurses Notes, Allergies Allergies: Coded Allergies: Nitroglycerin (Verified Allergy, Unknown, 02/17/10) Home Meds Active Scripts Albuterol Sulfate (Albuterol Sulfate Hfa) 108 Mcg/Act Aer, 108 MCG IN TID, #1 AER Prov:VJ ELIZALDE MD 10/31/24 Fluticasone-Salmeterol (Advair Diskus 500/50) 1 Puff Ih, 1 PUFF INH BID, #1 INHALER Prov:VJ ELIZALDE MD 10/31/24 Reported Medications Docusate Sodium (Colace) 100 Mg Cap, 1 CAP PO BID, #30 CAP 10/30/24 Metformin HCl (Metformin Hydrochloride) 1,000 Mg Tab, 1 TAB PO DAILY 02/24/24 Semaglutide (Ozempic) 2 Mg/3 Ml Inj, 0.5 MG SC QWEEKLY 02/23/24 Glipizide (Glipizide) 5 Mg Tab, 5 MG PO DAILY for 30 Days, MG 07/14/16 Atorvastatin Calcium (ATORVASTATIN CALCIUM) 20 Mg Tab, 1 TAB PO HS, #30 TAB 5 Refills 07/14/16 Furosemide (Lasix) 20 Mg Tb, 1 TAB PO BID, #90 TAB 1 Refill 07/14/16 Levothyroxine Sodium (Levothyroxine Sodium) 137 Mcg Tab, 1 TAB PO DAILY, #30 TAB 5 Refills 07/14/16 Carvedilol (Coreg) 6.25 Mg Tab, 1 TAB PO BID, #180 TAB 1 Refill 07/14/16 Potassium Chloride (Klor-Con M20) 20 Meq Tab, 20 MEQ PO DAILY 02/17/10 Albuterol Sulfate (Albuterol Sulfate) 0.5 % Neb, 0.5 ML NEB PRN 02/15/10 Information Source: Patient, Emergency Med Personnel Mode of Arrival: Ambulatory Past Medical History PAST MEDICAL HISTORY: Asthma, CHF, COPD, DM, High Lipids, HTN, Thyroid Surgical History: BTL, Cholecystectomy, [employer] History: Unknown Family History Family History: Family hx of DM, Family hx of Cancer Social History Smoker: Cigarettes Alcohol: Denies ETOH Use Drugs: Denies Drug Use Lives In: Home Differential Diagnosis Kidney stone (Female): N/A Urinary Problem (Female): Pyelonephritis, Urinary retention, Urolithiasis, UTI Other Differential Diagnosis Includes but not limited to thyroid disease, encephalopathy, electrolyte abnormality, sepsis, infection, intracranial pathology, drug adverse effects, arrhythmia, kidney insufficiency, ACS, CVA, malignancy, anemia X-Ray, Labs, Meds, VS Vital Signs Date Time Temp Pulse Resp B/P (MAP) Pulse Ox O2 Delivery O2 Flow Rate FiO2 12/03/24 23:19 98.7 105 18 154/74 (100) 96 Lab Test 12/03/24 23:30 Range/Units White Blood Count 7.2 4.4-10.8 10^3/uL Red Blood Count 4.28 4.0-5.20 10^6/uL Hemoglobin 13.1 12.2-16.2 g/dL Hematocrit 38.1 36.0-46.0 % Mean Corpuscular Volume 89.0 80.0-100.0 fL Mean Corpuscular Hemoglobin 30.7 28.0-32.0 pg Mean Corpuscular Hemoglobin Concent 34.5 32.0-36.0 g/dL Red Cell Distribution Width 15.3 H 11.8-14.3 % Platelet Count 405 140-450 10^3/uL Mean Platelet Volume 6.4 L 6.9-10.8 fL Neutrophils (%) (Auto) 68.5 37.0-80.0 % Lymphocytes (%) (Auto) 19.8 10.0-50.0 % Monocytes (%) (Auto) 10.3 0.0-12.0 % Eosinophils (%) (Auto) 0.8 0.0-7.0 % Basophils (%) (Auto) 0.6 0.0-2.0 % Neutrophils # (Auto) 5.0 1.6-8.6 10 ^3/uL Lymphocytes # (Auto) 1.4 0.4-5.4 10 ^3/uL Monocytes # (Auto) 0.7 0-1.3 10 ^3/uL Eosinophils # (Auto) 0.1 0-0.8 10 ^3/uL Basophils # (Auto) 0 0-0.2 10 ^3/uL Nucleated Red Blood Cells 0.1 % Prothrombin Time Pending Prothrombin Time INR Pending Sodium Level 139 136-145 mmol/L Potassium Level 4.5 3.5-5.1 mmol/L Chloride Level 103 98-107 mmol/L Carbon Dioxide Level 28 20-31 mmol/L Anion Gap 8 5-15 Blood Urea Nitrogen 10 9-23 mg/dL Creatinine 0.96 0.550-1.02 mg/dL Glomerular Filtration Rate Calc 67 >90 mL/min BUN/Creatinine Ratio 10.4 10.0-20.0 Serum Glucose 128 H 74-106 mg/dL Lactic Acid Level 1.7 0.4-2.0 mmol/L Calcium Level 10.9 H 8.7-10.4 mg/dL Magnesium Level 1.9 1.6-2.6 mg/dL Total Bilirubin 0.3 0.2-1.0 mg/dL Aspartate Amino Transferase (AST) 18 13-40 U/L Alanine Aminotransferase (ALT) 18 7-40 U/L Alkaline Phosphatase 136 H 46-116 U/L Troponin I High Sensitivity 7 </=34 ng/L B-Type Natriuretic Peptide 40.24 0-100 pg/mL Total Protein 8.2 5.7-8.2 g/dL Albumin 4.3 3.2-4.8 g/dL [address] [address] Ph: [phone] DIAGNOSTIC IMAGING Diagnostic Imaging Report : [id number] Signed PATIENT: RICA WHEATLEY ACCT: [id number] UNIT: [id number] : 1965 LOC: ER ROOM / BED: / AGE / SEX: 59 / F ADM STATUS: REG ER SERVICE 2319 ORDERING PHYSICIAN: MARIAM JANSEN DO PROCEDURE(s): ABPL - CT AB PEL WO CON-NO ORAL OR IV REASON: sepsis, nephro stent likely infected. ORDER NUMBER(s): [id number], ACCESSION NUMBER(s): [id number] CLINICAL HISTORY: sepsis, nephro stent likely infected. TECHNIQUE: CT of the abdomen and pelvis was performed without intravenous contrast. This exam was performed according to our departmental dose optimization program. Up-to-date CT equipment and radiation dose reduction techniques are utilized as appropriate. COMPARISON: CT abdomen and pelvis from 10/18/2024 FINDINGS: Lower Thorax: Linear bibasilar scarring or atelectasis normal-sized heart. Liver and Biliary system: Mild hepatomegaly measuring 18 cm craniocaudal. There is hepatic steatosis. Prior cholecystectomy. There is no biliary ductal dilatation. Spleen: Unremarkable. Adrenal Glands and Kidneys: Normal adrenal glands. There is a right nephroureteral stent in place. There is mild right hydronephrosis. there is a new loculated collection in the lower pole right kidney measuring 3.4 x 2.6 cm on series 2, image 42. There is mild right perinephric stranding. There are nonobstructing bilateral renal calculi. There are bilateral renal hypodensities which are better evaluated on prior contrast-enhanced study, likely cysts. No left hydronephrosis. Pancreas and Retroperitoneum: Mildly atrophic pancreas. There are prominent retroperitoneal lymph nodes. Aorta and Major Vessels: Aortoiliac vessels are normal in caliber with moderate to marked calcified atherosclerotic plaque. Bowel, Mesentery and Peritoneal space: Normal caliber small and large bowel. Normal appendix. Moderate sigmoid diverticulosis. There is no free air or fluid collection. Pelvis: Urinary bladder is mildly distended. There is no pelvic lymphadenopathy. Prior hysterectomy. Abdominal wall and Osseous Structures: Multilevel lumbar spondylosis. There are synovial herniation pits in the bilateral femoral necks. IMPRESSION: 1. Right nephroureteral stent in place. Mild right hydronephrosis. Correlate for stent malfunction. 2. Development of a new right lower pole loculated hypodensity which could refl ect a small renal abscess. Correlate with urinalysis. 3. Small nonobstructing bilateral renal calculi. 4. Mild hepatomegaly with mild hepatic steatosis. 5. Moderate sigmoid diverticulosis. ATED BY: CAROL FAULKNER MD DICTATED DATE/TIME: 12/04/2423 SIGNED BY: CAROL FAULKNER MD SIGNED DATE/TIME: 12/04/2423 CC: Time of 1ST Reevaluation: 01:51 Reevaluation 1ST: Unchanged Patient Education/Counseling: Diagnosis, Treatment Family Education/Counseling: No Family Present Comments Patient presented with the above HPI.---sepsis---workup was initiated. patient was found with the above mentioned diagnosis. the following medications were ordered: please refer to order lists of meds and tests obtained by myself Dr. Jansen. Patient ED course and VS have been stabilized. Patient has been reassessed in the ED and remained in a stable condition. Pertinent incidental findings were discussed with the patient and/or family. Patient/family voices understanding and is agreeable with plan. Patient has been observed in the ED adequate length of time to insure improvement/stability. Escalation of care considered: Consideration of escalation to observation or admission Patient was ADMITTED to the medicine team for further evaluation and treatment of their presentation. Empiric antibiotics initiated. I did not give the patient's fluids given her edematous bilateral lower extremity and history of CHF. All the reports of any imaging studies that were ordered by myself were reviewed by myself. Departure 1 Departure Time of Disposition: 23:45 Impression: Primary Impression: Renal abscess Additional Impression: Complication of urinary stent Disposition: ADMITTED INPATIENT Admit to: Tele Condition: Guarded Discharged With: Self Critical Care Note Critical Care Time?: No I personally scribed for CLAY REILLY MD ([email or web address]) on 12/03/24 at 23:43. Electronically submitted by Hebert Cintron ([email or web address]). I personally scribed for CLAY REILLY MD ([email or web address]) on 12/04/24 at 02:16. Electronically submitted by Hebert Cintron ([email or web address]). CLAY REILLY MD Dec 03, 2024 23:43 MARIAM JANSEN DO Dec 03, 2024 23:44
[2024-12-03 23:53] LABS: Basophils # (auto) 0 10 ^3/uL (0-0.2); Basophils % (auto) 0.6 % (0.0-2.0); Eosinophils # (auto) 0.1 10 ^3/uL (0-0.8); Eosinophils % (auto) 0.8 % (0.0-7.0); Hematocrit 38.1 % (36.0-46.0); Hemoglobin 13.1 g/dL (12.2-16.2); Lymphocytes # (auto) 1.4 10 ^3/uL (0.4-5.4); Lymphocytes % (auto) 19.8 % (10.0-50.0); Mean Corpuscular Hemoglobin 30.7 pg (28.0-32.0); Mean Corpuscular Hgb Conc. 34.5 g/dL (32.0-36.0); Monocytes # (auto) 0.7 10 ^3/uL (0-1.3); Monocytes % (auto) 10.3 % (0.0-12.0); Neutrophils % (auto) 68.5 % (37.0-80.0); Nucleated Red Blood Cells % 0.1 %; Platelet Count (auto) 405 10^3/uL (140-450); Red Blood Cells 4.28 10^6/uL (4.0-5.20); Red Cell Distribution Width 15.3 % (11.8-14.3); White Blood Cell 7.2 10^3/uL (4.4-10.8)
[2024-12-04] VITALS (9 sets, daily range): BP systolic 107–112; BP diastolic 57–59; PULSE 89–100; RESP 16–22; TEMP 98.3–98.8; O2SAT 89–100
--- NOTE | 2024-12-04 00:27 | DVH ---
CLINICAL HISTORY: sepsis, nephro stent likely infected. TECHNIQUE: CT of the abdomen and pelvis was performed without intravenous contrast. This exam was per formed according to our departmental dose optimization program. Up-to-date CT equipment and radiation dose reduction techniques are utilized as appropriate. COMPARISON: CT abdomen and pelvis from 10/18/2024 FINDINGS: Lower Thorax: Linear bibasilar scarring or atelectasis normal-sized heart. Liver and Biliary system: Mild hepatomegaly measuring 18 cm craniocaudal. There is hepatic steatosis . Prior cholecystectomy. There is no biliary ductal dilatation. Spleen: Unremarkable. Adrenal Glands and Kidneys: Normal adrenal glands. There is a right nephroureteral stent in place. Th ere is mild right hydronephrosis. there is a new loculated collection in the lower pole right kidney measuring 3.4 x 2.6 cm on series 2, image 42. There is mild right perinephric stranding. There are no nobstructing bilateral renal calculi. There are bilateral renal hypodensities which are better evalua raghavendra on prior contrast-enhanced study, likely cysts. No left hydronephrosis. Pancreas and Retroperitoneum: Mildly atrophic pancreas. There are prominent retroperitoneal lymph nod es. Aorta and Major Vessels: Aortoiliac vessels are normal in caliber with moderate to marked calcified a therosclerotic plaque. Bowel, Mesentery and Peritoneal space: Normal caliber small and large bowel. Normal appendix. Moderat e sigmoid diverticulosis. There is no free air or fluid collection. Pelvis: Urinary bladder is mildly distended. There is no pelvic lymphadenopathy. Prior hysterectomy. Abdominal wall and Osseous Structures: Multilevel lumbar spondylosis. There are synovial herniation p its in the bilateral femoral necks. IMPRESSION: 1. Right nephroureteral stent in place. Mild right hydronephrosis. Correlate for stent malfunction. 2. Development of a new right lower pole loculated hypodensity which could reflect a small renal absc ess. Correlate with urinalysis. 3. Small nonobstructing bilateral renal calculi. 4. Mild hepatomegaly with mild hepatic steatosis. 5. Moderate sigmoid diverticulosis.
[2024-12-04 00:57] LABS: Alanine Aminotransferase 18 U/L (7-40); Albumin 4.3 g/dL (3.2-4.8); Anion Gap 8 (5-15); Aspartate Aminotransferase 18 U/L (13-40); BUN/Creatinine Ratio 10.4 (10.0-20.0); Blood Urea Nitrogen 10 mg/dL (9-23); Carbon Dioxide 28 mmol/L (20-31); Chloride 103 mmol/L (98-107); Potassium 4.5 mmol/L (3.5-5.1); Sodium 139 mmol/L (136-145); Total Protein 8.2 g/dL (5.7-8.2)
[2024-12-04 01:10] LABS: Alkaline Phosphatase 136 U/L (46-116); Bilirubin, Total 0.3 mg/dL (0.2-1.0); Calcium 10.9 mg/dL (8.7-10.4); Glucose 128 mg/dL (74-106)
[2024-12-04] MEDS ORDERED: hydrALAZINE HCL 10 MG TAB PO PRN (01:15)
[2024-12-04] MEDS ORDERED: HYDROcodone-ACET 5/325MG TAB PO PRN (01:15)
[2024-12-04] MEDS ORDERED: ONDANSETRON HCL 4 MG/2 ML VIAL IV PRN (01:15)
--- NOTE | 2024-12-04 01:38 | DVHHP2 ---
Admitting Diagnosis: Hydronephrosis, rule out renal abscess/stent malfunction History of Present Illness History Source: Patient Exam Limitations: No limitations HPI This is a 59-year-old female with a history of kidney stone, CHF, COPD, DM, Thyroid disease, who presents with for evaluation of 2 hour history of body aches and chills and increasing urinary frequency. Patient is status post kidney stent placement three weeks ago at this hospital. She was supposed to have the stent removed a week ago but she could not get an appointment. Patient reports body aches, fevers, urinary frequency, chills x 4 days with right flank pain. Patient denies chest pain, dyspnea, hematuria, dysuria. Patient CT abdomen/pelvis resulted: 1. Right nephroureteral stent in place. Mild right hydronephrosis. Correlate for stent malfunction. 2. Development of a new right lower pole loculated hypodensity which could reflect a small renal abscess. Correlate with urinalysis. 3. Small nonobstructing bilateral renal calculi. 4. Mild hepatomegaly with mild hepatic steatosis. 5. Moderate sigmoid diverticulosis. Patient admitted for further evaluation. Home Meds Active Scripts Albuterol Sulfate (Albuterol Sulfate Hfa) 108 Mcg/Act Aer, 108 MCG IN TID, #1 AER Prov:VJ ELIZALDE MD 10/31/24 Fluticasone-Salmeterol (Advair Diskus 500/50) 1 Puff Ih, 1 PUFF INH BID, #1 INHALER Prov:VJ ELIZALDE MD 10/31/24 Reported Medications Docusate Sodium (Colace) 100 Mg Cap, 1 CAP PO BID, #30 CAP 10/30/24 Metformin HCl (Metformin Hydrochloride) 1,000 Mg Tab, 1 TAB PO DAILY 02/24/24 Semaglutide (Ozempic) 2 Mg/3 Ml Inj, 0.5 MG SC QWEEKLY 02/23/24 Glipizide (Glipizide) 5 Mg Tab, 5 MG PO DAILY for 30 Days, MG 07/14/16 Atorvastatin Calcium (ATORVASTATIN CALCIUM) 20 Mg Tab, 1 TAB PO HS, #30 TAB 5 Refills 07/14/16 Furosemide (Lasix) 20 Mg Tb, 1 TAB PO BID, #90 TAB 1 Refill 07/14/16 Levothyroxine Sodium (Levothyroxine Sodium) 137 Mcg Tab, 1 TAB PO DAILY, #30 TAB 5 Refills 07/14/16 Carvedilol (Coreg) 6.25 Mg Tab, 1 TAB PO BID, #180 TAB 1 Refill 07/14/16 Potassium Chloride (Klor-Con M20) 20 Meq Tab, 20 MEQ PO DAILY 02/17/10 Albuterol Sulfate (Albuterol Sulfate) 0.5 % Neb, 0.5 ML NEB PRN 02/15/10 Past Medical History Cardiac: CHF Pulmonary: COPD Central Nervous System: No pertinent Hx GI: No pertinent Hx Hemotology/Oncology: No pertinent Hx Hepatobiliary: No pertinent Hx Psychiatric: No pertinent Hx Musculoskeletal: No pertinent Hx Rheumotologic: No pertinent Hx Infectious Disease: No peritnent Hx ENT: No pertinent Hx Renal/: No pertinent Hx Endocrine: Hypothyroidism Dermatology: No pertinent Hx Others renal stones Past Surgical History: Cholecystectomy, , Hysterctomy, Other (renal stent) Patient Family History: Kidney stones G8 MOTHER G8 FATHER Smoker: No Hx (Negative) Alocohol: None Drugs: None Lives with: With family Domestic Violence: Neg Review of Systems Constitutional: Chills, Fever, Other (body aches) Ears, Nose, & Throat: No symptom reported Eyes: No symptom reported Pulmonary/Respiratory: No symptom reported Cardiovascular: No symptom reported Gastrointestinal: No symptom reported Genitourinary: Frequency, Other (right flank pain) Musculoskeletal: No symptom reported Skin: No symptom reported Psychiatric: No symptom reported Endocrine: No symptom reported Hemotologic/Lymphatic: No symptom reported H&P Exam Vital Signs Vital Signs Date Time Temp Pulse Resp B/P (MAP) Pulse Ox O2 Delivery O2 Flow Rate FiO2 12/03/24 23:19 98.7 105 18 154/74 (100) 96 General Appeara: Well developed, Well nourished Head Exam: Normal inspection Neck Exam: Normal inspection, Non-tender, Normal alignment Eye Exam: bilateral eye Normal inspection, bilateral eye PERRL, bilateral eye EOMI Ear Exam: bilateral ear Auricle normal Nasal Exam: Normal inspection Mouth: Normal Inspection Pulmonary/Respiratory: Normal inspection, Normal breath sounds, Chest non- tender, Lungs clear Cardiovascular/Chest: Normal inspection, Regular rate, Normal Rhythm Peripheral Pulses: 2+ dorsalis pedis (R), 2+ dorsalis pedis (L), 2+ Radial (R), 2+ Radial (L) Abdominal Exam: Normal bowel sounds, Soft, No tenderness Rectal Exam: Deferred 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: Normal hearing, Normal speech, PERRL Neuro/Mental St: Alert, Oriented Appearance: Appropriate appearance, Appropriate insight Eye contact/ Speech: Cooperative, Good eye contact, Normal speech Thoughts/Psych: Normal thought pattern Skin Exam: Normal inspection, Normal color, Warm/dry Labs/Xrays Labs Test 12/03/24 23:30 Range/Units White Blood Count 7.2 4.4-10.8 10^3/uL Red Blood Count 4.28 4.0-5.20 10^6/uL Hemoglobin 13.1 12.2-16.2 g/dL Hematocrit 38.1 36.0-46.0 % Mean Corpuscular Volume 89.0 80.0-100.0 fL Mean Corpuscular Hemoglobin 30.7 28.0-32.0 pg Mean Corpuscular Hemoglobin Concent 34.5 32.0-36.0 g/dL Red Cell Distribution Width 15.3 H 11.8-14.3 % Platelet Count 405 140-450 10^3/uL Mean Platelet Volume 6.4 L 6.9-10.8 fL Neutrophils (%) (Auto) 68.5 37.0-80.0 % Lymphocytes (%) (Auto) 19.8 10.0-50.0 % Monocytes (%) (Auto) 10.3 0.0-12.0 % Eosinophils (%) (Auto) 0.8 0.0-7.0 % Basophils (%) (Auto) 0.6 0.0-2.0 % Neutrophils # (Auto) 5.0 1.6-8.6 10 ^3/uL Lymphocytes # (Auto) 1.4 0.4-5.4 10 ^3/uL Monocytes # (Auto) 0.7 0-1.3 10 ^3/uL Eosinophils # (Auto) 0.1 0-0.8 10 ^3/uL Basophils # (Auto) 0 0-0.2 10 ^3/uL Nucleated Red Blood Cells 0.1 % Sodium Level 139 136-145 mmol/L Potassium Level 4.5 3.5-5.1 mmol/L Chloride Level 103 98-107 mmol/L Carbon Dioxide Level 28 20-31 mmol/L Anion Gap 8 5-15 Blood Urea Nitrogen 10 9-23 mg/dL Creatinine 0.96 0.550-1.02 mg/dL Glomerular Filtration Rate Calc 67 >90 mL/min BUN/Creatinine Ratio 10.4 10.0-20.0 Serum Glucose 128 H 74-106 mg/dL Lactic Acid Level 1.7 0.4-2.0 mmol/L Calcium Level 10.9 H 8.7-10.4 mg/dL Magnesium Level 1.9 1.6-2.6 mg/dL Total Bilirubin 0.3 0.2-1.0 mg/dL Aspartate Amino Transferase (AST) 18 13-40 U/L Alanine Aminotransferase (ALT) 18 7-40 U/L Alkaline Phosphatase 136 H 46-116 U/L Troponin I High Sensitivity 7 </=34 ng/L B-Type Natriuretic Peptide 40.24 0-100 pg/mL Total Protein 8.2 5.7-8.2 g/dL Albumin 4.3 3.2-4.8 g/dL Assessment/Plan Problem List: (1) Hydronephrosis (2) Renal abscess Plan This is a 59 yo female with known history of CHF, COPD, DM, Throid disease, kidney stone s/p renal stent who presents with body aches, chills. Patient found to have 1. Hydronephrosis 2. rule out renal abscess/stent malfunction Plan Admit Med Surg Urology consultation Interventional Radiology consultation Prophylactic IV antibiotic Rocephin BC x2, urine culture Glucose monitoring ac & hs coverage with insulin sling scale Continue home medications when reconciled Discussed all above with patient who verbalized agreement and understanding of care plan. All questions were answered. Discussed assessment and care plan with supervising MD. Plan discussed with: Patient, Other Code Visit Code Visit Total Time (mins): 45 Additional Comments Additional Comments Additional Comments Patient was seen and evaluated by me. I agree with the and plan as outlined by my nurse practitioner. KERLINE GIORDANO Dec 04, 2024 01:38 XAVI BARRERA MD Dec 04, 2024 15:34
[2024-12-04 02:14] LABS: INR 0.98 (0.9-1.15); Prothrombin Time 10.4 sec (9.3-11.8)
--- NOTE | 2024-12-04 02:19 | ED.PDOC ---
General HPI Comments HPI: Poor Historian. 59-year-old female brought in by ambulance from home for evaluation of 2 hour history of body aches and chills and increasing urinary frequency. Patient is status post kidney stent placement three weeks ago at this hospital. She was supposed to have the stent removed a week ago but she could not get an appointment. Patient started developing the symptoms prior to arrival today. Past Medical History: CHF, hypertension, diabetes, COPD, thyroid disease. Past Surgical History: Kidney stents REVIEW OF SYSTEMS: CONSTITUTIONAL: Denies acute: fever, diaphoresis, , HEAD: Denies acute: headache, photophobia Eyes: Denies acute: Double vision, vision loss, eye pain, eye discharge. EARS: Denies acute: tinnitus, hearing loss, ear discharge, ear pain, THROAT: Denies acute: sore throat, swelling, difficulty swallowing , pain with swallowing, change in voice. NECK: Denies acute: neck pain, neck swelling, stiff neck. HEART: Denies acute : chest pain, palpitations, LUNGS: Denies acute: SOB, wheezing, cough, hemoptysis ABDOMEN: Denies acute: abdominal pain, Nausea, Vomiting, diarrhea, melena , hematemesis, hematochezia SKIN: Denies acute: rash, redness, lesions, itchiness. EXTREMITIES: Denies acute: calf pain, numbness, tingling, weakness, denies pain in extremity. Denies acute: Low back pain. Neuro: Denies acute: focal neurological deficit, motor or sensory focal neurological deficit, tremors, seizure like activity, confusion, dizziness, change in mental status, loss of bowel or bladder function, cauda equina like symptoms. : Denies acute: dysuria, hematuria, flank pain, PSYCH: Denies acute: hallucination, suicidal ideation, homicidal ideation. FEMALE: Denies acute: abnormal vaginal bleeding, foul odor, unusual discharge. PHYSICAL EXAM: General: [id number] acute distress, awake and alert. Head: normocephalic, atraumatic. Neck: supple, trachea is midline, no swelling. Throat: Normal phonation. Eyes:, no erythema, no purulent discharge, no proptosis, no icterus. Heart: regular tachycardic, no significant murmur appreciated. Lungs: no apparent respiratory distress, Able to speak in full sentences. No wheezing, no rhonchi, no crackles. No stridors Clear to auscultation bilaterally. Abdomen: non tender to palpation, non distended, soft, no guarding, no rebound, + bowel sounds. Neuro: Awake, Alert, oriented to name, self, situation, follows commands GCS=15. Speech is normal. Skin: no petechia, no purpura, no cyanosis, slightly-pale, not jaundice. Lower extremities: -1/4r bilateral- Pitting edema no deformity, no focal swelling, no calf TTP. Makes eye contact. moves all four extremities. Face: no apparent facial droop. ED COURSE: Chief Complaint: Urinary Time Seen by MD: 23:19 Primary Care Provider: unknown Reviewed notes: Nurses Notes, Allergies Allergies: Coded Allergies: Nitroglycerin (Verified Allergy, Unknown, 02/17/10) Home Meds Active Scripts Albuterol Sulfate (Albuterol Sulfate Hfa) 108 Mcg/Act Aer, 108 MCG IN TID, #1 AER Prov:VJ ELIZALDE MD 10/31/24 Fluticasone-Salmeterol (Advair Diskus 500/50) 1 Puff Ih, 1 PUFF INH BID, #1 INHALER Prov:VJ ELIZALDE MD 10/31/24 Reported Medications Docusate Sodium (Colace) 100 Mg Cap, 1 CAP PO BID, #30 CAP 10/30/24 Metformin HCl (Metformin Hydrochloride) 1,000 Mg Tab, 1 TAB PO DAILY 02/24/24 Semaglutide (Ozempic) 2 Mg/3 Ml Inj, 0.5 MG SC QWEEKLY 02/23/24 Glipizide (Glipizide) 5 Mg Tab, 5 MG PO DAILY for 30 Days, MG 07/14/16 Atorvastatin Calcium (ATORVASTATIN CALCIUM) 20 Mg Tab, 1 TAB PO HS, #30 TAB 5 Refills 07/14/16 Furosemide (Lasix) 20 Mg Tb, 1 TAB PO BID, #90 TAB 1 Refill 07/14/16 Levothyroxine Sodium (Levothyroxine Sodium) 137 Mcg Tab, 1 TAB PO DAILY, #30 TAB 5 Refills 07/14/16 Carvedilol (Coreg) 6.25 Mg Tab, 1 TAB PO BID, #180 TAB 1 Refill 07/14/16 Potassium Chloride (Klor-Con M20) 20 Meq Tab, 20 MEQ PO DAILY 02/17/10 Albuterol Sulfate (Albuterol Sulfate) 0.5 % Neb, 0.5 ML NEB PRN 02/15/10 Information Source: Patient, Emergency Med Personnel Mode of Arrival: Ambulatory Chief Complaint: Urinary Time Seen by MD: 23:19 Primary Care Provider: unknown Reviewed notes: Nurses Notes, Allergies Allergies: Coded Allergies: Nitroglycerin (Verified Allergy, Unknown, 02/17/10) Home Meds Active Scripts Albuterol Sulfate (Albuterol Sulfate Hfa) 108 Mcg/Act Aer, 108 MCG IN TID, #1 AER Prov:VJ ELIZALDE MD 10/31/24 Fluticasone-Salmeterol (Advair Diskus 500/50) 1 Puff Ih, 1 PUFF INH BID, #1 INHALER Prov:VJ ELIZALDE MD 10/31/24 Reported Medications Docusate Sodium (Colace) 100 Mg Cap, 1 CAP PO BID, #30 CAP 10/30/24 Metformin HCl (Metformin Hydrochloride) 1,000 Mg Tab, 1 TAB PO DAILY 02/24/24 Semaglutide (Ozempic) 2 Mg/3 Ml Inj, 0.5 MG SC QWEEKLY 02/23/24 Glipizide (Glipizide) 5 Mg Tab, 5 MG PO DAILY for 30 Days, MG 07/14/16 Atorvastatin Calcium (ATORVASTATIN CALCIUM) 20 Mg Tab, 1 TAB PO HS, #30 TAB 5 Refills 07/14/16 Furosemide (Lasix) 20 Mg Tb, 1 TAB PO BID, #90 TAB 1 Refill 07/14/16 Levothyroxine Sodium (Levothyroxine Sodium) 137 Mcg Tab, 1 TAB PO DAILY, #30 TAB 5 Refills 07/14/16 Carvedilol (Coreg) 6.25 Mg Tab, 1 TAB PO BID, #180 TAB 1 Refill 07/14/16 Potassium Chloride (Klor-Con M20) 20 Meq Tab, 20 MEQ PO DAILY 02/17/10 Albuterol Sulfate (Albuterol Sulfate) 0.5 % Neb, 0.5 ML NEB PRN 02/15/10 Information Source: Patient Mode of Arrival: Ambulatory Past Medical History PAST MEDICAL HISTORY: Asthma, CHF, COPD, DM, High Lipids, HTN, Thyroid Surgical History: BTL, Cholecystectomy, [employer] 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 Family History Family History: Family hx of DM, Family hx of Cancer Social History Smoker: Cigarettes Alcohol: Denies ETOH Use Drugs: Denies Drug Use Lives In: Home Differential Diagnosis Kidney stone (Female): Renal failure, Strain, Urinary obstruction, Urolithiasis Urinary Problem (Female): PID, Post-op complication, Pyelonephritis, Urinary retention, Urolithiasis, UTI Other Differential Diagnosis Includes but not limited to thyroid disease, encephalopathy, electrolyte abnormality, sepsis, infection, intracranial pathology, drug adverse effects, arrhythmia, kidney insufficiency, ACS, CVA, malignancy, anemia X-Ray, Labs, Meds, VS Vital Signs Date Time Temp Pulse Resp B/P (MAP) Pulse Ox O2 Delivery O2 Flow Rate FiO2 12/03/24 23:19 98.7 105 18 154/74 (100) 96 Lab Test 12/03/24 23:30 Range/Units White Blood Count 7.2 4.4-10.8 10^3/uL Red Blood Count 4.28 4.0-5.20 10^6/uL Hemoglobin 13.1 12.2-16.2 g/dL Hematocrit 38.1 36.0-46.0 % Mean Corpuscular Volume 89.0 80.0-100.0 fL Mean Corpuscular Hemoglobin 30.7 28.0-32.0 pg Mean Corpuscular Hemoglobin Concent 34.5 32.0-36.0 g/dL Red Cell Distribution Width 15.3 H 11.8-14.3 % Platelet Count 405 140-450 10^3/uL Mean Platelet Volume 6.4 L 6.9-10.8 fL Neutrophils (%) (Auto) 68.5 37.0-80.0 % Lymphocytes (%) (Auto) 19.8 10.0-50.0 % Monocytes (%) (Auto) 10.3 0.0-12.0 % Eosinophils (%) (Auto) 0.8 0.0-7.0 % Basophils (%) (Auto) 0.6 0.0-2.0 % Neutrophils # (Auto) 5.0 1.6-8.6 10 ^3/uL Lymphocytes # (Auto) 1.4 0.4-5.4 10 ^3/uL Monocytes # (Auto) 0.7 0-1.3 10 ^3/uL Eosinophils # (Auto) 0.1 0-0.8 10 ^3/uL Basophils # (Auto) 0 0-0.2 10 ^3/uL Nucleated Red Blood Cells 0.1 % Prothrombin Time 10.4 9.3-11.8 sec Prothrombin Time INR 0.98 0.9-1.15 Sodium Level 139 136-145 mmol/L Potassium Level 4.5 3.5-5.1 mmol/L Chloride Level 103 98-107 mmol/L Carbon Dioxide Level 28 20-31 mmol/L Anion Gap 8 5-15 Blood Urea Nitrogen 10 9-23 mg/dL Creatinine 0.96 0.550-1.02 mg/dL Glomerular Filtration Rate Calc 67 >90 mL/min BUN/Creatinine Ratio 10.4 10.0-20.0 Serum Glucose 128 H 74-106 mg/dL Lactic Acid Level 1.7 0.4-2.0 mmol/L Calcium Level 10.9 H 8.7-10.4 mg/dL Magnesium Level 1.9 1.6-2.6 mg/dL Total Bilirubin 0.3 0.2-1.0 mg/dL Aspartate Amino Transferase (AST) 18 13-40 U/L Alanine Aminotransferase (ALT) 18 7-40 U/L Alkaline Phosphatase 136 H 46-116 U/L Troponin I High Sensitivity 7 </=34 ng/L B-Type Natriuretic Peptide 40.24 0-100 pg/mL Total Protein 8.2 5.7-8.2 g/dL Albumin 4.3 3.2-4.8 g/dL [place] [id number] Ph: [phone] DIAGNOSTIC IMAGING Diagnostic Imaging Report : [id number] Signed PATIENT: RICA WHEATLEY ACCT: [id number] UNIT: [id number] : 1965 LOC: ER ROOM / BED: / AGE / SEX: 59 / F ADM STATUS: REG ER SERVICE [id number] ORDERING PHYSICIAN: MARIAM JANSEN DO PROCEDURE(s): ABPL - CT AB PEL WO CON-NO ORAL OR IV REASON: sepsis, nephro stent likely infected. ORDER NUMBER(s): [id number], ACCESSION NUMBER(s): [id number] CLINICAL HISTORY: sepsis, nephro stent likely infected. TECHNIQUE: CT of the abdomen and pelvis was performed without intravenous contrast. This exam was performed according to our departmental dose optimiza tion program. Up-to-date CT equipment and radiation dose reduction techniques are utilized as appropriate. COMPARISON: CT abdomen and pelvis from 10/18/2024 FINDINGS: Lower Thorax: Linear bibasilar scarring or atelectasis normal-sized heart. Liver and Biliary system: Mild hepatomegaly measuring 18 cm craniocaudal. There is hepatic steatosis. Prior cholecystectomy. There is no biliary ductal dilatation. Spleen: Unremarkable. Adrenal Glands and Kidneys: Normal adrenal glands. There is a right nephrou reteral stent in place. There is mild right hydronephrosis. there is a new loculated collection in the lower pole right kidney measuring 3.4 x 2.6 cm on series 2, image 42. There is mild right perinephric stranding. There are nonobstructing bilateral renal calculi. There are bilateral renal hypodensities which are better evaluated on prior contrast-enhanced study, likely cysts. No left hydronephrosis. Pancreas and Retroperitoneum: Mildly atrophic pancreas. There are prominent retroperitoneal lymph nodes. Aorta and Major Vessels: Aortoiliac vessels are normal in caliber with moderate to marked calcified atherosclerotic plaque. Bowel, Mesentery and Peritoneal space: Normal caliber small and large bowel. Normal appendix. Moderate sigmoid diverticulosis. There is no free air or fluid collection. Pelvis: Urinary bladder is mildly distended. There is no pelvic lymphadenopathy. Prior hysterectomy. Abdominal wall and Osseous Structures: Multilevel lumbar spondylosis. There are synovial herniation pits in the bilateral femoral necks. IMPRESSION: 1. Right nephroureteral stent in place. Mild right hydronephrosis. Correlate for stent malfunction. 2. Development of a new right lower pole loculated hypodensity which could reflect a small renal abscess. Correlate with urinalysis. 3. Small nonobstructing bilateral renal calculi. 4. Mild hepatomegaly with mild hepatic steatosis. 5. Moderate sigmoid diverticulosis. ATED BY: CAROL FAULKNER MD DICTATED DATE/TIME: 12/04/2423 SIGNED BY: CAROL FAULKNER MD SIGNED DATE/TIME: 12/04/2423 CC: Time of 1ST Reevaluation: 00:32 (The case was discussed with the admitting team (HPI, physical exam, labs and diagnostic tests that were available at the time of disposition, ED course, treatment plan) on the phone. They agreed to admit the patient to their service and assume care of this patient from this point forward. Nurse practitioner Mariaa) Reevaluation 1ST: Unchanged Patient Education/Counseling: Diagnosis, Treatment Family Education/Counseling: Other Comments Patient presented with the above HPI.---sepsis---workup was initiated. patient was found with the above mentioned diagnosis. the following medications were ordered: please refer to order lists of meds and tests obtained by myself Dr. Jansen. Patient ED course and VS have been stabilized. Patient has been reassessed in the ED and remained in a stable condition. Pertinent incidental findings were discussed with the patient and/or family. Patient/family voices understanding and is agreeable with plan. Patient has been observed in the ED adequate length of time to insure improvement/stability. Escalation of care considered: Consideration of escalation to observation or admission Patient was ADMITTED to the medicine team for further evaluation and treatment of their presentation. Empiric antibiotics initiated. I did not give the patient's fluids given her edematous bilateral lower extremity and history of CHF. All the reports of any imaging studies that were ordered by myself were reviewed by myself. Departure 1 Departure Time of Disposition: 01:51 Impression: Primary Impression: Renal abscess Additional Impression: Complication of urinary stent Disposition: ADMITTED INPATIENT Admit to: Tele Condition: Guarded Discharged With: Self Critical Care Note Critical Care Time?: No I personally scribed for MARIAM JANSEN DO ([email or web address]) on 12/04/24 at 02:19. Electronically submitted by Hebert Cintron ([email or web address]). I personally scribed for MARIAM JANSEN DO ([email or web address]) on 12/04/24 at 02:22. Electronically submitted by Hebert Cintron ([email or web address]). I personally scribed for MARIAM JANSEN DO ([email or web address]) on 12/04/24 at 02:24. Electronically submitted by Hebert Cintron ([email or web address]). MARIAM JANSEN DO Dec 04, 2024 02:19
[2024-12-04] MEDS ORDERED: DEXTROSE (50%) 50ML SYRG IV PRN (06:15)
[2024-12-04] MEDS: ACCU-CHEK COMFORT CURVE STRIP VI SCH (06:38)
[2024-12-04] MEDS: InsuLIN REG 1unit/0.01ml Soln (100units/ml) SC SCH (06:41)
[2024-12-04 07:18] LABS: Basophils # (auto) 0 10 ^3/uL (0-0.2); Basophils % (auto) 0.5 % (0.0-2.0); Eosinophils # (auto) 0 10 ^3/uL (0-0.8); Eosinophils % (auto) 0.5 % (0.0-7.0); Hematocrit 37.4 % (36.0-46.0); Hemoglobin 12.6 g/dL (12.2-16.2); Lymphocytes # (auto) 1.7 10 ^3/uL (0.4-5.4); Lymphocytes % (auto) 21.7 % (10.0-50.0); Mean Corpuscular Hgb Conc. 33.6 g/dL (32.0-36.0); Mean Corpuscular Volume 89.4 fL (80.0-100.0); Monocytes # (auto) 1.1 10 ^3/uL (0-1.3); Monocytes % (auto) 14.3 % (0.0-12.0); Neutrophils # (auto) 4.9 10 ^3/uL (1.6-8.6); Nucleated Red Blood Cells % 0.2 %; Platelet Count (auto) 381 10^3/uL (140-450); Red Blood Cells 4.18 10^6/uL (4.0-5.20); Red Cell Distribution Width 15.4 % (11.8-14.3); White Blood Cell 7.8 10^3/uL (4.4-10.8)
[2024-12-04 07:29] LABS: Anion Gap 9 (5-15); Carbon Dioxide 28 mmol/L (20-31); Chloride 102 mmol/L (98-107); Potassium 3.6 mmol/L (3.5-5.1); Sodium 139 mmol/L (136-145)
[2024-12-04 07:34] LABS: Glucose 83 mg/dL (74-106)
[2024-12-04 07:35] LABS: Blood Urea Nitrogen 12 mg/dL (9-23)
[2024-12-04] MEDS: LEVOTHYROXINE SODIUM 25 MCG TAB PO SCH (08:39)
[2024-12-04] MEDS: LEVOTHYROXINE SODIUM 112 MCG TAB PO SCH (08:39)
[2024-12-04] MEDS: FAMOTIDINE 20 MG TAB PO SCH (10:48)
[2024-12-04] MEDS: FUROSEMIDE 20 MG TAB PO SCH (10:49)
[2024-12-04] MEDS: DOCUSATE SOD 100 MG CAP PO SCH (10:50)
[2024-12-04] MEDS: HEPARIN SODIUM (PORCINE) 5000 UNITS/ML 1ML VIAL SC SCH (10:50)
[2024-12-04] MEDS: ALBUTEROL SULF 2.5 MG/0.5ML(0.5%) NEB SOLN NEB SCH (11:30)
--- NOTE | 2024-12-04 13:18 | DVHINCON2 ---
Date of service: Dec 04, 2024 Referring Physician hospitalist Reason for Consultation renal stones History of Present Illness History Source: Patient, RN Notes, MD Notes, Old Records Exam Limitations: No limitations HPI 59 yo female with a hx of right staghorn calculus 2/p right PCNL 10/08/24 with residual stones treated 11/11/24. She was to follow up for repeat ESWL and stent removal 2-3 weeks later, but was "unable to get an appt". She was admitted yesterday for body aches, chills and urinary frequency. Imaging and labs reviewed. Home Meds Active Scripts Albuterol Sulfate (Albuterol Sulfate Hfa) 108 Mcg/Act Aer, 108 MCG IN TID, #1 AER Prov:VJ ELIZALDE MD 10/31/24 Fluticasone-Salmeterol (Advair Diskus 500/50) 1 Puff Ih, 1 PUFF INH BID, #1 INHALER Prov:VJ ELIZALDE MD 10/31/24 Reported Medications Docusate Sodium (Colace) 100 Mg Cap, 1 CAP PO BID, #30 CAP 10/30/24 Metformin HCl (Metformin Hydrochloride) 1,000 Mg Tab, 1 TAB PO DAILY 02/24/24 Semaglutide (Ozempic) 2 Mg/3 Ml Inj, 0.5 MG SC QWEEKLY 02/23/24 Glipizide (Glipizide) 5 Mg Tab, 5 MG PO DAILY for 30 Days, MG 07/14/16 Atorvastatin Calcium (ATORVASTATIN CALCIUM) 20 Mg Tab, 1 TAB PO HS, #30 TAB 5 Refills 07/14/16 Furosemide (Lasix) 20 Mg Tb, 1 TAB PO BID, #90 TAB 1 Refill 07/14/16 Levothyroxine Sodium (Levothyroxine Sodium) 137 Mcg Tab, 1 TAB PO DAILY, #30 TAB 5 Refills 07/14/16 Carvedilol (Coreg) 6.25 Mg Tab, 1 TAB PO BID, #180 TAB 1 Refill 07/14/16 Potassium Chloride (Klor-Con M20) 20 Meq Tab, 20 MEQ PO DAILY 02/17/10 Albuterol Sulfate (Albuterol Sulfate) 0.5 % Neb, 0.5 ML NEB PRN 02/15/10 Past Medical History Others renal stones Patient Family History: Kidney stones G8 MOTHER G8 FATHER H&P Exam Vital Signs Vital Signs Date Time Temp Pulse Resp B/P (MAP) Pulse Ox O2 Delivery O2 Flow Rate FiO2 12/04/24 12:13 87 25 119/64 (82) 95 12/04/24 11:30 Nasal Cannula* 2 28 12/04/24 09:13 98.3 98.3 Neuro/Mental St: Alert, Oriented Appearance: Appropriate appearance, Appropriate insight Eye contact/ Speech: Cooperative, Good eye contact, Normal speech Skin Exam: Normal inspection, Normal color, Warm/dry Labs/Xrays [address] [address] Ph: [phone] DIAGNOSTIC IMAGING Diagnostic Imaging Report : [id number] Signed PATIENT: RICA WHEATLEY ACCT: [id number] UNIT: [id number] : 1965 LOC: ER ROOM / BED: / AGE / SEX: 59 / F ADM STATUS: REG ER SERVICE 2319 ORDERING PHYSICIAN: MARIAM JANSEN DO PROCEDURE(s): ABPL - CT AB PEL WO CON-NO ORAL OR IV REASON: sepsis, nephro stent likely infected. ORDER NUMBER(s): [id number], ACCESSION NUMBER(s): [id number] CLINICAL HISTORY: sepsis, nephro stent likely infected. TECHNIQUE: CT of the abdomen and pelvis was performed without intravenous contrast. This exam was performed according to our departmental dose optimization program. Up-to-date CT equipment and radiation dose reduction techniques are utilized as appropriate. COMPARISON: CT abdomen and pelvis from 10/18/2024 FINDINGS: Lower Thorax: Linear bibasilar scarring or atelectasis normal-sized heart. Liver and Biliary system: Mild hepatomegaly measuring 18 cm craniocaudal. There is hepatic steatosis. Prior cholecystectomy. There is no biliary ductal dilatation. Spleen: Unremarkable. Adrenal Glands and Kidneys: Normal adrenal glands. There is a right nephroureteral stent in place. There is mild right hydronephrosis. there is a new loculated collection in the lower pole right kidney measuring 3.4 x 2.6 cm on series 2, image 42. There is mild right perinephric stranding. There are nonobstructing bilateral renal calculi. There are bilateral renal hypodensities which are better evaluated on prior contrast-enhanced study, likely cysts. No left hydronephrosis. Pancreas and Retroperitoneum: Mildly atrophic pancreas. There are prominent retroperitoneal lymph nodes. Aorta and Major Vessels: Aortoiliac vessels are normal in caliber with moderate to marked calcified atherosclerotic plaque. Bowel, Mesentery and Peritoneal space: Normal caliber small and large bowel. Normal appendix. Moderate sigmoid diverticulosis. There is no free air or fluid collection. Pelvis: Urinary bladder is mildly distended. There is no pelvic lymphadenopathy. Prior hysterectomy. Abdominal wall and Osseous Structures: Multilevel lumbar spondylosis. There are synovial herniation pits in the bilateral femoral necks. IMPRESSION: 1. Right nephroureteral stent in place. Mild right hydronephrosis. Correlate for stent malfunction. 2. Development of a new right lower pole loculated hypodensity which could reflect a small renal abscess. Correlate with urinalysis. 3. Small nonobstructing bilateral renal calculi. 4. Mild hepatomegaly with mild hepatic steatosis. 5. Moderate sigmoid diverticulosis. ATED BY: CAROL FAULKNER MD DICTATED DATE/TIME: 12/04/24 0024 SIGNED BY: CAROL FAULKNER MD SIGNED DATE/TIME: 12/04/24 0024 CC: Labs Test 12/04/24 11:35 12/04/24 06:30 12/03/24 23:30 Range/Units POC Glucose 87 70-106 mg/dl White Blood Count 7.8 4.4-10.8 10^3/uL Red Blood Count 4.18 4.0-5.20 10^6/uL Hemoglobin 12.6 12.2-16.2 g/dL Hematocrit 37.4 36.0-46.0 % Mean Corpuscular Volume 89.4 80.0-100.0 fL Mean Corpuscular Hemoglobin 30.0 28.0-32.0 pg Mean Corpuscular Hemoglobin Concent 33.6 32.0-36.0 g/dL Red Cell Distribution Width 15.4 H 11.8-14.3 % Platelet Count 381 140-450 10^3/uL Mean Platelet Volume 6.8 L 6.9-10.8 fL Neutrophils (%) (Auto) 63.0 37.0-80.0 % Lymphocytes (%) (Auto) 21.7 10.0-50.0 % Monocytes (%) (Auto) 14.3 H 0.0-12.0 % Eosinophils (%) (Auto) 0.5 0.0-7.0 % Basophils (%) (Auto) 0.5 0.0-2.0 % Neutrophils # (Auto) 4.9 1.6-8.6 10 ^3/uL Lymphocytes # (Auto) 1.7 0.4-5.4 10 ^3/uL Monocytes # (Auto) 1.1 0-1.3 10 ^3/uL Eosinophils # (Auto) 0 0-0.8 10 ^3/uL Basophils # (Auto) 0 0-0.2 10 ^3/uL Nucleated Red Blood Cells 0.2 % Sodium Level 139 136-145 mmol/L Potassium Level 3.6 3.5-5.1 mmol/L Chloride Level 102 98-107 mmol/L Carbon Dioxide Level 28 20-31 mmol/L Anion Gap 9 5-15 Blood Urea Nitrogen 12 9-23 mg/dL Creatinine 0.92 0.550-1.02 mg/dL Glomerular Filtration Rate Calc 71 >90 mL/min BUN/Creatinine Ratio 13.0 10.0-20.0 Serum Glucose 83 74-106 mg/dL Calcium Level 10.0 8.7-10.4 mg/dL Prothrombin Time 10.4 9.3-11.8 sec Prothrombin Time INR 0.98 0.9-1.15 Lactic Acid Level 1.7 0.4-2.0 mmol/L Magnesium Level 1.9 1.6-2.6 mg/dL Total Bilirubin 0.3 0.2-1.0 mg/dL Aspartate Amino Transferase (AST) 18 13-40 U/L Alanine Aminotransferase (ALT) 18 7-40 U/L Alkaline Phosphatase 136 H 46-116 U/L Troponin I High Sensitivity 7 </=34 ng/L B-Type Natriuretic Peptide 40.24 0-100 pg/mL Total Protein 8.2 5.7-8.2 g/dL Albumin 4.3 3.2-4.8 g/dL Assessment/Plan Problem List: (1) Amphetamine abuse (2) Renal calculus, right (3) Renal stones Plan urine culture - empiric abx right lower pole hypodensity likely represents post PCNL changes. less likely an abscess. Stent in situ - urinary frequency expected. supportive care - IVF - pain meds prn ESWL and stent removal TBA possibly friday Plan discussed with: Patient, Other HARIS GORDON NP Dec 04, 2024 13:18
[2024-12-04] MEDS ORDERED: ALBUTEROL SULF HFA 90MCG INH 200DOSE IN SCH (14:00)
[2024-12-04 14:23] LABS: Urine Bacteria MOD /hpf (None Seen); Urine Blood 1+ /uL (Negative); Urine Clarity Ex.Turbid (Clear); Urine Color Light-Orange (Yellow); Urine Mucus FEW (None Seen); Urine Protein, UAD 1+ (Negative); Urine Specific Gravity 1.016 (1.001-1.035); Urine Squamous Epithelial Cell FEW /hpf (<5); Urine Urobilinogen Normal (Negative); Urine WBC 981 /HPF (0-5); Urine WBC Clumps PRESENT /hpf (None Seen); Urine pH 6.5 (5.0-9.0)
[2024-12-04] MEDS: cefTRIAXone 1GM/50ML D5W 50 ML IV SCH (21:18)
[2024-12-04] MEDS: ATORVASTATIN 20 MG TAB PO SCH (21:31)
[2024-12-05] VITALS (15 sets, daily range): BP systolic 99–117; BP diastolic 51–70; PULSE 82–105; RESP 16–20; TEMP 98–98.8; O2SAT 91–100
[2024-12-05 11:12] LABS: Basophils # (auto) 0 10 ^3/uL (0-0.2); Basophils % (auto) 0.4 % (0.0-2.0); Eosinophils # (auto) 0.1 10 ^3/uL (0-0.8); Eosinophils % (auto) 0.9 % (0.0-7.0); Hematocrit 37.1 % (36.0-46.0); Hemoglobin 12.2 g/dL (12.2-16.2); Lymphocytes # (auto) 1.8 10 ^3/uL (0.4-5.4); Lymphocytes % (auto) 30.7 % (10.0-50.0); Mean Corpuscular Hemoglobin 29.6 pg (28.0-32.0); Mean Corpuscular Volume 89.7 fL (80.0-100.0); Monocytes # (auto) 0.8 10 ^3/uL (0-1.3); Monocytes % (auto) 13.3 % (0.0-12.0); Neutrophils # (auto) 3.3 10 ^3/uL (1.6-8.6); Neutrophils % (auto) 54.7 % (37.0-80.0); Nucleated Red Blood Cells % 0.1 %; Platelet Count (auto) 372 10^3/uL (140-450); Red Blood Cells 4.14 10^6/uL (4.0-5.20); Red Cell Distribution Width 15.6 % (11.8-14.3)
[2024-12-05] MEDS ORDERED: CARV12.544 PO (14:54)
[2024-12-05] MEDS ORDERED: FERR325T24 PO (14:54)
[2024-12-05] MEDS ORDERED: GLIP10TA9 PO (14:54)
[2024-12-05] MEDS ORDERED: CINA30TA14 PO (14:54)
--- NOTE | 2024-12-05 17:09 | DVHPN2 ---
Subjective Overnight events noted. 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 PLASMA ARC no motor deficit y Medications Current Medications Medications Dose Ordered Sig/Rajni Route Start Time Stop Time Status Last Admin Dose Admin Ceftriaxone Sodium 50 ml @ 100 mls/hr DAILY@2100 IV 12/04/24 21:00 12/04/24 21:18 100 MLS/HR Ondansetron HCl 4 mg Q6HPRN PRN IV 12/04/24 01:15 Acetaminophen 650 mg Q6HPRN PRN PO 12/04/24 01:15 Acetaminophen/ Hydrocodone Bitart 1 tab Q6HPRN PRN PO 12/04/24 01:15 Hydralazine HCl 10 mg Q6HPRN PRN PO 12/04/24 01:15 Famotidine 20 mg BID PO 12/04/24 10:00 12/05/24 09:53 20 MG Heparin Sodium (Porcine) 5,000 units BID SC 12/04/24 10:00 12/05/24 09:57 5,000 UNITS Albuterol 108 mcg TID IN 12/04/24 14:00 Cancel Atorvastatin Calcium 20 mg HS PO 12/04/24 22:00 12/04/24 21:31 20 MG Docusate Sodium 100 mg BID PO 12/04/24 10:00 12/05/24 09:53 100 MG Furosemide 20 mg BID PO 12/04/24 10:00 12/05/24 09:52 20 MG Levothyroxine Sodium 112 mcg DAILY@0600 PO 12/04/24 08:25 12/05/24 06:01 112 MCG Diagnostic Test (Pha) 1 strip ACHS 12/04/24 07:00 12/05/24 12:30 1 STRIP Insulin Human Regular ACHS SC 12/04/24 07:00 12/05/24 12:48 2 UNITS Dextrose 50 ml UD PRN IV 12/04/24 06:15 Albuterol 2.5 mg Q6HWA NEB 12/04/24 12:00 12/05/24 11:25 2.5 MG Levothyroxine Sodium 25 mcg DAILY@0600 PO 12/04/24 08:26 12/05/24 06:01 25 MCG Mupirocin 1 applic BID EACHNOSTRI 12/05/24 22:00 12/10/24 21:59 Laboratory Results Laboratory Tests 12/04/24 06:30 12/05/24 10:19 Urinalysis Test 12/04/24 13:45 Urine Color Light-orange (Yellow) Urine Clarity Ex.turbid (Clear) Urine pH 6.5 (5.0-9.0) Urine Specific [place] 1.016 (1.001-1.035) Urine Protein 1+ (Negative) H Urine Ketones Negative (Negative) Urine Blood 1+ /uL (Negative) H Urine Nitrite Negative (Negative) Urine Bilirubin Negative (Negative) Urine Urobilinogen Normal mg/dL (Negative) Urine Leukocyte Esterase 3+ /uL (Negative) Urine RBC 34 /hpf (0 - 4) Urine WBC Clumps Present /hpf (None Seen) Urine Microscopic WBC 981 /HPF (0-5) H Urine Squamous Epithelial Cells Few /hpf (<5) Urine Bacteria Mod /hpf (None Seen) H Urine Mucus Few (None Seen) Urine Glucose Normal mg/dL (Normal) Microbiology Microbiology Date/Time Source Procedure Growth Status 12/04/24 23:30 Nose MRSA Screen - Final Complete 12/04/24 13:45 Voided Urine Urine Culture - Preliminary Resulted 12/03/24 23:30 Blood Blood Culture - Preliminary NO GROWTH AFTER 24 HOURS OF INCUBATION. Resulted Assessment/Plan Assessment/Plan This is a 59 yo female with known history of CHF, COPD, DM, Throid disease, kidney stone s/p renal stent who presents with body aches, chills. Patient found to have 1. Hydrocephalus with a recent renal stent placement 2. Congestive heart failure currently not in exacerbation 3. COPD 4. Diabetes mellitus type 2 5. Thyroid disease -continue antibiotics, follow up Urology recommendations. Plan discussed with: Patient My Orders Orders - XAIV BARRERA MD Procedure Category Date Status Time Mupirocin 2% Oint PHA 12/05/24 In Process Mrsa Nares (Bactroban 22:00 Npo After Midnight DIET 12/05/24 Transmitted Dinner Date of Service: Dec 05, 2024 Billing Provider: XAVI BARRERA MD Common Visit Codes: NOT BILLABLE XAVI BARRERA MD Dec 05, 2024 17:09
--- NOTE | 2024-12-05 18:15 | DVHPN2 ---
Progress Note - Dictate Date Seen: Dec 05, 2024 Medical Necessity Reason Pt with a Central, PICC or Fol: No vital signs Vital Sign Date Time Temp Pulse Resp B/P (MAP) Pulse Ox O2 Delivery O2 Flow Rate FiO2 12/05/24 17:00 98.0 97 20 107/68 (81) 91 98.0 12/05/24 11:25 Nasal Cannula 2.0 12/05/24 11:25 28 Total Intake and Output 12/04/24 12/04/24 12/05/24 15:00 23:00 07:00 Intake Total 50 ml 0 ml Output Total 0 ml Balance 50 ml 0 ml medications Current Medications Medications Dose Ordered Sig/Rajni Route Start Time Stop Time Status Last Admin Dose Admin Ceftriaxone Sodium 50 ml @ 100 mls/hr DAILY@2100 IV 12/04/24 21:00 12/04/24 21:18 100 MLS/HR Ondansetron HCl 4 mg Q6HPRN PRN IV 12/04/24 01:15 Acetaminophen 650 mg Q6HPRN PRN PO 12/04/24 01:15 Acetaminophen/ Hydrocodone Bitart 1 tab Q6HPRN PRN PO 12/04/24 01:15 Hydralazine HCl 10 mg Q6HPRN PRN PO 12/04/24 01:15 Famotidine 20 mg BID PO 12/04/24 10:00 12/05/24 09:53 20 MG Heparin Sodium (Porcine) 5,000 units BID SC 12/04/24 10:00 12/05/24 09:57 5,000 UNITS Albuterol 108 mcg TID IN 12/04/24 14:00 Cancel Atorvastatin Calcium 20 mg HS PO 12/04/24 22:00 12/04/24 21:31 20 MG Docusate Sodium 100 mg BID PO 12/04/24 10:00 12/05/24 09:53 100 MG Furosemide 20 mg BID PO 12/04/24 10:00 12/05/24 09:52 20 MG Levothyroxine Sodium 112 mcg DAILY@0600 PO 12/04/24 08:25 12/05/24 06:01 112 MCG Diagnostic Test (Pha) 1 strip ACHS 12/04/24 07:00 12/05/24 17:15 1 STRIP Insulin Human Regular ACHS SC 12/04/24 07:00 12/05/24 17:15 2 UNITS Dextrose 50 ml UD PRN IV 12/04/24 06:15 Albuterol 2.5 mg Q6HWA NEB 12/04/24 12:00 12/05/24 11:25 2.5 MG Levothyroxine Sodium 25 mcg DAILY@0600 PO 12/04/24 08:26 12/05/24 06:01 25 MCG Mupirocin 1 applic BID EACHNOSTRI 12/05/24 22:00 12/10/24 21:59 laboratory and microbiology Laboratory Tests 12/05/24 10:19 12/04/24 06:30 Test 12/04/24 06:30 Range/Units Serum Glucose 83 74-106 mg/dL Assessment/Plan cleared from urology standpoint Outpt stent removal to be arranged signing off Problems(with codes): (1) Renal stones (2) Complication of urinary stent Plan discussed with: Patient, Other Total Time (mins): 14 HARIS GORDON NP Dec 05, 2024 18:15
[2024-12-05] MEDS: MUPIROCIN 2% OINT 15gm or 22gm FOR MRSA NARES EACHNOSTRI SCH (22:17)
[2024-12-06] VITALS (12 sets, daily range): BP systolic 117–126; BP diastolic 68–78; PULSE 55–95; RESP 16–18; TEMP 97.3–98.1; O2SAT 93–100
[2024-12-06] MEDS: ACETAMINOPHEN 325 MG TAB PO PRN (00:44)
--- NOTE | 2024-12-06 09:48 | DVH ---
INDICATION: RENAL ABSCESS TECHNIQUE: Multiple real-time sonographic images of the kidneys and bladder were obtained. COMPARISON: None FINDINGS: The right kidney measures 13.9 cm in length, which is normal in size. There is normal echogenicity of the right kidney. No hydronephrosis. There is an anechoic structure in the upper pole measuring 3.9 x 3.7 x 4.0 cm. There is a hypoechoic structure in the lower pole which measures 3.0 x 2.5 x 2.8 cm. Subcentimeter nonobstructive intrarenal stones noted. The left kidney measures 11.6 cm in length, which is normal in size. There is normal echogenicity of the left kidney. No hydronephrosis. Subcentimeter nonobstructive stones. There is a left renal cyst w hich measures 0.8 x 0.7 x 0.9 cm. No large intraluminal masses are seen in the bladder. Prevoid volume measures volume 67 cc. Postvoid residual not evaluated. IMPRESSION: 1. No hydronephrosis. Nonobstructing bilateral intrarenal calculi. 2. Bilateral cortical renal cysts.
[2024-12-06 10:41] LABS: Hepatitis B Surface Antigen Negative (Negative); Hepatitis C Antibody Negative (Negative)
[2024-12-06] MEDS ORDERED: AUG875T PO (16:18)
--- NOTE | 2024-12-06 16:23 | DVHDS2 ---
Discharge Summary Date of Admission Dec 04, 2024 at 01:29 Date of Discharge: Dec 06, 2024 Labs/Diagnostic Data: Laboratory Results Test 12/06/24 11:40 12/05/24 10:19 12/04/24 13:45 12/04/24 06:30 POC Glucose 154 mg/dl (70-106) White Blood Count 6.0 10^3/uL (4.4-10.8) Red Blood Count 4.14 10^6/uL (4.0-5.20) Hemoglobin 12.2 g/dL (12.2-16.2) Hematocrit 37.1 % (36.0-46.0) Mean Corpuscular Volume 89.7 fL (80.0-100.0) Mean Corpuscular Hemoglobin 29.6 pg (28.0-32.0) Mean Corpuscular Hemoglobin Concent 33.0 g/dL (32.0-36.0) Red Cell Distribution Width 15.6 % (11.8-14.3) Platelet Count 372 10^3/uL (140-450) Mean Platelet Volume 6.9 fL (6.9-10.8) Neutrophils (%) (Auto) 54.7 % (37.0-80.0) Lymphocytes (%) (Auto) 30.7 % (10.0-50.0) Monocytes (%) (Auto) 13.3 % (0.0-12.0) Eosinophils (%) (Auto) 0.9 % (0.0-7.0) Basophils (%) (Auto) 0.4 % (0.0-2.0) Neutrophils # (Auto) 3.3 10 ^3/uL (1.6-8.6) Lymphocytes # (Auto) 1.8 10 ^3/uL (0.4-5.4) Monocytes # (Auto) 0.8 10 ^3/uL (0-1.3) Eosinophils # (Auto) 0.1 10 ^3/uL (0-0.8) Basophils # (Auto) 0 10 ^3/uL (0-0.2) Nucleated Red Blood Cells 0.1 % Hepatitis B Surface Antigen Negative (Negative) Hepatitis C Antibody Negative (Negative) Urine Color Light-orange (Yellow) Urine Clarity Ex.turbid (Clear) Urine pH 6.5 (5.0-9.0) Urine Specific [place] 1.016 (1.001-1.035) Urine Protein 1+ (Negative) Urine Ketones Negative (Negative) Urine Blood 1+ /uL (Negative) Urine Nitrite Negative (Negative) Urine Bilirubin Negative (Negative) Urine Urobilinogen Normal mg/dL (Negative) Urine Leukocyte Esterase 3+ /uL (Negative) Urine RBC 34 /hpf (0 - 4) Urine WBC Clumps Present /hpf (None Seen) Urine Microscopic WBC 981 /HPF (0-5) Urine Squamous Epithelial Cells Few /hpf (<5) Urine Bacteria Mod /hpf (None Seen) Urine Mucus Few (None Seen) Urine Glucose Normal mg/dL (Normal) Sodium Level 139 mmol/L (136-145) Potassium Level 3.6 mmol/L (3.5-5.1) Chloride Level 102 mmol/L (98-107) Carbon Dioxide Level 28 mmol/L (20-31) Anion Gap 9 (5-15) Blood Urea Nitrogen 12 mg/dL (9-23) Creatinine 0.92 mg/dL (0.550-1.02) Glomerular Filtration Rate Calc 71 mL/min (>90) BUN/Creatinine Ratio 13.0 (10.0-20.0) Serum Glucose 83 mg/dL (74-106) Calcium Level 10.0 mg/dL (8.7-10.4) Test 12/03/24 23:30 Prothrombin Time 10.4 sec (9.3-11.8) Prothrombin Time INR 0.98 (0.9-1.15) Lactic Acid Level 1.7 mmol/L (0.4-2.0) Magnesium Level 1.9 mg/dL (1.6-2.6) Total Bilirubin 0.3 mg/dL (0.2-1.0) Aspartate Amino Transferase (AST) 18 U/L (13-40) Alanine Aminotransferase (ALT) 18 U/L (7-40) Alkaline Phosphatase 136 U/L (46-116) Troponin I High Sensitivity 7 ng/L (</=34) B-Type Natriuretic Peptide 40.24 pg/mL (0-100) Total Protein 8.2 g/dL (5.7-8.2) Albumin 4.3 g/dL (3.2-4.8) Other Laboratory Tests 12/05/24 10:19 3/1/25 06:30 Brief Hx & Hospital Course: This is a 59 yo female with known history of CHF, COPD, DM, Throid disease, kidney stone s/p renal stent who presents with body aches, chills. Patient found to have mild right-sided hydronephrosis with the ureteric stent. Patient does have known history of COPD congestive heart failure diabetes mellitus type 2 and hypothyroidism. Patient was treated with IV antibiotics. Urology was consulted who recommended outpatient follow up as there is no more hydronephrosis. Patient was to be given p.o. antibiotics. Condition at Discharge: Stable Final Diagnosis/Problems List This is a 59 yo female with known history of CHF, COPD, DM, Throid disease, kidney stone s/p renal stent who presents with body aches, chills. Patient found to have 1. Right-sided mild Hydronephrosis with a recent renal stent placement 2. Congestive heart failure currently not in exacerbation 3. COPD 4. Diabetes mellitus type 2 5. Thyroid disease Discharge Disposition: Home SNF Discharge Will this Physician continue t: No Discharge Instruct/Medications Diet: Cardiac 2g Na,low cholest Activity: No Restrictions, As Tolerated Follow Up/Referral: Follow up with the PCP in one week Follow up with Urology Pierce Salas in one week Medications: Augmentin as prescribed Discharge Statement: "Patient was advised to return to the ER or call 911 if any headaches, dizziness, shortness of breath, chest pain, abdominal pain, bleeding, fevers, or worsening of medical condition. Patient was counseled about treatment plan, medications, possible side effects, patientverbalized understanding. All questions were answered to the best of my ability. This discharge took greater then 30 minutes in planning, reviewing documentation, counseling the patient, and discussing with other team members." ASSESSMENT ASSESSMENT Assessment This is a 59 yo female with known history of CHF, COPD, DM, Throid disease, kidney stone s/p renal stent who presents with body aches, chills. Patient found to have 1. Right-sided mild Hydronephrosis with a recent renal stent placement 2. Congestive heart failure currently not in exacerbation 3. COPD 4. Diabetes mellitus type 2 5. Thyroid disease Date of Service: Dec 06, 2024 Billing Provider: XAVI BARRERA MD Common Visit Codes: NOT BILLABLE XAVI BARRERA MD Dec 06, 2024 16:23
== END 2024-12-06 18:30 | disposition home or self-care (01) | DRG 465 ==
LOC: EDBD 23:00 → ER 23:00 → OVERFLOW 12-04 01:29 → EAST 12-04 23:13 → TELE-EAST 12-06 18:12 → EAST 12-06 18:25
PROVIDERS: ADMIT Nurse Practitioner Family; ATTEND Nurse Practitioner Family
DX: N13.2 Hydronephrosis with renal and ureteral calculous obstruction (principal); G91.9 Hydrocephalus, unspecified; I50.32 Chronic diastolic (congestive) heart failure; I11.0 Hypertensive heart disease with heart failure; F15.10 Other stimulant abuse, uncomplicated; N15.1 Renal and perinephric abscess; E03.9 Hypothyroidism, unspecified; F17.210 Nicotine dependence, cigarettes, uncomplicated; E11.9 Type 2 diabetes mellitus without complications; J44.89 Other specified chronic obstructive pulmonary disease; K57.30 Diverticulosis of large intestine without perforation or abscess without bleeding; K76.0 Fatty (change of) liver, not elsewhere classified; Z87.442 Personal history of urinary calculi; Z83.3 Family history of diabetes mellitus; Z79.84 Long term (current) use of oral hypoglycemic drugs; Z79.51 Long term (current) use of inhaled steroids; Z79.4 Long term (current) use of insulin; Z79.899 Other long term (current) drug therapy
CPT/HCPCS: 36415; 74176; 76775; 80048; 80053; 81001; 82962; 83605; 83735; 83880; 84484; 85025; 85610; 86803; 87040; 87081; 87086; 87340; 94640; G0378; J1815

== ENCOUNTER 2024-12-23 10:01 | Inpatient (IN) | payer MEDICAID ==
[~2024-12-23] VITALS: Ht 157.5 cm; Wt 83.6 kg
[~2024-12-23 10:01] MED LIST changes: +AUG875T PO; +CARV12.544 PO; -CARV6.2517 PO; +CINA30TA14 PO; +FERR325T24 PO; +GLIP10TA9 PO; -GLIP5TAB21 PO; -METF-929 PO
[2024-12-23] MEDS: SODIUM CHLORIDE 0.9% 1,000 ML IV ONE ×2 (10:35→11:07)
--- NOTE | 2024-12-23 10:49 | ED.PDOC ---
HPI (NEURO) HPI Comments 59 y/o M, BIBA with PMHX of DM, kidney stones, CHF, and COPD presents to the ED for CC of generalized weakness. EMS states, patient is coming from home where reports patient not acting like herself and complaining of bilateral leg and back pain. Per EMS, patient was stating at 80% on room air upon arrival to scene and was tachycardiac in the 140s ; placed on 4L via NC. EMS relay, patient is answering questions appropriately; A&OX4 upon arrival to ED. No other associated symptoms, modifiers, recent injuries or sick contacts at this time. Chief Complaint: General Weakness Time Seen by MD: 10:10 Primary Care Provider: unknown Reviewed Notes: Nurses Notes, Medications, Allergies Information Source: Patient Mode of Arrival: EMS Severity: Moderate Headache Severity: None Timing: Hours Duration: Since onset Prehospital treatment: None Onset: At rest Circumstances: Spontaneous Symptoms: Weakness Before: Lethargic During: Awake History of: None Modifying factors: Nothing Associated Signs and Symptoms: Nausea, Vomiting, Weakness Past Medical History PAST MEDICAL HISTORY: CHF, COPD, DM, Kidney Stones, Thyroid Surgical History: Cholecystectomy, , Hysterectomy 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: 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 all BOTTLE INSPECTOR Hx Family History Family History: Reviewed,noncontributory to illness, No family hx of Cancer, No family hx of DM, No family hx of Heart jody, No family hx of HTN, No family hx ofKidney jody, No family hx of Liver jody, No family hx of Lung jody, No family hx of Stroke Social History Smoker: Cigarettes Alcohol: Denies ETOH Use Drugs: Denies Drug Use Lives In: Home Constitutional: denies: chills, diaphoresis, fatigue, fever, malaise, sweats, weakness, others EENTM: denies: blurred vision, double vision, ear bleeding, ear discharge, ear drainage, ear pain, ear ringing, eye pain, eye redness, hearing loss, mouth pain, mouth swelling, nasal discharge, nose bleeding, nose congestion, nose pain, photophobia, tearing, throat pain, throat swelling, voice changes, others Respiratory: denies: cough, hemoptysis, orthopnea, SOB at rest, shortness of breath, SOB with excertion, stridor, wheezing, others Cardiovascular: denies: chest pain, dizzy spells, diaphoresis, Dyspnea on exertion, edema, irregular heart beat, left arm pain, lightheadedness, palpitations, PND, syncope, others Gastrointestinal: reports: nausea, vomiting; denies: abdomen distended, abdominal pain, blood streaked bowels, constipated, diarrhea, dysphagia, difficulty swallowing, hematemesis, melena, poor appetite, poor fluid intake, rectal bleeding, rectal pain, others Genitourinary: denies: abnormal vagina bleeding, burning, dyspareunia, dysuria, flank pain, frequency, hematuria, incontinence, pain, , vagina discharge, urgency, others Neurological: denies: dizziness, fainting, headache, left sided numbness, left sided weakness, numbness, paresthesia, pre-existing deficit, right sided numbness, right sided weakness, seizure, speech problems, tingling, tremors, weakness, others Musculoskeletal: reports: back pain, others (bilateral leg pain'); denies: gout, joint pain, joint swelling, muscle pain, muscle stiffness, neck pain Integumetry: denies: bruises, change in color, change in hair/nails, dryness, laceration, lesions, lumps, rash, wounds, others Allergic/Immunocompromised: denies: Difficulty Healing, Frequent Infections, Hives, Itching, others Hematologic/Lymphatic: denies: anemia, blood clots, easy bleeding, easy bruising, swollen glands, others Endocrine: denies: excessive hunger, excessive sweating, excessive thirst, excessive urination, flushing, intolerance to cold, intolerance to heat, unexplained weight gain, unexplained weight loss, others Psychiatric: denies: anxiety, bipolar disorder, depression, hopeless, panic disorder, schizophrenia, sleepless, suicidal, others All Other Systems: Reviewed and Negative Physical Exam General Appearance: Moderate Distress HEENT: Normal ENT Inspection, Pharynx Normal, TMs Normal Neck: Full Range of Motion, Non-Tender, Normal, Normal Inspection Respiratory: Accessory Muscle Use, Respiratory Distress, Other (Coarse breath sounds) Cardiovascular: Tachycardia Breast Exam: Deferred Gastrointestinal: No Organomegaly, Non Tender, No Pulsatile Mass, Normal Bowel Sounds, Soft Genitalia: Deferred Pelvic: Deferred Rectal: Deferred Extremities: No calf tenderness, Normal capillary refill, Normal range of motion, Non-tender, No pedal edema Musculoskeletal : Apperance: Normal Neurologic: Alert, 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 Was a procedure done?: No Differential Diagnosis (SZ) Seizure: Psychogenic Seizure, Closed Head Injury, CVA/TIA General Weakness: Electrolyte imbalance, Hypotension, Other (UTI) X-Ray, Labs, Meds, VS Vital Signs Date Time Temp Pulse Resp B/P (MAP) Pulse Ox O2 Delivery O2 Flow Rate FiO2 12/23/24 13:00 111 24 102/69 (80) 94 12/23/24 11:19 98.5 119 20 124/68 (86) 93 98.5 12/23/24 10:50 Nasal Cannula* 4 36 12/23/24 10:12 134 12/23/24 10:09 102.5 136 34 129/58 (81) 91 102.5 Lab Test 12/23/24 13:40 12/23/24 11:54 12/23/24 10:57 12/23/24 10:40 Range/Units Lactic Acid Level Pending 3.4 *H 0.4-2.0 mmol/L Troponin I High Sensitivity 9 9 </=34 ng/L White Blood Count 10.9 H 4.4-10.8 10^3/uL Red Blood Count 4.20 4.0-5.20 10^6/uL Hemoglobin 12.6 12.2-16.2 g/dL Hematocrit 38.1 36.0-46.0 % Mean Corpuscular Volume 90.8 80.0-100.0 fL Mean Corpuscular Hemoglobin 30.1 28.0-32.0 pg Mean Corpuscular Hemoglobin Concent 33.1 32.0-36.0 g/dL Red Cell Distribution Width 16.3 H 11.8-14.3 % Platelet Count 321 140-450 10^3/uL Mean Platelet Volume 6.6 L 6.9-10.8 fL Neutrophils (%) (Auto) 37.0-80.0 % Lymphocytes (%) (Auto) 10.0-50.0 % Monocytes (%) (Auto) 0.0-12.0 % Basophils (%) (Auto) 0.0-2.0 % Neutrophils # (Auto) 1.6-8.6 10 ^3/uL Lymphocytes # (Auto) 0.4-5.4 10 ^3/uL Monocytes # (Auto) 0-1.3 10 ^3/uL Differential Total Cells Counted 100.0 100 Neutrophils % (Manual) 94 H 37.0-80.0 Band Neutrophils % (Manual) 0 Lymphocytes % (Manual) 3 L 10.0-50.0 Monocytes % (Manual) 2 0-12 Eosinophils % (Manual) 1 0-7 Basophils % (Manual) 0 0.0-2.0 Metamyelocytes % (manual) 0 Myelocytes % (Manual) 0 Promyelocytes % (Manual) 0 Blast Cells % (Manual) 0 Reactive Lymphocytes 0 Platelet Estimate Adequate Sodium Level 139 136-145 mmol/L Potassium Level 3.7 3.5-5.1 mmol/L Chloride Level 107 98-107 mmol/L Carbon Dioxide Level 25 20-31 mmol/L Anion Gap 7 5-15 Blood Urea Nitrogen 17 9-23 mg/dL Creatinine 0.94 0.550-1.02 mg/dL Glomerular Filtration Rate Calc 69 >90 mL/min BUN/Creatinine Ratio 18.1 10.0-20.0 Serum Glucose 208 H 74-106 mg/dL Calcium Level 9.9 8.7-10.4 mg/dL Urine Color Light-yellow Yellow Urine Clarity Turbid H Clear Urine pH 6.0 5.0-9.0 Urine Specific [place] 1.020 1.001-1.035 Urine Protein Trace H Negative Urine Ketones Negative Negative Urine Blood 1+ H Negative /uL Urine Nitrite 2+ H Negative Urine Bilirubin Negative Negative Urine Urobilinogen Normal Negative mg/dL Urine Leukocyte Esterase 3+ Negative /uL Urine RBC 13 0 - 4 /hpf Urine Microscopic WBC 161 H 0-5 /HPF Urine Squamous Epithelial Cells Few <5 /hpf Urine Bacteria Few H None Seen /hpf Urine Mucus Few None Seen Urine Glucose 1+ H Normal mg/dL Current Medications Medications (Trade) Dose Ordered Sig/Rajni Route Start Time Stop Time Status Last Admin Sodium Chloride 1,000 ml @ 1,000 mls/hr Q1H ONCE IV 12/23/24 10:30 12/23/24 11:29 DC 12/23/24 10:35 Sodium Chloride 1,000 ml @ 150 mls/hr Q6H40M ONCE IV 12/23/24 10:30 12/23/24 17:09 12/23/24 11:07 Ceftriaxone Sodium 50 ml @ 100 mls/hr ONCE ONCE IV 12/23/24 10:30 12/23/24 10:59 DC 12/23/24 11:07 Azithromycin 250 ml @ 125 mls/hr ONCE ONCE IV 12/23/24 10:30 12/23/24 12:29 DC 12/23/24 11:48 [place] [address] Ph: [phone] DIAGNOSTIC IMAGING Diagnostic Imaging Report : [id number] Signed PATIENT: RICA WHEATLEY ACCT: [id number] UNIT: [id number] : 1965 LOC: ER ROOM / BED: / AGE / SEX: 59 / F ADM STATUS: REG ER SERVICE 1026 ORDERING PHYSICIAN: RAMON CORRIGAN MD PROCEDURE(s): CXRP - CHEST PORTABLE REASON: sob ORDER NUMBER(s): [id number], ACCESSION NUMBER(s): [id number] CHEST RADIOGRAPH Indication: sob Technique: Single frontal view of the chest was obtained COMPARISON: XY CHEST PORTABLE on DOS: 10/29/24, XY CHEST XRAY 1 VIEW on DOS: 10/08/24, XY CHEST PORTABLE on DOS: 06/09/24, XY CHEST PORTABLE on DOS: 02/29/24, XY CHEST PORTABLE on DOS: 02/27/24 FINDINGS: Lines and Tubes: None Lungs: Multifocal airspace disease Pleura: No effusion. No pneumothorax. Cardiomediastinal contours: Unremarkable Bones: Unremarkable IMPRESSION: Pulmonary vascular congestion ATED BY: ALPHONSE HERNANDEZ MD DICTATED DATE/TIME: 12/23/24 1105 SIGNED BY: ALPHONSE HERNANDEZ MD SIGNED DATE/TIME: 12/23/24 110 CC: Patient alert. Complaining of shortness a breath. She is tachycardic. Placed on oxygen. Sepsis protocol. Establish intravenous access. Was given fluids. Was given Rocephin. Was given azithromycin. EKG reviewed does show tachycardia. Explained to the patient. Continue cardiac monitoring. Time of 1ST Reevaluation: 10:40 Reevaluation 1ST: Unchanged Patient Education/Counseling: Diagnosis, Treatment Family Education/Counseling: No Family Present Departure 1 Departure Time of Disposition: 11:17 Impression: Primary Impression: Sepsis, unspecified organism Qualified Codes: A41.9 - Sepsis, unspecified organism Additional Impressions: COPD exacerbation Acute respiratory failure Qualified Codes: J96.01 - Acute respiratory failure with hypoxia Disposition: 09 ADMITTED INPATIENT Admit to: Med Surg Condition: Guarded Critical Care Note Critical Care Time?: Yes (90 min-critical care time only) Critical care comment: Placed on oxygen Stability Stability form required: No Heart Score Heart Score: Heart Score Response (Comments) Value History Slightly Suspicious 0 EKG Normal 0 Age 45-64 1 Risk Factors >3 or Hx ASHD 2 Troponin Normal limit 0 Total 3 I personally scribed for RAMON CORRIGAN MD ([email or web address]) on 12/23/24 at 10:49. Electronically submitted by Audrey Long ([employer]). I personally scribed for RAMON CORRIGAN MD ([email or web address]) on 12/23/24 at 13:55. Electronically submitted by Audrey Long ([email or web address]). I personally scribed for RAMON CORRIGAN MD ([email or web address]) on 12/23/24 at 14:02. Electronically submitted by Audrey Long ([email or web address]). RAMON CORRIGAN MD Dec 23, 2024 10:49
[2024-12-23 11:05] LABS: Hematocrit 38.1 % (36.0-46.0); Hemoglobin 12.6 g/dL (12.2-16.2); Mean Corpuscular Hemoglobin 30.1 pg (28.0-32.0); Mean Corpuscular Hgb Conc. 33.1 g/dL (32.0-36.0); Mean Corpuscular Volume 90.8 fL (80.0-100.0); Platelet Count (auto) 321 10^3/uL (140-450); Red Cell Distribution Width 16.3 % (11.8-14.3); White Blood Cell 10.9 10^3/uL (4.4-10.8)
[2024-12-23] MEDS: cefTRIAXone 1GM/50ML D5W 50 ML IV ONE (11:07)
--- NOTE | 2024-12-23 11:07 | DVH ---
CHEST RADIOGRAPH Indication: sob Technique: Single frontal view of the chest was obtained COMPARISON: XY CHEST PORTABLE on DOS: 10/29/24, XY CHEST XRAY 1 VIEW on DOS: 10/08/24, XY CHEST PORTABLE on DOS: 06/09/24, XY CHEST PORTABLE on DOS: 02/29/24, XY CHEST PORTABLE on DOS: 02/27/24 FINDINGS: Lines and Tubes: None Lungs: Multifocal airspace disease Pleura: No effusion. No pneumothorax. Cardiomediastinal contours: Unremarkable Bones: Unremarkable IMPRESSION: Pulmonary vascular congestion
[2024-12-23 11:15] LABS: Urine Bacteria FEW /hpf (None Seen); Urine Blood 1+ /uL (Negative); Urine Clarity Turbid (Clear); Urine Color Light-Yellow (Yellow); Urine Mucus FEW (None Seen); Urine Protein, UAD TRACE (Negative); Urine Squamous Epithelial Cell FEW /hpf (<5); Urine Urobilinogen Normal (Negative); Urine WBC 161 /HPF (0-5)
[2024-12-23 11:16] LABS: Potassium 3.7 mmol/L (3.5-5.1); Sodium 139 mmol/L (136-145)
[2024-12-23 11:17] LABS: Anion Gap 7 (5-15); Calcium 9.9 mg/dL (8.7-10.4); Carbon Dioxide 25 mmol/L (20-31)
[2024-12-23 11:22] LABS: BUN/Creatinine Ratio 18.1 (10.0-20.0); Band Neutrophils % (manual) 0; Basophils % (manual) 0 (0.0-2.0); Blast Cells 0; Blood Urea Nitrogen 17 mg/dL (9-23); Metamyelocytes % 0; Myelocytes % 0; Promyelocytes % 0; Reactive Lymphocytes 0
[2024-12-23 11:24] LABS: Chloride 107 mmol/L (98-107); Glucose 208 mg/dL (74-106)
[2024-12-23 11:43] LABS: Lactic Acid w/Reflex 3.4 mmol/L (0.4-2.0)
[2024-12-23 11:45] LABS: Eosinophils % (manual) 1 (0-7); Lymphocytes % (manual) 3 (10.0-50.0); Monocytes % (manual) 2 (0-12); Platelet Estimate Adequate
[2024-12-23] MEDS: AZITHROMYCIN 500MG/ 250ML 250 ML IV ONE (11:48)
--- NOTE | 2024-12-23 15:58 | DVHHP2 ---
History of Present Illness Reason for Visit: Generalized weakness and flank pain History of Present Illness 59 y/o M, BIBA with PMHX of DM, kidney stones, CHF, and COPD presents to the ED for CC of generalized weakness. EMS states, patient is coming from home where reports patient not acting like herself and complaining of bilateral leg and back pain. Per EMS, patient was stating at 80% on room air upon arrival to scene and was tachycardiac in the 140s ; placed on 4L via NC. EMS relay, patient is answering questions appropriately; A&OX4 upon arrival to ED. No other associated symptoms, modifiers, recent injuries or sick contacts at this time. Her urinalysis showed a urinary tract infection. Lactic acid is mildly elevated. Given her complaints with these abnormalities and given history of ureteral stent placement she is being admitted to the hospital for further evaluation and management. Past Medical History CHF, COPD, DM, Kidney Stones with a history of ureteral stent placement, Thyroid Past Surgical History Ureteral stent placement history Smoke: No ALCOHOL: rare Lives: with Family Review of Systems Review of Systems No fevers chills or sweats. No headache dizziness or lightheadedness. No chest pain shortness for breath. Other review of systems reviewed normal. Allergies: Coded Allergies: Nitroglycerin (Verified Allergy, Unknown, 02/17/10) Medications Current Medications Medications Dose Ordered Sig/Rajni Route Start Time Stop Time Status Last Admin Dose Admin Morphine Sulfate 2 mg Q30M PRN IV 12/23/24 15:45 UNV Albuterol 108 mcg TID IN 12/23/24 22:00 UNV Atorvastatin Calcium 20 mg HS PO 12/23/24 22:00 UNV Carvedilol 12.5 mg BID PO 12/23/24 22:00 UNV Cinacalcet 30 mg DAILY PO 12/24/24 10:00 UNV Patient Own Medication 1 tab DAILY PO 12/24/24 10:00 UNV Exam Vital Signs Vital Signs Date Time Temp Pulse Resp B/P (MAP) Pulse Ox O2 Delivery O2 Flow Rate FiO2 12/23/24 15:03 97.6 101 23 97/56 (70) 93 97.6 12/23/24 10:50 Nasal Cannula* 4 36 Exam Alert awake oriented to place and person comfortable lying in bed. Appears tired. HEENT pupils equal round react to light. Neck supple no JVD. Heart sinus tachycardia S1 plus S2 no murmurs. Chest tube will expansion. Lungs fair air movement with audible wheezing. Abdomen is obese soft no tenderness to palpation. Positive active bowel sounds. No rebound or guarding. Extremities no edema positive pulses Labs/Xrays Labs Test 12/23/24 13:40 12/23/24 11:54 12/23/24 10:57 12/23/24 10:40 Range/Units Lactic Acid Level 1.7 0.4-2.0 mmol/L Troponin I High Sensitivity 9 </=34 ng/L White Blood Count 10.9 H 4.4-10.8 10^3/uL Red Blood Count 4.20 4.0-5.20 10^6/uL Hemoglobin 12.6 12.2-16.2 g/dL Hematocrit 38.1 36.0-46.0 % Mean Corpuscular Volume 90.8 80.0-100.0 fL Mean Corpuscular Hemoglobin 30.1 28.0-32.0 pg Mean Corpuscular Hemoglobin Concent 33.1 32.0-36.0 g/dL Red Cell Distribution Width 16.3 H 11.8-14.3 % Platelet Count 321 140-450 10^3/uL Mean Platelet Volume 6.6 L 6.9-10.8 fL Neutrophils (%) (Auto) 37.0-80.0 % Lymphocytes (%) (Auto) 10.0-50.0 % Monocytes (%) (Auto) 0.0-12.0 % Basophils (%) (Auto) 0.0-2.0 % Neutrophils # (Auto) 1.6-8.6 10 ^3/uL Lymphocytes # (Auto) 0.4-5.4 10 ^3/uL Monocytes # (Auto) 0-1.3 10 ^3/uL Differential Total Cells Counted 100.0 100 Neutrophils % (Manual) 94 H 37.0-80.0 Band Neutrophils % (Manual) 0 Lymphocytes % (Manual) 3 L 10.0-50.0 Monocytes % (Manual) 2 0-12 Eosinophils % (Manual) 1 0-7 Basophils % (Manual) 0 0.0-2.0 Metamyelocytes % (manual) 0 Myelocytes % (Manual) 0 Promyelocytes % (Manual) 0 Blast Cells % (Manual) 0 Reactive Lymphocytes 0 Platelet Estimate Adequate Sodium Level 139 136-145 mmol/L Potassium Level 3.7 3.5-5.1 mmol/L Chloride Level 107 98-107 mmol/L Carbon Dioxide Level 25 20-31 mmol/L Anion Gap 7 5-15 Blood Urea Nitrogen 17 9-23 mg/dL Creatinine 0.94 0.550-1.02 mg/dL Glomerular Filtration Rate Calc 69 >90 mL/min BUN/Creatinine Ratio 18.1 10.0-20.0 Serum Glucose 208 H 74-106 mg/dL Calcium Level 9.9 8.7-10.4 mg/dL Urine Color Light-yellow Yellow Urine Clarity Turbid H Clear Urine pH 6.0 5.0-9.0 Urine Specific [place] 1.020 1.001-1.035 Urine Protein Trace H Negative Urine Ketones Negative Negative Urine Blood 1+ H Negative /uL Urine Nitrite 2+ H Negative Urine Bilirubin Negative Negative Urine Urobilinogen Normal Negative mg/dL Urine Leukocyte Esterase 3+ Negative /uL Urine RBC 13 0 - 4 /hpf Urine Microscopic WBC 161 H 0-5 /HPF Urine Squamous Epithelial Cells Few <5 /hpf Urine Bacteria Few H None Seen /hpf Urine Mucus Few None Seen Urine Glucose 1+ H Normal mg/dL Assessment/Plan Assessment/Plan Acute urinary tract infection with a history of ureteral stent History of ureteral stone status post stent placement which apparently to be removed in January by urologist Dr. Salas COPD Morbid obesity with BMI 34 Diabetes mellitus type 2 poorly controlled Hypertension Given her tachycardia with the elevated lactic acidosis and history of ureteral stent with a UTI we will admit her to telemetry floor. We will give her aggressive IV hydration. Repeat lactic acid level. Empiric broad-spectrum IV antibiotics. Blood and urine cultures were sent from ER which will be followed. We will have urology consultation to see if patient could have her ureteral stent removed. Meantime we will have a dedicated CT of the abdomen pelvis with IV contrast done two assess the patency of the ureteral stent. Meantime continue sliding scale insulin and home medications for her chronic medical problems. Follow the labs in the morning. Continue rest of supportive care and treatment. DVT GI prophylaxis. Otherwise her further clinical management will depend on her clinical course and pending evaluations studies. Discussed with the patient at bedside regarding her care plan. Plan discussed with: Patient My Orders Orders - VJ ELIZALDE MD Procedure Category Date Status Time Admit ADMIT 12/23/24 Transmitted 15:44 Consistent DIET 12/23/24 Transmitted Carb(Ccho)Diabetes Dinner * Urology Consult CONS 12/23/24 Transmitted 15:44 Morphine Sulfate PHA 12/23/24 Logged Injection 15:45 Stat Ekg For Chest ETA 12/23/24 In Process Pain 15:44 Notify Of Changes TEA 12/23/24 In Process From Base 15:44 Senior Talent Management Consultant For TEA 12/23/24 In Process 24 Hours 15:44 Emergency Dysrhythmia TEA 12/23/24 In Process Protocol 15:44 Rhythm Strips Once TEA 12/23/24 In Process Every Shift 15:44 Oxygen By Nasal RT 12/23/24 Transmitted Cannula 15:44 Albuterol Inhaler PHA 12/23/24 Logged (Ventolin Hfa) 22:00 Atorvastatin (Lipitor) PHA 12/23/24 Logged 22:00 Carvedilol Tablet PHA 12/23/24 Logged (Coreg Tablet) 22:00 Cinacalcet PHA 12/24/24 Logged Hydrochloride 10:00 (Nf) Levothyroxine PHA 12/24/24 Logged Sodium 10:00 Glucose Blood PHA 12/23/24 Logged (Accu-Chek Comfort 18:00 Insulin R (Human) PHA 12/23/24 Logged (Insulin R) 18:00 Dextrose 50% Syringe PHA 12/23/24 Logged 16:00 Meropenem 1gm Ivpb PHA 12/23/24 Logged (Merrem 1gm/ Ns) 22:00 Vancomycin Per PHA 12/23/24 Logged Pharmacy 16:00 Ondansetron Hcl PHA 12/23/24 Logged (Zofran) 16:00 Morphine Sulfate PHA 12/23/24 Logged Injection 16:00 NS PHA 12/23/24 Transmitted 16:00 Acetaminophen Tablet PHA 12/23/24 Transmitted (Tylenol Tablet) 16:00 Famotidine Tablet PHA 12/24/24 Transmitted (Pepcid Tablet) 10:00 Enoxaparin Sodium PHA 12/24/24 Transmitted (Lovenox) 10:00 Hydrocodone-Acet PHA 12/23/24 Transmitted 5/325mg Tab ([place] 16:00 Comprehensive LAB 12/24/24 Verified Metabolic Panel 04:00 Complete Blood Count LAB 12/24/24 Verified 04:00 Lactic Acid W/ Reflex LAB 12/24/24 Verified Order 04:00 VJ ELIZALDE MD Dec 23, 2024 15:58
[2024-12-23] MEDS ORDERED: HYDROcodone-ACET 5/325MG TAB PO PRN (16:00)
[2024-12-23] MEDS ORDERED: DEXTROSE (50%) 50ML SYRG IV PRN (16:00)
[2024-12-23] MEDS ORDERED: ONDANSETRON HCL 4 MG/2 ML VIAL IV PRN (16:00)
[2024-12-23] MEDS ORDERED: VANCOMYCIN PER PHARMACY 0 MG IV SCH (16:00)
[2024-12-23] MEDS ORDERED: ACETAMINOPHEN 325 MG TAB PO PRN (16:00)
[2024-12-23 16:08] VITALS: PULSE 101; RESP 25; O2SAT 97
[2024-12-23] MEDS: GASTROGRAFIN 30 ML SOL ONE (16:44)
[2024-12-23] MEDS: SODIUM CHLORIDE 0.9% 1,000 ML IV SCH (17:03)
[2024-12-23] MEDS: VANCOMYCIN 1.5GM/300ML 300 ML IV ONE (17:12)
[2024-12-23] MEDS: IOHEXOL 300 MG/ML 100ML BOTTLE IJ ONE (17:16)
--- NOTE | 2024-12-23 18:14 | DVH ---
Exam: CT CT AB PEL WITH IV CON ONLY History: abdopain with hx of ureteral stent Comparison Study: 12/03/2024 TECHNIQUE: Multidetector CT of the abdomen and pelvis with IV contrast. Axial, coronal and sagittal m ultiplanar reformats were obtained from the axial data set by the technologist. Radiation Dose Information: CT Dose: CTDI volume is 23.73 mGy. Dose-length product is 1115.85 mGy*cm FINDINGS: Bibasilar atelectasis. Partially visualized heart is unremarkable. Mild hepatomegaly with hepatic steatosis. Spleen, pancreas and adrenal glands unremarkable. The gall bladder is not visualized and may be contracted or surgically absent. 4.2 cm exophytic left renal hypodense lesion which does not measure simple fluid. 2 cm right renal up per pole cyst. Redemonstration of 3.8 cm right renal lower pole cystic lesion with thickened wall, un changed in size from 12/03/2024 , but new from 10/18/2024. Mild uwoui-nuvjipi-cvzx-left perinephric fat stranding. Mild right hydronephrosis. Nonobstructing rig ht renal lower pole calculus largest measuring up to 1 cm. Right-sided approach double-J stent proximal end within the right renal pelvis and the distal end wit hin the urinary bladder. There are multiple foci of air within the right renal interpolar region and lower pole calyces. The left kidney and ureter unremarkable. Urinary bladder is decompressed sena c atheter in place and focus of air within the urinary bladder. Mild gastric wall thickening. Fluid-filled nondistended small bowel segment within the left hemiabdo men demonstrating mild wall thickening. Otherwise, the small bowel loops unremarkable. Sigmoid divert iculosis without diverticulitis. Appendix is unremarkable. Large amount of fecal material within the ascending and transverse colons small to moderate amount of fecal material within the remainder of th e colon. No evidence of intraperitoneal free air or free fluid. No evidence of aortic aneurysm or dissection. Moderate atherosclerotic calcification of the aorta an d bilateral iliacs. No significant lymphadenopathy. Small fat containing umbilical hernia. No acute osseous abnormalities. Moderate to severe degenerativ e changes of the lumbar spine. Multilevel endplate Schmorl nodes. IMPRESSION: Mild nonspecific asymmetric right-sided perinephric fat stranding which may be from the mild right hy dronephrosis with underlying infectious process not excluded. Nonobstructing right renal calculi. Right-sided double-J stent is noted. Foci of air within the right renal pelvis calyces which may be i atrogenic with emphysematous pyelitis /pyelonephritis not excluded. Redemonstration of right renal cyst with a right lower pole cystic structure with thickened wall alex uring up to 3.8 cm, new from 10/18/2024 and unchanged in size from 12/03/2024 which may represent an abscess. 2 cm left renal exophytic hypodense lesion which does not measure simple fluid. Colonic diverticulosis without diverticulitis. Moderate to large amount of fecal material within the colon. Mild wall thickening of the stomach and segment of small bowel within the left hemiabdomen. Correlat e for possible gastroenteritis.
[2024-12-23] MEDS: ACCU-CHEK COMFORT CURVE STRIP VI SCH (18:29)
[2024-12-23 18:30] VITALS: BP 120/65; PULSE 103; PULSE 107; RESP 20; TEMP 98.1; O2SAT 94; O2SAT 95
[2024-12-23] MEDS: InsuLIN REG 1unit/0.01ml Soln (100units/ml) SC SCH (18:30)
[2024-12-23 18:31] VITALS: BP 120/65; PULSE 107; RESP 20; TEMP 98.1; O2SAT 95
[2024-12-23 18:36] VITALS: PULSE 100; RESP 18; O2SAT 100
--- NOTE | 2024-12-23 18:50 | ECG ---
[facility] Test Date: 2024-12-23 Test Time: 10:12:25 Pat Name: RICA WHEATLEY Department: ER Room: 0235T Gender: F Pet Nutrition Specialist: : 1965 Requested By: RAMON CORRIGAN Order Number: [id number] Reading MD: Chauncey Ndiaye Measurements Intervals [place] Rate: 134 P: 37 NM: 125 QRS: 25 QRSD: 92 T: 46 QT: 298 QTc: 445 Interpretive Statements Sinus tachycardia Baseline wander in lead(s) V2,V6 Electronically Signed On 12-25-2024 17:32:59 PDT by Chauncey Ndiaye Please click the below link to view image of tracing.
[2024-12-23] MEDS: IPRATROPIUM BROM 0.5 MG/2.5ML INH SOL NEB SCH (19:00)
[2024-12-23] MEDS: ALBUTEROL SULF 2.5 MG/0.5ML(0.5%) NEB SOLN NEB SCH (19:00)
[2024-12-23 20:00] VITALS: PULSE 100; RESP 20; O2SAT 98
[2024-12-23 21:00] VITALS: BP 121/59; PULSE 100; RESP 20; TEMP 97.1; O2SAT 98
[2024-12-23] MEDS: ATORVASTATIN 20 MG TAB PO SCH (21:45)
[2024-12-23] MEDS: CARVEDILOL 12.5 MG TAB PO SCH (21:46)
[2024-12-23] MEDS: MEROPENEM 1GM IVPB 50 ML IV SCH (21:56)
[2024-12-23] MEDS ORDERED: ALBUTEROL SULF HFA 90MCG INH 200DOSE IN SCH (22:00)
[2024-12-24] VITALS (14 sets, daily range): BP systolic 90–106; BP diastolic 43–69; PULSE 80–94; RESP 16–20; TEMP 97.9–98.3; O2SAT 83–100
[2024-12-24] MEDS: VANCOMYCIN 750MG KIT 100 ML IV SCH (04:18)
[2024-12-24] MEDS: LEVOTHYROXINE SODIUM 25 MCG TAB PO SCH (06:00)
[2024-12-24] MEDS: LEVOTHYROXINE SODIUM 112 MCG TAB PO SCH (06:00)
[2024-12-24 06:01] LABS: Basophils # (auto) 0 10 ^3/uL (0-0.2); Basophils % (auto) 0.4 % (0.0-2.0); Eosinophils # (auto) 0.2 10 ^3/uL (0-0.8); Hematocrit 33.6 % (36.0-46.0); Hemoglobin 11.2 g/dL (12.2-16.2); Lymphocytes # (auto) 1.5 10 ^3/uL (0.4-5.4); Lymphocytes % (auto) 17.1 % (10.0-50.0); Mean Corpuscular Hemoglobin 30.3 pg (28.0-32.0); Mean Corpuscular Hgb Conc. 33.2 g/dL (32.0-36.0); Mean Corpuscular Volume 91.3 fL (80.0-100.0); Monocytes # (auto) 0.6 10 ^3/uL (0-1.3); Monocytes % (auto) 7.3 % (0.0-12.0); Neutrophils # (auto) 6.4 10 ^3/uL (1.6-8.6); Neutrophils % (auto) 73.2 % (37.0-80.0); Platelet Count (auto) 277 10^3/uL (140-450); Red Blood Cells 3.68 10^6/uL (4.0-5.20); Red Cell Distribution Width 15.8 % (11.8-14.3); White Blood Cell 8.8 10^3/uL (4.4-10.8)
[2024-12-24 06:31] LABS: Potassium 3.5 mmol/L (3.5-5.1); Sodium 141 mmol/L (136-145)
[2024-12-24 06:37] LABS: Calcium 10.1 mg/dL (8.7-10.4); Carbon Dioxide 23 mmol/L (20-31)
[2024-12-24 06:41] LABS: Alkaline Phosphatase 98 U/L (46-116)
[2024-12-24 06:42] LABS: Glucose 137 mg/dL (74-106)
[2024-12-24 06:43] LABS: Anion Gap 8 (5-15); Chloride 110 mmol/L (98-107); Total Protein 6.4 g/dL (5.7-8.2)
[2024-12-24 06:44] LABS: Alanine Aminotransferase 24 U/L (7-40); Albumin 3.5 g/dL (3.2-4.8); Aspartate Aminotransferase 25 U/L (13-40); Bilirubin, Total 0.4 mg/dL (0.2-1.0)
[2024-12-24 06:47] LABS: BUN/Creatinine Ratio 15.4 (10.0-20.0); Blood Urea Nitrogen 10 mg/dL (9-23)
[2024-12-24] MEDS: CINACALCET HYDROCHLORIDE 30 MG TAB PO SCH (10:00)
--- NOTE | 2024-12-24 10:00 | DVHINCON2 ---
Date of service: Dec 24, 2024 History of Present Illness History Source: Patient, RN Notes, MD Notes, Old Records Exam Limitations: No limitations HPI 59 yo female known to urology service for right renal stone requiring PCNL 10/08/24 and subsequent stent placement 11/11/24. She was to have outpt lithotripsy for residual stones and stent removal. She has not followed up to date. Home Meds Active Scripts Amoxicillin & Pot Clavulanate (AUGMENTIN TABLET) 875 Mg Tb, 875 MG PO BID for 5 Days, #10 TAB Prov:XAVI BARRERA MD 12/06/24 Albuterol Sulfate (Albuterol Sulfate Hfa) 108 Mcg/Act Aer, 108 MCG IN TID, #1 AER Prov:VJ ELIZALDE MD 10/31/24 Fluticasone-Salmeterol (Advair Diskus 500/50) 1 Puff Ih, 1 PUFF INH BID, #1 IN HALER Prov:VJ ELIZALDE MD 10/31/24 Reported Medications Ferrous Sulfate (Ferrous Sulfate) 325 Mg Tab, 325 MG PO DAILY for 30 Days, MG 12/05/24 Carvedilol (Carvedilol) 12.5 Mg Tab, 12.5 MG PO BID for 30 Days, MG 12/05/24 Cinacalcet HCl (Cinacalcet Hydrochloride) 30 Mg Tab, 30 MG PO DAILY, TAB 12/05/24 Glipizide (Glipizide) 10 Mg Tab, 10 MG PO DAILY for 30 Days, MG 12/05/24 Docusate Sodium (Colace) 100 Mg Cap, 1 CAP PO BID, #30 CAP 10/30/24 Semaglutide (Ozempic) 2 Mg/3 Ml Inj, 0.5 MG SC QWEEKLY 02/23/24 Atorvastatin Calcium (ATORVASTATIN CALCIUM) 20 Mg Tab, 1 TAB PO HS, #30 TAB 5 Refills 07/14/16 Furosemide (Lasix) 20 Mg Tb, 1 TAB PO BID, #90 TAB 1 Refill 07/14/16 Levothyroxine Sodium (Levothyroxine Sodium) 137 Mcg Tab, 1 TAB PO DAILY, #30 TAB 5 Refills 07/14/16 Potassium Chloride (Klor-Con M20) 20 Meq Tab, 20 MEQ PO DAILY 02/17/10 Albuterol Sulfate (Albuterol Sulfate) 0.5 % Neb, 0.5 ML NEB PRN 02/15/10 Past Medical History Cardiac: HTN Pulmonary: COPD Patient Family History: Kidney stones G8 MOTHER G8 FATHER H&P Exam Vital Signs Vital Signs Date Time Temp Pulse Resp B/P (MAP) Pulse Ox O2 Delivery O2 Flow Rate FiO2 12/24/24 07:15 92 16 100 12/24/24 07:08 Nasal Cannula 2.0 12/24/24 07:08 28 12/24/24 05:00 97.9 90/43 (59) 97.9 General Appeara: Well developed, Well nourished, Normal Appearance, Obese Neuro/Mental St: Alert, Oriented Appearance: Appropriate appearance, Appropriate insight Eye contact/ Speech: Cooperative, Good eye contact, Normal speech Skin Exam: Normal inspection, Normal color, Warm/dry Labs/Xrays [place] [address] Ph: [phone] DIAGNOSTIC IMAGING Diagnostic Imaging Report : [id number] Signed PATIENT: RICA WHEATLEY ACCT: [id number] UNIT: [id number] : 1965 LOC: [facility] ROOM / BED: [id number] / 2 AGE / SEX: 59 / F ADM STATUS: ADM IN SERVICE 1644 ORDERING PHYSICIAN: VJ ELIZALDE MD PROCEDURE(s): ABPLIV - CT AB PEL WITH IV CON ONLY REASON: abdopain with hx of ureteral stent ORDER NUMBER(s): [id number], ACCESSION NUMBER(s): [id number] Exam: CT CT AB PEL WITH IV CON ONLY History: abdopain with hx of ureteral stent Comparison Study: 12/03/2024 TECHNIQUE: Multidetector CT of the abdomen and pelvis with IV contrast. Axial, coronal and sagittal multiplanar reformats were obtained from the axial data set by the technologist. Radiation Dose Information: CT Dose: CTDI volume is 23.73 mGy. Dose-length product is 1115.85 mGy*cm FINDINGS: Bibasilar atelectasis. Partially visualized heart is unremarkable. Mild hepatomegaly with hepatic steatosis. Spleen, pancreas and adrenal glands unremarkable. The gallbladder is not visualized and may be contracted or surgically absent. 4.2 cm exophytic left renal hypodense lesion which does not measure simple fluid. 2 cm right renal upper pole cyst. Redemonstration of 3.8 cm right renal lower pole cystic lesion with thickened wall, unchanged in size from 12/03/2024 , but new from 10/18/2024. Mild bxxjf-[id number]-wcac-left perinephric fat stranding. Mild right hydronephrosis. Nonobstructing right renal lower pole calculus largest measuring up to 1 cm. Right-sided approach double-J stent proximal end within the right renal pelvis and the distal end within the urinary bladder. There are multiple foci of air within the right renal interpolar region and lower pole calyces. The left kidney and ureter unremarkable. Urinary bladder is decompressed sena catheter in place and focus of air within the urinary bladder. Mild gastric wall thickening. Fluid-filled nondistended small bowel segment within the left hemiabdomen demonstrating mild wall thickening. Otherwise, the small bowel loops unremarkable. Sigmoid diverticulosis without diverticulitis. Appendix is unremarkable. Large amount of fecal material within the ascending and transverse colons small to moderate amount of fecal material within the remainder of the colon. No evidence of intraperitoneal free air or free fluid. No evidence of aortic aneurysm or dissection. Moderate atherosclerotic calcification of the aorta and bilateral iliacs. No significant lymphadenopathy. Small fat containing umbilical hernia. No acute osseous abnormalities. Moderate to severe degenerative changes of the lumbar spine. Multilevel endplate Schmorl nodes. IMPRESSION: Mild nonspecific asymmetric right-sided perinephric fat stranding which may be from the mild right hydronephrosis with underlying infectious process not excluded. Nonobstructing right renal calculi. Right-sided double-J stent is noted. Foci of air within the right renal pelvis calyces which may be iatrogenic with emphysematous pyelitis /pyelonephritis not excluded. Redemonstration of right renal cyst with a right lower pole cystic structure with thickened wall measuring up to 3.8 cm, new from 10/18/2024 and unchanged in size from 12/03/2024 which may represent an abscess. 2 cm left renal exophytic hypodense lesion which does not measure simple fluid. Colonic diverticulosis without diverticulitis. Moderate to large amount of fecal material within the colon. Mild wall thickening of the stomach and segment of small bowel within the left hemiabdomen. Correlate for possible gastroenteritis. ATED BY: RADHA BUCKLEY DO DICTATED DATE/TIME: 12/23/241811 SIGNED BY: RADHA BUCKLEY DO SIGNED DATE/TIME: 12/23/241811 CC: Labs Test 12/24/24 05:58 12/24/24 05:35 12/23/24 11:54 12/23/24 10:57 Range/Units POC Glucose 145 H 70-106 mg/dl White Blood Count 8.8 4.4-10.8 10^3/uL Red Blood Count 3.68 L 4.0-5.20 10^6/uL Hemoglobin 11.2 L 12.2-16.2 g/dL Hematocrit 33.6 #L 36.0-46.0 % Mean Corpuscular Volume 91.3 80.0-100.0 fL Mean Corpuscular Hemoglobin 30.3 28.0-32.0 pg Mean Corpuscular Hemoglobin Concent 33.2 32.0-36.0 g/dL Red Cell Distribution Width 15.8 H 11.8-14.3 % Platelet Count 277 140-450 10^3/uL Mean Platelet Volume 6.9 6.9-10.8 fL Neutrophils (%) (Auto) 73.2 37.0-80.0 % Lymphocytes (%) (Auto) 17.1 10.0-50.0 % Monocytes (%) (Auto) 7.3 0.0-12.0 % Eosinophils (%) (Auto) 2.0 0.0-7.0 % Basophils (%) (Auto) 0.4 0.0-2.0 % Neutrophils # (Auto) 6.4 1.6-8.6 10 ^3/uL Lymphocytes # (Auto) 1.5 0.4-5.4 10 ^3/uL Monocytes # (Auto) 0.6 0-1.3 10 ^3/uL Eosinophils # (Auto) 0.2 0-0.8 10 ^3/uL Basophils # (Auto) 0 0-0.2 10 ^3/uL Nucleated Red Blood Cells 0.0 % Sodium Level 141 136-145 mmol/L Potassium Level 3.5 3.5-5.1 mmol/L Chloride Level 110 H 98-107 mmol/L Carbon Dioxide Level 23 20-31 mmol/L Anion Gap 8 5-15 Blood Urea Nitrogen 10 9-23 mg/dL Creatinine 0.65 # 0.550-1.02 mg/dL Glomerular Filtration Rate Calc 100 >90 mL/min BUN/Creatinine Ratio 15.4 10.0-20.0 Serum Glucose 137 H 74-106 mg/dL Lactic Acid Level 0.8 0.4-2.0 mmol/L Calcium Level 10.1 8.7-10.4 mg/dL Total Bilirubin 0.4 0.2-1.0 mg/dL Aspartate Amino Transferase (AST) 25 13-40 U/L Alanine Aminotransferase (ALT) 24 7-40 U/L Alkaline Phosphatase 98 46-116 U/L Total Protein 6.4 5.7-8.2 g/dL Albumin 3.5 3.2-4.8 g/dL Troponin I High Sensitivity 9 </=34 ng/L Differential Total Cells Counted 100.0 100 Neutrophils % (Manual) 94 H 37.0-80.0 Band Neutrophils % (Manual) 0 Lymphocytes % (Manual) 3 L 10.0-50.0 Monocytes % (Manual) 2 0-12 Eosinophils % (Manual) 1 0-7 Basophils % (Manual) 0 0.0-2.0 Metamyelocytes % (manual) 0 Myelocytes % (Manual) 0 Promyelocytes % (Manual) 0 Blast Cells % (Manual) 0 Reactive Lymphocytes 0 Platelet Estimate Adequate Test 12/23/24 10:40 Range/Units Urine Color Light-yellow Yellow Urine Clarity Turbid H Clear Urine pH 6.0 5.0-9.0 Urine Specific [place] 1.020 1.001-1.035 Urine Protein Trace H Negative Urine Ketones Negative Negative Urine Blood 1+ H Negative /uL Urine Nitrite 2+ H Negative Urine Bilirubin Negative Negative Urine Urobilinogen Normal Negative mg/dL Urine Leukocyte Esterase 3+ Negative /uL Urine RBC 13 0 - 4 /hpf Urine Microscopic WBC 161 H 0-5 /HPF Urine Squamous Epithelial Cells Few <5 /hpf Urine Bacteria Few H None Seen /hpf Urine Mucus Few None Seen Urine Glucose 1+ H Normal mg/dL Microbiology Date/Time Source Procedure Growth Status 12/23/24 10:40 Voided Urine Urine Culture - Preliminary Resulted Assessment/Plan Problem List: (1) Noncompliance with medications (2) UTI (urinary tract infection) (3) Renal abscess (4) Amphetamine abuse (5) Complication of urinary stent (6) Renal stones (7) COPD exacerbation Plan discussed with: Patient, Other HARIS GORDON NP Dec 24, 2024 10:00
[2024-12-24] MEDS: FAMOTIDINE 20 MG TAB PO SCH (10:36)
[2024-12-24] MEDS: ENOXAPARIN SOD 40 MG/0.4 ML SYRINGE SC SCH (10:37)
--- NOTE | 2024-12-24 13:31 | DVHPN2 ---
Progress Note - Dictate Date Seen: Dec 24, 2024 Medical Necessity Reason Pt with a Central, PICC or Fol: No Subjective Clinically stable. Her urine culture growing Gram-negative rods report is pending. Patient is pending urology evaluation. Meantime patient clinically feels well. Denies any complaints of abdominal pain or shortness for breath. vital signs Vital Sign Date Time Temp Pulse Resp B/P (MAP) Pulse Ox O2 Delivery O2 Flow Rate FiO2 12/24/24 12:00 82 18 100 12/24/24 11:54 Nasal Cannula 2.0 12/24/24 11:54 28 12/24/24 10:37 105/69 12/24/24 09:00 98.3 98.3 Total Intake and Output 12/23/24 12/23/24 12/24/24 15:00 23:00 07:00 Intake Total 1900 ml 600 ml 120 ml Output Total 1550 ml Balance 1900 ml 600 ml -1430 ml medications Current Medications Medications Dose Ordered Sig/Rajni Route Start Time Stop Time Status Last Admin Dose Admin Morphine Sulfate 2 mg Q30M PRN IV 12/23/24 15:45 Atorvastatin Calcium 20 mg HS PO 12/23/24 22:00 12/23/24 21:45 20 MG Carvedilol 12.5 mg BID PO 12/23/24 22:00 12/24/24 10:37 12.5 MG Cinacalcet 30 mg DAILY PO 12/24/24 10:00 12/24/24 10:00 30 MG Levothyroxine Sodium 25 mcg QAM PO 12/24/24 07:00 12/24/24 06:00 25 MCG Diagnostic Test (Pha) 1 strip Q6HR 12/23/24 18:00 12/24/24 12:00 1 STRIP Insulin Human Regular Q6HR SC 12/23/24 18:00 12/24/24 12:00 2 UNITS Dextrose 50 ml UD PRN IV 12/23/24 16:00 Meropenem 50 ml @ 17 mls/hr Q8HR IV 12/23/24 22:00 01/06/25 21:59 12/24/24 05:51 17 MLS/HR Vancomycin HCl 0 ml @ 0 mls/hr UD IV 12/23/24 16:00 Ondansetron HCl 4 mg Q4HPRN PRN IV 12/23/24 16:00 Morphine Sulfate 2 mg Q4HPRN PRN IV 12/23/24 16:00 Sodium Chloride 1,000 ml @ 100 mls/hr Q10H IV 12/23/24 16:00 12/24/24 12:00 100 MLS/HR Acetaminophen 650 mg Q4HP PRN PO 12/23/24 16:00 Famotidine 20 mg DAILY PO 12/24/24 10:00 12/24/24 10:36 20 MG Enoxaparin Sodium 40 mg DAILY SC 12/24/24 10:00 12/24/24 10:37 40 MG Acetaminophen/ Hydrocodone Bitart 1 tab Q4HPRN PRN PO 12/23/24 16:00 Ipratropium [place] 0.5 mg Q6HWA NEB 12/23/24 18:00 12/24/24 11:54 0.5 MG Albuterol 1.25 mg Q6HWA NEB 12/23/24 18:00 12/24/24 11:54 1.25 MG Levothyroxine Sodium 112 mcg QAM PO 12/24/24 07:00 12/24/24 06:00 112 MCG Vancomycin HCl 100 ml @ 100 mls/hr Q12H IV 12/24/24 05:00 12/24/24 04:18 100 MLS/HR objective Comfortable lying in bed without distress. Respiratory therapist is at bedside. HEENT neck supple no JVD. Heart regular rate and rhythm S1-S2. Lungs fair air movement without rales wheezes. Abdomen soft nontender positive bowel sounds. Extremities no edema. laboratory and microbiology Laboratory Tests 12/24/24 05:35 Test 12/24/24 05:35 Range/Units Serum Glucose 137 H 74-106 mg/dL Assessment/Plan She was clinically stable. Continue current antibiotics and wait for urine culture results. Meantime CT of the abdomen and pelvis shows a patent ureteral stent. Further management per Urology. Discussed with the patient. Otherwise continue her COPD treatment and rest of home medications. DVT GI prophylaxis. Advised the patient to be out of bed and ambulate as much as possible. Discussed with the patient regarding her care plan at bedside. Problems(with codes): (1) Hydronephrosis concurrent with and due to calculi of kidney and ureter (2) UTI (urinary tract infection) (3) Noncompliance with medications (4) Acute respiratory distress (5) COPD exacerbation Plan discussed with: Patient VJ ELIZALDE MD Dec 24, 2024 13:31
[2024-12-24] MEDS: MORPHINE SULFATE INJ 2 MG/ml SYRG IV PRN ×2 (18:19)
[2024-12-25] VITALS (14 sets, daily range): BP systolic 93–115; BP diastolic 40–74; PULSE 71–88; RESP 16–19; TEMP 97.5–98.3; O2SAT 90–100
--- NOTE | 2024-12-25 17:16 | DVHPN2 ---
Progress Note - Dictate Date Seen: Dec 25, 2024 Medical Necessity Reason Pt with a Central, PICC or Fol: No Subjective Clinically stable. Her urine culture growing ESBL E coli for which she is on meropenem. Otherwise no complaints vital signs Vital Sign Date Time Temp Pulse Resp B/P (MAP) Pulse Ox O2 Delivery O2 Flow Rate FiO2 12/25/24 13:00 97.7 83 19 113/53 (73) 98 97.7 12/25/24 11:24 Nasal Cannula 2.0 12/25/24 11:24 28 Total Intake and Output 12/24/24 12/24/24 12/25/24 15:00 23:00 07:00 Intake Total 50 ml 150 ml 450 ml Output Total 875 ml 250 ml Balance 50 ml -725 ml 200 ml medications Current Medications Medications Dose Ordered Sig/Rajni Route Start Time Stop Time Status Last Admin Dose Admin Morphine Sulfate 2 mg Q30M PRN IV 12/23/24 15:45 Atorvastatin Calcium 20 mg HS PO 12/23/24 22:00 12/24/24 21:17 20 MG Carvedilol 12.5 mg BID PO 12/23/24 22:00 12/25/24 10:32 12.5 MG Cinacalcet 30 mg DAILY PO 12/24/24 10:00 12/25/24 10:32 30 MG Levothyroxine Sodium 25 mcg QAM PO 12/24/24 07:00 12/25/24 05:40 25 MCG Diagnostic Test (Pha) 1 strip Q6HR 12/23/24 18:00 12/25/24 12:11 1 STRIP Insulin Human Regular Q6HR SC 12/23/24 18:00 12/25/24 12:11 2 UNITS Dextrose 50 ml UD PRN IV 12/23/24 16:00 Meropenem 50 ml @ 17 mls/hr Q8HR IV 12/23/24 22:00 01/06/25 21:59 12/25/24 14:47 17 MLS/HR Ondansetron HCl 4 mg Q4HPRN PRN IV 12/23/24 16:00 Morphine Sulfate 2 mg Q4HPRN PRN IV 12/23/24 16:00 12/24/24 18:19 2 MG Acetaminophen 650 mg Q4HP PRN PO 12/23/24 16:00 Famotidine 20 mg DAILY PO 12/24/24 10:00 12/25/24 10:32 20 MG Enoxaparin Sodium 40 mg DAILY SC 12/24/24 10:00 12/25/24 10:33 40 MG Acetaminophen/ Hydrocodone Bitart 1 tab Q4HPRN PRN PO 12/23/24 16:00 Ipratropium [place] 0.5 mg Q6HWA NEB 12/23/24 18:00 12/25/24 11:24 0.5 MG Albuterol 1.25 mg Q6HWA NEB 12/23/24 18:00 12/25/24 11:24 1.25 MG Levothyroxine Sodium 112 mcg QAM PO 12/24/24 07:00 12/25/24 05:40 112 MCG objective Comfortable sitting at the edge of bed without distress. Respiratory therapist is at bedside. HEENT neck supple no JVD. Heart regular rate and rhythm S1-S2. Lungs fair air movement without rales wheezes. Abdomen soft nontender positive bowel sounds. Extremities no edema. laboratory and microbiology Laboratory Tests 12/25/24 05:20 12/24/24 05:35 Test 12/24/24 05:35 Range/Units Serum Glucose 137 H 74-106 mg/dL Assessment/Plan She was clinically stable. Continue current antibiotics and agreed activity and ambulation. Wait for urology recommendations regarding possible stent removal versus outpatient follow up. For now continue present management she is on. Discussed with the nurse and patient at bedside regarding care plan. Problems(with codes): (1) Renal stones (2) Hydronephrosis concurrent with and due to calculi of kidney and ureter (3) COPD exacerbation (4) Hypertension Plan discussed with: Patient VJ ELIZALDE MD Dec 25, 2024 17:16
--- NOTE | 2024-12-25 19:57 | DVH ---
INDICATION: eval for CT scan finding of right renal cyst vs abscess TECHNIQUE: Multiple real-time sonographic images of the kidneys and bladder were obtained. COMPARISON: US KIDNEY on DOS: 12/06/24, CT 12/23/24 FINDINGS: The right kidney measures 12.1 cm in length. The right renal echogenicity, contour and cortical thick ness are within normal limits. No hydronephrosis or calculi are seen. 5.7 simple cyst noted in the up per pole. Thick walled hypodense structure noted in the lower pole measuring 3.6 cm, without internal vascularity. The left kidney measures 9.7 cm in length. The left renal echogenicity, contour, and cortical thickne ss are within normal limits. No hydronephrosis or large masses/calculi are seen. The bladder prevoid volume measures 33 cc. IMPRESSION: 1. Thick walled hypodense structure noted in the right renal lower pole measuring 3.6 cm, without int ernal vascularity. Findings compatible with abscess. 2. No hydronephrosis.
[2024-12-26] VITALS (14 sets, daily range): BP systolic 101–138; BP diastolic 53–85; PULSE 66–84; RESP 16–18; TEMP 97.3–98.2; O2SAT 92–100
[2024-12-26] MEDS: ERTAPENEM SOD INJ 1 GM in SODIUM CHL 0.9% 50 ML IV SCH (10:04)
--- NOTE | 2024-12-26 13:37 | DVHPN2 ---
Progress Note - Dictate Date Seen: Dec 26, 2024 Medical Necessity Reason Pt with a Central, PICC or Fol: No Subjective Clinically stable. Her urine culture growing ESBL E coli for which she is on meropenem. Ultrasound of the kidneys done shows possible abscess. vital signs Vital Sign Date Time Temp Pulse Resp B/P (MAP) Pulse Ox O2 Delivery O2 Flow Rate FiO2 12/26/24 13:08 97.3 70 18 136/79 (98) 99 97.3 12/26/24 11:11 Nasal Cannula* 2 28 Total Intake and Output 12/25/24 12/25/24 12/26/24 15:00 23:00 07:00 Intake Total 150 ml 650 ml 700 ml Balance 150 ml 650 ml 700 ml medications Current Medications Medications Dose Ordered Sig/Rajni Route Start Time Stop Time Status Last Admin Dose Admin Morphine Sulfate 2 mg Q30M PRN IV 12/23/24 15:45 Atorvastatin Calcium 20 mg HS PO 12/23/24 22:00 12/25/24 21:21 20 MG Carvedilol 12.5 mg BID PO 12/23/24 22:00 12/26/24 10:01 12.5 MG Cinacalcet 30 mg DAILY PO 12/24/24 10:00 12/26/24 10:01 30 MG Levothyroxine Sodium 25 mcg QAM PO 12/24/24 07:00 12/26/24 06:05 25 MCG Diagnostic Test (Pha) 1 strip Q6HR 12/23/24 18:00 12/26/24 11:37 1 STRIP Insulin Human Regular Q6HR SC 12/23/24 18:00 12/26/24 11:36 3 UNITS Dextrose 50 ml UD PRN IV 12/23/24 16:00 Ondansetron HCl 4 mg Q4HPRN PRN IV 12/23/24 16:00 Morphine Sulfate 2 mg Q4HPRN PRN IV 12/23/24 16:00 12/24/24 18:19 2 MG Acetaminophen 650 mg Q4HP PRN PO 12/23/24 16:00 Famotidine 20 mg DAILY PO 12/24/24 10:00 12/26/24 10:01 20 MG Enoxaparin Sodium 40 mg DAILY SC 12/24/24 10:00 12/26/24 10:02 40 MG Acetaminophen/ Hydrocodone Bitart 1 tab Q4HPRN PRN PO 12/23/24 16:00 Ipratropium [place] 0.5 mg Q6HWA NEB 12/23/24 18:00 12/26/24 11:11 0.5 MG Albuterol 1.25 mg Q6HWA NEB 12/23/24 18:00 12/26/24 11:11 1.25 MG Levothyroxine Sodium 112 mcg QAM PO 12/24/24 07:00 12/26/24 06:04 112 MCG Ertapenem 1 gm/ Sodium Chloride 50 ml @ 100 mls/hr DAILY IV 12/26/24 10:00 12/26/24 10:04 100 MLS/HR objective Comfortable sitting at the edge of bed without distress. Respiratory therapist is at bedside. HEENT neck supple no JVD. Heart regular rate and rhythm S1-S2. Lungs fair air movement without rales wheezes. Abdomen soft nontender positive bowel sounds. Extremities no edema. laboratory and microbiology Laboratory Tests 12/25/24 05:20 12/24/24 05:35 Test 12/24/24 05:35 Range/Units Serum Glucose 137 H 74-106 mg/dL Assessment/Plan She was clinically stable. Continue current antibiotics. Midline is placed. We will discuss ultrasound of the renal results with the urologist to see if abscess needs to be drained or we can continue antibiotics. Otherwise continue rest of supportive care and treatment and further clinical management per clinical course and recommendations from the Urology. Discussed with the nurse regarding care plan. Problems(with codes): (1) COPD exacerbation (2) Hydronephrosis concurrent with and due to calculi of kidney and ureter (3) Noncompliance with medications (4) Hypertension Dietary Evaluation Review Recommendations by RD: Protein Supplementation Comments: 1) Initiate Glucerna bid. Encourage optimal PO intake 2) Consider collecting HbA1c 3) F/u with urology, cardiology, and pulmonology 4) Continue to monitor I&O, labs, and skin integrity Expected Outcomes/Goals: 1) appetite and labs to improve 2) f/u in 3-5 days Plan discussed with: VJ Foster MD Dec 26, 2024 13:37
--- NOTE | 2024-12-26 21:00 | DVHPN2 ---
Progress Note - Dictate Date Seen: Dec 26, 2024 Has the PT tested + for MRSA If YES, has PT been informed?: No Medical Necessity Reason Pt with a Central, PICC or Fol: No Medical Necessity Reason PATIENT: RICA WHEATLEY ACCT: [id number] UNIT: [id number] : 1965 [facility] AGE / SEX: 59 / F ADM STATUS: ADM IN SERVICE 1718 ORDERING PHYSICIAN: VJ ELIZALDE MD PROCEDURE(s): KIDUS - KIDNEY REASON: eval for CT scan finding of right renal cyst vs abscess ORDER NUMBER(s): [id number], ACCESSION NUMBER(s): [id number] INDICATION: eval for CT scan finding of right renal cyst vs abscess TECHNIQUE: Multiple real-time sonographic images of the kidneys and bladder were obtained. COMPARISON: US KIDNEY on DOS: 12/06/24, CT 12/23/24 FINDINGS: The right kidney measures 12.1 cm in length. The right renal echogenicity, contour and cortical thickness are within normal limits. No hydronephrosis or calculi are seen. 5.7 simple cyst noted in the upper pole. Thick walled hypodense structure noted in the lower pole measuring 3.6 cm, without internal vascularity. The left kidney measures 9.7 cm in length. The left renal echogenicity, contour, and cortical thickness are within normal limits. No hydronephrosis or large masses/calculi are seen. The bladder prevoid volume measures 33 cc. IMPRESSION: 1. Thick walled hypodense structure noted in the right renal lower pole measuring 3.6 cm, without internal vascularity. Findings compatible with abscess. 2. No hydronephrosis. ATED BY: SYLVESTER JORDAN MD DICTATED DATE/TIME: 12/25/241954 SIGNED BY: SYLVESTER JORDAN MD SIGNED DATE/TIME: 12/25/241954 CC: Subjective No new c/o vital signs Vital Sign Date Time Temp Pulse Resp B/P (MAP) Pulse Ox O2 Delivery O2 Flow Rate FiO2 12/26/24 18:29 77 18 100 12/26/24 18:23 Nasal Cannula* 2 28 12/26/24 16:51 97.7 125/72 (89) 97.7 Total Intake and Output 12/25/24 12/25/24 12/26/24 15:00 23:00 07:00 Intake Total 150 ml 650 ml 700 ml Balance 150 ml 650 ml 700 ml medications Current Medications Medications Dose Ordered Sig/Rajni Route Start Time Stop Time Status Last Admin Dose Admin Morphine Sulfate 2 mg Q30M PRN IV 12/23/24 15:45 Atorvastatin Calcium 20 mg HS PO 12/23/24 22:00 12/25/24 21:21 20 MG Carvedilol 12.5 mg BID PO 12/23/24 22:00 12/26/24 10:01 12.5 MG Cinacalcet 30 mg DAILY PO 12/24/24 10:00 12/26/24 10:01 30 MG Levothyroxine Sodium 25 mcg QAM PO 12/24/24 07:00 12/26/24 06:05 25 MCG Diagnostic Test (Pha) 1 strip Q6HR 12/23/24 18:00 12/26/24 17:42 1 STRIP Insulin Human Regular Q6HR SC 12/23/24 18:00 12/26/24 17:42 2 UNITS Dextrose 50 ml UD PRN IV 12/23/24 16:00 Ondansetron HCl 4 mg Q4HPRN PRN IV 12/23/24 16:00 Morphine Sulfate 2 mg Q4HPRN PRN IV 12/23/24 16:00 12/24/24 18:19 2 MG Acetaminophen 650 mg Q4HP PRN PO 12/23/24 16:00 Famotidine 20 mg DAILY PO 12/24/24 10:00 12/26/24 10:01 20 MG Acetaminophen/ Hydrocodone Bitart 1 tab Q4HPRN PRN PO 12/23/24 16:00 Ipratropium [place] 0.5 mg Q6HWA NEB 12/23/24 18:00 12/26/24 18:23 0.5 MG Albuterol 1.25 mg Q6HWA NEB 12/23/24 18:00 12/26/24 18:23 1.25 MG Levothyroxine Sodium 112 mcg QAM PO 12/24/24 07:00 12/26/24 06:04 112 MCG Ertapenem 1 gm/ Sodium Chloride 50 ml @ 100 mls/hr DAILY IV 12/26/24 10:00 12/26/24 10:04 100 MLS/HR objective NAD laboratory and microbiology Laboratory Tests 12/25/24 05:20 12/24/24 05:35 Test 12/24/24 05:35 Range/Units Serum Glucose 137 H 74-106 mg/dL Problem List Right lower pole renal abscess ESBL UTI right ureteral stent Right renal stone right ureteral stone Assessment/Plan Drainage of right renal abscess per IR Continue with IV abx for ESBL treatment OUtpatient right ureteroscopic laser lithotripsy and stent removal TBA Dietary Evaluation Review Recommendations by RD: Protein Supplementation Comments: 1) Initiate Glucerna bid. Encourage optimal PO intake 2) Consider collecting HbA1c 3) F/u with urology, cardiology, and pulmonology 4) Continue to monitor I&O, labs, and skin integrity Expected Outcomes/Goals: 1) appetite and labs to improve 2) f/u in 3-5 days Plan discussed with: Patient, Other KARLA KLINE MD Dec 26, 2024 21:00
[2024-12-27] VITALS (10 sets, daily range): BP systolic 111–154; BP diastolic 68–92; PULSE 74–88; RESP 16–20; TEMP 97.6–98.1; O2SAT 90–100
[2024-12-27 06:43] LABS: Basophils # (auto) 0 10 ^3/uL (0-0.2); Basophils % (auto) 0.3 % (0.0-2.0); Eosinophils # (auto) 0.2 10 ^3/uL (0-0.8); Eosinophils % (auto) 2.9 % (0.0-7.0); Hematocrit 35.5 % (36.0-46.0); Hemoglobin 12.2 g/dL (12.2-16.2); Lymphocytes % (auto) 32.4 % (10.0-50.0); Mean Corpuscular Hemoglobin 30.8 pg (28.0-32.0); Mean Corpuscular Hgb Conc. 34.3 g/dL (32.0-36.0); Mean Corpuscular Volume 89.7 fL (80.0-100.0); Monocytes # (auto) 0.5 10 ^3/uL (0-1.3); Monocytes % (auto) 8.5 % (0.0-12.0); Neutrophils # (auto) 3.4 10 ^3/uL (1.6-8.6); Neutrophils % (auto) 55.9 % (37.0-80.0); Nucleated Red Blood Cells % 0.1 %; Platelet Count (auto) 326 10^3/uL (140-450); Red Blood Cells 3.96 10^6/uL (4.0-5.20); Red Cell Distribution Width 15.2 % (11.8-14.3); White Blood Cell 6.1 10^3/uL (4.4-10.8)
[2024-12-27 06:46] LABS: Chloride 104 mmol/L (98-107); Sodium 141 mmol/L (136-145)
[2024-12-27 06:47] LABS: Anion Gap 8 (5-15); Carbon Dioxide 29 mmol/L (20-31)
[2024-12-27 06:49] LABS: Potassium 3.2 mmol/L (3.5-5.1)
[2024-12-27 06:52] LABS: BUN/Creatinine Ratio 17.6 (10.0-20.0); Blood Urea Nitrogen 12 mg/dL (9-23)
[2024-12-27 06:55] LABS: Glucose 120 mg/dL (74-106)
[2024-12-27 07:06] LABS: INR 0.99 (0.9-1.15); Partial Thromboplastin Time 26.6 SEC (24.5-34.5); Prothrombin Time 10.5 sec (9.3-11.8)
[2024-12-27] MEDS: LIDOCAINE 2%HCL (LOCAL ANESTH.) INJ 10ml MDV ONE (08:54)
[2024-12-27] MEDS: MIDAZOLAM HCL 2MG/2ML 2ml VIAL (1mg/ml) IV ONE (09:00)
[2024-12-27] MEDS: fentaNYL CITRATE 100 MCG/2 ML VL IV ONE (09:00)
--- NOTE | 2024-12-27 11:23 | DVH ---
US ULTRA GUIDED ABCESS DRAINAGE, HISTORY: RENAL ABCESS PROCEDURE: An informed consent was obtained. The patient was placed prone on the interventional table . IV sedation was administered. The suspicious fluid collection was localized with ultrasound and the overlying skin prepped with chlorhexidine which was allowed to dry and draped in the usual sterile f ashion. Time out was performed and infiltrated with 1% Xylocaine. With US guidance, 19-gauge centesis needle catheter was advanced into the fluid collection. Small amount was aspirated for appropriate m icrobiology/cytology/microbiology and cytology analysis. A 0.035 wire was advanced into the fluid col lection. After serial dilatation, a 8 Bangladeshi multipurpose pigtail catheter was placed into the collec tion. Approximately 3 cc of purulent fluid was aspirated. The drain was sutured at the skin surface a nd connected to suction drainage. No immediate complication was identified. Post procedure catherogra m was obtained. DLP 1132 SEDATION: Dr. Yasmin hSerman was personally responsible for the administration of moderate sedation during the procedure performed, including the use of an independent trained observer who had no other duties during the procedure. The drugs utilized were IV fentanyl and versed (see nursing log for details). The total time of supervision by the attending physician was approximately 45 minutes. FINDINGS: Limited US scan of through the abdomen demonstrates a right kidney abscess in the lower talita e. Collection appears complex. Post procedure scan shows pigtail drain within the collection , which is decreased in size. IMPRESSION: US and CT guided placement of 8 Bangladeshi pigtail drain into a right kidney abscess with 3 mL of purulen t fluid aspirated. PLAN: Routine tube care.
--- NOTE | 2024-12-27 14:57 | DVHDS2 ---
Discharge Summary Date of Admission Dec 23, 2024 at 15:44 Date of Discharge: Dec 27, 2024 Labs/Diagnostic Data: Laboratory Results Test 12/27/24 11:20 12/27/24 05:18 12/25/24 05:20 12/24/24 05:35 POC Glucose 133 mg/dl (70-106) White Blood Count 6.1 10^3/uL (4.4-10.8) Red Blood Count 3.96 10^6/uL (4.0-5.20) Hemoglobin 12.2 g/dL (12.2-16.2) Hematocrit 35.5 % (36.0-46.0) Mean Corpuscular Volume 89.7 fL (80.0-100.0) Mean Corpuscular Hemoglobin 30.8 pg (28.0-32.0) Mean Corpuscular Hemoglobin Concent 34.3 g/dL (32.0-36.0) Red Cell Distribution Width 15.2 % (11.8-14.3) Platelet Count 326 10^3/uL (140-450) Mean Platelet Volume 7.1 fL (6.9-10.8) Neutrophils (%) (Auto) 55.9 % (37.0-80.0) Lymphocytes (%) (Auto) 32.4 % (10.0-50.0) Monocytes (%) (Auto) 8.5 % (0.0-12.0) Eosinophils (%) (Auto) 2.9 % (0.0-7.0) Basophils (%) (Auto) 0.3 % (0.0-2.0) Neutrophils # (Auto) 3.4 10 ^3/uL (1.6-8.6) Lymphocytes # (Auto) 2.0 10 ^3/uL (0.4-5.4) Monocytes # (Auto) 0.5 10 ^3/uL (0-1.3) Eosinophils # (Auto) 0.2 10 ^3/uL (0-0.8) Basophils # (Auto) 0 10 ^3/uL (0-0.2) Nucleated Red Blood Cells 0.1 % Prothrombin Time 10.5 sec (9.3-11.8) Prothrombin Time INR 0.99 (0.9-1.15) Activated Partial Thromboplast Time 26.6 SEC (24.5-34.5) Sodium Level 141 mmol/L (136-145) Potassium Level 3.2 mmol/L (3.5-5.1) Chloride Level 104 mmol/L (98-107) Carbon Dioxide Level 29 mmol/L (20-31) Anion Gap 8 (5-15) Blood Urea Nitrogen 12 mg/dL (9-23) Creatinine 0.68 mg/dL (0.550-1.02) Glomerular Filtration Rate Calc 99 mL/min (>90) BUN/Creatinine Ratio 17.6 (10.0-20.0) Serum Glucose 120 mg/dL (74-106) Calcium Level 10.0 mg/dL (8.7-10.4) Vancomycin Level Trough 10.6 ug/mL (5-10) Lactic Acid Level 0.8 mmol/L (0.4-2.0) Total Bilirubin 0.4 mg/dL (0.2-1.0) Aspartate Amino Transferase (AST) 25 U/L (13-40) Alanine Aminotransferase (ALT) 24 U/L (7-40) Alkaline Phosphatase 98 U/L (46-116) Total Protein 6.4 g/dL (5.7-8.2) Albumin 3.5 g/dL (3.2-4.8) Test 12/23/24 11:54 12/23/24 10:57 12/23/24 10:40 Troponin I High Sensitivity 9 ng/L (</=34) Differential Total Cells Counted 100.0 (100) Neutrophils % (Manual) 94 (37.0-80.0) Band Neutrophils % (Manual) 0 Lymphocytes % (Manual) 3 (10.0-50.0) Monocytes % (Manual) 2 (0-12) Eosinophils % (Manual) 1 (0-7) Basophils % (Manual) 0 (0.0-2.0) Metamyelocytes % (manual) 0 Myelocytes % (Manual) 0 Promyelocytes % (Manual) 0 Blast Cells % (Manual) 0 Reactive Lymphocytes 0 Platelet Estimate Adequate Urine Color Light-yellow (Yellow) Urine Clarity Turbid (Clear) Urine pH 6.0 (5.0-9.0) Urine Specific [place] 1.020 (1.001-1.035) Urine Protein Trace (Negative) Urine Ketones Negative (Negative) Urine Blood 1+ /uL (Negative) Urine Nitrite 2+ (Negative) Urine Bilirubin Negative (Negative) Urine Urobilinogen Normal mg/dL (Negative) Urine Leukocyte Esterase 3+ /uL (Negative) Urine RBC 13 /hpf (0 - 4) Urine Microscopic WBC 161 /HPF (0-5) Urine Squamous Epithelial Cells Few /hpf (<5) Urine Bacteria Few /hpf (None Seen) Urine Mucus Few (None Seen) Urine Glucose 1+ mg/dL (Normal) Other Laboratory Tests 12/27/24 05:18 Brief Hx & Hospital Course: 59 y/o M, BIBA with PMHX of DM, kidney stones, CHF, and COPD presents to the ED for CC of generalized weakness. EMS states, patient is coming from home where reports patient not acting like herself and complaining of bilateral leg and back pain. Per EMS, patient was stating at 80% on room air upon arrival to scene and was tachycardiac in the 140s ; placed on 4L via NC. EMS relay, patient is answering questions appropriately; A&OX4 upon arrival to ED. No other associated symptoms, modifiers, recent injuries or sick contacts at this time. Her urinalysis showed a urinary tract infection. Lactic acid is mildly elevated. Given her complaints with these abnormalities and given history of ureteral stent placement she is being admitted to the hospital for further evaluation and management. She is admitted and evaluated by urologist. Patient is ultrasound of her kidneys showed a possible right renal small abscess. Therefore she underwent interventional radiology evaluation and drainage of pus with a JOSE drain in place. Her urine cultures growing ESBL E coli for which she was started on Invanz and midline is placed for continuation of IV Invanz for another 10 days. Otherwise while in the hospital patient clinically remained stable. Therefore patient is educated regarding JOSE drain care and advised to follow up with the Urology within two weeks to remove the JOSE drain as well as to remove her ureteral stent that was placed prior to this admission. Apparently patient has a follow up appointment in January 05. However I have advised her to see if she can move the appointment sooner. Meantime while in the hospital she is clinically stable. Ambulating without any issues. No pain. Afebrile. Overall clinically stable back to baseline normal status therefore felt she could be safely discharged home. Once again I have told the patient that she needs to have close follow up with the Urology and eventually have the stent removed before she gets another recurrent infection, sepsis which could eventually result in her . She verbalized understanding of this and agreed to follow up outpatient basis with the urologist as mentioned. I have talked with the patient regarding her hospital diagnosis, treatment she received, procedure she had done, discharge medications, discharge instructions and follow-up plan of care. She has verbalized understanding of these and agreed with the care plan as outlined. Consults/Reason for consult Problem List Right lower pole renal abscess ESBL UTI right ureteral stent Right renal stone right ureteral stone Assessment/Plan Drainage of right renal abscess per IR Continue with IV abx for ESBL treatment OUtpatient right ureteroscopic laser lithotripsy and stent removal TBA Dietary Evaluation Review Recommendations by RD: Protein Supplementation Comments: 1) Initiate Glucerna bid. Encourage optimal PO intake 2) Consider collecting HbA1c 3) F/u with urology, cardiology, and pulmonology 4) Continue to monitor I&O, labs, and skin integrity Expected Outcomes/Goals: 1) appetite and labs to improve 2) f/u in 3-5 days Plan discussed with: Patient, Other KARLA SALAS MD Dec 26, 2024 21:00 Operations or Procedures US ULTRA GUIDED ABCESS DRAINAGE, HISTORY: RENAL ABCESS PROCEDURE: An informed consent was obtained. The patient was placed prone on the interventional table. IV sedation was administered. The suspicious fluid collection was localized with ultrasound and the overlying skin prepped with chlorhexidine which was allowed to dry and draped in the usual sterile fashion. Time out was performed and infiltrated with 1% Xylocaine. With US guidance, 19- gauge centesis needle catheter was advanced into the fluid collection. Small amount was aspirated for appropriate microbiology/cytology/microbiology and cytology analysis. A 0.035 wire was advanced into the fluid collection. After serial dilatation, a 8 Malian multipurpose pigtail catheter was placed into the collection. Approximately 3 cc of purulent fluid was aspirated. The drain was sutured at the skin surface and connected to suction drainage. No immediate complication was identified. Post procedure catherogram was obtained. DLP 2749 SEDATION: Dr. Yasmin Sherman was personally responsible for the administration of moderate sedation during the procedure performed, including the use of an independent trained observer who had no other duties during the procedure. The drugs utilized were IV fentanyl and versed (see nursing log for details). The total time of supervision by the attending physician was approximately 45 minutes. FINDINGS: Limited US scan of through the abdomen demonstrates a right kidney abscess in the lower pole. Collection appears complex. Post procedure scan shows pigtail drain within the collection , which is decreased in size. IMPRESSION: US and CT guided placement of 8 Malian pigtail drain into a right kidney abscess with 3 mL of purulent fluid aspirated. PLAN: Routine tube care. Condition at Discharge: Stable Final Diagnosis/Problems List esbl ecoli UTI on iv Invanz via midline, s/p JOSE drain right kidney abscess, copd Discharge Disposition: Home with Health Services Discharge Instruct/Medications Diet: Consistent carbohydrate, Cardiac 2g Na,low cholest Activity: No Restrictions, As Tolerated Follow Up/Referral: With Dr.Samuel Salas after 2 weeks to remove the Ureteral stent and OJSE garcia. call his office to confirm the appointment Medications: IV antibiotic as prescribed AND home medications Continued Medications: Albuterol Sulfate (Albuterol Sulfate) 0.5 % Neb 0.5 ML NEB PRN Albuterol Sulfate (Albuterol Sulfate Hfa) 108 Mcg/Act Aer 108 MCG IN TID, #1 AER Atorvastatin Calcium (Atorvastatin Calcium) 20 Mg Tab 1 TAB PO HS, #30 TAB 5 Refills Carvedilol (Carvedilol) 12.5 Mg Tab 12.5 MG PO BID for 30 Days, MG Cinacalcet HCl (Cinacalcet Hydrochloride) 30 Mg Tab 30 MG PO DAILY, TAB Docusate Sodium (Colace) 100 Mg Cap 1 CAP PO BID, #30 CAP Ferrous Sulfate (Ferrous Sulfate) 325 Mg Tab 325 MG PO DAILY for 30 Days, MG Fluticasone-Salmeterol (Advair Diskus 500/50) 1 Puff Ih 1 PUFF INH BID, #1 INHALER Furosemide (Lasix) 20 Mg Tb 1 TAB PO BID, #90 TAB 1 Refill Glipizide (Glipizide) 10 Mg Tab 10 MG PO DAILY for 30 Days, MG Levothyroxine Sodium (Levothyroxine Sodium) 137 Mcg Tab 1 TAB PO DAILY, #30 TAB 5 Refills Potassium Chloride (Klor-Con M20) 20 Meq Tab 20 MEQ PO DAILY Semaglutide (Ozempic) 2 Mg/3 Ml Inj 0.5 MG SC QWEEKLY Discontinued Medications: Amoxicillin & Pot Clavulanate (Augmentin Tablet) 875 Mg Tb 875 MG PO BID for 5 Days, #10 TAB Discharge Statement: "Patient was advised to return to the ER or call 911 if any headaches, dizziness, shortness of breath, chest pain, abdominal pain, bleeding, fevers, or worsening of medical condition. Patient was counseled about treatment plan, medications, possible side effects, patientverbalized understanding. All questions were answered to the best of my ability. This discharge took greater then 30 minutes in planning, reviewing documentation, counseling the patient, and discussing with other team members." ASSESSMENT ASSESSMENT Assessment esbl ecoli UTI on iv Invanz via midline, s/p JOSE drain right kidney abscess, copd VJ ELIZALDE MD Dec 27, 2024 14:57
--- NOTE | 2024-12-27 22:45 | DVHINCON2 ---
Date of service: Dec 26, 2024 Referring Physician Vj Elizalde MD Reason for Consultation Acute hypoxic respiratory failure, COPD exacerbation and pulmonary edema. History of Present Illness A 59-year-old woman with PMHx of COPD, diabetes mellitus, CHF, kidney stones with hx of ureteral stent, and thyroid disease who presented to ED via EMS on 12/23/24 with chief complaint of generalized weakness. Per EMS, patient's reported patient was not acting like herself and complaining of bilateral leg and back pain. She was satting at 80% on room air upon EMS arrival and was tachycardiac in the 140s; was placed on 4L via NC. Patient A&OX4 upon arrival to ED. No other acute complaints. ED workup included urinalysis positive for UTI. Lactic acid mildly elevated. Patient was admitted for further care, and pulmonary consultation is requested for evaluation and management of acute hypoxic respiratory failure, COPD exacerbation and pulmonary edema. Review of Systems: 14-point review of systems negative unless otherwise noted above. Past Medical History: COPD, diabetes mellitus, CHF, kidney stones with hx of ureteral stent, and thyroid disease Past Surgical History: Ureteral stent placement Medications: Reviewed. Allergies: Nitroglycerin. Family History: Kidney stones. Social History: Nonsmoker. Rare alcohol use. No illicit drug use. Family History: Kidney stones G8 MOTHER G8 FATHER Allergies: Coded Allergies: Nitroglycerin (Verified Allergy, Unknown, 02/17/10) Home Meds Active Scripts Albuterol Sulfate (Albuterol Sulfate Hfa) 108 Mcg/Act Aer, 108 MCG IN TID, #1 AER Prov:VJ ELIZALDE MD 10/31/24 Fluticasone-Salmeterol (Advair Diskus 500/50) 1 Puff Ih, 1 PUFF INH BID, #1 INHALER Prov:VJ ELIZALDE MD 10/31/24 Reported Medications Ferrous Sulfate (Ferrous Sulfate) 325 Mg Tab, 325 MG PO DAILY for 30 Days, MG 12/05/24 Carvedilol (Carvedilol) 12.5 Mg Tab, 12.5 MG PO BID for 30 Days, MG 12/05/24 Cinacalcet HCl (Cinacalcet Hydrochloride) 30 Mg Tab, 30 MG PO DAILY, TAB 12/05/24 Glipizide (Glipizide) 10 Mg Tab, 10 MG PO DAILY for 30 Days, MG 12/05/24 Docusate Sodium (Colace) 100 Mg Cap, 1 CAP PO BID, #30 CAP 10/30/24 Semaglutide (Ozempic) 2 Mg/3 Ml Inj, 0.5 MG SC QWEEKLY 02/23/24 Atorvastatin Calcium (ATORVASTATIN CALCIUM) 20 Mg Tab, 1 TAB PO HS, #30 TAB 5 Refills 07/14/16 Furosemide (Lasix) 20 Mg Tb, 1 TAB PO BID, #90 TAB 1 Refill 07/14/16 Levothyroxine Sodium (Levothyroxine Sodium) 137 Mcg Tab, 1 TAB PO DAILY, #30 TAB 5 Refills 07/14/16 Potassium Chloride (Klor-Con M20) 20 Meq Tab, 20 MEQ PO DAILY 02/17/10 Albuterol Sulfate (Albuterol Sulfate) 0.5 % Neb, 0.5 ML NEB PRN 02/15/10 Discontinued Scripts Amoxicillin & Pot Clavulanate (AUGMENTIN TABLET) 875 Mg Tb, 875 MG PO BID for 5 Days, #10 TAB Prov:XAVI BARRERA MD 12/06/24 Vital Signs Vital Signs Date Time Temp Pulse Resp B/P (MAP) Pulse Ox O2 Delivery O2 Flow Rate FiO2 12/27/24 17:00 97.7 77 17 154/89 (110) 94 97.7 12/27/24 12:25 Room Air* 0 21 Physical Exam Gen.: Patient lying in bed in no apparent distress. On supplemental oxygen. Head: Normocephalic, atraumatic. Eyes: EOMI/PERRLA. Ears: Normal hearing. Normal anatomy. Neck/trachea: Trachea midline, supple. Nose: Normal external anatomy. Mouth: Moist mucous membranes. Chest: Decreased air entry bilaterally. No wheezing or rhonchi. Cardiovascular: Positive S1, positive S2. Regular rate and rhythm. Abdomen: Positive bowel sounds in all 4 quadrants. Soft, non-tender, non- distended. : Deferred. Rectal: Deferred. Skin: Warm, dry. Intact. Extremities: 2+ radial pulses bilaterally. No lower extremity edema. Neuro: Awake, alert, oriented x3. No gross motor or sensory deficits. Cranial nerves II through XII intact. Gait not assessed. Labs/Diagnostic Data Labs Test 12/27/24 11:20 12/27/24 05:18 12/25/24 05:20 12/24/24 05:35 Range/Units POC Glucose 133 H 70-106 mg/dl White Blood Count 6.1 # 4.4-10.8 10^3/uL Red Blood Count 3.96 L 4.0-5.20 10^6/uL Hemoglobin 12.2 12.2-16.2 g/dL Hematocrit 35.5 L 36.0-46.0 % Mean Corpuscular Volume 89.7 80.0-100.0 fL Mean Corpuscular Hemoglobin 30.8 28.0-32.0 pg Mean Corpuscular Hemoglobin Concent 34.3 32.0-36.0 g/dL Red Cell Distribution Width 15.2 H 11.8-14.3 % Platelet Count 326 140-450 10^3/uL Mean Platelet Volume 7.1 6.9-10.8 fL Neutrophils (%) (Auto) 55.9 37.0-80.0 % Lymphocytes (%) (Auto) 32.4 10.0-50.0 % Monocytes (%) (Auto) 8.5 0.0-12.0 % Eosinophils (%) (Auto) 2.9 0.0-7.0 % Basophils (%) (Auto) 0.3 0.0-2.0 % Neutrophils # (Auto) 3.4 1.6-8.6 10 ^3/uL Lymphocytes # (Auto) 2.0 0.4-5.4 10 ^3/uL Monocytes # (Auto) 0.5 0-1.3 10 ^3/uL Eosinophils # (Auto) 0.2 0-0.8 10 ^3/uL Basophils # (Auto) 0 0-0.2 10 ^3/uL Nucleated Red Blood Cells 0.1 % Prothrombin Time 10.5 9.3-11.8 sec Prothrombin Time INR 0.99 0.9-1.15 Activated Partial Thromboplast Time 26.6 24.5-34.5 SEC Sodium Level 141 136-145 mmol/L Potassium Level 3.2 L 3.5-5.1 mmol/L Chloride Level 104 98-107 mmol/L Carbon Dioxide Level 29 20-31 mmol/L Anion Gap 8 5-15 Blood Urea Nitrogen 12 9-23 mg/dL Creatinine 0.68 0.550-1.02 mg/dL Glomerular Filtration Rate Calc 99 >90 mL/min BUN/Creatinine Ratio 17.6 10.0-20.0 Serum Glucose 120 H 74-106 mg/dL Calcium Level 10.0 8.7-10.4 mg/dL Vancomycin Level Trough 10.6 H 5-10 ug/mL Lactic Acid Level 0.8 0.4-2.0 mmol/L Total Bilirubin 0.4 0.2-1.0 mg/dL Aspartate Amino Transferase (AST) 25 13-40 U/L Alanine Aminotransferase (ALT) 24 7-40 U/L Alkaline Phosphatase 98 46-116 U/L Total Protein 6.4 5.7-8.2 g/dL Albumin 3.5 3.2-4.8 g/dL Test 12/23/24 11:54 12/23/24 10:57 12/23/24 10:40 Range/Units Troponin I High Sensitivity 9 </=34 ng/L Differential Total Cells Counted 100.0 100 Neutrophils % (Manual) 94 H 37.0-80.0 Band Neutrophils % (Manual) 0 Lymphocytes % (Manual) 3 L 10.0-50.0 Monocytes % (Manual) 2 0-12 Eosinophils % (Manual) 1 0-7 Basophils % (Manual) 0 0.0-2.0 Metamyelocytes % (manual) 0 Myelocytes % (Manual) 0 Promyelocytes % (Manual) 0 Blast Cells % (Manual) 0 Reactive Lymphocytes 0 Platelet Estimate Adequate Urine Color Light-yellow Yellow Urine Clarity Turbid H Clear Urine pH 6.0 5.0-9.0 Urine Specific [place] 1.020 1.001-1.035 Urine Protein Trace H Negative Urine Ketones Negative Negative Urine Blood 1+ H Negative /uL Urine Nitrite 2+ H Negative Urine Bilirubin Negative Negative Urine Urobilinogen Normal Negative mg/dL Urine Leukocyte Esterase 3+ Negative /uL Urine RBC 13 0 - 4 /hpf Urine Microscopic WBC 161 H 0-5 /HPF Urine Squamous Epithelial Cells Few <5 /hpf Urine Bacteria Few H None Seen /hpf Urine Mucus Few None Seen Urine Glucose 1+ H Normal mg/dL Microbiology Date/Time Source Procedure Growth Status 12/23/24 10:57 Blood Blood Culture - Preliminary NO GROWTH AFTER 72 HOURS OF INCUBATION. Resulted 12/23/24 10:40 Voided Urine Urine Culture - Final Escherichia coli - ESBL Complete Assessment Impression: Acute hypoxic respiratory failure Dependence on supplemental oxygen Pulmonary edema Acute COPD exacerbation Nonadherence Hypokalemia Plan: Supplemental oxygen Titrate to keep O2 sats above 92%. Continue bronchodilators. Continue antibiotics Accu-Cheks, ISS Monitor renal function. Monitor electrolytes. Supplement as necessary. Monitor ins and outs. GI prophylaxis - Pepcid DVT prophylaxis - Lovenox Prognosis: Poor given patient's multiple co-morbidities. Rest of plan per hospitalist and other consultants. Thank you, Dr. Lee, for allowing me to participate in this patient's care. Further recommendations will depend on the patient's clinical course. Please do not hesitate to contact me if you have any questions or concerns. This medical document was created using an electronic medical record system with [employer] dictation system. Although these documentations are being carefully reviewed, there may still be some phonetic and typographical changes. The errors are purely typographical, due to imperfection on the software program, and do not reflect any compromise in the patient's medical care. Plan discussed with: Patient, Other (RN/Dr. Lee) KOBY BIRCH MD Dec 27, 2024 22:45
--- NOTE | 2024-12-27 22:47 | DVHPN2 ---
Progress Note - Dictate Date Seen: Dec 27, 2024 Has the PT tested + for MRSA If YES, has PT been informed?: No Medical Necessity Reason Pt with a Central, PICC or Fol: No Subjective Patient seen and examined at bedside. Remains on supplemental oxygen Overnight events reviewed. vital signs Vital Sign Date Time Temp Pulse Resp B/P (MAP) Pulse Ox O2 Delivery O2 Flow Rate FiO2 12/27/24 17:00 97.7 77 17 154/89 (110) 94 97.7 12/27/24 12:25 Room Air* 0 21 Total Intake and Output 12/26/24 12/26/24 12/27/24 15:00 23:00 07:00 Intake Total 500 ml 300 ml Balance 500 ml 300 ml objective Gen.: Patient lying in bed in no apparent distress. On supplemental oxygen. Head: Normocephalic, atraumatic. Eyes: EOMI/PERRLA. Ears: Normal hearing. Normal anatomy. Neck/trachea: Trachea midline, supple. Nose: Normal external anatomy. Mouth: Moist mucous membranes. Chest: Decreased air entry bilaterally. No wheezing or rhonchi. Cardiovascular: Positive S1, positive S2. Regular rate and rhythm. Abdomen: Positive bowel sounds in all 4 quadrants. Soft, non-tender, non- distended. : Deferred. Rectal: Deferred. Skin: Warm, dry. Intact. Extremities: 2+ radial pulses bilaterally. No lower extremity edema. Neuro: Awake, alert, oriented x3. No gross motor or sensory deficits. Cranial nerves II through XII intact. Gait not assessed. laboratory and microbiology Laboratory Tests 12/27/24 05:18 Test 12/27/24 05:18 Range/Units Serum Glucose 120 H 74-106 mg/dL Assessment/Plan Impression: Acute hypoxic respiratory failure Dependence on supplemental oxygen Pulmonary edema Acute COPD exacerbation Nonadherence Hypokalemia Events: Remains on supplemental oxygen, 2 LPM NC Taper O2 as tolerated Continue bronchodilators Continue antibiotics Accu-Cheks, ISS. S/p US and CT guided placement of 8-Zambian pigtail drain into right kidney abscess with 3 mL of purulent fluid aspirated. Labs and imaging reviewed. Rest of plan as noted below. Plan: Supplemental oxygen Titrate to keep O2 sats above 92%. Continue bronchodilators. Continue antibiotics Accu-Cheks, ISS Monitor renal function. Monitor electrolytes. Supplement as necessary. Monitor ins and outs. GI prophylaxis - Pepcid DVT prophylaxis - Lovenox Prognosis: Poor given patient's multiple co-morbidities. Rest of plan per hospitalist and other consultants. Thank you, Dr. Lee, for allowing me to participate in this patient's care. Further recommendations will depend on the patient's clinical course. Please do not hesitate to contact me if you have any questions or concerns. This medical document was created using an electronic medical record system with [employer] dictation system. Although these documentations are being carefully reviewed, there may still be some phonetic and typographical changes. The errors are purely typographical, due to imperfection on the software program, and do not reflect any compromise in the patient's medical care. Dietary Evaluation Review Recommendations by RD: Protein Supplementation Comments: 1) Initiate Glucerna bid. Encourage optimal PO intake 2) Consider collecting HbA1c 3) F/u with urology, cardiology, and pulmonology 4) Continue to monitor I&O, labs, and skin integrity Expected Outcomes/Goals: 1) appetite and labs to improve 2) f/u in 3-5 days Plan discussed with: Patient, Other (KAYLA Reynaga) KOBY BIRCH MD Dec 27, 2024 22:47
== END 2024-12-27 17:50 | disposition home health service (06) | DRG 720 ==
LOC: ER 10:01 → EDBD 10:01 → OVERFLOW 15:44 → TELE-EAST 18:03
PROVIDERS: ADMIT Hospitalist; ATTEND Hospitalist
PROC: 0T933ZZ Drainage of Right Kidney Pelvis, Percutaneous Approach (ICD-10-PCS; principal; 2024-12-27)
DX: A41.9 Sepsis, unspecified organism (principal); J96.01 Acute respiratory failure with hypoxia; N15.1 Renal and perinephric abscess; J44.1 Chronic obstructive pulmonary disease with (acute) exacerbation; I50.9 Heart failure, unspecified; I11.0 Hypertensive heart disease with heart failure; E11.65 Type 2 diabetes mellitus with hyperglycemia; B96.20 Unspecified Escherichia coli [E. coli] as the cause of diseases classified elsewhere; E66.01 Morbid (severe) obesity due to excess calories; N20.2 Calculus of kidney with calculus of ureter; Z68.34 Body mass index [BMI] 34.0-34.9, adult; E87.6 Hypokalemia; F15.10 Other stimulant abuse, uncomplicated; F17.210 Nicotine dependence, cigarettes, uncomplicated; K57.30 Diverticulosis of large intestine without perforation or abscess without bleeding; N13.6 Pyonephrosis; N28.1 Cyst of kidney, acquired; Z16.12 Extended spectrum beta lactamase (ESBL) resistance; Z79.4 Long term (current) use of insulin; Z79.51 Long term (current) use of inhaled steroids; Z79.84 Long term (current) use of oral hypoglycemic drugs; Z79.899 Other long term (current) drug therapy; Z87.442 Personal history of urinary calculi; Z90.710 Acquired absence of both cervix and uterus; Z91.148 Patient's other noncompliance with medication regimen for other reason; Z99.81 Dependence on supplemental oxygen
CPT/HCPCS: 10005; 36415; 71045; 74150; 74177; 75989; 76775; 77012; 80048; 80053; 80202; 81001; 82565; 82962; 83605; 84484; 85007; 85025; 85027; 85610; 85730; 87040; 87077; 87086; 87088; 87186; 87205; 93005; 94640; 96361; 96365; 96367; 99291; 99292; C1729; G0378; J1335; J1815; J2003; J2185; J2250

== ENCOUNTER 2025-03-07 23:07 | Inpatient (IN) | payer MEDICAID ==
[~2025-03-07] VITALS: Ht 154.9 cm; Wt 84.7 kg
[~2025-03-07 23:07] MED LIST changes: -AUG875T PO
[2025-03-07 23:35] LABS: Basophils # (auto) 0.1 10 ^3/uL (0-0.2); Basophils % (auto) 0.4 % (0.0-2.0); Eosinophils # (auto) 0.1 10 ^3/uL (0-0.8); Eosinophils % (auto) 1.2 % (0.0-7.0); Hematocrit 40.8 % (36.0-46.0); Hemoglobin 13.5 g/dL (12.2-16.2); Lymphocytes # (auto) 1.5 10 ^3/uL (0.4-5.4); Lymphocytes % (auto) 13.1 % (10.0-50.0); Mean Corpuscular Hemoglobin 28.9 pg (28.0-32.0); Mean Corpuscular Volume 87.4 fL (80.0-100.0); Monocytes # (auto) 0.7 10 ^3/uL (0-1.3); Monocytes % (auto) 6.3 % (0.0-12.0); Neutrophils # (auto) 9.3 10 ^3/uL (1.6-8.6); Platelet Count (auto) 355 10^3/uL (140-450); Red Blood Cells 4.66 10^6/uL (4.0-5.20); Red Cell Distribution Width 15.3 % (11.8-14.3); White Blood Cell 11.7 10^3/uL (4.4-10.8)
[2025-03-07 23:43] LABS: Chloride 107 mmol/L (98-107); Sodium 140 mmol/L (136-145)
[2025-03-07 23:44] LABS: Anion Gap 4 (5-15); Carbon Dioxide 29 mmol/L (20-31)
[2025-03-07 23:45] LABS: Calcium 9.6 mg/dL (8.7-10.4)
[2025-03-07 23:50] LABS: BUN/Creatinine Ratio 13.4 (10.0-20.0); Blood Urea Nitrogen 13 mg/dL (9-23)
[2025-03-07 23:54] LABS: Glucose 162 mg/dL (74-106)
[2025-03-08] VITALS (9 sets, daily range): BP systolic 52–121; BP diastolic 56–68; PULSE 72–105; RESP 16–20; TEMP 98.6–100.4; O2SAT 95–100
[2025-03-08] MEDS: MORPHINE SULFATE 4 MG/ML SYR/VIAL IV ONE (01:15)
--- NOTE | 2025-03-08 02:19 | ED.PDOC ---
History of Present Illness HPI Comments 59-year-old obese female is brought in by ambulance for complaint of right flank pain. Patient endorses onset of pain, this evening, after recently having a stent removed from her right urethra at 1100. Urologist that performed the procedure is reported to be Dr. Pierce Salas. She denies having any nausea, v omiting, urinary symptoms, fever, chills, or further associated symptoms. Prior to arrival, patient admits to taking Tramadol. Chief Complaint: Flank Pain Time Seen by MD: 23:10 Primary Care Provider: unknown Reviewed Notes: Nurses Notes, Film Washer Notes, Medications, Allergies Allergies: Coded Allergies: Nitroglycerin (Verified Allergy, Unknown, 02/17/10) Home Meds Active Scripts Albuterol Sulfate (Albuterol Sulfate Hfa) 108 Mcg/Act Aer, 108 MCG IN TID, #1 AER Prov:VJ ELIAZLDE MD 10/31/24 Fluticasone-Salmeterol (Advair Diskus 500/50) 1 Puff Ih, 1 PUFF INH BID, #1 INHALER Prov:VJ ELIZALDE MD 10/31/24 Reported Medications Ferrous Sulfate (Ferrous Sulfate) 325 Mg Tab, 325 MG PO DAILY for 30 Days, MG 12/05/24 Carvedilol (Carvedilol) 12.5 Mg Tab, 12.5 MG PO BID for 30 Days, MG 12/05/24 Cinacalcet HCl (Cinacalcet Hydrochloride) 30 Mg Tab, 30 MG PO DAILY, TAB 12/05/24 Glipizide (Glipizide) 10 Mg Tab, 10 MG PO DAILY for 30 Days, MG 12/05/24 Docusate Sodium (Colace) 100 Mg Cap, 1 CAP PO BID, #30 CAP 10/30/24 Semaglutide (Ozempic) 2 Mg/3 Ml Inj, 0.5 MG SC QWEEKLY 02/23/24 Atorvastatin Calcium (ATORVASTATIN CALCIUM) 20 Mg Tab, 1 TAB PO HS, #30 TAB 5 Refills 07/14/16 Furosemide (Lasix) 20 Mg Tb, 1 TAB PO BID, #90 TAB 1 Refill 07/14/16 Levothyroxine Sodium (Levothyroxine Sodium) 137 Mcg Tab, 1 TAB PO DAILY, #30 TAB 5 Refills 10/9/16 Potassium Chloride (Klor-Con M20) 20 Meq Tab, 20 MEQ PO DAILY 02/17/10 Albuterol Sulfate (Albuterol Sulfate) 0.5 % Neb, 0.5 ML NEB PRN 02/15/10 Information Source: Patient, Emergency Med Personnel Mode of Arrival: EMS Severity: Moderate Timing: Hours Duration: Since onset Prehospital treatment: 12 Lead EKG, Accucheck, Coach Driver, IVF (300ml NS), Oxygen, Other (20G LAC) Past Medical History PAST MEDICAL HISTORY: CHF, COPD, DM, Kidney Stones, Thyroid Surgical History: Cholecystectomy, , Hysterectomy MASTIC FLOOR LAYER History: Denies all MASTIC FLOOR LAYER Hx Family History Family History: Reviewed,noncontributory to illness, No family hx of Cancer, No family hx of DM, No family hx of Heart jody, No family hx of HTN, No family hx ofKidney jody, No family hx of Liver jody, No family hx of Lung jody, No family hx of Stroke Social History Smoker: Cigarettes Alcohol: Denies ETOH Use Drugs: Denies Drug Use Lives In: Home All Other Systems: Reviewed and Negative (Comprehensive systems review obtained and negative except for what is stated in the HPI.) Physical Exam General Appearance: No Apparent Distress, Obese HEENT: Normal ENT Inspection, Pharynx Normal, TMs Normal Neck: Full Range of Motion, Non-Tender, Normal, Normal Inspection Respiratory: Chest Non-Tender, Lungs Clear, No Accessory Muscle Use, No Respiratory Distress, Normal Breath Sounds Cardiovascular: No Edema, No JVD, No Murmur, No Gallop, Normal Peripheral Pulses, Regular Rate/Rhythm Breast Exam: Deferred Gastrointestinal: No Organomegaly, Non Tender, No Pulsatile Mass, Normal Bowel Sounds, Soft Genitalia: Deferred Pelvic: Deferred Rectal: Deferred Extremities: No calf tenderness, Normal capillary refill, Normal inspection, Normal range of motion, Non-tender, No pedal edema Musculoskeletal : Location: Left Extremity Location: Back (flank) Apperance: Normal, Tenderness Neurologic: Alert, personal injury attorney II-XII nml as Tested, No Motor Deficits, Normal Affect, Normal Mood, No Sensory Deficits Cerebellar Function: Normal Reflexes: Normal Skin: Dry, Normal Color, Warm Lymphatic: No Adenopathy Was a procedure done? Was a procedure done?: No Differential Dx Considerations may include: kidney stones, post-op complication, UTI, PID, musculoskeletal pain, among others X-Ray, Labs, Meds, VS Vital Signs Date Time Temp Pulse Resp B/P (MAP) Pulse Ox O2 Delivery O2 Flow Rate FiO2 03/07/25 23:13 99.8 126 30 119/80 (93) 96 99.8 Lab Test 03/07/25 23:25 Range/Units White Blood Count 11.7 H 4.4-10.8 10^3/uL Red Blood Count 4.66 4.0-5.20 10^6/uL Hemoglobin 13.5 12.2-16.2 g/dL Hematocrit 40.8 36.0-46.0 % Mean Corpuscular Volume 87.4 80.0-100.0 fL Mean Corpuscular Hemoglobin 28.9 28.0-32.0 pg Mean Corpuscular Hemoglobin Concent 33.0 32.0-36.0 g/dL Red Cell Distribution Width 15.3 H 11.8-14.3 % Platelet Count 355 140-450 10^3/uL Mean Platelet Volume 6.7 L 6.9-10.8 fL Neutrophils (%) (Auto) 79.0 37.0-80.0 % Lymphocytes (%) (Auto) 13.1 10.0-50.0 % Monocytes (%) (Auto) 6.3 0.0-12.0 % Eosinophils (%) (Auto) 1.2 0.0-7.0 % Basophils (%) (Auto) 0.4 0.0-2.0 % Neutrophils # (Auto) 9.3 H 1.6-8.6 10 ^3/uL Lymphocytes # (Auto) 1.5 0.4-5.4 10 ^3/uL Monocytes # (Auto) 0.7 0-1.3 10 ^3/uL Eosinophils # (Auto) 0.1 0-0.8 10 ^3/uL Basophils # (Auto) 0.1 0-0.2 10 ^3/uL Nucleated Red Blood Cells 0.0 % Sodium Level 140 136-145 mmol/L Potassium Level 4.0 3.5-5.1 mmol/L Chloride Level 107 98-107 mmol/L Carbon Dioxide Level 29 20-31 mmol/L Anion Gap 4 L 5-15 Blood Urea Nitrogen 13 9-23 mg/dL Creatinine 0.97 0.550-1.02 mg/dL Glomerular Filtration Rate Calc 66 >90 mL/min BUN/Creatinine Ratio 13.4 10.0-20.0 Serum Glucose 162 H 74-106 mg/dL Calcium Level 9.6 8.7-10.4 mg/dL Time of 1ST Reevaluation: 23:40 Reevaluation 1ST: Unchanged Patient Education/Counseling: Diagnosis, Treatment Family Education/Counseling: No Family Present Additional Information Previous visits reviewed: December 23, 2024 for UTI The following tests were ordered, and results were reviewed by me: CT abdomen/pelvis w/o contrast, UA, CBC, BMP Additional Information was gathered from interviewing the following independent historians: EMS I reviewed and agreed with the following test results read by other providers: CT abdomen/pelvis w/o contrast I discussed treatment and results with medical personnel and: patient Departure 1 Departure Time of Disposition: 02:53 (Patient presented with abdominal pain that was concerning for possible appendicits, gastritis, cholecystitis, colitis, gas troenteritis, sbo, or orther possible surgical emergency. Data: 1. I ordered and reviewed the result of at least 3 labs including a CBC, BMP, and Urinalysis. 2. I independently interpreted the following tests: CT Abdoment and Pelvis is concerning for severe right hydro secondary to an obstructing stone .Risk:This patient has a high risk of morbidity due to further diagnostic testing or treatment and may suffer from an acute abdominal process disorder. Workup reveals severe hydro and obstructing right kidney stone and patient should be admitted for further workup. and possible expert consultation. ) Impression: Primary Impression: Renal colic on right side Additional Impression: Hydronephrosis, right Disposition: ADMITTED INPATIENT Admit to: Med Surg Condition: Guarded Critical Care Note Critical Care Time?: Yes Critical care comment: Intractable abdominal pain Authorized and Performed by: Clay Finn MD Total critical care time: Approximately 39 minutes Due to a high probability of clinically significant, life threatening deterioration, the patient required my highest level of preparedness to intervene emergently and I personally spent this critical care time directly and personally managing the patient. This critical care time included obtaining a history; examining the patient; pulse oximetry; ordering and review of studies; arranging urgent treatment with development of a management plan; evaluation of patient's response to treatment; frequent reassessment; and, discussions with other providers. This critical care time was performed to assess and manage the high probability of imminent, life-threatening deterioration that could result in multi-organ failure. It was exclusive of separately billable procedures and treating other patients and teaching time. Please see my other sections and the rest of the note for further information on patient assessment and treatment. Stability Stability form required: No Heart Score Heart Score: Heart Score Response (Comments) Value History N/A 0 EKG N/A 0 Age N/A 0 Risk Factors N/A 0 Troponin N/A 0 Total 0 I personally scribed for CLAY FINN MD ([email or web address]) on 03/08/25 at 02:19. Electronically submitted by Justin Santana [email or web address]). CLAY FINN MD Mar 08, 2025 02:19
--- NOTE | 2025-03-08 02:50 | DVH ---
Exam: CT CT AB PEL WO CON-NO ORAL OR IV History: flank pain Comparison Study: CT CT AB PEL WO CON-NO ORAL OR IV on DOS: 12/03/24, CT CT AB PEL WO CON-NO ORAL OR I V on DOS: 10/07/24 Technique: Multidetector spiral CT of the abdomen was performed from lung bases to pubic symphysis. I maging was performed without IV contrast. Axial, coronal and sagittal multiplanar reformats were obta ined from the axial data set by the technologist. Radiation Dose : 1. Abdomen/Pelvis: CTDIvol 27.56 mGy, DLP 1529.11 mGy*cm. Findings: Evaluation of solid organs is limited due to lack of intravenous contrast use. Lung Bases: Dependent atelectasis. Liver: Hepatic steatosis. Gallbladder and Biliary Tree: Unremarkable Spleen: Unremarkable Pancreas: The pancreas is grossly normal in appearance. Adrenal Glands: Unremarkable Kidneys: Left kidney is unremarkable. Severe right hydroureteronephrosis with obstructing 0.5 cm sto ne in the distal right ureter. Bladder: Grossly unremarkable for degree of distention. Bowel: The stomach is grossly normal in appearance. Small bowel and colon are normal in caliber and d istribution. The appendix is not visualized; however, no secondary findings of acute appendicitis dawood ntified. Ascites: Absent Lymphadenopathy: No mesenteric, retroperitoneal or periportal lymphadenopathy. Abdominal Wall and Mesentery: Unremarkable. Vasculature: The visualized abdominal aorta is normal in size and caliber. There is extensive athero sclerotic calcification of the aorta and its branches. Evaluation of abdominal and pelvic vessels is limited due to lack of intravenous contrast. Pelvic Organs: Unremarkable Musculoskeletal: No aggressive focal bony lesions, acute fractures or dislocation. Degenerative slater es of the spine. IMPRESSION: Severe right hydroureteronephrosis with obstructing 0.5 cm stone in the distal right ureter.
[2025-03-08] MEDS ORDERED: ONDANSETRON HCL 4 MG/2 ML VIAL IV PRN (05:15)
[2025-03-08] MEDS ORDERED: MORPHINE SULFATE INJ 2 MG/ml SYRG IV PRN (05:15)
[2025-03-08] MEDS: ALBUTEROL SULF 2.5 MG/0.5ML(0.5%) NEB SOLN NEB PRN (05:56)
[2025-03-08] MEDS ORDERED: LEVOTHYROXINE SODIUM 25 MCG TAB PO SCH (06:00)
[2025-03-08] MEDS: SODIUM CHLORIDE 0.9% 1,000 ML IV ONE (07:35)
[2025-03-08] MEDS: ONDANSETRON HCL 4 MG/2 ML VIAL IV ONE (07:36)
[2025-03-08] MEDS: HYDROcodone-ACET 5/325MG TAB PO PRN (07:42)
[2025-03-08] MEDS: cefTRIAXone 1GM/50ML D5W 50 ML IV SCH (09:00)
[2025-03-08] MEDS: CARVEDILOL 12.5 MG TAB PO SCH (10:00)
[2025-03-08] MEDS: FUROSEMIDE 20 MG TAB PO SCH (10:00)
[2025-03-08] MEDS: LOSARTAN POTASSIUM 25 MG TAB PO SCH (10:00)
[2025-03-08] MEDS: SODIUM CHLORIDE 0.9% 1,000 ML IV SCH (11:15)
[2025-03-08] MEDS: SODIUM CHLORIDE 0.9% 500 ML IV ONE (11:19)
--- NOTE | 2025-03-08 13:25 | DVHINCON2 ---
Date of service: Mar 08, [address] Kwok Reason for Consultation right ureteral stone with severe hydronephrosis History of Present Illness History Source: Patient, RN Notes, MD Notes, Old Records Exam Limitations: No limitations HPI 59 yo female with hx of severe COPD and kidney stones known to urology for right sided PCNL 10/2024 and subsequent right ureteral stent placement 11/2024 then right ESWL and subsequent removal 03/07/25. She presents with right flank pain. CT shows a distal 5 mm with severe hydro. There is large residual right renal stone. Home Meds Active Scripts Albuterol Sulfate (Albuterol Sulfate Hfa) 108 Mcg/Act Aer, 108 MCG IN TID, #1 AER Prov:VJ ELIZALDE MD 10/31/24 Fluticasone-Salmeterol (Advair Diskus 500/50) 1 Puff Ih, 1 PUFF INH BID, #1 INHALER Prov:VJ ELIZALDE MD 10/31/24 Reported Medications Ferrous Sulfate (Ferrous Sulfate) 325 Mg Tab, 325 MG PO DAILY for 30 Days, MG 12/05/24 Carvedilol (Carvedilol) 12.5 Mg Tab, 12.5 MG PO BID for 30 Days, MG 12/05/24 Cinacalcet HCl (Cinacalcet Hydrochloride) 30 Mg Tab, 30 MG PO DAILY, TAB 12/05/24 Glipizide (Glipizide) 10 Mg Tab, 10 MG PO DAILY for 30 Days, MG 12/05/24 Docusate Sodium (Colace) 100 Mg Cap, 1 CAP PO BID, #30 CAP 10/30/24 Semaglutide (Ozempic) 2 Mg/3 Ml Inj, 0.5 MG SC QWEEKLY 02/23/24 Atorvastatin Calcium (ATORVASTATIN CALCIUM) 20 Mg Tab, 1 TAB PO HS, #30 TAB 5 Refills 07/14/16 Furosemide (Lasix) 20 Mg Tb, 1 TAB PO BID, #90 TAB 1 Refill 07/14/16 Levothyroxine Sodium (Levothyroxine Sodium) 137 Mcg Tab, 1 TAB PO DAILY, #30 TAB 5 Refills 07/14/16 Potassium Chloride (Klor-Con M20) 20 Meq Tab, 20 MEQ PO DAILY 02/17/10 Albuterol Sulfate (Albuterol Sulfate) 0.5 % Neb, 0.5 ML NEB PRN 02/15/10 Past Medical History Pulmonary: COPD Renal/: UTI Patient Family History: Kidney stones G8 MOTHER G8 FATHER Smoker: Positive Drugs: Amphetimines Domestic Violence: Neg Review of Systems Genitourinary: Pain H&P Exam Vital Signs Vital Signs Date Time Temp Pulse Resp B/P (MAP) Pulse Ox O2 Delivery O2 Flow Rate FiO2 03/08/25 11:55 97.6 86 14 97/55 (69) 100 97.6 03/08/25 10:20 Nasal Cannula* 2 28 General Appeara: Well developed, Well nourished, Normal Appearance, Obese Neuro/Mental St: Alert, Oriented Appearance: Appropriate appearance, Appropriate insight Eye contact/ Speech: Cooperative, Good eye contact, Normal speech Skin Exam: Normal inspection, Normal color, Warm/dry Labs/Xrays [place] [address] Ph: [phone] DIAGNOSTIC IMAGING Diagnostic Imaging Report : [id number] Signed PATIENT: RICA WHEATLEY ACCT: [id number] UNIT: [id number] : 1965 LOC: ER ROOM / BED: / AGE / SEX: 59 / F ADM STATUS: REG ER SERVICE 010 ORDERING PHYSICIAN: CLAY REILLY MD PROCEDURE(s): ABPL - CT AB PEL WO CON-NO ORAL OR IV REASON: flank pain ORDER NUMBER(s): [id number], ACCESSION NUMBER(s): [id number] Exam: CT CT AB PEL WO CON-NO ORAL OR IV History: flank pain Comparison Study: CT CT AB PEL WO CON-NO ORAL OR IV on DOS: 12/03/24, CT CT AB PEL WO CON-NO ORAL OR IV on DOS: 10/07/24 Technique: Multidetector spiral CT of the abdomen was performed from lung bases to pubic symphysis. Imaging was performed without IV contrast. Axial, coronal and sagittal multiplanar reformats were obtained from the axial data set by the technologist. Radiation Dose : 1. Abdomen/Pelvis: CTDIvol 27.56 mGy, DLP 1529.11 mGy*cm. Findings: Evaluation of solid organs is limited due to lack of intravenous contrast use. Lung Bases: Dependent atelectasis. Liver: Hepatic steatosis. Gallbladder and Biliary Tree: Unremarkable Spleen: Unremarkable Pancreas: The pancreas is grossly normal in appearance. Adrenal Glands: Unremarkable Kidneys: Left kidney is unremarkable. Severe right hydroureteronephrosis with obstructing 0.5 cm stone in the distal right ureter. Bladder: Grossly unremarkable for degree of distention. Bowel: The stomach is grossly normal in appearance. Small bowel and colon are normal in caliber and distribution. The appendix is not visualized; however, no secondary findings of acute appendicitis identified. Ascites: Absent Lymphadenopathy: No mesenteric, retroperitoneal or periportal lymphadenopathy. Abdominal Wall and Mesentery: Unremarkable. Vasculature: The visualized abdominal aorta is normal in size and caliber. There is extensive atherosclerotic calcification of the aorta and its branches. Evaluation of abdominal and pelvic vessels is limited due to lack of intravenous contrast. Pelvic Organs: Unremarkable Musculoskeletal: No aggressive focal bony lesions, acute fractures or dislocation. Degenerative changes of the spine. IMPRESSION: Severe right hydroureteronephrosis with obstructing 0.5 cm stone in the distal right ureter. ATED BY: ALPHONSE HERNANDEZ MD DICTATED DATE/TIME: 03/08/25247 SIGNED BY: ALPHONSE HERNANDEZ MD SIGNED DATE/TIME: 03/08/25247 CC: Labs Test 03/07/25 23:25 Range/Units White Blood Count 11.7 H 4.4-10.8 10^3/uL Red Blood Count 4.66 4.0-5.20 10^6/uL Hemoglobin 13.5 12.2-16.2 g/dL Hematocrit 40.8 36.0-46.0 % Mean Corpuscular Volume 87.4 80.0-100.0 fL Mean Corpuscular Hemoglobin 28.9 28.0-32.0 pg Mean Corpuscular Hemoglobin Concent 33.0 32.0-36.0 g/dL Red Cell Distribution Width 15.3 H 11.8-14.3 % Platelet Count 355 140-450 10^3/uL Mean Platelet Volume 6.7 L 6.9-10.8 fL Neutrophils (%) (Auto) 79.0 37.0-80.0 % Lymphocytes (%) (Auto) 13.1 10.0-50.0 % Monocytes (%) (Auto) 6.3 0.0-12.0 % Eosinophils (%) (Auto) 1.2 0.0-7.0 % Basophils (%) (Auto) 0.4 0.0-2.0 % Neutrophils # (Auto) 9.3 H 1.6-8.6 10 ^3/uL Lymphocytes # (Auto) 1.5 0.4-5.4 10 ^3/uL Monocytes # (Auto) 0.7 0-1.3 10 ^3/uL Eosinophils # (Auto) 0.1 0-0.8 10 ^3/uL Basophils # (Auto) 0.1 0-0.2 10 ^3/uL Nucleated Red Blood Cells 0.0 % Sodium Level 140 136-145 mmol/L Potassium Level 4.0 3.5-5.1 mmol/L Chloride Level 107 98-107 mmol/L Carbon Dioxide Level 29 20-31 mmol/L Anion Gap 4 L 5-15 Blood Urea Nitrogen 13 9-23 mg/dL Creatinine 0.97 0.550-1.02 mg/dL Glomerular Filtration Rate Calc 66 >90 mL/min BUN/Creatinine Ratio 13.4 10.0-20.0 Serum Glucose 162 H 74-106 mg/dL Calcium Level 9.6 8.7-10.4 mg/dL Assessment/Plan Problem List: (1) Hydronephrosis, right (2) Renal colic on right side (3) Hydronephrosis concurrent with and due to calculi of kidney and ureter (4) Amphetamine abuse Plan consult IR for right PCN placement NPO after midnight plan for right URSLL using CVAC and stent placement with removal of PCN tomorrow Plan discussed with: Patient, Other HARIS GORDON DBA MANAGER Mar 08, 2025 13:25
--- NOTE | 2025-03-08 13:40 | DVHHP2 ---
History of Present Illness Reason for Visit: Right flank pain History of Present Illness 59-year-old female with a history of recurrent kidney stones, COPD, home O2, who underwent PCNL yesterday by Dr. Salas and she started having increased pain her right flank and therefore she came here CT scan showed a 5 mm distal stone with severe hydronephrosis Cardiovascular: CHF Pulmonary: COPD Renal/: Other (Kidney stones) Endocrine: Diabetes Review of Systems Genitourinary: Other (Right flank pain) Allergies: Coded Allergies: Nitroglycerin (Verified Allergy, Unknown, 02/17/10) Medications Current Medications Medications Dose Ordered Sig/Rajni Route Start Time Stop Time Status Last Admin Dose Admin Ceftriaxone Sodium 50 ml @ 100 mls/hr DAILY@09 IV 03/08/25 09:00 03/08/25 09:00 100 MLS/HR Levothyroxine Sodium 137 mcg QAM@0600 PO 03/08/25 06:00 UNV Albuterol 2.5 mg Q6HPRN PRN NEB 03/08/25 05:15 03/08/25 05:56 2.5 MG Atorvastatin Calcium 20 mg HS PO 03/08/25 22:00 Carvedilol 12.5 mg Q12HR PO 03/08/25 10:00 Furosemide 20 mg DAILY PO 03/08/25 10:00 Losartan Potassium 25 mg DAILY PO 03/08/25 10:00 Acetaminophen/ Hydrocodone Bitart 1 tab Q4HP PRN PO 03/08/25 05:15 03/08/25 07:42 1 TAB Ondansetron HCl 4 mg Q4HP PRN IV 03/08/25 05:15 Acetaminophen 650 mg Q6HP PRN PO 03/08/25 05:15 Morphine Sulfate 2 mg Q4HPRN PRN IV 03/08/25 05:15 Levothyroxine Sodium 112 mcg QAM PO 03/09/25 07:00 Levothyroxine Sodium 25 mcg QAM PO 03/09/25 07:00 Sodium Chloride 1,000 ml @ 100 mls/hr Q10H IV 03/08/25 11:15 03/08/25 11:15 100 MLS/HR Exam Vital Signs Vital Signs Date Time Temp Pulse Resp B/P (MAP) Pulse Ox O2 Delivery O2 Flow Rate FiO2 03/08/25 11:55 97.6 86 14 97/55 (69) 100 97.6 6/3/25 10:20 Nasal Cannula* 2 28 General Appearance: Alert, Oriented X3, Cooperative, mild distress Cardiovascular: Regular rate, Normal S1, Normal S2, No murmurs Abdominal: Normal bowel sounds, Soft, No tenderness Extremities: No edema Labs/Xrays Labs Test 03/07/25 23:25 Range/Units White Blood Count 11.7 H 4.4-10.8 10^3/uL Red Blood Count 4.66 4.0-5.20 10^6/uL Hemoglobin 13.5 12.2-16.2 g/dL Hematocrit 40.8 36.0-46.0 % Mean Corpuscular Volume 87.4 80.0-100.0 fL Mean Corpuscular Hemoglobin 28.9 28.0-32.0 pg Mean Corpuscular Hemoglobin Concent 33.0 32.0-36.0 g/dL Red Cell Distribution Width 15.3 H 11.8-14.3 % Platelet Count 355 140-450 10^3/uL Mean Platelet Volume 6.7 L 6.9-10.8 fL Neutrophils (%) (Auto) 79.0 37.0-80.0 % Lymphocytes (%) (Auto) 13.1 10.0-50.0 % Monocytes (%) (Auto) 6.3 0.0-12.0 % Eosinophils (%) (Auto) 1.2 0.0-7.0 % Basophils (%) (Auto) 0.4 0.0-2.0 % Neutrophils # (Auto) 9.3 H 1.6-8.6 10 ^3/uL Lymphocytes # (Auto) 1.5 0.4-5.4 10 ^3/uL Monocytes # (Auto) 0.7 0-1.3 10 ^3/uL Eosinophils # (Auto) 0.1 0-0.8 10 ^3/uL Basophils # (Auto) 0.1 0-0.2 10 ^3/uL Nucleated Red Blood Cells 0.0 % Sodium Level 140 136-145 mmol/L Potassium Level 4.0 3.5-5.1 mmol/L Chloride Level 107 98-107 mmol/L Carbon Dioxide Level 29 20-31 mmol/L Anion Gap 4 L 5-15 Blood Urea Nitrogen 13 9-23 mg/dL Creatinine 0.97 0.550-1.02 mg/dL Glomerular Filtration Rate Calc 66 >90 mL/min BUN/Creatinine Ratio 13.4 10.0-20.0 Serum Glucose 162 H 74-106 mg/dL Calcium Level 9.6 8.7-10.4 mg/dL Assessment/Plan Assessment/Plan Right ureteral stone Right renal colic Severe right hydronephrosis UTI COPD Chronic respiratory failure on home O2 Amphetamine use Heart failure Hypothyroidism Plan IV fluids Rocephin IV Urology consult Pain control Resume the home medications Monitor closely Full code Advance directives discussed for 17 minutes Plan discussed with: Patient My Orders Orders - MONAE MURPHY MD Procedure Category Date Status Time Sodium Chloride 0.9% PHA 03/08/25 In Process 11:15 Date of Service: Mar 08, 2025 Billing Provider: MONAE MURPHY MD Common Visit Codes: 82263-ZNMDFJS INP/OBS CARE (HIGH) Secondary Visit Codes: 19784-UITPNHAU CARE PLAN 30 MINUTES MONAE MURPHY MD Mar 08, 2025 13:40
--- NOTE | 2025-03-08 18:14 | DVH ---
RENAL ULTRASOUND CLINICAL HISTORY: POSSIBLE NEPHROSTOMY TUBE PLACEMENT TECHNIQUE: Multiple grayscale ultrasound images were obtained through the kidneys and urinary bladder . COMPARISON: US KIDNEY on DOS: 12/25/24, CT abdomen pelvis from same day FINDINGS: Right kidney: Measures 11.9 cm. Mild hydronephrosis. There is a nephrostomy tube/ stent in the lower pole right kidney. Tiny nonobstructing renal calculi. There is a cyst in the upper pole right kidney which measures up to 4.1 cm. Left kidney: Measures 11.7 cm. No hydronephrosis. Tiny nonobstructing renal calculi. Urinary bladder: Unremarkable. IMPRESSION: 1. Mild right Hydronephrosis containing a ureteral stent. 2. Nonobstructing bilateral renal calculi. 3. Right upper pole renal cyst.
[2025-03-08 18:54] LABS: Partial Thromboplastin Time 27.1 SEC (24.5-34.5); Prothrombin Time 10.6 sec (9.3-11.8)
[2025-03-08] MEDS: ACETAMINOPHEN 325 MG TAB PO PRN (21:06)
[2025-03-08] MEDS: ATORVASTATIN 20 MG TAB PO SCH (21:07)
[2025-03-09] VITALS (14 sets, daily range): BP systolic 95–129; BP diastolic 49–74; PULSE 77–102; RESP 14–19; TEMP 96.9–98.2; O2SAT 89–100
[2025-03-09 06:01] LABS: Basophils # (auto) 0 10 ^3/uL (0-0.2); Basophils % (auto) 0.3 % (0.0-2.0); Eosinophils # (auto) 0.2 10 ^3/uL (0-0.8); Eosinophils % (auto) 2.9 % (0.0-7.0); Hematocrit 36.4 % (36.0-46.0); Lymphocytes # (auto) 1.8 10 ^3/uL (0.4-5.4); Lymphocytes % (auto) 27.3 % (10.0-50.0); Mean Corpuscular Hemoglobin 29.1 pg (28.0-32.0); Mean Corpuscular Hgb Conc. 32.8 g/dL (32.0-36.0); Mean Corpuscular Volume 88.8 fL (80.0-100.0); Monocytes # (auto) 0.5 10 ^3/uL (0-1.3); Monocytes % (auto) 8.2 % (0.0-12.0); Neutrophils % (auto) 61.3 % (37.0-80.0); Nucleated Red Blood Cells % 0.1 %; Platelet Count (auto) 302 10^3/uL (140-450); Red Blood Cells 4.11 10^6/uL (4.0-5.20); Red Cell Distribution Width 14.9 % (11.8-14.3); White Blood Cell 6.6 10^3/uL (4.4-10.8)
[2025-03-09] MEDS: LEVOTHYROXINE SODIUM 25 MCG TAB PO SCH (06:06)
[2025-03-09] MEDS: LEVOTHYROXINE SODIUM 112 MCG TAB PO SCH (06:06)
[2025-03-09 06:07] LABS: Potassium 4.2 mmol/L (3.5-5.1); Sodium 143 mmol/L (136-145)
[2025-03-09 06:08] LABS: Anion Gap 4 (5-15); Carbon Dioxide 31 mmol/L (20-31)
[2025-03-09 06:09] LABS: Calcium 9.6 mg/dL (8.7-10.4)
[2025-03-09 06:10] LABS: Chloride 108 mmol/L (98-107)
[2025-03-09 06:13] LABS: BUN/Creatinine Ratio 12.7 (10.0-20.0); Blood Urea Nitrogen 10 mg/dL (9-23)
[2025-03-09 06:18] LABS: Glucose 134 mg/dL (74-106)
[2025-03-09] MEDS: IODIXANOL 320MG/ML 100ML BTL IV ONE (08:40)
[2025-03-09] MEDS: LIDOCAINE 2%HCL (LOCAL ANESTH.) INJ 20ML MDV ONE (08:44)
[2025-03-09] MEDS: fentaNYL CITRATE 100 MCG/2 ML VL ONE (08:44)
[2025-03-09] MEDS: MIDAZOLAM HCL 2MG/2ML 2ml VIAL (1mg/ml) ONE (08:44)
[2025-03-09] MEDS: cefTRIAXone 1GM/50ML D5W 50 ML IV ONE (09:34)
[2025-03-09 09:49] LABS: Urine Bacteria None Seen /hpf (None Seen)
--- NOTE | 2025-03-09 09:56 | DVH ---
XY PERCUTANEOUS NEPHROSTOMY, HISTORY: NEPHRO TUBE PLACEMENT PROCEDURE: Informed consent was obtained. The patient was placed on the fluoroscopic table in a prone position and IV sedation administered. The right flank was prepped with chlorhexidine which was allo wed to dry and draped in the usual sterile fashion. Time out was performed. and the soft tissues infi ltrated with 1% lidocaine local anesthetic. Utilizing ultrasound guidance, a 21 gauge Accu Stick need le was advanced from a posterolateral approach into an superior pole calyx, and a small amount of con trast was injected under fluoroscopy to confirm positioning. Over a mandril wire, exchange was made t o a non-vascular access set, through which was advanced an 0.035 wire. Following serial dilation, an 8.5 Turkish multipurpose nephrostomy catheter was placed with tip pigtailed within the renal pelvis. P osition was confirmed with antegrade nephrostogram. The catheter was secured in place and connected t o gravity drainage. A sterile dressing was applied. No immediate complication was identified. DAP 886 FLUOROSCOPY TIME: 3.0 minutes. CONTRAST USED: 15 mL. SEDATION: Dr. Yasmin Sherman was personally responsible for the administration of moderate sedation during the procedure performed, including the use of an independent trained observer who had no other duties during the procedure. The drugs utilized were IV fentanyl and versed (see nursing log for details). The total time of supervision by the attending physician was approximately 30 minutes. FINDINGS: Dilated right renal collecting system involving the calyces/renal pelvis/ureter to the leve l of the distal ureter. New 8.5 taiwanese nephrostomy tube via a posterior upper pole calyceal access , with loop coiled within the renal pelvis. IMPRESSION: Right hydronephrosis due to obstructive stone, status post placement of 8.5 taiwanese right percutaneou s nephrostomy catheter. PLAN: Routine catheter care.
--- NOTE | 2025-03-09 09:56 | DVH ---
XY PERCUTANEOUS NEPHROSTOMY, HISTORY: NEPHRO TUBE PLACEMENT PROCEDURE: Informed consent was obtained. The patient was placed on the fluoroscopic table in a prone position and IV sedation administered. The right flank was prepped with chlorhexidine which was allo wed to dry and draped in the usual sterile fashion. Time out was performed. and the soft tissues infi ltrated with 1% lidocaine local anesthetic. Utilizing ultrasound guidance, a 21 gauge Accu Stick need le was advanced from a posterolateral approach into an superior pole calyx, and a small amount of con trast was injected under fluoroscopy to confirm positioning. Over a mandril wire, exchange was made t o a non-vascular access set, through which was advanced an 0.035 wire. Following serial dilation, an 8.5 Hungarian multipurpose nephrostomy catheter was placed with tip pigtailed within the renal pelvis. P osition was confirmed with antegrade nephrostogram. The catheter was secured in place and connected t o gravity drainage. A sterile dressing was applied. No immediate complication was identified. DAP 886 FLUOROSCOPY TIME: 3.0 minutes. CONTRAST USED: 15 mL. SEDATION: Dr. Yasmin Sherman was personally responsible for the administration of moderate sedation during the procedure performed, including the use of an independent trained observer who had no other duties during the procedure. The drugs utilized were IV fentanyl and versed (see nursing log for details). The total time of supervision by the attending physician was approximately 30 minutes. FINDINGS: Dilated right renal collecting system involving the calyces/renal pelvis/ureter to the leve l of the distal ureter. New 8.5 congolese nephrostomy tube via a posterior upper pole calyceal access , with loop coiled within the renal pelvis. IMPRESSION: Right hydronephrosis due to obstructive stone, status post placement of 8.5 congolese right percutaneou s nephrostomy catheter. PLAN: Routine catheter care.
[2025-03-09 10:07] LABS: Urine Blood 3+ /uL (Negative); Urine Clarity Ex.Turbid (Clear); Urine Color Brown (Yellow); Urine Mucus FEW (None Seen); Urine Protein, UAD 1+ (Negative); Urine Squamous Epithelial Cell None Seen /hpf (<5); Urine Urobilinogen Normal (Negative); Urine WBC 2281 /HPF (0-5); Urine WBC Clumps PRESENT /hpf (None Seen); Urine pH 7.5 (5.0-9.0)
[2025-03-09 10:10] LABS: Urine Specific Gravity > 1.035 (1.001-1.035)
--- NOTE | 2025-03-09 10:27 | ECG ---
[facility] Test Date: 2025-03-09 Test Time: 08:35:50 Pat Name: RICA WHEATLEY Department: Room: 0209 A Gender: F Background Investigator: Frances PARADA : 1965 Requested By: CRUZ CLOUD Order Number: [id number] Reading MD: Chauncey Ndiaye Measurements Intervals [place] Rate: 80 P: 89 FL: 180 QRS: 0 QRSD: 86 T: 46 QT: 386 QTc: 445 Interpretive Statements Sinus rhythm with fusion complexes Pulmonary disease pattern Electronically Signed On 03-09-2025 14:41:09 PDT by Chauncey Ndiaye Please click the below link to view image of tracing.
--- NOTE | 2025-03-09 14:08 | DVHPN2 ---
Progress Note - Dictate Date Seen: Mar 09, 2025 Has the PT tested + for MRSA If YES, has PT been informed?: No Medical Necessity Reason Pt with a Central, PICC or Fol: Yes The following are medically ne: Aburto Catheter Medical Necessity Reason Patient underwent right extracorporeal shockwave lithotripsy with stent removal at [facility] on 03/07/2025. She was then admitted to [facility] on 03/08/2025 for right hydronephrosis due to a 5 mm obstructing distal stone and residual right nephrolithiasis. She underwent right percutaneous nephrostomy tube placement today. Subjective No significant pain reported at this time vital signs Vital Sign Date Time Temp Pulse Resp B/P (MAP) Pulse Ox O2 Delivery O2 Flow Rate FiO2 03/09/25 10:20 89 16 103/61 (75) 99 03/09/25 10:00 Nasal Cannula* 3 32 03/09/25 09:40 97.5 97.5 Total Intake and Output 03/08/25 03/08/25 03/09/25 15:00 23:00 07:00 Intake Total 500 ml 240 ml Balance 500 ml 240 ml medications Current Medications Medications Dose Ordered Sig/Rajni Route Start Time Stop Time Status Last Admin Dose Admin Ceftriaxone Sodium 50 ml @ 100 mls/hr DAILY@09 IV 03/08/25 09:00 03/08/25 09:00 100 MLS/HR Levothyroxine Sodium 137 mcg QAM@0600 PO 03/08/25 06:00 UNV Albuterol 2.5 mg Q6HPRN PRN NEB 03/08/25 05:15 03/09/25 10:51 2.5 MG Atorvastatin Calcium 20 mg HS PO 03/08/25 22:00 03/08/25 21:07 20 MG Carvedilol 12.5 mg Q12HR PO 03/08/25 10:00 03/08/25 21:07 12.5 MG Furosemide 20 mg DAILY PO 03/08/25 10:00 Losartan Potassium 25 mg DAILY PO 03/08/25 10:00 Acetaminophen/ Hydrocodone Bitart 1 tab Q4HP PRN PO 03/08/25 05:15 03/08/25 07:42 1 TAB Ondansetron HCl 4 mg Q4HP PRN IV 03/08/25 05:15 Acetaminophen 650 mg Q6HP PRN PO 03/08/25 05:15 03/08/25 21:06 650 MG Morphine Sulfate 2 mg Q4HPRN PRN IV 03/08/25 05:15 Levothyroxine Sodium 112 mcg QAM PO 03/09/25 07:00 Levothyroxine Sodium 25 mcg QAM PO 03/09/25 07:00 Sodium Chloride 1,000 ml @ 100 mls/hr Q10H IV 03/08/25 11:15 03/08/25 11:15 100 MLS/HR objective Right percutaneous nephrostomy tube in place laboratory and microbiology Laboratory Tests 03/09/25 05:05 Test 03/09/25 05:05 Range/Units Serum Glucose 134 H 74-106 mg/dL Problem List Right nephrolithiasis Right percutaneous nephrostomy tube in-situ Right distal ureteral calculus with hydronephrosis Assessment/Plan Right ureteroscopic laser lithotripsy Right pyeloscopy with laser lithotripsy and renal evacuation Cystoscopy with right ureteral stent placement Plan discussed with: Patient, Other KARLA KLINE MD Mar 09, 2025 14:08
--- NOTE | 2025-03-09 19:14 | DVHPN2 ---
Subjective Lithotripsy and stent placement today Changes from previous H/P or p: Changes Genitourinary: Other (Right flank pain) Objective Vitals Vital Signs Date Time Temp Pulse Resp B/P (MAP) Pulse Ox O2 Delivery O2 Flow Rate FiO2 03/09/25 13:00 96.9 88 16 112/56 (74) 95 96.9 03/09/25 10:51 Nasal Cannula 2.0 03/09/25 10:51 28 Intake/Output Intake and Output 03/09/25 07:00 Intake Total 740 ml Balance 740 ml Intake Oral 240 ml IV Total 500 ml # Voids 23 General Appearance: Alert, Oriented X3, Cooperative, No acute distress Lungs: Clear to auscultation, Normal air movement Cardiovascular: Regular rate, Normal S1 Abdomen: Normal bowel sounds, Soft, No tenderness Extremities: No edema Medications Current Medications Medications Dose Ordered Sig/Rajni Route Start Time Stop Time Status Last Admin Dose Admin Ceftriaxone Sodium 50 ml @ 100 mls/hr DAILY@09 IV 03/08/25 09:00 03/08/25 09:00 100 MLS/HR Levothyroxine Sodium 137 mcg QAM@0600 PO 03/08/25 06:00 UNV Albuterol 2.5 mg Q6HPRN PRN NEB 03/08/25 05:15 03/09/25 10:51 2.5 MG Atorvastatin Calcium 20 mg HS PO 03/08/25 22:00 03/08/25 21:07 20 MG Carvedilol 12.5 mg Q12HR PO 03/08/25 10:00 03/08/25 21:07 12.5 MG Furosemide 20 mg DAILY PO 03/08/25 10:00 Losartan Potassium 25 mg DAILY PO 03/08/25 10:00 Acetaminophen/ Hydrocodone Bitart 1 tab Q4HP PRN PO 03/08/25 05:15 03/08/25 07:42 1 TAB Ondansetron HCl 4 mg Q4HP PRN IV 03/08/25 05:15 Acetaminophen 650 mg Q6HP PRN PO 03/08/25 05:15 03/08/25 21:06 650 MG Morphine Sulfate 2 mg Q4HPRN PRN IV 03/08/25 05:15 Levothyroxine Sodium 112 mcg QAM PO 03/09/25 07:00 Levothyroxine Sodium 25 mcg QAM PO 03/09/25 07:00 Sodium Chloride 1,000 ml @ 100 mls/hr Q10H IV 03/08/25 11:15 03/09/25 17:35 100 MLS/HR Laboratory Results Laboratory Tests 03/09/25 05:05 Chemistry Test 03/09/25 05:05 Calcium Level 9.6 mg/dL (8.7-10.4) Urinalysis Test 03/09/25 09:38 Urine Color Brown (Yellow) H Urine Clarity Ex.turbid (Clear) Urine pH 7.5 (5.0-9.0) Urine Specific [place] > 1.035 (1.001-1.035) Urine Protein 1+ (Negative) H Urine Ketones Negative (Negative) Urine Blood 3+ /uL (Negative) H Urine Nitrite Negative (Negative) Urine Bilirubin Negative (Negative) Urine Urobilinogen Normal mg/dL (Negative) Urine Leukocyte Esterase 3+ /uL (Negative) Urine RBC 749 /hpf (0 - 4) Urine WBC Clumps Present /hpf (None Seen) Urine Microscopic WBC 2281 /HPF (0-5) H Urine Squamous Epithelial Cells None seen /hpf (<5) Urine Bacteria None seen /hpf (None Seen) Urine Mucus Few (None Seen) Urine Glucose Normal mg/dL (Normal) Assessment/Plan Assessment/Plan Right ureteral stone Right renal colic Severe right hydronephrosis UTI COPD Chronic respiratory failure on home O2 Amphetamine use Heart failure Hypothyroidism Plan IV fluids Rocephin IV Urology consult Pain control Resume the home medications Monitor closely Full code Advance directives discussed for 17 minutes 03/09/23: Lithotripsy today Stent placement Rocephin IV fluids Plan discussed with: Patient Date of Service: Mar 09, 2025 Billing Provider: MONAE MURPHY MD Common Visit Codes: [id number] INP/OBS CARE(HIGH) MONAE MURPHY MD Mar 09, 2025 19:13
[2025-03-10] VITALS (10 sets, daily range): BP systolic 105–128; BP diastolic 53–65; PULSE 67–86; RESP 16–21; TEMP 97.4–98.2; O2SAT 83–98
[2025-03-10 06:37] LABS: Anion Gap 4 (5-15); Carbon Dioxide 30 mmol/L (20-31); Potassium 3.9 mmol/L (3.5-5.1); Sodium 145 mmol/L (136-145)
[2025-03-10 06:39] LABS: Basophils # (auto) 0 10 ^3/uL (0-0.2); Basophils % (auto) 0.3 % (0.0-2.0); Eosinophils # (auto) 0.2 10 ^3/uL (0-0.8); Eosinophils % (auto) 2.9 % (0.0-7.0); Hematocrit 37.5 % (36.0-46.0); Hemoglobin 12.8 g/dL (12.2-16.2); Lymphocytes # (auto) 1.9 10 ^3/uL (0.4-5.4); Lymphocytes % (auto) 26.3 % (10.0-50.0); Mean Corpuscular Hemoglobin 29.8 pg (28.0-32.0); Mean Corpuscular Volume 87.6 fL (80.0-100.0); Monocytes # (auto) 0.5 10 ^3/uL (0-1.3); Monocytes % (auto) 7.5 % (0.0-12.0); Neutrophils # (auto) 4.6 10 ^3/uL (1.6-8.6); Platelet Count (auto) 330 10^3/uL (140-450); Red Blood Cells 4.28 10^6/uL (4.0-5.20); Red Cell Distribution Width 14.8 % (11.8-14.3); White Blood Cell 7.3 10^3/uL (4.4-10.8)
[2025-03-10 06:43] LABS: BUN/Creatinine Ratio 16.7 (10.0-20.0); Blood Urea Nitrogen 12 mg/dL (9-23); Calcium 10.5 mg/dL (8.7-10.4); Chloride 111 mmol/L (98-107)
[2025-03-10 06:50] LABS: Glucose 146 mg/dL (74-106)
--- NOTE | 2025-03-10 09:26 | DVHPN2 ---
Subjective Lithotripsy and stent placement today Changes from previous H/P or p: Changes Genitourinary: Other (Right flank pain) Objective Vitals Vital Signs Date Time Temp Pulse Resp B/P (MAP) Pulse Ox O2 Delivery O2 Flow Rate FiO2 03/10/25 09:01 105/53 03/10/25 09:01 67 03/10/25 08:00 Nasal Cannula* 3 32 03/10/25 05:00 98.0 20 97 98.0 Intake/Output Intake and Output 03/10/25 07:00 Intake Total 1520 ml Output Total 950 ml Balance 570 ml Intake Oral 720 ml IV Total 800 ml Output Stool Total 0 ml Drainage Total 950 ml # Voids 5 General Appearance: Alert, Oriented X3, Cooperative, No acute distress Lungs: Clear to auscultation, Normal air movement Cardiovascular: Regular rate, Normal S1 Abdomen: Normal bowel sounds, Soft, No tenderness Extremities: No edema Medications Current Medications Medications Dose Ordered Sig/Rajni Route Start Time Stop Time Status Last Admin Dose Admin Ceftriaxone Sodium 50 ml @ 100 mls/hr DAILY@09 IV 03/08/25 09:00 03/10/25 09:09 100 MLS/HR Levothyroxine Sodium 137 mcg QAM@0600 PO 03/08/25 06:00 UNV Albuterol 2.5 mg Q6HPRN PRN NEB 03/08/25 05:15 03/09/25 19:18 2.5 MG Atorvastatin Calcium 20 mg HS PO 03/08/25 22:00 03/09/25 21:53 20 MG Carvedilol 12.5 mg Q12HR PO 03/08/25 10:00 03/09/25 21:53 12.5 MG Losartan Potassium 25 mg DAILY PO 03/08/25 10:00 Acetaminophen/ Hydrocodone Bitart 1 tab Q4HP PRN PO 03/08/25 05:15 03/08/25 07:42 1 TAB Ondansetron HCl 4 mg Q4HP PRN IV 03/08/25 05:15 Acetaminophen 650 mg Q6HP PRN PO 03/08/25 05:15 03/08/25 21:06 650 MG Morphine Sulfate 2 mg Q4HPRN PRN IV 03/08/25 05:15 Levothyroxine Sodium 112 mcg QAM PO 03/09/25 07:00 Levothyroxine Sodium 25 mcg QAM PO 03/09/25 07:00 Sodium Chloride 1,000 ml @ 100 mls/hr Q10H IV 03/08/25 11:15 03/10/25 03:15 100 MLS/HR Laboratory Results Laboratory Tests 03/10/25 05:51 Chemistry Test 03/10/25 05:51 Calcium Level 10.5 mg/dL (8.7-10.4) H Urinalysis Test 03/09/25 09:38 Urine Color Brown (Yellow) H Urine Clarity Ex.turbid (Clear) Urine pH 7.5 (5.0-9.0) Urine Specific [place] > 1.035 (1.001-1.035) Urine Protein 1+ (Negative) H Urine Ketones Negative (Negative) Urine Blood 3+ /uL (Negative) H Urine Nitrite Negative (Negative) Urine Bilirubin Negative (Negative) Urine Urobilinogen Normal mg/dL (Negative) Urine Leukocyte Esterase 3+ /uL (Negative) Urine RBC 749 /hpf (0 - 4) Urine WBC Clumps Present /hpf (None Seen) Urine Microscopic WBC 2281 /HPF (0-5) H Urine Squamous Epithelial Cells None seen /hpf (<5) Urine Bacteria None seen /hpf (None Seen) Urine Mucus Few (None Seen) Urine Glucose Normal mg/dL (Normal) Assessment/Plan Assessment/Plan Right ureteral stone Right renal colic Severe right hydronephrosis UTI COPD Chronic respiratory failure on home O2 Amphetamine use Heart failure Hypothyroidism Plan IV fluids Rocephin IV Urology consult Pain control Resume the home medications Monitor closely Full code Advance directives discussed for 17 minutes 03/09/23: Lithotripsy today Stent placement Rocephin IV fluids 03/10/25: Lithotripsy today Urine is clear Stll c/o right flank pain Monitor closely Plan discussed with: Patient Date of Service: Mar 10, 2025 Billing Provider: MONAE MURPHY MD Common Visit Codes: [id number] INP/OBS CARE(HIGH) MONAE MURPHY MD Mar 10, 2025 09:26
--- NOTE | 2025-03-10 13:54 | DVH ---
EXAM: XY CHEST XRAY 1 VIEW Indication: Pain Technique: Single frontal view of the chest was obtained Comparison: XY CHEST PORTABLE on DOS: 12/23/24, XY CHEST PORTABLE on DOS: 10/29/24, XY CHEST XRAY 1 VIE W on DOS: 10/08/24, XY CHEST PORTABLE on DOS: 06/09/24, XY CHEST PORTABLE on DOS: 02/29/24 FINDINGS: Lines and Tubes: None Lungs: Vascular congestion. Pleura: No effusion. No pneumothorax. Cardiomediastinal contours: Cardiomegaly. Bones: No acute osseous abnormality. IMPRESSION: Cardiomegaly with pulmonary edema and pulmonary vascular congestion.
[2025-03-10] MEDS ORDERED: ceFAZolin 2 GM/D5W50ml 50 ML IV ONE (14:00)
[2025-03-10] MEDS ORDERED: fentaNYL CITRATE 100 MCG/2 ML VL ONE (15:18)
[2025-03-10] MEDS ORDERED: PROPOFOL 10 MG/ML 20 ML IV ONE (16:35)
--- NOTE | 2025-03-10 16:58 | DVHNC2 ---
Procedure - OPERATIVE REPORT Pre-op. Diagnosis: Ureteral stone - Right Hydronephrosis - Right Right PNT, in situ Post-op. Diagnosis: Same as pre-op diagnosis Operation: Right ureteroscopy/pyeloscopy, laser lithotripsy Cystoscopy with right ureteral stent placement Right retrograde pyelogram Anesthesia: General Indications: Patient presented with right ureteral stone and hydronephrosis following recent right ESWL and stent removal on 03/07/25. The indications, risks, complications, alternatives and benefits were discussed. All questions were encouraged and answered. Patient is aware of risks/complications including but not limited to infection, bleeding, persistent pain, possible ureteral injury/ureteral stricture requiring additional surgical management. Details of Procedure: After obtaining the consent, patient was taken to OR suite and underwent general anesthesia. Preop antibiotic was given. Timeout was performed and deemed to be correct. With the patient positioned in the lithotomy, the area of the genitalia prepped and draped in usual sterile fashion. 22 F Cystoscope was used to access the urethra and bladder. A sensor tip guide wire was advanced through the scope into the right ureter all the way to the right collecting system under fluoroscopic control. Then I assembled semi-rigid ureteroscopy and placed it into the bladder and into the right ureter. The stone was visualized. Now using a 200 micron laser fiber the stone was blasted into small fragments. Ureteroscope was removed. At this point, the cystoscope was advanced over the wire into the bladder. Now a 6 [address] x [address] ureteral stent was advanced under direct visualization through the right ureteral orifice into the kidney. Proper placement was verified. Under fluoroscopy, the right nephrostomy tube was removed. Aburto catheter was placed for postoperative management The patient was placed in supine position in the OR table. Anesthesia was reversed, patient was extubated and transferred awake and in stable conditions to recovery room. Specimens: Complications: None Findings: Right ureteral stone Notes: 6 [address] x [address] ureteral stent - Right KARLA KLINE MD Mar 10, 2025 16:58
[2025-03-10] MEDS ORDERED: ACETAMINOPHEN IV 1000 MG/100ML (10MG/ML) IV PRN (17:00)
[2025-03-10] MEDS ORDERED: ONDANSETRON HCL 4 MG/2 ML VIAL IV ONE (17:00)
[2025-03-10] MEDS ORDERED: HYDROmorphone HCL 2 MG/ML VL/or syr IV PRN (17:00)
--- NOTE | 2025-03-10 17:44 | DVHNC2 ---
Procedure - OPERATIVE REPORT Pre-op. Diagnosis: Ureteral Stone - LEFT Hydronephrosis - LEFT Flank Pain - LEFT Post-op. Diagnosis: Same as pre-op diagnosis Operation: Extracorporeal Shockwave Lithotripsy - LEFT Cystoscopy, Ureteral stent placement - LEFT Anesthesia: General Indications: Informed Consent: Options were discussed. Treatments can include conservative therapy, Extra-corporeal shockwave therapy (ESWL), Ureteroscopy with laser lithotripsy vs extraction, PCNL (percutaneous nephrolithotomy); with or without the use of Stents or retrograde pyelography. Corresponding advantages and disadvantages were also discussed. Questions were addressed. Patient wishes to proceed with left ESWL and possible cystoscopy with left ureteral stent placement. Risks and benefits of the surgery were reviewed with patient which include but are not limited to infection, bleeding, urosepsis, renal hemorrhage/hematoma formation, ureteral perforation, ureteral stricture formation, need for further surgery if stone does not break, ureteral obstruction from stone fragments, cardiac arrthymia and risks of anesthesia. Despite these risks, patient wishes to proceed with the surgery. Patient fully understood and signed the consent. Details of Procedure: Under satisfactory anesthesia, the patient was positioned on the lithotripsy table. Using fluoroscopy the left ureteral stone was localized. Starting at low energy levels, shockwave treatment was commenced. The energy level was gradually increased and stone was fragmented. Once the treatment was completed, patient was then positioned in dorsal lithotomy position, prep and draped under standard fashion and cystoscopy with a 22Fr rigid cystoscope was performed. The left ureteral orifice was cannulated with six Arabic open-ended catheter and retrograde pyelogram was performed identifying the distal ureteral calculus measuring approximately 6 mm. Next, a sensor tip guidewire and advanced into the left renal pelvis under fluroscopy. A 6x24 PL left Ureteral stent was then placed over the wire under Fluoroscopic and cystoscopic guidance. The bladder was emptied and the cystoscope was taken out. The stone was then placed onto the F2 focus and 3000 shock waves were delivered at level nine. General anesthesia was reversed, the patient was then taken off the lithotripsy table and sent to recovery room in stable condition. Specimens: None Complications: None Findings: Stone Laterality: Left Stone Location: Ureter 6 mm Shocks Delivered: 3000 Max Power settin Fragmentation Quality: Well Ureteral stent size & length: 6x24 PL left ureteral stent Notes: f/u 2 weeks RAISAKARLA S MD Mar 10, 2025 17:44
--- NOTE | 2025-03-10 18:13 | DVH ---
EXAM: XY KUB ABDOMEN SINGLE VIEW, XY C ARM FLUOROSCOPY UP TO 60MIN HISTORY: RT URETEROSCOPIC LASER LITHOTRIPSY TECHNIQUE: Intraoperative radiographs of the abdomen were obtained. FLUOROSCOPY TIME: 29.1 sec FLUOROSCOPY IMAGES: 3 TOTAL DOSE: 11.33 mGy COMPARISON: XY KUB ABDOMEN SINGLE VIEW on DOS: 10/12/24, XY KUB ABDOMEN SINGLE VIEW on DOS: 02/27/24 FINDINGS/IMPRESSION: Interval placement of a right-sided nephroureteral stent. Refer to intraoperative report for further evaluation.
[2025-03-11] VITALS (10 sets, daily range): BP systolic 105–132; BP diastolic 54–82; PULSE 56–77; RESP 18–20; TEMP 97.7–98.9; O2SAT 93–98
[2025-03-11 07:51] LABS: Potassium 3.6 mmol/L (3.5-5.1); Sodium 143 mmol/L (136-145)
[2025-03-11 07:52] LABS: Anion Gap 4 (5-15)
[2025-03-11 07:53] LABS: Calcium 10.3 mg/dL (8.7-10.4)
[2025-03-11 07:57] LABS: BUN/Creatinine Ratio 14.1 (10.0-20.0); Blood Urea Nitrogen 10 mg/dL (9-23); Carbon Dioxide 31 mmol/L (20-31); Chloride 108 mmol/L (98-107)
[2025-03-11 07:58] LABS: Glucose 140 mg/dL (74-106)
--- NOTE | 2025-03-11 14:32 | DVHPN2 ---
Subjective Comfortable No pain Changes from previous H/P or p: Changes Genitourinary: Other (Right flank pain) Objective Vitals Vital Signs Date Time Temp Pulse Resp B/P (MAP) Pulse Ox O2 Delivery O2 Flow Rate FiO2 03/11/25 13:00 98.5 77 18 113/74 (87) 97 98.5 03/11/25 10:00 Nasal Cannula* 2 28 Intake/Output Intake and Output 03/11/25 07:00 Intake Total 410 ml Output Total 1025 ml Balance -615 ml Intake Oral 260 ml IV Total 150 ml Output Urine Total 1025 ml # Voids 1 General Appearance: Alert, Oriented X3, Cooperative, No acute distress Lungs: Clear to auscultation, Normal air movement Cardiovascular: Regular rate, Normal S1 Abdomen: Normal bowel sounds, Soft, No tenderness Extremities: No edema Medications Current Medications Medications Dose Ordered Sig/Rajni Route Start Time Stop Time Status Last Admin Dose Admin Ceftriaxone Sodium 50 ml @ 100 mls/hr DAILY@09 IV 03/08/25 09:00 03/11/25 10:33 100 MLS/HR Levothyroxine Sodium 137 mcg QAM@0600 PO 03/08/25 06:00 UNV Albuterol 2.5 mg Q6HPRN PRN NEB 03/08/25 05:15 03/09/25 19:18 2.5 MG Atorvastatin Calcium 20 mg HS PO 03/08/25 22:00 03/10/25 21:40 20 MG Carvedilol 12.5 mg Q12HR PO 03/08/25 10:00 03/10/25 21:40 12.5 MG Losartan Potassium 25 mg DAILY PO 03/08/25 10:00 Acetaminophen/ Hydrocodone Bitart 1 tab Q4HP PRN PO 03/08/25 05:15 03/11/25 01:00 1 TAB Ondansetron HCl 4 mg Q4HP PRN IV 03/08/25 05:15 Acetaminophen 650 mg Q6HP PRN PO 03/08/25 05:15 03/08/25 21:06 650 MG Morphine Sulfate 2 mg Q4HPRN PRN IV 03/08/25 05:15 Levothyroxine Sodium 112 mcg QAM PO 03/09/25 07:00 03/11/25 06:23 112 MCG Levothyroxine Sodium 25 mcg QAM PO 03/09/25 07:00 03/11/25 06:23 25 MCG Sodium Chloride 1,000 ml @ 100 mls/hr Q10H IV 03/08/25 11:15 03/11/25 10:34 100 MLS/HR Laboratory Results Laboratory Tests 03/10/25 05:51 03/11/25 06:18 Chemistry Test 03/11/25 06:18 Calcium Level 10.3 mg/dL (8.7-10.4) Urinalysis Test 03/09/25 09:38 Urine Color Brown (Yellow) H Urine Clarity Ex.turbid (Clear) Urine pH 7.5 (5.0-9.0) Urine Specific [place] > 1.035 (1.001-1.035) Urine Protein 1+ (Negative) H Urine Ketones Negative (Negative) Urine Blood 3+ /uL (Negative) H Urine Nitrite Negative (Negative) Urine Bilirubin Negative (Negative) Urine Urobilinogen Normal mg/dL (Negative) Urine Leukocyte Esterase 3+ /uL (Negative) Urine RBC 749 /hpf (0 - 4) Urine WBC Clumps Present /hpf (None Seen) Urine Microscopic WBC 2281 /HPF (0-5) H Urine Squamous Epithelial Cells None seen /hpf (<5) Urine Bacteria None seen /hpf (None Seen) Urine Mucus Few (None Seen) Urine Glucose Normal mg/dL (Normal) Assessment/Plan Assessment/Plan Right ureteral stone Right renal colic Severe right hydronephrosis UTI COPD Chronic respiratory failure on home O2 Amphetamine use Heart failure Hypothyroidism Plan IV fluids Rocephin IV Urology consult Pain control Resume the home medications Monitor closely Full code Advance directives discussed for 17 minutes 03/09/23: Lithotripsy today Stent placement Rocephin IV fluids 03/10/25: Lithotripsy today Urine is clear Stll c/o right flank pain Monitor closely 03/11/2025: Status post lithotripsy and nephrostomy tube was taken out yesterday and a ureteral stent placement The Aburto catheter came out today She says the she is urinating fine now, no pain, Out of bed as tolerated Discharge planning for tomorrow Plan discussed with: Patient Date of Service: Mar 11, 2025 Billing Provider: MONAE MURPHY MD Common Visit Codes: [id number] INP/OBS CARE(HIGH) MONAE MURPHY MD Mar 11, 2025 14:32
[2025-03-12] VITALS (8 sets, daily range): BP systolic 115–192; BP diastolic 66–84; PULSE 66–72; RESP 18–20; TEMP 97–98.8; O2SAT 94–98
[2025-03-12] MEDS ORDERED: CIPR-273 PO (09:48)
--- NOTE | 2025-03-12 14:08 | DVHDS2 ---
Discharge Summary Date of Admission Mar 08, 2025 at 05:02 Date of Discharge: Mar 12, 2025 Labs/Diagnostic Data: Laboratory Results Test 03/11/25 06:18 03/10/25 05:51 03/09/25 09:38 03/08/25 18:18 Sodium Level 143 mmol/L (136-145) Potassium Level 3.6 mmol/L (3.5-5.1) Chloride Level 108 mmol/L (98-107) Carbon Dioxide Level 31 mmol/L (20-31) Anion Gap 4 (5-15) Blood Urea Nitrogen 10 mg/dL (9-23) Creatinine 0.71 mg/dL (0.550-1.02) Glomerular Filtration Rate Calc 97 mL/min (>90) BUN/Creatinine Ratio 14.1 (10.0-20.0) Serum Glucose 140 mg/dL (74-106) Calcium Level 10.3 mg/dL (8.7-10.4) White Blood Count 7.3 10^3/uL (4.4-10.8) Red Blood Count 4.28 10^6/uL (4.0-5.20) Hemoglobin 12.8 g/dL (12.2-16.2) Hematocrit 37.5 % (36.0-46.0) Mean Corpuscular Volume 87.6 fL (80.0-100.0) Mean Corpuscular Hemoglobin 29.8 pg (28.0-32.0) Mean Corpuscular Hemoglobin Concent 34.0 g/dL (32.0-36.0) Red Cell Distribution Width 14.8 % (11.8-14.3) Platelet Count 330 10^3/uL (140-450) Mean Platelet Volume 7.4 fL (6.9-10.8) Neutrophils (%) (Auto) 63.0 % (37.0-80.0) Lymphocytes (%) (Auto) 26.3 % (10.0-50.0) Monocytes (%) (Auto) 7.5 % (0.0-12.0) Eosinophils (%) (Auto) 2.9 % (0.0-7.0) Basophils (%) (Auto) 0.3 % (0.0-2.0) Neutrophils # (Auto) 4.6 10 ^3/uL (1.6-8.6) Lymphocytes # (Auto) 1.9 10 ^3/uL (0.4-5.4) Monocytes # (Auto) 0.5 10 ^3/uL (0-1.3) Eosinophils # (Auto) 0.2 10 ^3/uL (0-0.8) Basophils # (Auto) 0 10 ^3/uL (0-0.2) Nucleated Red Blood Cells 0.0 % Urine Color Brown (Yellow) Urine Clarity Ex.turbid (Clear) Urine pH 7.5 (5.0-9.0) Urine Specific [place] > 1.035 (1.001-1.035) Urine Protein 1+ (Negative) Urine Ketones Negative (Negative) Urine Blood 3+ /uL (Negative) Urine Nitrite Negative (Negative) Urine Bilirubin Negative (Negative) Urine Urobilinogen Normal mg/dL (Negative) Urine Leukocyte Esterase 3+ /uL (Negative) Urine RBC 749 /hpf (0 - 4) Urine WBC Clumps Present /hpf (None Seen) Urine Microscopic WBC 2281 /HPF (0-5) Urine Squamous Epithelial Cells None seen /hpf (<5) Urine Bacteria None seen /hpf (None Seen) Urine Mucus Few (None Seen) Urine Glucose Normal mg/dL (Normal) Prothrombin Time 10.6 sec (9.3-11.8) Prothrombin Time INR 1.00 (0.9-1.15) Activated Partial Thromboplast Time 27.1 SEC (24.5-34.5) Other Laboratory Tests 03/11/25 06:18 03/10/25 05:51 Brief Hx & Hospital Course: Final diagnoses: Right ureteral stone Right renal colic Status post lithotripsy and ureteral stent place Severe right hydronephrosis UTI COPD Chronic respiratory failure on home O2 Amphetamine use Heart failure Hypothyroidism 59-year-old female who was admitted for right ureteral stone and was seen by Urology and recommended to have a lithotripsy and a stent placement again Because she had severe right hydronephrosis, she underwent nephrostomy tube placement which was removed later and had a stent placed Postoperatively she has a Aburto catheter but she pulled it out but she did okay and she had no hematuria She is urinating well now The urine is clear She has a UTI Discharged home on Cipro for 5 days Follow up with Dr. Pierce Salas as outpatient Condition at Discharge: Stable Final Diagnosis/Problems List Right ureteral stone Right renal colic Status post lithotripsy and ureteral stent place Severe right hydronephrosis UTI COPD Chronic respiratory failure on home O2 Amphetamine use Heart failure Hypothyroidism Discharge Disposition: Home SNF Discharge Will this Physician continue t: No Discharge Instruct/Medications Diet: Cardiac 2g Na,low cholest Activity: No Restrictions, As Tolerated Follow Up/Referral: Dr. Salas 1-2 weeks Medications: Cipro 250 mg twice a day for 5 days Resume the home medications Discharge Statement: "Patient was advised to return to the ER or call 911 if any headaches, dizziness, shortness of breath, chest pain, abdominal pain, bleeding, fevers, or worsening of medical condition. Patient was counseled about treatment plan, medications, possible side effects, patientverbalized understanding. All questions were answered to the best of my ability. This discharge took greater then 30 minutes in planning, reviewing documentation, counseling the patient, and discussing with other team members." ASSESSMENT ASSESSMENT Assessment Right ureteral stone Right renal colic Status post lithotripsy and ureteral stent place Severe right hydronephrosis UTI COPD Chronic respiratory failure on home O2 Amphetamine use Heart failure Hypothyroidism Date of Service: Mar 12, 2025 Billing Provider: MONAE MURPHY MD Common Visit Codes: 72628-DHI/OBS DISCH DAY >30min MONAE MURPHY MD Mar 12, 2025 14:08
== END 2025-03-12 14:54 | disposition home or self-care (01) | DRG 463 ==
LOC: EDBD 23:07 → ER 23:10 → OVERFLOW 03-08 05:02 → CENTRAL 03-08 15:14
PROVIDERS: ADMIT Internal Medicine Geriatric Medicine; ATTEND Internal Medicine Geriatric Medicine
PROC: 0T933ZZ Drainage of Right Kidney Pelvis, Percutaneous Approach (ICD-10-PCS; 2025-03-09)
PROC: BT1D1ZZ Fluoroscopy of Right Kidney, Ureter and Bladder using Low Osmolar Contrast (ICD-10-PCS; 2025-03-10)
PROC: 0TP5X0Z Removal of Drainage Device from Kidney, External Approach (ICD-10-PCS; 2025-03-10)
PROC: 0T778DZ Dilation of Left Ureter with Intraluminal Device, Via Natural or Artificial Opening Endoscopic (ICD-10-PCS; 2025-03-10)
PROC: 0TF7XZZ Fragmentation in Left Ureter, External Approach (ICD-10-PCS; 2025-03-10)
PROC: 0T768DZ Dilation of Right Ureter with Intraluminal Device, Via Natural or Artificial Opening Endoscopic (ICD-10-PCS; principal; 2025-03-10 15:45)
PROC: 0TF68ZZ Fragmentation in Right Ureter, Via Natural or Artificial Opening Endoscopic (ICD-10-PCS; 2025-03-10 15:45)
DX: N13.6 Pyonephrosis (principal); J96.10 Chronic respiratory failure, unspecified whether with hypoxia or hypercapnia; I50.9 Heart failure, unspecified; I11.0 Hypertensive heart disease with heart failure; J44.9 Chronic obstructive pulmonary disease, unspecified; E03.9 Hypothyroidism, unspecified; F15.10 Other stimulant abuse, uncomplicated; E66.9 Obesity, unspecified; E11.9 Type 2 diabetes mellitus without complications; F17.210 Nicotine dependence, cigarettes, uncomplicated; Z99.81 Dependence on supplemental oxygen; Z68.34 Body mass index [BMI] 34.0-34.9, adult; Z90.710 Acquired absence of both cervix and uterus; Z98.891 History of uterine scar from previous surgery; Z90.49 Acquired absence of other specified parts of digestive tract; Z79.51 Long term (current) use of inhaled steroids; Z79.899 Other long term (current) drug therapy; Z79.84 Long term (current) use of oral hypoglycemic drugs; Z84.1 Family history of disorders of kidney and ureter
CPT/HCPCS: 36415; 50432; 71045; 74018; 74176; 74425; 76000; 76775; 76942; 80048; 81001; 85025; 85610; 85730; 93005; 94640; 99152; 99291; G0378; J2250; J2405; J2704; Q9967

== ENCOUNTER 2025-08-25 07:56 | Inpatient (IN) | payer MEDICAID ==
[~2025-08-25] VITALS: Ht 152.4 cm; Wt 104.5 kg
[2025-08-25] VITALS (11 sets, daily range): BP systolic 116–132; BP diastolic 55–78; PULSE 80–111; RESP 14–28; TEMP 92.4–98; O2SAT 92–99
[~2025-08-25 07:56] MED LIST changes: +CIPR-273 PO
[2025-08-25] MEDS: ALBUTEROL SULF 2.5 MG/0.5ML(0.5%) NEB SOLN NEB ONE (09:06)
[2025-08-25] MEDS: IPRATROPIUM BROM 0.5 MG/2.5ML INH SOL NEB ONE (09:06)
--- NOTE | 2025-08-25 09:06 | ED.PDOC ---
SOB-HPI HPI Comments Patient is a 60-year-old female with past medical history of COPD, chronic respiratory failure on home O2 2 L intermittently, now requiring continuous O2 via NC, nephrolithiasis, CHF likely diastolic dysfunction, type 2 diabetes, hypertension, dyslipidemia who brought in by EMS due to shortness of breath that is started at 7:30 a.m. this morning. According to the patient, he started experiencing shortness of breath along with a productive cough with green sputum which has been increasing in volume as well as purulence over the last few days. Patient denies any sick contacts. Patient was given 3 breathing treatments on route which slightly helped her shortness of breath and congestion. On review of systems patient is complaining of cough sore throat, rhinorrhea, shortness of breath at rest and on exertion, and urinary frequency. Chief Complaint: Shortness of Breath Time Seen by MD: 08:25 Primary Care Provider: unknown Information Source: Patient Mode of Arrival: EMS Severity: Moderate Duration: Hours PE Risk Factors: None History of: COPD, CHF Prehospital treatment: Breathing Tx Associated Signs and Symptoms: Cough If cough with SOB: Productive, Green Past Medical History PAST MEDICAL HISTORY: CHF, COPD, DM, Kidney Stones, Thyroid Past Medical History (Contd): COPD, chronic respiratory failure on home O2 2 L, nephrolithiasis, CHF likely diastolic dysfunction, type 2 diabetes, hypertension, dyslipidemia Surgical History: Cholecystectomy, , Hysterectomy HIGH W[employer] ARTIST History: Denies all HIGH W[employer] ARTIST Hx Family History Family History: Reviewed,noncontributory to illness, No family hx of Cancer, No family hx of DM, No family hx of Heart jody, No family hx of HTN, No family hx ofKidney jody, No family hx of Liver jody, No family hx of Lung jody, No family hx of Stroke Social History Smoker: Cigarettes (Half a pack per day for 20 years) Alcohol: Denies ETOH Use Drugs: Methamphetamine (Last use 2 days ago) Lives In: Home Constitutional: denies: chills, diaphoresis, fatigue, fever, malaise, sweats, weakness, others EENTM: denies: blurred vision, double vision, ear bleeding, ear discharge, ear drainage, ear pain, ear ringing, eye pain, eye redness, hearing loss, mouth pain, mouth swelling, nasal discharge, nose bleeding, nose congestion, nose pain, photophobia, tearing, throat pain, throat swelling, voice changes, others Respiratory: reports: cough, SOB at rest, SOB with excertion, wheezing; denies: hemoptysis, orthopnea, shortness of breath, stridor, others Cardiovascular: denies: chest pain, dizzy spells, diaphoresis, Dyspnea on exertion, edema, irregular heart beat, left arm pain, lightheadedness, palpitations, PND, syncope, others Gastrointestinal: denies: abdomen distended, abdominal pain, blood streaked bowels, constipated, diarrhea, dysphagia, difficulty swallowing, hematemesis, melena, nausea, poor appetite, poor fluid intake, rectal bleeding, rectal pain, vomiting, others Genitourinary: reports: frequency; denies: abnormal vagina bleeding, burning, dyspareunia, dysuria, flank pain, hematuria, incontinence, pain, , vagina discharge, urgency, others Neurological: denies: dizziness, fainting, headache, left sided numbness, left sided weakness, numbness, paresthesia, pre-existing deficit, right sided numbness, right sided weakness, seizure, speech problems, tingling, tremors, weakness, others Musculoskeletal: denies: back pain, gout, joint pain, joint swelling, muscle pain, muscle stiffness, neck pain, others Integumetry: denies: bruises, change in color, change in hair/nails, dryness, laceration, lesions, lumps, rash, wounds, others Allergic/Immunocompromised: denies: Difficulty Healing, Frequent Infections, Hives, Itching, others Hematologic/Lymphatic: denies: anemia, blood clots, easy bleeding, easy bruising, swollen glands, others Endocrine: denies: excessive hunger, excessive sweating, excessive thirst, excessive urination, flushing, intolerance to cold, intolerance to heat, unexplained weight gain, unexplained weight loss, others Psychiatric: denies: anxiety, bipolar disorder, depression, hopeless, panic disorder, schizophrenia, sleepless, suicidal, others Physical Exam General Appearance: Mild Distress, Obese HEENT: Normal ENT Inspection, PERRL/EOMI Neck: Non-Tender, Normal, Normal Inspection Respiratory: Crackles, Decreased Breath Sounds, Wheezing Cardiovascular: No Murmur, No Gallop, Tachycardia Breast Exam: Deferred Gastrointestinal: Non Tender, Normal Bowel Sounds Genitalia: Deferred Pelvic: Deferred Rectal: Rectal Exam not done Extremities: No calf tenderness, Normal capillary refill, Normal inspection, Normal range of motion, Non-tender, Pedal edema (Minimal to trace pitting) Neurologic: Alert, No Motor Deficits, No Sensory Deficits Cerebellar Function: Normal Reflexes: NOT DONE Skin: Dry, None, Normal Color Peripheral Pulses: 2+ dorsalis pedis (R), 2+ dorsalis pedis (L) Lymphatic: NOT DONE Was a procedure done? Was a procedure done?: No Differential Dx Differential Diagnosis: Anxiety, CHF, COPD, Respiratory Distress, URI X-Ray, Labs, Meds, VS Vital Signs Date Time Temp Pulse Resp B/P (MAP) Pulse Ox O2 Delivery O2 Flow Rate FiO2 08/25/25 11:00 85 20 129/73 (91) 96 08/25/25 09:06 19 96 Nasal Cannula* 2 28 08/25/25 08:30 94 Nasal Cannula* 2 28 08/25/25 08:30 100 28 94 Nasal Cannula* 2 28 08/25/25 08:30 97.8 100 28 142/87 (105) 90 97.8 08/25/25 08:16 98.4 99 18 154/91 99 98.4 08/25/25 08:15 96 Lab Test 08/25/25 11:31 08/25/25 10:12 Range/Units Urine Opiates Screen Neg NEGATIVE Urine Fentanyl Screen Neg NEGATIVE Urine Barbiturates Screen Neg NEGATIVE Urine Phencyclidine Screen Neg NEGATIVE Urine Amphetamines Screen Pos NEGATIVE Urine Benzodiazepines Screen Neg NEGATIVE Urine Cocaine Screen Neg NEGATIVE Urine Cannabinoids Screen Neg NEGATIVE White Blood Count 8.4 4.4-10.8 10^3/uL Red Blood Count 5.43 H 4.0-5.20 10^6/uL Hemoglobin 16.4 H 12.2-16.2 g/dL Hematocrit 50.4 H 36.0-46.0 % Mean Corpuscular Volume 92.7 80.0-100.0 fL Mean Corpuscular Hemoglobin 30.2 28.0-32.0 pg Mean Corpuscular Hemoglobin Concent 32.6 32.0-36.0 g/dL Red Cell Distribution Width 15.5 H 11.8-14.3 % Platelet Count 344 140-450 10^3/uL Mean Platelet Volume 7.3 6.9-10.8 fL Neutrophils (%) (Auto) 55.9 37.0-80.0 % Lymphocytes (%) (Auto) 35.7 10.0-50.0 % Monocytes (%) (Auto) 6.0 0.0-12.0 % Eosinophils (%) (Auto) 2.0 0.0-7.0 % Basophils (%) (Auto) 0.4 0.0-2.0 % Neutrophils # (Auto) 4.7 1.6-8.6 10 ^3/uL Lymphocytes # (Auto) 3.0 0.4-5.4 10 ^3/uL Monocytes # (Auto) 0.5 0-1.3 10 ^3/uL Eosinophils # (Auto) 0.2 0-0.8 10 ^3/uL Basophils # (Auto) 0 0-0.2 10 ^3/uL Nucleated Red Blood Cells 0.1 % D-Dimer, Quantitative 0.38 0.0-0.49 mg/L FEU Sodium Level 142 136-145 mmol/L Potassium Level 4.1 3.5-5.1 mmol/L Chloride Level 106 98-107 mmol/L Carbon Dioxide Level 31 20-31 mmol/L Anion Gap 5 5-15 Blood Urea Nitrogen 12 9-23 mg/dL Creatinine 0.92 0.550-1.02 mg/dL Glomerular Filtration Rate Calc 70 >90 mL/min BUN/Creatinine Ratio 13.0 10.0-20.0 Serum Glucose 295 H 74-106 mg/dL Hemoglobin A1c 9.1 H <5.7 % A1C Lactic Acid Level 1.7 0.4-2.0 mmol/L Calcium Level 10.3 8.7-10.4 mg/dL Troponin I High Sensitivity 7 </=34 ng/L B-Type Natriuretic Peptide 12.20 0-100 pg/mL Current Medications Medications (Trade) Dose Ordered Sig/Rajni Route Start Time Stop Time Status Last Admin Ipratropium [place] (Atrovent Medneb) 0.5 mg ONCE ONCE NEB 08/25/25 08:45 08/25/25 08:50 DC 08/25/25 09:06 Albuterol (Ventolin Medneb) 2.5 mg ONCE ONCE NEB 08/25/25 08:45 08/25/25 08:50 DC 08/25/25 09:06 Methylprednisolone Sodium Succinate (Solu Medrol) 62.5 mg ONCE ONCE IV 08/25/25 09:00 08/25/25 09:18 DC 08/25/25 09:32 Time of 1ST Reevaluation: 10:00 Reevaluation 1ST: Unchanged Time of 2ND Reevaluation: 11:30 Reevaluation 2ND: Unchanged Patient Education/Counseling: Diagnosis, Treatment, Prognosis, Need For Follow Up Family Education/Counseling: No Family Present SEPSIS Sepsis Screen Date sepsis recognized/suspect: Aug 25, 2025 Time Sepsis recognized/suspect: 829 Recent Procedure: No On Antibiotic Therapy: No Respiratory Rate >20: Yes Heart Rate >90: Yes Temp<36 C (96.8 F) or >38.3 C: No SBP <90 or MAP <65 mmHG: No New Acute Mental Status Change: No Is the patient on CPAP, BIPAP,: No Physician Orders Electrocardigram (08/25/25 08:21) Chest Portable (08/25/25 08:33) Blood Culture (08/25/25 08:55) Vital Signs Date Time Temp Pulse Resp B/P (MAP) Pulse Ox O2 Delivery O2 Flow Rate FiO2 08/25/25 11:00 85 20 129/73 (91) 96 08/25/25 09:06 19 96 Nasal Cannula* 2 28 08/25/25 08:30 94 Nasal Cannula* 2 28 08/25/25 08:30 100 28 94 Nasal Cannula* 2 28 08/25/25 08:30 97.8 100 28 142/87 (105) 90 97.8 08/25/25 08:16 98.4 99 18 154/91 99 98.4 08/25/25 08:15 96 Laboratory Tests Test 08/25/25 10:12 Lactic Acid Level 1.7 mmol/L (0.4-2.0) White Blood Count 8.4 10^3/uL (4.4-10.8) Departure 1 Departure Time of Disposition: 11:33 Impression: Primary Impression: COPD exacerbation Additional Impressions: Acute on chronic diastolic heart failure Acute respiratory failure Qualified Codes: J96.00 - Acute respiratory failure, unspecified whether with hypoxia or hypercapnia Amphetamine abuse Disposition: ADMITTED INPATIENT Condition: Guarded Comments Due to patient's dependence on continuous O2 via NC and mild-moderate respi ratory distress, patient was admitted to the hospital for further evaluation and management of COPD exacerbation versus heart failure exacerbation. Critical Care Note Critical Care Time?: No Stability Stability form required: No Heart Score Heart Score: Heart Score Response (Comments) Value History Moderate Suspicious 1 EKG Normal 0 Age 45-64 1 Risk Factors >3 or Hx ASHD 2 Troponin Normal limit 0 Total 4 SAGAR KAHN RESIDENT Aug 25, 2025 09:06
--- NOTE | 2025-08-25 09:31 | DVH ---
CHEST RADIOGRAPH Indication: sob Technique: Single frontal view of the chest was obtained COMPARISON: XY CHEST XRAY 1 VIEW on DOS: 03/10/25, XY CHEST PORTABLE on DOS: 12/23/24, XY CHEST XRAY 1 VIEW on DOS: 11/07/24, XY CHEST PORTABLE on DOS: 11/06/24, XY CHEST PORTABLE on DOS: 10/29/24 FINDINGS: Cardiac silhouette is borderline enlarged. Mild diffuse prominence of the pulmonary vasculature. No dense focal airspace disease. No significant pleural effusions or pneumothorax. Bones and soft tissues demonstrate no significant abnormality. IMPRESSION: Mild pulmonary venous congestion.
[2025-08-25] MEDS: methylPREDNISolone SOD SUCC 125 MG/2 ML VL IV ONE (09:32)
[2025-08-25 10:49] LABS: Hematocrit 50.4 % (36.0-46.0); Hemoglobin 16.4 g/dL (12.2-16.2); Mean Corpuscular Hemoglobin 30.2 pg (28.0-32.0); Mean Corpuscular Volume 92.7 fL (80.0-100.0); Nucleated Red Blood Cells % 0.1 %
[2025-08-25 10:57] LABS: Chloride 106 mmol/L (98-107); Potassium 4.1 mmol/L (3.5-5.1); Sodium 142 mmol/L (136-145)
[2025-08-25 10:58] LABS: Anion Gap 5 (5-15); Carbon Dioxide 31 mmol/L (20-31)
[2025-08-25 10:59] LABS: Calcium 10.3 mg/dL (8.7-10.4)
[2025-08-25 11:03] LABS: BUN/Creatinine Ratio 13.0 (10.0-20.0); Blood Urea Nitrogen 12 mg/dL (9-23)
[2025-08-25 11:14] LABS: Glucose 295 mg/dL (74-106)
--- NOTE | 2025-08-25 11:38 | DVHHP2 ---
History of Present Illness Reason for Visit: SOB History of Present Illness Jazzy Zuniga is a 60-year-old female with past medical history of CHF, COPD, diabetes, nephrolithiasis, hypothyroidism, hypertension, hyperlipidemia, cholecystectomy, , and hysterectomy who presents to the ED with shortness of breath that started 7:30 this morning while she was asleep. Patient reports that she uses home oxygen 2 L nasal cannula on and off. She also reports that she has been having productive cough with green sputum for the last 1 week. She also states that he uses nebulizers while at home but did not use it this morning when she was short of breath. Patient reports that she is compliant with her medications but does not know the name. She also reports that her primary is Dr. Pandey. Patient denies any recent trauma or injury, recent sick contacts, recent travels, recent ingestion of spoiled food, chest pain, fever, chills, lightheadedness, weakness, dizziness, abdominal pain, nausea, vomiting, diarrhea, or urinary symptoms. Patient also reports that she ambulates without any DMEs. She states that she smokes half a pack of cigarettes per day and uses methamphetamine. Cardiovascular: CHF, HTN, hyperipidemia Pulmonary: COPD Endocrine: Diabetes, Hypothyroidism Past Medical History Nephrolithiasis Past Surgical History: Cholecystectomy, , Hysterectomy Family History: None Smoke: <1 pack per day ALCOHOL: none Drugs: Other (Methamphetamine) Lives: with Family Domestic Violence: Neg Review of Systems Respiratory: Shortness of breath Allergies: Coded Allergies: Nitroglycerin (Verified Allergy, Unknown, 02/17/10) Exam Vital Signs Vital Signs Date Time Temp Pulse Resp B/P (MAP) Pulse Ox O2 Delivery O2 Flow Rate FiO2 08/25/25 11:00 85 20 129/73 (91) 96 08/25/25 09:06 Nasal Cannula* 2 28 08/25/25 08:30 97.8 97.8 General Appearance: Alert, Oriented X3, Cooperative, No acute distress HEENT: Atraumatic, PERRLA, EOMI, Mucous membr. moist/pink Respiratory: Normal air movement Cardiovascular: Regular rate, Normal S1, Normal S2, No murmurs Abdominal: Normal bowel sounds, Soft Extremities: No cyanosis, Normal pulses Neuro: Normal speech, Strength at 5/5 X4 ext, Normal tone, Sensation intact Psych/Mental Status: Mental status NL, Mood NL Labs/Xrays Labs Test 08/25/25 10:12 Range/Units White Blood Count 8.4 4.4-10.8 10^3/uL Red Blood Count 5.43 H 4.0-5.20 10^6/uL Hemoglobin 16.4 H 12.2-16.2 g/dL Hematocrit 50.4 H 36.0-46.0 % Mean Corpuscular Volume 92.7 80.0-100.0 fL Mean Corpuscular Hemoglobin 30.2 28.0-32.0 pg Mean Corpuscular Hemoglobin Concent 32.6 32.0-36.0 g/dL Red Cell Distribution Width 15.5 H 11.8-14.3 % Platelet Count 344 140-450 10^3/uL Mean Platelet Volume 7.3 6.9-10.8 fL Neutrophils (%) (Auto) 55.9 37.0-80.0 % Lymphocytes (%) (Auto) 35.7 10.0-50.0 % Monocytes (%) (Auto) 6.0 0.0-12.0 % Eosinophils (%) (Auto) 2.0 0.0-7.0 % Basophils (%) (Auto) 0.4 0.0-2.0 % Neutrophils # (Auto) 4.7 1.6-8.6 10 ^3/uL Lymphocytes # (Auto) 3.0 0.4-5.4 10 ^3/uL Monocytes # (Auto) 0.5 0-1.3 10 ^3/uL Eosinophils # (Auto) 0.2 0-0.8 10 ^3/uL Basophils # (Auto) 0 0-0.2 10 ^3/uL Nucleated Red Blood Cells 0.1 % Sodium Level 142 136-145 mmol/L Potassium Level 4.1 3.5-5.1 mmol/L Chloride Level 106 98-107 mmol/L Carbon Dioxide Level 31 20-31 mmol/L Anion Gap 5 5-15 Blood Urea Nitrogen 12 9-23 mg/dL Creatinine 0.92 0.550-1.02 mg/dL Glomerular Filtration Rate Calc 70 >90 mL/min BUN/Creatinine Ratio 13.0 10.0-20.0 Serum Glucose 295 H 74-106 mg/dL Lactic Acid Level 1.7 0.4-2.0 mmol/L Calcium Level 10.3 8.7-10.4 mg/dL CHEST RADIOGRAPH Indication: sob Technique: Single frontal view of the chest was obtained COMPARISON: XY CHEST XRAY 1 VIEW on DOS: 03/10/25, XY CHEST PORTABLE on DOS: 12/23/24, XY CHEST XRAY 1 VIEW on DOS: 11/07/24, XY CHEST PORTABLE on DOS: 11/06/24, XY CHEST PORTABLE on DOS: 10/29/24 FINDINGS: Cardiac silhouette is borderline enlarged. Mild diffuse prominence of the pulmonary vasculature. No dense focal airspace disease. No significant pleural effusions or pneumothorax. Bones and soft tissues demonstrate no significant abnormality. IMPRESSION: Mild pulmonary venous congestion. SEPSIS Sepsis Screen Date sepsis recognized/suspect: Aug 25, 2025 Time Sepsis recognized/suspect: 829 Recent Procedure: No On Antibiotic Therapy: No Respiratory Rate >20: Yes Heart Rate >90: Yes Temp<36 C (96.8 F) or >38.3 C: No SBP <90 or MAP <65 mmHG: No New Acute Mental Status Change: No Is the patient on CPAP, BIPAP,: No Physician Orders Electrocardigram (08/25/25 08:21) Chest Portable (08/25/25 08:33) Urinalysis (08/25/25 08:33) B-Type Natriuretic Peptide (08/25/25 08:33) Blood Culture (08/25/25 08:55) Vital Signs Date Time Temp Pulse Resp B/P (MAP) Pulse Ox O2 Delivery O2 Flow Rate FiO2 08/25/25 11:00 85 20 129/73 (91) 96 08/25/25 09:06 19 96 Nasal Cannula* 2 28 08/25/25 08:30 94 Nasal Cannula* 2 28 08/25/25 08:30 100 28 94 Nasal Cannula* 2 28 08/25/25 08:30 97.8 100 28 142/87 (105) 90 97.8 08/25/25 08:16 98.4 99 18 154/91 99 98.4 08/25/25 08:15 96 Laboratory Tests Test 08/25/25 10:12 Lactic Acid Level 1.7 mmol/L (0.4-2.0) White Blood Count 8.4 10^3/uL (4.4-10.8) Medications Medications Dose Ordered Sig/Rajni Route Start Time Stop Time Status Last Admin Dose Admin Albuterol 2.5 mg ONCE ONCE NEB 08/25/25 08:45 08/25/25 08:50 DC 08/25/25 09:06 2.5 MG Ipratropium [place] 0.5 mg ONCE ONCE NEB 08/25/25 08:45 08/25/25 08:50 DC 08/25/25 09:06 0.5 MG Methylprednisolone Sodium Succinate 62.5 mg ONCE ONCE IV 08/25/25 09:00 08/25/25 09:18 DC 08/25/25 09:32 62.5 MG Assessment/Plan Assessment/Plan Assessment Acute on chronic COPD versus CHF exacerbation likely due to polysubstance use Acute hypoxic respiratory failure on supplemental oxygen Tobacco use Methamphetamine use Morbid obesity History of diabetes History of nephrolithiasis History of hypothyroidism History of hyperlipidemia History of hypertension History of cholecystectomy History of History of hysterectomy Plan Admit to med surge Antiemetics Pain management BP management IV steroids Duo nebs Blood cultures ordered in ED Lactic level noted BNP Diurese Strict I&Os Daily weight UA Chest x-ray noted EKG D-dimer ordered UDS ordered Hemoglobin A1c ISS and Accu-Cheks Diet Home medications reconciled DVT prophylaxis-SCDs PUD prophylaxis-not indicated no history of GERD or GI bleed Discussed plan of care with patient Polysubstance cessation counseling Counseled patient on lifestyle modifications, diet, and exercise [id number] Behavior change smoking greater than 10 minutes about use of other options also gave option of nicotine patch 71604 Preventive counseling healthy eating habits, physical activity, and regular checkups Plan discussed with: Patient Date of Service: Aug 25, 2025 Billing Provider: GRACIE MCDONALD Common Visit Codes: 32565-[id number] INP/OBS CARE (HIGH) Secondary Visit Codes: 46340-[id number] COUNSELING IND, 62083-HODDW CHNG SMOKING >10MIN GRACIE MCDONALD Aug 25, 2025 11:38
[2025-08-25] MEDS ORDERED: LOS25T PO (11:43)
[2025-08-25] MEDS ORDERED: APRE30TA PO (11:43)
[2025-08-25] MEDS ORDERED: ACETAMINOPHEN 325 MG TAB PO PRN (11:45)
[2025-08-25] MEDS ORDERED: ONDANSETRON HCL 4 MG/2 ML VIAL IV PRN (11:45)
[2025-08-25] MEDS ORDERED: DEXTROSE (50%) 50ML SYRG IV PRN ×2 (11:45→18:30)
[2025-08-25 14:02] LABS: Urine Protein, UAD TRACE (Negative)
[2025-08-25] MEDS: ALBUTEROL SULF 2.5 MG/0.5ML(0.5%) NEB SOLN NEB SCH (14:09)
[2025-08-25] MEDS: IPRATROPIUM BROM 0.5 MG/2.5ML INH SOL NEB SCH (14:09)
[2025-08-25] MEDS: methylPREDNISolone SOD SUCC 40 MG/ML VL IV SCH (14:13)
[2025-08-25 15:30] LABS: Amphetamine Screen, Urine Pos (NEGATIVE); Barbiturate Scree,Urine Neg (NEGATIVE); Benzodiazephine Screen, Urine Neg (NEGATIVE); Cannabinoid Screen, Urine Neg (NEGATIVE); Cocaine Screen, Urine Neg (NEGATIVE); Opiate Scree,Urine Neg (NEGATIVE); Phencyclidine Screen, Urine Neg (NEGATIVE)
[2025-08-25] MEDS: ACCU-CHEK COMFORT CURVE STRIP VI SCH ×2 (16:56→19:59)
[2025-08-25] MEDS: InsuLIN REG 1unit/0.01ml Soln (100units/ml) SC SCH ×2 (16:56→19:59)
[2025-08-25] MEDS: INSULIN LISPRO (HUMAN) 100 UNITS/ML ML SC ONE (17:23)
--- NOTE | 2025-08-25 19:08 | ECG ---
[facility] Test Date: 2025-08-25 Test Time: 08:11:12 Pat Name: RICA WHEATLEY Department: ED Room: [address] [place] [address] A Gender: F [employer] Counselor: STERLING : 1965 Requested By: CLAY REILLY Order Number: [id number] Reading MD: Chauncey Ndiaye Measurements Intervals [place] Rate: 96 P: 64 [place]: 173 QRS: -48 QRSD: 95 T: 72 QT: 383 QTc: 484 Interpretive Statements Sinus rhythm Ventricular premature complex Left anterior fascicular block Electronically Signed On 08-25-2025 19:25:48 PST by Chauncey Ndiaye Please click the below link to view image of tracing.
[2025-08-25] MEDS: ATORVASTATIN 20 MG TAB PO SCH (21:14)
[2025-08-25] MEDS: INSULIN LANTUS (GLARGINE) 1 /0.01ml (100units/ml) SC SCH (21:18)
[2025-08-25] MEDS: CARVEDILOL 12.5 MG TAB PO SCH (22:00)
[2025-08-26] VITALS (15 sets, daily range): BP systolic 123–136; BP diastolic 56–91; PULSE 46–103; RESP 15–20; TEMP 97.7–98.9; O2SAT 91–100
[2025-08-26] MEDS: LEVOTHYROXINE SODIUM 25 MCG TAB PO SCH (05:35)
[2025-08-26] MEDS: LEVOTHYROXINE SODIUM 112 MCG TAB PO SCH (05:35)
[2025-08-26 05:45] LABS: Hematocrit 45.5 % (36.0-46.0); Hemoglobin 15.4 g/dL (12.2-16.2); Mean Corpuscular Hemoglobin 30.9 pg (28.0-32.0); Mean Corpuscular Volume 91.4 fL (80.0-100.0); Nucleated Red Blood Cells % 0.0 %
[2025-08-26 05:56] LABS: Alanine Aminotransferase 18 U/L (7-40); Albumin 4.2 g/dL (3.2-4.8); Anion Gap 7 (5-15); BUN/Creatinine Ratio 26.7 (10.0-20.0); Carbon Dioxide 29 mmol/L (20-31); Chloride 107 mmol/L (98-107); Potassium 4.5 mmol/L (3.5-5.1); Sodium 143 mmol/L (136-145); Total Protein 8.0 g/dL (5.7-8.2)
[2025-08-26 05:59] LABS: Alkaline Phosphatase 167 U/L (46-116); Bilirubin, Total 0.3 mg/dL (0.2-1.0); Blood Urea Nitrogen 23 mg/dL (9-23); Calcium 11.2 mg/dL (8.7-10.4); Glucose 245 mg/dL (74-106)
[2025-08-26] MEDS ORDERED: LEVOTHYROXINE SODIUM 112 MCG TAB PO SCH (06:00)
[2025-08-26] MEDS: FERROUS SULFATE 325mg EC TAB PO SCH (09:30)
[2025-08-26] MEDS: FUROSEMIDE 40 MG/4 ML VIAL IV SCH (09:40)
[2025-08-26] MEDS ORDERED: PATIENTS OWN MEDICATION (Levothyroxine Sodium 1 TAB) PO SCH (10:00)
[2025-08-26] MEDS ORDERED: PATIENTS OWN MEDICATION (Ferrous Sulfate 325 MG) PO SCH (10:00)
[2025-08-26] MEDS: CINACALCET HYDROCHLORIDE 30 MG TAB PO SCH (10:23)
--- NOTE | 2025-08-26 15:43 | DVHPN2 ---
Reviewed: H&P Changes from previous H/P or p: No Changes General: Per HPI Respiratory: Shortness of breath Objective Vitals Vital Signs Date Time Temp Pulse Resp B/P (MAP) Pulse Ox O2 Delivery O2 Flow Rate FiO2 08/26/25 14:59 75 20 97 08/26/25 14:52 Nasal Cannula* 2 28 08/26/25 13:00 97.9 128/70 (89) 97.9 Intake/Output Intake and Output 08/26/25 07:00 Intake Total 50 ml Output Total 1 ml Balance 49 ml Intake Oral 0 ml IV Total 50 ml Output Urine Total 1 ml # Voids 1 Exam General Appearance: Alert, Oriented X3, Cooperative, No acute distress HEENT: Atraumatic, PERRLA, EOMI, Mucous membr. moist/pink Respiratory: Normal air movement Cardiovascular: Regular rate, Normal S1, Normal S2, No murmurs Abdominal: Normal bowel sounds, Soft Extremities: No cyanosis, Normal pulses Neuro: Normal speech, Strength at 5/5 X4 ext, Normal tone, Sensation intact Psych/Mental Status: Mental status NL, Mood NL Medications Current Medications Medications Dose Ordered Sig/Rajni Route Start Time Stop Time Status Last Admin Dose Admin Albuterol 2.5 mg Q4HWA NEB 08/25/25 14:00 08/26/25 14:50 2.5 MG Ipratropium [place] 0.5 mg Q4HWA NEB 08/25/25 14:00 08/26/25 14:50 0.5 MG Methylprednisolone Sodium Succinate 40 mg Q8HR IV 08/25/25 14:00 08/26/25 14:07 40 MG Dextrose 50 ml UD PRN IV 08/25/25 11:45 Cancel Ceftriaxone Sodium 50 ml @ 100 mls/hr DAILY@09 IV 08/25/25 11:45 08/26/25 08:41 100 MLS/HR Ondansetron HCl 4 mg Q4HP PRN IV 08/25/25 11:45 Acetaminophen 650 mg Q6HP PRN PO 08/25/25 11:45 Atorvastatin Calcium 20 mg HS PO 08/25/25 22:00 Carvedilol 12.5 mg BID PO 08/25/25 22:00 08/26/25 09:28 12.5 MG Cinacalcet 30 mg DAILY PO 08/26/25 10:00 08/26/25 10:23 30 MG Patient Own Medication 325 mg DAILY PO 08/26/25 10:00 UNV Patient Own Medication 1 tab DAILY PO 08/26/25 10:00 UNV Furosemide 40 mg DAILY IV 08/26/25 10:00 08/26/25 09:40 40 MG Ferrous Sulfate 325 mg DAILY PO 08/26/25 10:00 08/26/25 09:30 325 MG Levothyroxine Sodium 25 mcg QAM@0600 PO 08/26/25 06:00 08/26/25 05:35 25 MCG Insulin Glargine 10 units BID@1000,2200 SC 08/25/25 22:00 08/26/25 09:41 10 UNITS Diagnostic Test (Pha) 1 strip IQ4HR 08/25/25 20:00 08/26/25 11:47 1 STRIP Insulin Human Regular IQ4HR SC 08/25/25 20:00 08/26/25 11:47 9 UNITS Dextrose 50 ml UD PRN IV 08/25/25 18:30 Levothyroxine Sodium 112 mcg QAM@0600 PO 08/26/25 05:15 08/26/25 06:10 112 MCG Laboratory Results Laboratory Tests 08/26/25 04:55 Chemistry Test 08/26/25 04:55 Albumin 4.2 g/dL (3.2-4.8) Calcium Level 11.2 mg/dL (8.7-10.4) H Total Protein 8.0 g/dL (5.7-8.2) LFT Test 08/26/25 04:55 Alanine Aminotransferase (ALT) 18 U/L (7-40) Alkaline Phosphatase 167 U/L (46-116) H Aspartate Amino Transferase (AST) 14 U/L (13-40) Total Bilirubin 0.3 mg/dL (0.2-1.0) Urinalysis Test 08/25/25 13:39 Urine Color Colorless (Yellow) Urine Clarity Turbid (Clear) H Urine pH 5.5 (5.0-9.0) Urine Specific [place] 1.018 (1.001-1.035) Urine Protein Trace (Negative) H Urine Ketones Negative (Negative) Urine Blood Negative /uL (Negative) Urine Nitrite 2+ (Negative) H Urine Bilirubin Negative (Negative) Urine Urobilinogen Normal mg/dL (Negative) Urine Leukocyte Esterase 3+ /uL (Negative) Urine RBC 8 /hpf (0 - 4) Urine Microscopic WBC 236 /HPF (0-5) H Urine Squamous Epithelial Cells Few /hpf (<5) Urine Bacteria Few /hpf (None Seen) H Urine Mucus Few (None Seen) Urine Glucose 4+ mg/dL (Normal) H Microbiology Microbiology Date/Time Source Procedure Growth Status 08/25/25 10:22 Blood Blood Culture - Preliminary NO GROWTH AFTER 24 HOURS OF INCUBATION. Resulted Labs and/or images reviewed: Labs reviewed by me, Image(s) reviewed by me Assessment/Plan Assessment/Plan History of Present Illness Jazzy Zuniga is a 60-year-old female with past medical history of CHF, COPD, diabetes, nephrolithiasis, hypothyroidism, hypertension, hyperlipidemia, cholecystectomy, , and hysterectomy who presents to the ED with shortness of breath that started 7:30 this morning while she was asleep. Patient reports that she uses home oxygen 2 L nasal cannula on and off. She also reports that she has been having productive cough with green sputum for the last 1 week. She also states that he uses nebulizers while at home but did not use it this morning when she was short of breath. Patient reports that she is compliant with her medications but does not know the name. She also reports that her primary is Dr. Pandey. Patient denies any recent trauma or injury, recent sick contacts, recent travels, recent ingestion of spoiled food, chest pain, fever, chills, lightheadedness, weakness, dizziness, abdominal pain, nausea, vomiting, diarrhea, or urinary symptoms. Patient also reports that she ambulates without any DMEs. She states that she smokes half a pack of cigarettes per day and uses methamphetamine. 08/26: Continue patient treatment as COPD versus pneumonia. Exacerbation could also be from methamphetamine abuse. She continues to smoke tobacco and methamphetamine. Very poor prognosis. She is back down to home level of oxygen. Diagnosis: Acute on chronic COPD versus CHF exacerbation likely due to polysubstance use Acute hypoxic respiratory failure on supplemental oxygen Tobacco use Methamphetamine use Morbid obesity History of diabetes History of nephrolithiasis History of hypothyroidism History of hyperlipidemia History of hypertension History of cholecystectomy History of History of hysterectomy Plan: Steroids Nebulizers Continue home medications SSI mild a.c. HS Med surge Full code Plan discussed with: Patient My Orders Orders - GIDEON SENA MD Procedure Category Date Status Time Pt Request For Service PT 08/26/25 Logged 14:47 Date of Service: Aug 26, 2025 Billing Provider: GIDEON SENA MD Common Visit Codes: [id number] INP/OBS CARE(HIGH) GIDEON SENA MD Aug 26, 2025 15:43
[2025-08-27] VITALS (16 sets, daily range): BP systolic 121–136; BP diastolic 67–83; PULSE 66–85; RESP 16–23; TEMP 36.8; O2SAT 80–99
[2025-08-27 05:57] LABS: Chloride 106 mmol/L (98-107); Potassium 4.8 mmol/L (3.5-5.1); Sodium 139 mmol/L (136-145)
[2025-08-27 05:58] LABS: Anion Gap 7 (5-15); Carbon Dioxide 26 mmol/L (20-31)
[2025-08-27 05:59] LABS: Calcium 11.0 mg/dL (8.7-10.4)
[2025-08-27 06:04] LABS: BUN/Creatinine Ratio 33.3 (10.0-20.0)
[2025-08-27 06:05] LABS: Blood Urea Nitrogen 35 mg/dL (9-23); Glucose 234 mg/dL (74-106)
--- NOTE | 2025-08-27 11:45 | DVHDS2 ---
Discharge Summary Date of Admission Aug 25, 2025 at 11:31 Date of Discharge: Aug 27, 2025 Labs/Diagnostic Data: Laboratory Results Test 08/27/25 08:41 08/27/25 05:17 08/26/25 04:55 08/25/25 13:39 POC Glucose 238 mg/dl (70-106) Sodium Level 139 mmol/L (136-145) Potassium Level 4.8 mmol/L (3.5-5.1) Chloride Level 106 mmol/L (98-107) Carbon Dioxide Level 26 mmol/L (20-31) Anion Gap 7 (5-15) Blood Urea Nitrogen 35 mg/dL (9-23) Creatinine 1.05 mg/dL (0.550-1.02) Glomerular Filtration Rate Calc 60 mL/min (>90) BUN/Creatinine Ratio 33.3 (10.0-20.0) Serum Glucose 234 mg/dL (74-106) Calcium Level 11.0 mg/dL (8.7-10.4) White Blood Count 13.6 10^3/uL (4.4-10.8) Red Blood Count 4.98 10^6/uL (4.0-5.20) Hemoglobin 15.4 g/dL (12.2-16.2) Hematocrit 45.5 % (36.0-46.0) Mean Corpuscular Volume 91.4 fL (80.0-100.0) Mean Corpuscular Hemoglobin 30.9 pg (28.0-32.0) Mean Corpuscular Hemoglobin Concent 33.8 g/dL (32.0-36.0) Red Cell Distribution Width 14.9 % (11.8-14.3) Platelet Count 375 10^3/uL (140-450) Mean Platelet Volume 7.5 fL (6.9-10.8) Neutrophils (%) (Auto) 86.0 % (37.0-80.0) Lymphocytes (%) (Auto) 9.8 % (10.0-50.0) Monocytes (%) (Auto) 4.0 % (0.0-12.0) Eosinophils (%) (Auto) 0.0 % (0.0-7.0) Basophils (%) (Auto) 0.2 % (0.0-2.0) Neutrophils # (Auto) 11.7 10 ^3/uL (1.6-8.6) Lymphocytes # (Auto) 1.3 10 ^3/uL (0.4-5.4) Monocytes # (Auto) 0.6 10 ^3/uL (0-1.3) Eosinophils # (Auto) 0 10 ^3/uL (0-0.8) Basophils # (Auto) 0 10 ^3/uL (0-0.2) Nucleated Red Blood Cells 0.0 % Total Bilirubin 0.3 mg/dL (0.2-1.0) Aspartate Amino Transferase (AST) 14 U/L (13-40) Alanine Aminotransferase (ALT) 18 U/L (7-40) Alkaline Phosphatase 167 U/L (46-116) Total Protein 8.0 g/dL (5.7-8.2) Albumin 4.2 g/dL (3.2-4.8) Urine Color Colorless (Yellow) Urine Clarity Turbid (Clear) Urine pH 5.5 (5.0-9.0) Urine Specific [place] 1.018 (1.001-1.035) Urine Protein Trace (Negative) Urine Ketones Negative (Negative) Urine Blood Negative /uL (Negative) Urine Nitrite 2+ (Negative) Urine Bilirubin Negative (Negative) Urine Urobilinogen Normal mg/dL (Negative) Urine Leukocyte Esterase 3+ /uL (Negative) Urine RBC 8 /hpf (0 - 4) Urine Microscopic WBC 236 /HPF (0-5) Urine Squamous Epithelial Cells Few /hpf (<5) Urine Bacteria Few /hpf (None Seen) Urine Mucus Few (None Seen) Urine Glucose 4+ mg/dL (Normal) Test 08/25/25 11:31 08/25/25 10:12 Urine Opiates Screen Neg (NEGATIVE) Urine Fentanyl Screen Neg (NEGATIVE) Urine Barbiturates Screen Neg (NEGATIVE) Urine Phencyclidine Screen Neg (NEGATIVE) Urine Amphetamines Screen Pos (NEGATIVE) Urine Benzodiazepines Screen Neg (NEGATIVE) Urine Cocaine Screen Neg (NEGATIVE) Urine Cannabinoids Screen Neg (NEGATIVE) D-Dimer, Quantitative 0.38 mg/L FEU (0.0-0.49) Hemoglobin A1c 9.1 % A1C (<5.7) Lactic Acid Level 1.7 mmol/L (0.4-2.0) Troponin I High Sensitivity 7 ng/L (</=34) B-Type Natriuretic Peptide 12.20 pg/mL (0-100) Other Laboratory Tests 08/27/25 05:17 08/26/25 04:55 Brief Hx & Hospital Course: Jazzy Zuniga is a 60-year-old female with past medical history of CHF, COPD, diabetes, nephrolithiasis, hypothyroidism, hypertension, hyperlipidemia, cholecystectomy, , and hysterectomy who presents to the ED with shortness of breath that started 7:30 this morning while she was asleep. Patient reports that she uses home oxygen 2 L nasal cannula on and off. She also reports that she has been having productive cough with green sputum for the last 1 week. She also states that he uses nebulizers while at home but did not use it this morning when she was short of breath. Patient reports that she is compliant with her medications but does not know the name. She also reports that her primary is Dr. Pandey. Patient denies any recent trauma or injury, recent sick contacts, recent travels, recent ingestion of spoiled food, chest pain, fever, chills, lightheadedness, weakness, dizziness, abdominal pain, nausea, vomiting, diarrhea, or urinary symptoms. Patient also reports that she ambulates without any DMEs. She states that she smokes half a pack of cigarettes per day and uses methamphetamine. 08/26: Continue patient treatment as COPD versus pneumonia. Exacerbation could also be from methamphetamine abuse. She continues to smoke tobacco and methamphetamine. Very poor prognosis. She is back down to home level of oxygen. 08/27: Patient here for COPD versus pneumonia versus meth acute insertion/toxicity. Patient has very poor prognosis that she continues to wean denial on the PACS of tobacco and methamphetamine substance abuses on her body. Patient is breathing better, no work of breathing appears to be back at baseline, appears to be back at home O2 level of 2 L. stable for discharge vital signs stable. We will send home with doxycycline 100 mg b.i.d. for 5 days, prednisone 40 mg daily for 5 days, continue other home medications. Avoid substance abuse which is likely we will be by patient ignored by patient Diagnosis: Acute on chronic hypoxic respiratory failure on supplemental oxygen Acute on chronic COPD , in acute exacerbation, with pneumonitis. pulmnohary HTN, unable to ruleout, due to chronic meth abuse, acute exacerbation possible given recent use Tobacco use, current Methamphetamine use, current, Morbid obesity History of diabetes History of nephrolithiasis History of hypothyroidism History of hyperlipidemia History of hypertension History of cholecystectomy History of History of hysterectomy Plan: - Continue home O2 level of 2 L. - doxycycline 100 mg b.i.d. for 5 days, - prednisone 40 mg daily for 5 days, - continue other home medications. - Avoid substance abuse - Follow up with PCP to review discharge 1-2 weeks - [facility] clinic follow up Condition at Discharge: Poor Final Diagnosis/Problems List Acute on chronic hypoxic respiratory failure on supplemental oxygen Acute on chronic COPD , in acute exacerbation, with pneumonitis. pulmnohary HTN, unable to ruleout, due to chronic meth abuse, acute exacerbation possible given recent use Tobacco use, current Methamphetamine use, current, Morbid obesity History of diabetes History of nephrolithiasis History of hypothyroidism History of hyperlipidemia History of hypertension History of cholecystectomy History of History of hysterectomy Discharge Disposition: Home Discharge Instruct/Medications Scheduled Albuterol Sulfate (Albuterol Sulfate), 0.5 ML NEB PRN, (Reported) Albuterol Sulfate (Albuterol Sulfate Hfa), 108 MCG IN TID Apremilast Base (Otezla), 1 TAB PO BID, (Reported) Atorvastatin Calcium (Atorvastatin Calcium), 1 TAB PO HS, (Reported) Carvedilol (Carvedilol), 12.5 MG PO BID, (Reported) Cinacalcet HCl (Cinacalcet Hydrochloride), 30 MG PO DAILY, (Reported) Ciprofloxacin Hcl (Cipro), 250 MG PO BID Docusate Sodium (Colace), 1 CAP PO BID, (Reported) Ferrous Sulfate (Ferrous Sulfate), 325 MG PO DAILY, (Reported) Fluticasone-Salmeterol (Advair Diskus 500/50), 1 PUFF INH BID Furosemide (Lasix), 1 TAB PO BID, (Reported) Glipizide (Glipizide), 10 MG PO DAILY, (Reported) Levothyroxine Sodium (Levothyroxine Sodium), 1 TAB PO DAILY, (Reported) Losartan Potassium (Losartan Potassium), 1 TAB PO DAILY, (Reported) Potassium Chloride (Klor-Con M20), 20 MEQ PO DAILY, (Reported) Semaglutide (Ozempic), 0.5 MG SC QWEEKLY, (Reported) Discharge Statement: "Patient was advised to return to the ER or call 911 if any headaches, dizziness, shortness of breath, chest pain, abdominal pain, bleeding, fevers, or worsening of medical condition. Patient was counseled about treatment plan, medications, possible side effects, patientverbalized understanding. All questions were answered to the best of my ability. This discharge took greater then 30 minutes in planning, reviewing documentation, counseling the patient, and discussing with other team members." ASSESSMENT ASSESSMENT Assessment Date of Service: Aug 27, 2025 Billing Provider: GIDEON SENA MD Common Visit Codes: [id number] DISCH DAY >30min GIDEON SENA MD Aug 27, 2025 11:45
[2025-08-27] MEDS ORDERED: DOXY100C79 PO (13:51)
[2025-08-27] MEDS ORDERED: PRED20TA2 PO (13:51)
== END 2025-08-27 18:55 | disposition home or self-care (01) | DRG 140 ==
LOC: EDBD 07:56 → ER 07:56 → OVERFLOW 11:31 → CENTRAL 08-26 05:07
DX: J44.1 Chronic obstructive pulmonary disease with (acute) exacerbation (principal); J96.21 Acute and chronic respiratory failure with hypoxia; I50.31 Acute diastolic (congestive) heart failure; R65.11 Systemic inflammatory response syndrome (SIRS) of non-infectious origin with acute organ dysfunction; I11.0 Hypertensive heart disease with heart failure; Z99.81 Dependence on supplemental oxygen; J44.0 Chronic obstructive pulmonary disease with (acute) lower respiratory infection; E66.01 Morbid (severe) obesity due to excess calories; E11.9 Type 2 diabetes mellitus without complications; E03.9 Hypothyroidism, unspecified; F15.10 Other stimulant abuse, uncomplicated; E78.5 Hyperlipidemia, unspecified; F17.210 Nicotine dependence, cigarettes, uncomplicated; J98.4 Other disorders of lung; Z87.442 Personal history of urinary calculi; Z90.49 Acquired absence of other specified parts of digestive tract; Z90.710 Acquired absence of both cervix and uterus; Z88.8 Allergy status to other drugs, medicaments and biological substances; Z68.42 Body mass index [BMI] 45.0-49.9, adult
CPT/HCPCS: 36415; 71045; 80048; 80053; 80307; 81001; 82962; 83036; 83605; 83880; 84484; 85025; 85379; 87040; 93005; 94640; 96374; G0378; J1815